=== PATIENT | female | born 1985 | race African-American/Black ===

== ENCOUNTER 2016-06-17 09:34 | Emergency (ER) | payer OTHER ==
[~2016-06-17] VITALS: Wt 90.9 kg
[~2016-06-17 09:34] MED LIST: ADV25050 INH; DOCU-144 PO; FER325 PO; HYDR-906 PO; MONT10TA24 PO; NYST15CR28 TOP; TBR.3OP5 RIGHT EYE
[2016-06-17 11:23] LABS: URINE BLOOD (Dip) POC Negative (NEGATIVE)
[2016-06-17 11:55] LABS: ALBUMIN 4.3 g/dl (3.3-4.9); POTASSIUM 3.5 mmol/L (3.5-5.1)
[2016-06-17 11:56] LABS: HEMATOCRIT 24.2 % (37.0-47.0); HEMOGLOBIN 7.7 g/dl (12.0-16.0); MEAN CORPUSCULAR HEMOGLOBIN 22.7 pg (29.0-33.0); MEAN CORPUSCULAR HGB CONC 31.8 g/dl (32.0-37.0); MEAN CORPUSCULAR VOLUME 71.2 fl (82.0-101.0); MEAN PLATELET VOLUME 8.5 fl (7.4-10.4); PLATELET COUNT 535 10^3/UL (140-440); UNCORRECTED WBC 8.3 10^3/ul (4.8-10.8); WHITE BLOOD COUNT 8.3 10^3/ul (4.8-10.8)
[2016-06-17 11:57] LABS: CREATININE 0.69 mg/dl (0.44-1.00)
[2016-06-17 11:58] LABS: ALBUMIN/GLOBULIN RATIO 1.22; CONDITION 1; LH ANALYZER COMMENTS 1; TOTAL PROTEIN 7.8 g/dl (6.1-8.1)
[2016-06-17 11:59] LABS: CALCIUM 8.9 mg/dl (8.4-10.2)
--- NOTE | 2016-06-17 12:00 | RADRPT ---
PROCEDURE: US Pelvis CLINICAL INDICATION: Pelvic pain. TECHNIQUE: Transabdominal and transvaginal sonographic evaluation of the pelvis was performed. COMPARISON: 04/13/2016. FINDINGS: There is an enlarged heterogeneous uterus with multiple uterine fibroids; largest is a posterior sub mucosal fibroid measuring 3.4 x 3.9 cm. There is poor visualization of the endometrial stripe. Normal flow to both ovaries. No adnexal mass. Normal-appearing follicles are identified within the bilateral ovaries. Small free pelvic fluid, likely physiologic. MEASUREMENTS: Uterus: 10.3 x 7.8 cm, anteverted. Right ovary size: 4.5 x 2.8 x 3.9 cm Left ovary size: 3.7 x 2.6 x 3.0 cm IMPRESSION: Heterogeneous uterus with multiple uterine uterine fibroids with poor visualization of the endometri um. Normal-appearing follicles identified within the bilateral ovaries without worrisome adnexal cyst or mass. Small free fluid in the pelvis, likely physiologic. RPTAT: EE .Glenn Alcazar MD, MD Date Time Electronically viewed and signed by .Glenn Alcazar MD, on 06/17/2016 12:03 .C/
[2016-06-17 12:05] LABS: INR 1.02; PROTIME 13.4 Sec (12.2-14.2)
[2016-06-17 12:25] LABS: EOSINOPHILS # 0.6 10^3/ul (0.0-0.5); LYMPHOCYTES # 1.9 10^3/ul (0.8-2.9); MONOCYTE # 0.9 10^3/ul (0.3-0.9); NEUTROPHIL # 4.9 10^3/ul (1.6-7.5)
[2016-06-17 12:26] LABS: ANISOCYTOSIS 2+; HYPOCHROMASIA 2+; MICROCYTOSIS 2+; OVALOCYTES OCCASIONAL
[2016-06-17] MEDS ORDERED: FER325 PO (12:31)
[2016-06-17] MEDS ORDERED: ASCO500C7 PO (12:32)
[2016-06-17] MEDS ORDERED: FERROUS SULFATE (EC) 325 MG TAB PO ONE (13:00)
--- NOTE | 2016-06-17 17:09 | ERD ---
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 Patient states that her symptoms started approximately one week ago. Patient describes the pain to be a 7 out of 10. She states that her symptoms are episodic in nature. Patient denies fever, chills, nausea or vomiting. Patient denies any vaginal bleeding, melena or hematochezia. States her last bowel movement yesterday. She denies any dysuria, frequency or hematuria. She denies any lightheadness, or loss of consciousness. She states that she's not been taking iron supplements that she was prescribed. Of note, at previous hospitalization, patient was noted to leave against medical advice despite being placed on a 5150. ROS All systems reviewed and are negative except as per history of present illness. Medications Home Meds Active Scripts Ascorbic Acid* (Vitamin C*) 500 Mg Capsule.sa, 500 MG PO TID, #90 CAP Prov:RACHEL LAUREN PA-C 06/17/16 Ferrous Sulfate* (Ferrous Sulfate*) 325 Mg Tabec, 325 MG PO TID for 30 Days, # 90 TAB Prov:RACHEL LAUREN PA-C 06/17/16 Hydrocodone/Acetaminophen ([place] 5-325 Tablet) 1 Each Tablet, 1 EACH PO Q6 Y for PAIN, #20 TAB Prov:LEILANI BABB NP 04/16/16 Tobramycin Sulfate* (Tobrex*) 0.3%-5ml Opht, 1 DROP RIGHT EYE QID for 7 Days, # 1 BOTTLE Prov:LEILANI BABB NP 04/16/16 Nystatin* (Nystatin*) 15 Gm Cr, 1 APPLIC TOP BID, #1 TUB TO APPLY UNDER BREAST AREA Prov:LEILANI BABB NP 04/16/16 Salmeterol Xinaf/Fluticasone* (Advair*) 250-50 Diskus Inhaler, 1 INH INH BID, # 1 INHALER Prov:LEILANI BABB NP 04/16/16 Montelukast Sodium* (Montelukast Sodium*) 10 Mg Tablet, 10 MG PO HS for 30 Days , TAB Prov:BABB,LEILANI V. CERTIFIED WELLNESS PROGRAM COORDINATOR 04/16/16 Docusate Sodium* (Colace*) 100 Mg Capsule, 100 MG PO BID, #60 CAP Prov:BABB,LEILANI V. CERTIFIED WELLNESS PROGRAM COORDINATOR 04/16/16 Ferrous Sulfate* (Ferrous Sulfate*) 325 Mg Tabec, 325 MG PO BID for 30 Days, TAB Prov:BABB,LEILANI V. CERTIFIED WELLNESS PROGRAM COORDINATOR 04/16/16 Allergies Allergies: Coded Allergies: No Known Allergy (Unverified , 04/13/16) PMhx/Soc History of Surgery: Yes (fibroidectomy) Anesthesia Reaction: No Hx Neurological Disorder: No Hx Respiratory Disorders: No Hx Cardiac Disorders: No Hx Psychiatric Problems: Yes Hx Miscellaneous Medical Probl: Yes (Anemia) Hx Alcohol Use: Yes Hx Substance Use: Yes Hx Tobacco Use: No Physical Exam Vitals Vital Signs Date Time Temp Pulse Resp B/P Pulse Ox O2 Delivery O2 Flow Rate FiO2 06/17/16 09:58 98.9 90 20 128/67 99 Physical Exam GENERAL: Well-developed, well-nourished female. Appears in no acute distress. HEAD: Normocephalic, atraumatic. EYES: Pupils are equally reactive bilaterally. EOMs grossly intact. No conjunctival erythema. No Conjunctiva pallor ENT: Moist mucous membranes. No uvula deviation. No kissing tonsils. NECK: Supple. No lymphadenopathy or thyromegaly. No meningismus. LUNG: Clear to auscultation bilaterally. No rhonchi, wheezing, rales or coarse breath sounds. HEART: Regular rate and rhythm. No murmurs, rubs or gallops. ABDOMEN: Soft and nondistended. Tender to palpation in the suprapubic region. Positive bowel sounds in all four quadrants. No rebound tenderness, no guarding. (-) McBurneys point tenderness. No CVA tenderness. BACK: No midline tenderness. EXTREMITIES: Equal pulses bilaterally. No peripheral clubbing, cyanosis or edema. No unilateral leg swelling. NEUROLOGIC: Alert and oriented. Moving all four extremities without any difficulty. Normal speech. Steady gait. SKIN: Normal color. Warm and dry. No rashes or lesions. PSYCH: Randomly laughing throughout history taking and physical exam at inappropriate times. Result Diagram: 06/17/16 1124 06/17/16 1124 Results 24 hrs Laboratory Tests Test 06/17/16 11:23 06/17/16 11:24 Bedside Urine Blood Negative Bedside Urine Glucose (UA) Negative Bedside Urine Ketones (LAB) Negative Bedside Urine Leukocyte Esterase (L Negative Bedside Urine Nitrite (LAB) Negative Bedside Urine Protein (LAB) Trace Bedside Urine pH (LAB) 5.5 Activated Partial Thromboplast Time 33.0Sec Alanine Aminotransferase (ALT/SGPT) 18IU/L Albumin 4.3g/dl Albumin/Globulin Ratio 1.22 Alkaline Phosphatase 49IU/L Anion Gap 17 Anisocytosis 2+ Aspartate Amino Transf (AST/SGOT) 16IU/L Blood Morphology Comment Blood Urea Nitrogen 10mg/dl Calcium Level 8.9mg/dl Carbon Dioxide Level 21mmol/L Chloride Level 109mmol/L Creatinine 0.69mg/dl Differential Comment MANUAL DIFF Direct Bilirubin 0.00mg/dl Eosinophils # 0.610^3/ul Eosinophils % 7.0% Globulin 3.50g/dl Glucose Level 92mg/dl Hematocrit 24.2% Hemoglobin 7.7g/dl Hypochromasia 2+ INR International Normalized Ratio 1.02 Indirect Bilirubin 0.0mg/dl Large Platelets FEW Lymphocytes # 1.910^3/ul Lymphocytes % 23.0% Mean Corpuscular Hemoglobin 22.7pg Mean Corpuscular Hemoglobin Concent 31.8g/dl Mean Corpuscular Volume 71.2fl Mean Platelet Volume 8.5fl Microcytosis 2+ Monocytes # 0.910^3/ul Monocytes % 11.0% Neutrophils # 4.910^3/ul Neutrophils % 59.0% Nucleated Red Blood Cells # 10^3/ul Nucleated Red Blood Cells % /100WBC Ovalocytes OCCASIONAL Platelet Count 67138^3/UL Potassium Level 3.5mmol/L Prothrombin Time 13.4Sec Prothrombin Time Ratio 1.0 Red Blood Count 3.4010^6/ul Red Cell Distribution Width 24.0% Sodium Level 143mmol/L Total Bilirubin 0.0mg/dl Total Protein 7.8g/dl White Blood Count 8.310^3/ul Current Medications Medications (Trade) Dose Ordered Sig/Braden Route PRN Reason Start Time Stop Time Status Last Admin Dose Admin Ferrous Sulfate (Ferrous Sulfate (Ec)) 325 mg ONCE ONCE PO 06/17/16 13:00 06/17/16 13:00 DC Procedures/MDM ED COURSE: The patient was stable throughout ED course. I kept the patient and/or family informed of laboratory and diagnostic imaging results throughout the ED course. DIAGNOSTIC IMAGING: Read by radiologist. DIAGNOSTIC IMAGING REPORT Patient: JUDSON FELDMAN : 1985 Age: 30 Sex: F MR #: [id number] DOS: 06/17/16 1105 Ordering MD: RACHEL LAUREN PA-C Location: [facility] Room/Bed: PROCEDURE: US Pelvis CLINICAL INDICATION: Pelvic pain. TECHNIQUE: Transabdominal and transvaginal sonographic evaluation of the pelvis was performed. COMPARISON: 04/13/2016. FINDINGS: There is an enlarged heterogeneous uterus with multiple uterine fibroids; largest is a posterior submucosal fibroid measuring 3.4 x 3.9 cm. There is poor visualization of the endometrial stripe. Normal flow to both ovaries. No adnexal mass. Normal-appearing follicles are identified within the bilateral ovaries. Small free pelvic fluid, likely physiologic. MEASUREMENTS: Uterus: 10.3 x 7.8 cm, anteverted. Right ovary size: 4.5 x 2.8 x 3.9 cm Left ovary size: 3.7 x 2.6 x 3.0 cm IMPRESSION: Heterogeneous uterus with multiple uterine uterine fibroids with poor visualization of the endometrium. Normal-appearing follicles identified within the bilateral ovaries without worrisome adnexal cyst or mass. Small free fluid in the pelvis, likely physiologic. RPTAT: EE .Glenn Alcazar MD, Date Time Electronically viewed and signed by .Glenn Alcazar MD, on 06/17/2016 12:03 .C/ CC: RACHEL LAUREN PA-C MEDICATIONS GIVEN: Ferrous sulfate Patient tolerated medication well with no adverse reactions. Patient reported improvement in pain. MEDICAL DECISION MAKING: This is a 30-year-old female with past medical history of anemia who presents with lower abdominal pain and cramping times one week. Patient denied any signs of active bleeding including melena, hematochezia, vaginal bleeding. Vital signs were reviewed. Patient is afebrile, patient was not hypoxic. Patient was hemodynamically stable. Abdominal exam revealed tenderness to palpation in suprapubic region. CBC showed no evidence of systemic infection. Patient's hemoglobin level was 7.7, with hematocrit of 24.2. Platelet count CMP showed no evidence of electrolyte abnormalities, severe acidosis, alkalosis, renal failure , or liver disease. Lipase showed no evidence of acute pancreatitis. Urine dip showed no evidence of acute infection or hematuria. Low suspicion for UTI, pyelonephritis or nephrolithiasis. Urine test was negative. Pelvic ultrasound showed Heterogeneous uterus with multiple uterine uterine fibroids with poor visualization of the endometrium. Normal-appearing follicles identified within the bilateral ovaries without worrisome adnexal cyst or mass. Small free fluid in the pelvis, likely physiologic. At this time, patient's presentation is most consistent with anemia and uterine fibroids. I have a much lower clinical concern for a pancreatitis, splenic rupture, diverticulitis, UTI, pyelonephritis, nephrolithiasis, appendicitis, constipation, , ectopic , PID, ovarian torsion or tubo- ovarian abscess. I discussed the case with my supervising physician Dr. Griffin, who advised me to speak with patient in regards to getting a blood transfusion here in the ED. I had discussion with patient regarding her hemoglobin levels. I advised the patient at this time, she could benefit from a blood transfusion. I discussed the risks of not having a blood transfusion with the patient including blood loss or . Patient continued to refuse treatment despite my attempts and nursing staff attempts. Patient stated that she wished to go home at this time. I advised patient that she needs to start taking iron supplements daily. Patient stated that "I am not going to lie to you, I am not going to take the medication because it makes me constipated." I discussed the patient's options with her again, and strongly urged her to take iron supplements. I advised that the patient to take vitamin C supplements to avoid constipation while on iron supplementation. Patient was advised to return immediately to emergency department for any new or worsening concerns including abdominal pain, nausea, vomiting, lightheadedness, loss of consciousness. PRESCRIPTIONS: Ferrous sulfate supplements, Vitamin C DISCHARGE: At this time, patient is stable for discharge and outpatient management. Dr. Griffin, my supervising physician, agreed that the patient is stable for outpatient management and should start Fe supplementation with Vitamin C daily. I have instructed the patient to follow-up with his/her primary care physician in 1-2 days. I have instructed the patient to promptly return to the ER at any time for any new or worsening symptoms including increased pain, nausea, vomiting, diarrhea, fever, weakness or LOC. The patient and/or family expressed understanding of and agreement with this plan. All questions were answered. Home care instructions were provided. Departure Diagnosis: Primary Impression: Anemia Anemia type: unspecified type Qualified Code: D64.9 - Anemia, unspecified type Additional Impressions: Abdominal pain Abdominal location: lower abdomen, unspecified Qualified Code: R10.30 - Lower abdominal pain Fibroid uterus Uterine leiomyoma location: unspecified location Qualified Code: D25.9 - Uterine leiomyoma, unspecified location Condition: Stable Patient Instructions: Anemia, Iron Deficiency (Adult) Referrals: [facility] YOU HAVE RECEIVED A MEDICAL SCREENING EXAM AND THE RESULTS INDICATE THAT YOU DO NOT HAVE A CONDITION THAT REQUIRES URGENT TREATMENT IN THE EMERGENCY DEPARTMENT. FURTHER EVALUATION AND TREATMENT OF YOUR CONDITION CAN WAIT UNTIL YOU ARE SEEN IN YOUR DOCTORS OFFICE WITHIN THE NEXT 1-2 DAYS. IT IS YOUR RESPONSIBILITY TO MAKE AN APPOINTMENT FOR FOLOW-UP CARE. IF YOU HAVE A PRIMARY DOCTOR --you should call your primary doctor and schedule an appointment IF YOU DO NOT HAVE A PRIMARY DOCTOR YOU CAN CALL OUR PHYSICIAN REFERRAL HOTLINE AT IF YOU CAN NOT AFFORD TO SEE A PHYSICIAN YOU CAN CHOSE FROM THE FOLLOWING [facility] [address] [facility] [address] [facility] [address] [facility] [address] [facility] [address] [facility]. [facility]. [address] [facility]. [facility] YOU HAVE RECEIVED A MEDICAL SCREENING EXAM AND THE RESULTS INDICATE THAT YOU DO NOT HAVE A CONDITION THAT REQUIRES URGENT TREATMENT IN THE EMERGENCY DEPARTMENT. FURTHER EVALUATION AND TREATMENT OF YOUR CONDITION CAN WAIT UNTIL YOU ARE SEEN IN YOUR DOCTORS OFFICE WITHIN THE NEXT 1-2 DAYS. IT IS YOUR RESPONSIBILITY TO MAKE AN APPOINTMENT FOR FOLOW-UP CARE. IF YOU HAVE A PRIMARY DOCTOR --you should call your primary doctor and schedule and appointment IF YOU DO NOT HAVE A PRIMARY DOCTOR YOU CAN CALL OUR PHYSICIAN REFERRAL HOTLINE AT . IF YOU CAN NOT AFFORD TO SEE A PHYSICIAN YOU CAN CHOSE FROM THE FOLLOWING [facility] INSTITUTIONS: [facility] [address] [place] [address] [facility] [address] [place] [address] [facility] [address] [place] [address] Additional Instructions: Call your primary care doctor TOMORROW for an appointment during the next 1-2 days.See the doctor sooner or return here if your condition worsens before your appointment time. Take iron supplements as prescribed. Take with Vitamin C to prevent constipation. RACHEL LAUREN PA-C Jun 17, 2016 17:09
== END 2016-06-17 12:46 | disposition home or self-care (01) ==
LOC: FTE 09:34
DX: D64.9 Anemia, unspecified (principal); R10.2 Pelvic and perineal pain
CPT/HCPCS: 76830; 76856; 80053; 81003; 85025; 85610; 85730; Z7502

== ENCOUNTER 2016-07-19 16:41 | Emergency (ER) | payer SELFPAY ==
[~2016-07-19] VITALS: Wt 110.0 kg
[~2016-07-19 16:41] MED LIST changes: +ASCO500C7 PO
== END 2016-07-19 18:50 | disposition left against medical advice (07) ==
LOC: FTE 16:41
DX: Z53.21 Procedure and treatment not carried out due to patient leaving prior to being seen by health care provider (principal)

== ENCOUNTER 2016-08-03 09:26 | Emergency (ER) | payer OTHER ==
[~2016-08-03] VITALS: Ht 177.8 cm; Wt 109.0 kg
[2016-08-03 09:37] VITALS: Ht 177.8 cm; Wt 109.0 kg
--- NOTE | 2016-08-03 09:54 | ERD ---
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 ROS All systems reviewed and are negative except as per history of present illness. Medications Home Meds Discontinued Scripts Ascorbic Acid* (Vitamin C*) 500 Mg Capsule.sa, 500 MG PO TID, #90 CAP Prov:RACHEL LAUREN PA-C 06/17/16 Ferrous Sulfate* (Ferrous Sulfate*) 325 Mg Tabec, 325 MG PO TID for 30 Days, # 90 TAB Prov:RACHEL LAUREN PA-C 06/17/16 Hydrocodone/Acetaminophen ([place] 5-325 Tablet) 1 Each Tablet, 1 EACH PO Q6 Y for PAIN, #20 TAB Prov:LEILANI BABB NP 04/16/16 Tobramycin Sulfate* (Tobrex*) 0.3%-5ml Opht, 1 DROP RIGHT EYE QID for 7 Days, # 1 BOTTLE Prov:LEILANI BABB NP 04/16/16 Nystatin* (Nystatin*) 15 Gm Cr, 1 APPLIC TOP BID, #1 TUB TO APPLY UNDER BREAST AREA Prov:LEILANI BABB NP 04/16/16 Salmeterol Xinaf/Fluticasone* (Advair*) 250-50 Diskus Inhaler, 1 INH INH BID, # 1 INHALER Prov:LEILANI BABB NP 04/16/16 Montelukast Sodium* (Montelukast Sodium*) 10 Mg Tablet, 10 MG PO HS for 30 Days , TAB Prov:LEILANI BABB NP 04/16/16 Docusate Sodium* (Colace*) 100 Mg Capsule, 100 MG PO BID, #60 CAP Prov:SHARON BABBA [place] 04/16/16 Ferrous Sulfate* (Ferrous Sulfate*) 325 Mg Tabec, 325 MG PO BID for 30 Days, TAB Prov:LEILANI BABB NP 04/16/16 Allergies Allergies: Coded Allergies: No Known Allergy (Unverified , 08/03/16) PMhx/Soc History of Surgery: Yes (fibroidectomy) Anesthesia Reaction: No Hx Neurological Disorder: No Hx Respiratory Disorders: No Hx Cardiac Disorders: No Hx Psychiatric Problems: Yes Hx Miscellaneous Medical Probl: Yes (Anemia) Hx Alcohol Use: Yes Hx Substance Use: Yes Hx Tobacco Use: No Physical Exam Vitals Vital Signs Date Time Temp Pulse Resp B/P Pulse Ox O2 Delivery O2 Flow Rate FiO2 08/03/16 12:09 98.7 81 20 132/100 100 Room Air 08/03/16 11:22 66 20 141/85 98 Room Air 08/03/16 09:37 98.8 95 16 143/75 97 Result Diagram: 08/03/16 1020 08/03/16 1020 Results 24 hrs Laboratory Tests Test 08/03/16 10:20 08/03/16 10:40 Alanine Aminotransferase (ALT/SGPT) 17IU/L Albumin 4.2g/dl Albumin/Globulin Ratio 1.05 Alkaline Phosphatase 48IU/L Anion Gap 18 Aspartate Amino Transf (AST/SGOT) 22IU/L Basophils # 0.010^3/ul Basophils % 0.5% Blood Urea Nitrogen 14mg/dl Calcium Level 9.4mg/dl Carbon Dioxide Level 23mmol/L Chloride Level 107mmol/L Creatinine 0.79mg/dl Direct Bilirubin 0.00mg/dl Eosinophils # 0.310^3/ul Eosinophils % 3.4% Globulin 4.00g/dl Glucose Level 91mg/dl Hematocrit 23.5% Hemoglobin 6.8g/dl Indirect Bilirubin 0.0mg/dl Lipase 82U/L Lymphocytes # 2.310^3/ul Lymphocytes % 28.9% Mean Corpuscular Hemoglobin 21.9pg Mean Corpuscular Hemoglobin Concent 28.9g/dl Mean Corpuscular Volume 75.8fl Mean Platelet Volume 10.0fl Monocytes # 0.610^3/ul Monocytes % 7.9% Neutrophils # 4.710^3/ul Neutrophils % 58.8% Nucleated Red Blood Cells # 0.010^3/ul Nucleated Red Blood Cells % 0.3/100WBC Platelet Count 97381^3/UL Potassium Level 3.8mmol/L Red Blood Count 3.1010^6/ul Red Cell Distribution Width 23.7% Sodium Level 144mmol/L Total Bilirubin 0.0mg/dl Total Protein 8.2g/dl White Blood Count 8.010^3/ul Bedside Urine Blood Trace-lysed Bedside Urine Glucose (UA) Negative Bedside Urine Ketones (LAB) Negative Bedside Urine Leukocyte Esterase (L Negative Bedside Urine Nitrite (LAB) Negative Bedside Urine Protein (LAB) Negative Bedside Urine pH (LAB) 6.0 Current Medications Medications (Trade) Dose Ordered Sig/Braden Route PRN Reason Start Time Stop Time Status Last Admin Dose Admin Sodium Chloride (NS) 1,000 ml @ 1,000 mls/hr Q1H STAT IV 08/03/16 10:05 08/03/16 11:04 DC 08/03/16 10:23 Ondansetron HCl (Zofran Inj) 4 mg ONCE STAT IV 08/03/16 10:05 08/03/16 10:08 DC 08/03/16 10:23 Ketorolac Tromethamine 30 mg 30 mg ONCE STAT IV 08/03/16 10:05 08/03/16 10:08 DC 08/03/16 10:23 Sodium Chloride (NS) 250 ml @ 0 mls/hr Q0M ONCE IV 08/03/16 11:14 08/03/16 11:16 DC Departure Condition: Stable RACHEL LAUREN PA-C Aug 03, 2016 09:54
[2016-08-03] MEDS ORDERED: KETOROLAC 30 MG INJ IV STA (10:05)
[2016-08-03] MEDS ORDERED: ONDANSETRON 4 MG INJ IV STA (10:05)
[2016-08-03] MEDS ORDERED: SOD CHLORIDE 0.9% 1,000 ML IV STA (10:05)
[2016-08-03 10:37] LABS: URINE BLOOD (Dip) POC Trace-lysed (NEGATIVE)
[2016-08-03 10:42] LABS: ADD SCAN DIFF NO
[2016-08-03 10:56] LABS: ABNORMAL IP MESSAGE 1; BASOPHILS % 0.5 % (0.0-2.0); EOSINOPHILS # 0.3 10^3/ul (0.0-0.5); EOSINOPHILS % 3.4 % (0.0-7.0); HEMATOCRIT 23.5 % (37.0-47.0); LYMPHOCYTES # 2.3 10^3/ul (0.8-2.9); LYMPHOCYTES % 28.9 % (15.0-51.0); MEAN CORPUSCULAR HEMOGLOBIN 21.9 pg (29.0-33.0); MEAN CORPUSCULAR HGB CONC 28.9 g/dl (32.0-37.0); MEAN CORPUSCULAR VOLUME 75.8 fl (82.0-101.0); MONOCYTE # 0.6 10^3/ul (0.3-0.9); MONOCYTES % 7.9 % (0.0-11.0); NEUTROPHIL # 4.7 10^3/ul (1.6-7.5); NEUTROPHILS % 58.8 % (39.0-77.0); NUCLEATED RED BLOOD CELLS% 0.3 /100WBC (0.0-0.0); PLATELET COUNT 663 10^3/UL (140-415); RED CELL DISTRIBUTION WIDTH 23.7 % (11.5-14.5)
[2016-08-03 11:06] LABS: HEMOGLOBIN 6.8 g/dl (12.0-16.0)
[2016-08-03 11:12] LABS: ALBUMIN 4.2 g/dl (3.3-4.9)
[2016-08-03 11:13] LABS: POTASSIUM 3.8 mmol/L (3.5-5.1)
[2016-08-03] MEDS ORDERED: SOD CHLORIDE 0.9% 250 ML IV ONE (11:14)
[2016-08-03 11:15] LABS: ALBUMIN/GLOBULIN RATIO 1.05; CREATININE 0.79 mg/dl (0.44-1.00); TOTAL PROTEIN 8.2 g/dl (6.1-8.1)
[2016-08-03 11:16] LABS: CALCIUM 9.4 mg/dl (8.4-10.2)
[2016-08-03] MEDS ORDERED: FER325 PO (12:43)
--- NOTE | 2016-08-03 12:43 | ERD ---
ER Documentation Chief Complaint Date/Time DATE: 08/03/16 TIME: 12:39 Chief Complaint CONSTANT HEADACHE W/ DIZZINESS & NAUSEA X1 WEEK HPI This 30-year-old female presents to the emergency room for evaluation of weakness, nausea, and heavy menstrual cycle for the past week. The patient does say she has a history of fibroids and has had a myomectomy in the past. She states that she was on her menstrual cycle and did note heavy vaginal bleeding. She came to the ER today for evaluation of weakness. She did state that she is supposed be taking iron supplement however she has not been taking it. ROS All systems reviewed and are negative except as per history of present illness. Medications Home Meds Discontinued Scripts Ascorbic Acid* (Vitamin C*) 500 Mg Capsule.sa, 500 MG PO TID, #90 CAP Prov:RACHEL LAUREN PA-C 06/17/16 Ferrous Sulfate* (Ferrous Sulfate*) 325 Mg Tabec, 325 MG PO TID for 30 Days, # 90 TAB Prov:RACHEL LAUREN PA-C 06/17/16 Hydrocodone/Acetaminophen (Mesa 5-325 Tablet) 1 Each Tablet, 1 EACH PO Q6 Y for PAIN, #20 TAB Prov:LEILANI BABB NP 04/16/16 Tobramycin Sulfate* (Tobrex*) 0.3%-5ml Opht, 1 DROP RIGHT EYE QID for 7 Days, # 1 BOTTLE Prov:LEILANI BABB NP 04/16/16 Nystatin* (Nystatin*) 15 Gm Cr, 1 APPLIC TOP BID, #1 TUB TO APPLY UNDER BREAST AREA Prov:LEILANI BABB NP 04/16/16 Salmeterol Xinaf/Fluticasone* (Advair*) 250-50 Diskus Inhaler, 1 INH INH BID, # 1 INHALER Prov:LEILANI BABB NP 04/16/16 Montelukast Sodium* (Montelukast Sodium*) 10 Mg Tablet, 10 MG PO HS for 30 Days , TAB Prov:LEILANI BABB NP 04/16/16 Docusate Sodium* (Colace*) 100 Mg Capsule, 100 MG PO BID, #60 CAP Prov:LEILANI BABB NP 04/16/16 Ferrous Sulfate* (Ferrous Sulfate*) 325 Mg Tabec, 325 MG PO BID for 30 Days, TAB Prov:LEILANI BABB V. 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 Allergies Allergies: Coded Allergies: No Known Allergy (Unverified , 08/03/16) PMhx/Soc History of Surgery: Yes (fibroidectomy) Anesthesia Reaction: No Hx Neurological Disorder: No Hx Respiratory Disorders: No Hx Cardiac Disorders: No Hx Psychiatric Problems: Yes Hx Miscellaneous Medical Probl: Yes (Anemia) Hx Alcohol Use: Yes Hx Substance Use: Yes Hx Tobacco Use: No Physical Exam Vitals Vital Signs Date Time Temp Pulse Resp B/P Pulse Ox O2 Delivery O2 Flow Rate FiO2 08/03/16 12:09 98.7 81 20 132/100 100 Room Air 08/03/16 11:22 66 20 141/85 98 Room Air 08/03/16 09:37 98.8 95 16 143/75 97 Physical Exam INITIAL VITAL SIGNS: Reviewed by me GENERAL: The patient is well developed and appropriate for usual state of health in no apparent distress HEENT: Pupils equal, round, and reactive to light. EOMI. There is no scleral icterus. NECK: C-spine is soft and supple, there is no meningismus. There is no cervical lymphadenopathy. LUNGS: Clear to auscultation bilaterally. There are no rales, wheezes or rhonchi. HEART: Regular rate and rhythm, no murmurs, clicks, rubs or gallops. ABDOMEN: Soft, non-tender, non-distended. There are bowel sounds in all four quadrants. No rebound or guarding. EXTREMITIES: There is no peripheral cyanosis or edema. No focal swelling or erythema. NEUROLOGICAL: The patient moves all four extremities with 5/5 strength. Cranial nerves II - XII are intact. Normal gait. Alert and oriented SKIN: There is no apparent rash or petechiae. HEME/LYMPHATIC: There is no evidence of excessive bruising or lymphedema. PSYCHIATRIC: The patient does not appear anxious or depressed. Result Diagram: 08/03/16 1020 08/03/16 1020 Results 24 hrs Laboratory Tests Test 08/03/16 10:20 08/03/16 10:40 Alanine Aminotransferase (ALT/SGPT) 17IU/L Albumin 4.2g/dl Albumin/Globulin Ratio 1.05 Alkaline Phosphatase 48IU/L Anion Gap 18 Aspartate Amino Transf (AST/SGOT) 22IU/L Basophils # 0.010^3/ul Basophils % 0.5% Blood Urea Nitrogen 14mg/dl Calcium Level 9.4mg/dl Carbon Dioxide Level 23mmol/L Chloride Level 107mmol/L Creatinine 0.79mg/dl Direct Bilirubin 0.00mg/dl Eosinophils # 0.310^3/ul Eosinophils % 3.4% Globulin 4.00g/dl Glucose Level 91mg/dl Hematocrit 23.5% Hemoglobin 6.8g/dl Indirect Bilirubin 0.0mg/dl Lipase 82U/L Lymphocytes # 2.310^3/ul Lymphocytes % 28.9% Mean Corpuscular Hemoglobin 21.9pg Mean Corpuscular Hemoglobin Concent 28.9g/dl Mean Corpuscular Volume 75.8fl Mean Platelet Volume 10.0fl Monocytes # 0.610^3/ul Monocytes % 7.9% Neutrophils # 4.710^3/ul Neutrophils % 58.8% Nucleated Red Blood Cells # 0.010^3/ul Nucleated Red Blood Cells % 0.3/100WBC Platelet Count 96958^3/UL Potassium Level 3.8mmol/L Red Blood Count 3.1010^6/ul Red Cell Distribution Width 23.7% Sodium Level 144mmol/L Total Bilirubin 0.0mg/dl Total Protein 8.2g/dl White Blood Count 8.010^3/ul Bedside Urine Blood Trace-lysed Bedside Urine Glucose (UA) Negative Bedside Urine Ketones (LAB) Negative Bedside Urine Leukocyte Esterase (L Negative Bedside Urine Nitrite (LAB) Negative Bedside Urine Protein (LAB) Negative Bedside Urine pH (LAB) 6.0 Current Medications Medications (Trade) Dose Ordered Sig/Braden Route PRN Reason Start Time Stop Time Status Last Admin Dose Admin Sodium Chloride (NS) 1,000 ml @ 1,000 mls/hr Q1H STAT IV 08/03/16 10:05 08/03/16 11:04 DC 08/03/16 10:23 Ondansetron HCl (Zofran Inj) 4 mg ONCE STAT IV 08/03/16 10:05 08/03/16 10:08 DC 08/03/16 10:23 Ketorolac Tromethamine 30 mg 30 mg ONCE STAT IV 08/03/16 10:05 08/03/16 10:08 DC 3/3/17 10:23 Sodium Chloride (NS) 250 ml @ 0 mls/hr Q0M ONCE IV 08/03/16 11:14 08/03/16 11:16 DC Procedures/MDM This 30-year-old female presents to the emergency room for evaluation of generalized weakness and heavy vaginal bleeding. She does have a history of fibroids and leiomyomas with a previous myomectomy. This patient has had hemoglobins as low as 80 in the past. Today I did obtain lab work and her hemoglobin was 6.8. She is not hypotensive, not tachycardic. She was transfused 2 units of packed red blood cells and will be discharged home after transfusions complete. Advised her to take her iron supplements as she is prescribed and she verbalized understanding Departure Diagnosis: Primary Impression: Microcytic anemia Additional Impression: Menorrhagia Condition: Stable Patient Instructions: Anemia, Iron Deficiency (Adult) Referrals: COMMUNITY CLINICS YOU HAVE RECEIVED A MEDICAL SCREENING EXAM AND THE RESULTS INDICATE THAT YOU DO NOT HAVE A CONDITION THAT REQUIRES URGENT TREATMENT IN THE EMERGENCY DEPARTMENT. FURTHER EVALUATION AND TREATMENT OF YOUR CONDITION CAN WAIT UNTIL YOU ARE SEEN IN YOUR DOCTORS OFFICE WITHIN THE NEXT 1-2 DAYS. IT IS YOUR RESPONSIBILITY TO MAKE AN APPOINTMENT FOR FOLOW-UP CARE. IF YOU HAVE A PRIMARY DOCTOR --you should call your primary doctor and schedule an appointment IF YOU DO NOT HAVE A PRIMARY DOCTOR YOU CAN CALL OUR PHYSICIAN REFERRAL HOTLINE AT IF YOU CAN NOT AFFORD TO SEE A PHYSICIAN YOU CAN CHOSE FROM THE FOLLOWING [facility] CLINICS [facility] [place] [address] [facility]. [facility] [address] [facility]. [facility] [address] [facility]. [facility] [address] [facility]. [facility] [address] [facility]. [facility]. [address] [facility]. [facility] YOU HAVE RECEIVED A MEDICAL SCREENING EXAM AND THE RESULTS INDICATE THAT YOU DO NOT HAVE A CONDITION THAT REQUIRES URGENT TREATMENT IN THE EMERGENCY DEPARTMENT. FURTHER EVALUATION AND TREATMENT OF YOUR CONDITION CAN WAIT UNTIL YOU ARE SEEN IN YOUR DOCTORS OFFICE WITHIN THE NEXT 1-2 DAYS. IT IS YOUR RESPONSIBILITY TO MAKE AN APPOINTMENT FOR FOLOW-UP CARE. IF YOU HAVE A PRIMARY DOCTOR --you should call your primary doctor and schedule and appointment IF YOU DO NOT HAVE A PRIMARY DOCTOR YOU CAN CALL OUR PHYSICIAN REFERRAL HOTLINE AT . IF YOU CAN NOT AFFORD TO SEE A PHYSICIAN YOU CAN CHOSE FROM THE FOLLOWING [facility] INSTITUTIONS: [facility] [address] [place] [address] [facility] [address] [place] [address] [facility] [address] [place] [address] Additional Instructions: Call your primary care doctor TOMORROW for an appointment during the next 1-2 days.See the doctor sooner or return here if your condition worsens before your appointment time. YESSY VALDES DO Aug 03, 2016 12:43
[2016-08-03] MEDS ORDERED: ACETAMINOPHEN 500 MG TAB PO STA (12:44)
[2016-08-03 16:50] VITALS: BP 136/87; PULSE 76; RESP 20; TEMP 98.6
== END 2016-08-03 16:50 | disposition home or self-care (01) ==
LOC: FTE 09:26 → E/R 16:50
DX: D50.9 Iron deficiency anemia, unspecified (principal); N92.0 Excessive and frequent menstruation with regular cycle; R11.0 Nausea
CPT/HCPCS: 36430; 80053; 81003; 83690; 85025; 86850; 86900; 86901; 86920; 96374; 96375; J1885; J2405; J7030; J7040; P9016; Z7502; Z7610

== ENCOUNTER 2016-09-03 08:14 | Emergency (ER) | payer OTHER ==
[~2016-09-03] VITALS: Ht 167.6 cm; Wt 111.0 kg
[~2016-09-03 08:14] MED LIST changes: -ADV25050 INH; -ASCO500C7 PO; -DOCU-144 PO; -HYDR-906 PO; -MONT10TA24 PO; -NYST15CR28 TOP; -TBR.3OP5 RIGHT EYE
[2016-09-03 08:15] VITALS: Ht 167.6 cm; Wt 111.0 kg
[2016-09-03] MEDS ORDERED: ONDANSETRON 4 MG INJ IV STA (08:29)
[2016-09-03 09:14] LABS: ADD SCAN DIFF NO
[2016-09-03 09:19] LABS: ABNORMAL IP MESSAGE 1; BASOPHIL # 0.1 10^3/ul (0.0-0.1); BASOPHILS % 0.7 % (0.0-2.0); EOSINOPHILS # 0.3 10^3/ul (0.0-0.5); EOSINOPHILS % 3.5 % (0.0-7.0); HEMATOCRIT 27.9 % (37.0-47.0); HEMOGLOBIN 8.2 g/dl (12.0-16.0); LYMPHOCYTES # 1.9 10^3/ul (0.8-2.9); MEAN CORPUSCULAR HEMOGLOBIN 22.6 pg (29.0-33.0); MEAN CORPUSCULAR HGB CONC 29.4 g/dl (32.0-37.0); MEAN CORPUSCULAR VOLUME 76.9 fl (82.0-101.0); MEAN PLATELET VOLUME 10.2 fl (7.4-10.4); MONOCYTE # 0.5 10^3/ul (0.3-0.9); MONOCYTES % 5.1 % (0.0-11.0); NEUTROPHILS % 68.5 % (39.0-77.0); PLATELET COUNT 759 10^3/UL (140-415); RED BLOOD COUNT 3.63 10^6/ul (4.20-5.40); RED CELL DISTRIBUTION WIDTH 23.8 % (11.5-14.5); WHITE BLOOD COUNT 8.8 10^3/ul (4.8-10.8)
[2016-09-03] MEDS ORDERED: morphine 4 MG/ML VIAL IV STA (09:19)
[2016-09-03 09:30] LABS: ADD UMIC YES; URINE BILIRUBIN (Dip) NEGATIVE (NEGATIVE); URINE BLOOD (Dip) 3+ (NEGATIVE); URINE COLOR LT. YELLOW (YELLOW); URINE GLUCOSE (Dip) NEGATIVE (NEGATIVE); URINE KETONES (Dip) NEGATIVE (NEGATIVE); URINE LEUKOCYTE ESTERASE (Dip) NEGATIVE (NEGATIVE); URINE NITRITE (Dip) NEGATIVE (NEGATIVE); URINE TOTAL PROTEIN (Dip) NEGATIVE (NEGATIVE); URINE UROBILINOGEN (Dip) 0.2 E.U./dL (0.1-1.0)
[2016-09-03 09:30] LABS: ALBUMIN 4.4 g/dl (3.3-4.9)
[2016-09-03 09:31] LABS: POTASSIUM 3.9 mmol/L (3.5-5.1)
[2016-09-03 09:33] LABS: ALBUMIN/GLOBULIN RATIO 1.29; CREATININE 0.72 mg/dl (0.44-1.00); TOTAL PROTEIN 7.8 g/dl (6.1-8.1)
[2016-09-03 09:34] LABS: CALCIUM 8.9 mg/dl (8.4-10.2)
--- NOTE | 2016-09-03 09:35 | RADRPT ---
PROCEDURE: CT Abdomen and Pelvis without contrast. CLINICAL INDICATION: Abdominal pain. Right lower quadrant pain. Gastritis. TECHNIQUE: CT scan of the abdomen and pelvis without contrast was performed on a multi-slice CT sc alexsander without intravenous contrast. Coronal and sagittal reformatted images were obtained from the axial source images. Images were reviewed on a high-resolution PACS workstation. One or more of the following does reduction techniques were used: Automated exposure control; adjustment of the mA an d/or kV according to patient size; use of the aorta of reconstruction technique. The total exam CTD I equals 22.1 mGy and the total exam DLP equals 1468.6 mGy-cm. COMPARISON: CT abdomen pelvis 04/13/2016 FINDINGS: The lung bases are clear. Heart size is normal, and there is no evidence of pericardial thickening or effusion. The liver, spleen, and pancreas are normal given limitations of a noncontrast CT examination. The g allbladder is contracted. . The adrenal glands are normal. The kidneys without renal calculus or hydronephrosis. The aorta is of normal caliber. There is no retroperitoneal lymph node enlargment. There is no evidence of large or small bowel obstruction. There is mild retained colonic stool. A normal appendix is identified.. No free fluid or fluid collections are identified. No inflammator y changes are seen. Small periumbilical hernia and moderate ventral hernia containing only fat are u nchanged in appearance. The uterus is present. The uterus is enlarged with asymmetric mass-like wall thickening of the righ t uterine wall most consistent with leiomyomatous uterus. There is a 3.1 cm cystic structure in the right adnexa, not unexpected finding in a premenopausal female. There is trace pelvic free fluid. No enlarged pelvic sidewall lymph nodes are identified. The bladder is decompressed and collapsed. The inguinal regions are unremarkable. The bones are intact. IMPRESSION: 1. No CT evidence of acute intra-abdominal or pelvic process. 2. No CT evidence of urolithiasis. 3. Fat containing periumbilical and ventral hernias, stable compared to 04/13/2016. 4. Mildly enlarged leiomyomatous uterus. This can be further evaluated with pelvic ultrasound if i ndicated. 5. Trace pelvic free fluid, likely physiologic. RPTAT: KK .Jonathan Winn MD, MD Date Time Electronically viewed and signed by .Jonathan Winn MD, MD on 09/03/2016 09:35 .B/
[2016-09-03 09:42] LABS: SQUAMOUS EPITHELIAL CELL,UR FEW
[2016-09-03 09:43] LABS: BACTERIA,URINE FEW
[2016-09-03] MEDS ORDERED: IBUP-1542 PO (10:22)
[2016-09-03] MEDS ORDERED: ONDA4TAB14 PO (10:23)
--- NOTE | 2016-09-03 10:29 | ERD ---
ER Documentation Chief Complaint Date/Time DATE: 09/03/16 TIME: 10:24 Chief Complaint abd pain with nausea x 4 days HPI Patient is a 31-year-old female with past medical history of fibroids, anemia who presents to the emergency department with right lower quadrant pain 2 days. Patient states that the pain is sharp and constant. Patient states her current pain level is a 9 out of 10. Patient reports nausea however she denies any vomiting. Patient denies any fevers, chills, chest pain, shortness of breath. Patient does report hematuria. She denies any dysuria, frequency or urgency. Patient reports normal bowel movements. Patient denies any rectal bleeding. Patient denies any excessive vaginal bleeding. Patient states her last period was approximately 1 month ago. Patient reports taking her iron supplements daily. ROS All systems reviewed and are negative except as per history of present illness. Medications Home Meds Active Scripts Ondansetron (Ondansetron Odt) 4 Mg Tab.rapdis, 4 MG PO Q6H Y for NAUSEA AND/OR VOMITING, #10 TAB Prov:RACHEL LARUEN PA-C 09/03/16 Ibuprofen* (Motrin*) 600 Mg Tab, 600 MG PO Q6H Y for PAIN AND OR ELEVATED TEMP, #15 TAB Prov:RACHEL LAUREN PA-C 09/03/16 Ferrous Sulfate* (Ferrous Sulfate*) 325 Mg Tabec, 325 MG PO DAILY for 30 Days, TAB Prov:YESSY VALDES DO 08/03/16 Allergies Allergies: Coded Allergies: No Known Allergy (Unverified , 08/03/16) PMhx/Soc History of Surgery: Yes (fibroidectomy) Anesthesia Reaction: No Hx Neurological Disorder: No Hx Respiratory Disorders: No Hx Cardiac Disorders: No Hx Psychiatric Problems: Yes Hx Miscellaneous Medical Probl: Yes (Anemia) Hx Alcohol Use: No Hx Substance Use: No Hx Tobacco Use: No Physical Exam Vitals Vital Signs Date Time Temp Pulse Resp B/P Pulse Ox O2 Delivery O2 Flow Rate FiO2 09/03/16 11:17 98.8 68 18 132/80 98 Room Air 09/03/16 08:15 98.1 78 18 153/87 100 Physical Exam GENERAL: Well-developed, well-nourished female. Appears in no acute distress. Speaking in full sentences HEAD: Normocephalic, atraumatic. EYES: Pupils are equally reactive bilaterally. EOMs grossly intact. No conjunctival erythema. No conjunctival pallor. ENT: Moist mucous membranes. No uvula deviation. No kissing tonsils. NECK: Supple. No meningismus. Normal range of motion of the neck. LUNG: Clear to auscultation bilaterally. No rhonchi, wheezing, rales or coarse breath sounds. HEART: Regular rate and rhythm. No murmurs, rubs or gallops. ABDOMEN: No scars, ecchymosis or rashes noted. Soft and nondistended. Tender to palpation in the suprapubic region, right lower quadrant. Positive bowel sounds in all four quadrants. No rebound tenderness, no guarding. (-) McBurney' s point tenderness. No CVA tenderness. BACK: No midline tenderness. EXTREMITIES: Equal pulses bilaterally. No peripheral clubbing, cyanosis or edema. No unilateral leg swelling. NEUROLOGIC: Alert and oriented. Moving all four extremities without any difficulty. Normal speech. Steady gait. SKIN: Normal color. Warm and dry. No rashes or lesions. Result Diagram: 09/03/16 0909/03/16 0900 Results 24 hrs Laboratory Tests Test 09/03/16 07:40 09/03/16 09:00 Urine Color LT. YELLOW Urine Clarity SLIGHTLY CLOUDY Urine pH 6.5 Urine Specific [place] 1.025 Urine Ketones NEGATIVE Urine Nitrite NEGATIVE Urine Bilirubin NEGATIVE Urine Urobilinogen 0.2 E.U./dL Urine Leukocyte Esterase NEGATIVE Urine Microscopic RBC 2-5/HPF Urine Microscopic WBC NONE SEEN/HPF Urine Squamous Epithelial Cells FEW Urine Calcium Oxalate Crystals MODERATE Urine Bacteria FEW Urine Hemoglobin 3+ Urine Glucose NEGATIVE% Urine Total Protein NEGATIVE White Blood Count 8.810^3/ul Red Blood Count 3.6310^6/ul Hemoglobin 8.2g/dl Hematocrit 27.9% Mean Corpuscular Volume 76.9fl Mean Corpuscular Hemoglobin 22.6pg Mean Corpuscular Hemoglobin Concent 29.4g/dl Red Cell Distribution Width 23.8% Platelet Count 40679^3/UL Mean Platelet Volume 10.2fl Neutrophils % 68.5% Lymphocytes % 22.0% Monocytes % 5.1% Eosinophils % 3.5% Basophils % 0.7% Nucleated Red Blood Cells % 0.0/100WBC Neutrophils # 6.010^3/ul Lymphocytes # 1.910^3/ul Monocytes # 0.510^3/ul Eosinophils # 0.310^3/ul Basophils # 0.110^3/ul Nucleated Red Blood Cells # 0.010^3/ul Platelet Estimate PLT APPEAR INCREASED Sodium Level 141mmol/L Potassium Level 3.9mmol/L Chloride Level 108mmol/L Carbon Dioxide Level 23mmol/L Anion Gap 14 Blood Urea Nitrogen 8mg/dl Creatinine 0.72mg/dl Glucose Level 110mg/dl Calcium Level 8.9mg/dl Total Bilirubin 0.0mg/dl Direct Bilirubin 0.00mg/dl Indirect Bilirubin 0.0mg/dl Aspartate Amino Transf (AST/SGOT) 21IU/L Alanine Aminotransferase (ALT/SGPT) 20IU/L Alkaline Phosphatase 68IU/L Total Protein 7.8g/dl Albumin 4.4g/dl Globulin 3.40g/dl Albumin/Globulin Ratio 1.29 Lipase 158U/L Current Medications Medications (Trade) Dose Ordered Sig/Braden Route PRN Reason Start Time Stop Time Status Last Admin Dose Admin Ondansetron HCl (Zofran Inj) 4 mg ONCE STAT IV 09/03/16 08:29 09/03/16 08:31 DC 09/03/16 09:08 Morphine Sulfate (morphine) 4 mg ONCE STAT IV 09/03/16 09:19 09/03/16 09:20 DC 09/03/16 09:34 Procedures/MDM ED COURSE: The patient was stable throughout ED course. I kept the patient and/or family informed of laboratory and diagnostic imaging results throughout the ED course. DIAGNOSTIC IMAGING: Read by radiologist. DIAGNOSTIC IMAGING REPORT Patient: JUDSON FELDMAN : 1985 Age: 31 Sex: F MR #: [id number] DOS: 09/03/16 0829 Ordering MD: RACHEL LAUREN PA-C Location: [facility] Room/Bed: PROCEDURE: CT Abdomen and Pelvis without contrast. CLINICAL INDICATION: Abdominal pain. Right lower quadrant pain. Gastritis. TECHNIQUE: CT scan of the abdomen and pelvis without contrast was performed on a multi-slice CT scanner without intravenous contrast. Coronal and sagittal reformatted images were obtained from the axial source images. Images were reviewed on a high-resolution PACS workstation. One or more of the following does reduction techniques were used: Automated exposure control; adjustment of the mA and/or kV according to patient size; use of the aorta of reconstruction technique. The total exam CTDI equals 22.1 mGy and the total exam DLP equals 1468.6 mGy-cm. COMPARISON: CT abdomen pelvis 04/13/2016 FINDINGS: The lung bases are clear. Heart size is normal, and there is no evidence of pericardial thickening or effusion. The liver, spleen, and pancreas are normal given limitations of a noncontrast CT examination. The gallbladder is contracted. . The adrenal glands are normal. The kidneys without renal calculus or hydronephrosis. The aorta is of normal caliber. There is no retroperitoneal lymph node enlargment. There is no evidence of large or small bowel obstruction. There is mild retained colonic stool. A normal appendix is identified.. No free fluid or fluid collections are identified. No inflammatory changes are seen. Small periumbilical hernia and moderate ventral hernia containing only fat are unchanged in appearance. The uterus is present. The uterus is enlarged with asymmetric mass-like wall thickening of the right uterine wall most consistent with leiomyomatous uterus. There is a 3.1 cm cystic structure in the right adnexa, not unexpected finding in a premenopausal female. There is trace pelvic free fluid. No enlarged pelvic sidewall lymph nodes are identified. The bladder is decompressed and collapsed. The inguinal regions are unremarkable. The bones are intact. IMPRESSION: 1. No CT evidence of acute intra-abdominal or pelvic process. 2. No CT evidence of urolithiasis. 3. Fat containing periumbilical and ventral hernias, stable compared to 2015. 4. Mildly enlarged leiomyomatous uterus. This can be further evaluated with pelvic ultrasound if indicated. 5. Trace pelvic free fluid, likely physiologic. RPTAT: KK .Jonathan Winn MD, MD Date Time Electronically viewed and signed by .Jonathan Winn MD, MD on 2016 09:35 .B/ CC: RACHEL LAUREN PA-C MEDICATIONS GIVEN: Zofran, morphine Patient tolerated medication well with no adverse reactions. Patient reported improvement in pain. MEDICAL DECISION MAKING: This is a 31-year-old female with past medical history of fibroids, anemia who presents with right lower quadrant pain and nausea 3 days.. Vital signs were reviewed. Patient is afebrile. CBC showed no evidence of systemic infection. Patient's hemoglobin level was noted to be 8.2. Patient does report taking daily iron supplements. At this time, there is no indication for blood transfusion. CMP showed no evidence of electrolyte abnormalities, severe acidosis, alkalosis, renal failure, or liver disease. Lipase showed no evidence of acute pancreatitis. UA showed no evidence of acute infection. Low suspicion for UTI, pyelonephritis or nephrolithiasis. Urine test was negative. CT scan of the abdomen showed No CT evidence of acute intra-abdominal or pelvic process. No CT evidence of urolithiasis.Fat containing periumbilical and ventral hernias, stable compared to 04/13/2016. Mildly enlarged leiomyomatous uterus. This can be further evaluated with pelvic ultrasound if indicated. Trace pelvic free fluid, likely physiologic. Patient's platelet count was noted to be up trending. Discussed these findings with my supervising physician Dr. Plasencia. Patient was advised to follow-up with a dermatology procedural physician. Unable to rule out any hemoglobinopathies . At this time, patient's presentation is most consistent with fibroids and anemia. I have a much lower clinical concern for acute coronary syndrome, AAA, mesenteric ischemia, lower lobe pneumonia, DKA, bowel perforation, cholecystitis , choledocholithiasis, ascending cholangitis, hepatic abscess, pancreatitis, splenic rupture, diverticulitis, UTI, pyelonephritis, nephrolithiasis, appendicitis, constipation, , ectopic , PID, ovarian torsion or tubo-ovarian abscess. There is no indication for the patient requiring a blood transfusion at this time. She was advised to continue taking her iron supplements. PRESCRIPTIONS: Ibuprofen, Zofran DISCHARGE: At this time, patient is stable for discharge and outpatient management. Patient provided with a copy of all imaging and blood work results obtained today. I have instructed the patient to follow-up with his/her primary care physician/OBGYN in 1-2 days. Patient was advised to seek hematology referral from her PCP for uptrending platelet counts. I have instructed the patient to promptly return to the ER at any time for any new or worsening symptoms including increased pain, nausea, vomiting, diarrhea, fever, weakness or LOC. The patient and/or family expressed understanding of and agreement with this plan. All questions were answered. Home care instructions were provided. Departure Diagnosis: Primary Impression: Fibroids Uterine leiomyoma location: unspecified location Qualified Code: D25.9 - Uterine leiomyoma, unspecified location Additional Impressions: Anemia Anemia type: unspecified type Qualified Code: D64.9 - Anemia, unspecified type Thrombocytosis Condition: Stable Patient Instructions: Uterine Fibroids Referrals: [facility] YOU HAVE RECEIVED A MEDICAL SCREENING EXAM AND THE RESULTS INDICATE THAT YOU DO NOT HAVE A CONDITION THAT REQUIRES URGENT TREATMENT IN THE EMERGENCY DEPARTMENT. FURTHER EVALUATION AND TREATMENT OF YOUR CONDITION CAN WAIT UNTIL YOU ARE SEEN IN YOUR DOCTORS OFFICE WITHIN THE NEXT 1-2 DAYS. IT IS YOUR RESPONSIBILITY TO MAKE AN APPOINTMENT FOR FOLOW-UP CARE. IF YOU HAVE A PRIMARY DOCTOR --you should call your primary doctor and schedule an appointment IF YOU DO NOT HAVE A PRIMARY DOCTOR YOU CAN CALL OUR PHYSICIAN REFERRAL HOTLINE AT IF YOU CAN NOT AFFORD TO SEE A PHYSICIAN YOU CAN CHOSE FROM THE FOLLOWING [facility] [address] [facility]. [facility] [address] [facility]. [facility] [address] [facility] [facility] [address] [facility] [facility] [address] [facility]. [facility]. [address] [facility]. [facility] YOU HAVE RECEIVED A MEDICAL SCREENING EXAM AND THE RESULTS INDICATE THAT YOU DO NOT HAVE A CONDITION THAT REQUIRES URGENT TREATMENT IN THE EMERGENCY DEPARTMENT. FURTHER EVALUATION AND TREATMENT OF YOUR CONDITION CAN WAIT UNTIL YOU ARE SEEN IN YOUR DOCTORS OFFICE WITHIN THE NEXT 1-2 DAYS. IT IS YOUR RESPONSIBILITY TO MAKE AN APPOINTMENT FOR FOLOW-UP CARE. IF YOU HAVE A PRIMARY DOCTOR --you should call your primary doctor and schedule and appointment IF YOU DO NOT HAVE A PRIMARY DOCTOR YOU CAN CALL OUR PHYSICIAN REFERRAL HOTLINE AT . IF YOU CAN NOT AFFORD TO SEE A PHYSICIAN YOU CAN CHOSE FROM THE FOLLOWING [facility] INSTITUTIONS: [facility] [address] [place] [address] [facility] [address] [place] [address] [facility] + [facility] [address] [place] [address] [employer] [place] [address] [facility] [address] [place] [address] OFFICE FAX [facility] [address] [place], [place] [id number] [facility] [address] [place] [address] [address] [facility] [address] [facility], [address], [facility] [address] [address] [address] [place] [address] [facility] [address] [place] [address] [address] [facility] [address] - [address]IE [address], [facility] [address] [address] [address] [facility]. [address], [facility] [address] [address] [address] [place], [place] [id number] Additional Instructions: Call your primary care doctor/OBGYN TOMORROW for an appointment during the next 1-2 days.See the doctor sooner or return here if your condition worsens before your appointment time. Take pain and nausea medication as needed. Continue taking iron supplements as directed. RACHEL LAUREN PA-C Sep 03, 2016 10:29
[2016-09-03 11:17] VITALS: BP 132/80; PULSE 68; RESP 18; TEMP 98.8
[2016-09-03 13:18] LABS: PLATELET ESTIMATE PLT APPEAR INCREASED
== END 2016-09-03 11:18 | disposition home or self-care (01) ==
LOC: FTE 08:14
DX: D25.9 Leiomyoma of uterus, unspecified (principal); D64.9 Anemia, unspecified; D47.3 Essential (hemorrhagic) thrombocythemia; R11.0 Nausea
CPT/HCPCS: 36415; 74176; 80053; 81001; 81003; 83690; 85025; 96374; 96375; J2270; J2405; Z7502

== ENCOUNTER 2016-09-24 11:35 | Emergency (ER) | payer OTHER ==
[~2016-09-24] VITALS: Ht 167.6 cm; Wt 109.5 kg
[~2016-09-24 11:35] MED LIST changes: +ADV25050 INH; +AMLO-145 PO; +ASCO500C7 PO; +DOCU-144 PO; +HYDR-3498 PO; +HYDR-906 PO; +IBUP-1542 PO; +LEVO500T72 PO; +MONT10TA24 PO; +NO HOME MEDS; +NORG1TAB54 PO; +NYST15CR28 TOP; +ONDA4TAB14 PO; +PANT40TA4 PO; +POLY17PO6 PO; +TBR.3OP5 RIGHT EYE
[2016-09-24 11:48] VITALS: Ht 167.6 cm; Wt 109.5 kg
[2016-09-24] MEDS ORDERED: ONDANSETRON 4 MG INJ IV STA (13:50)
[2016-09-24] MEDS ORDERED: HYDROCODONE/APAP (5/325) TAB PO STA (13:50)
[2016-09-24 14:19] LABS: ADD SCAN DIFF NO
[2016-09-24 14:20] LABS: ABNORMAL IP MESSAGE 1; BASOPHIL # 0.1 10^3/ul (0.0-0.1); BASOPHILS % 0.6 % (0.0-2.0); EOSINOPHILS # 0.3 10^3/ul (0.0-0.5); EOSINOPHILS % 3.8 % (0.0-7.0); HEMATOCRIT 25.4 % (37.0-47.0); HEMOGLOBIN 7.2 g/dl (12.0-16.0); LYMPHOCYTES # 2.5 10^3/ul (0.8-2.9); MEAN CORPUSCULAR HGB CONC 28.3 g/dl (32.0-37.0); MEAN CORPUSCULAR VOLUME 77.4 fl (82.0-101.0); MEAN PLATELET VOLUME 10.4 fl (7.4-10.4); MONOCYTE # 0.7 10^3/ul (0.3-0.9); MONOCYTES % 8.2 % (0.0-11.0); NEUTROPHIL # 5.1 10^3/ul (1.6-7.5); NEUTROPHILS % 58.3 % (39.0-77.0); PLATELET COUNT 647 10^3/UL (140-415); RED BLOOD COUNT 3.28 10^6/ul (4.20-5.40); WHITE BLOOD COUNT 8.7 10^3/ul (4.8-10.8)
--- NOTE | 2016-09-24 15:20 | RADRPT ---
PROCEDURE: US Pelvis. CLINICAL INDICATION: Uterine fibroids. TECHNIQUE: Multiple sonographic images of the pelvis were obtained utilizing a transabdominal and endovaginal technique. The images were reviewed on a PACS workstation. COMPARISON: Pelvic not of the sonogram 06/17/2016. FINDINGS: The uterus is visualized and measures 11.6 cm sagittal by 5.2 cm AP by 9.1 cm transverse. The uteru s is anteverted. The uterus contains several fibroids. The largest fibroid measuring 5.7 x 3.6 x 3 cm. The endometrial echo complex is normal and measures 5.7 mm. There is a small amount of free flui d in the cul-de-sac. The right ovary is not well visualized. The left ovary has a normal echotext ure and measures 4.3 x 2.5 x 2.7 cm. There is normal blood flow with Doppler imaging to the left ova ry which contains several follicles. A 4.8 x 3 by 3.1 cm solid left adnexal mass is not identified. No right adnexal mass is noted. IMPRESSION: 1. A 3 x 3.6 x 5.7 cm fibroid is identified in the dorsal upper fundus of the uterus. It previousl y measured 3.9 x 3.4 by 4 cm. 2. Additional smaller fibroids are present and were not individually measured by the scanning techn ologist. 3. Small amount of fluid is noted in the cul-de-sac. 4. The right ovary was not evaluated or visualized on this study. 5. 4.8 x 3 x 3.1 cm left adnexal mass adjacent to the left ovary. Normal left ovary. RPTAT:AAJJ Physician Magali Date Time Electronically viewed and signed by Physician Magali on 09/24/2016 15:20 /
[2016-09-24 18:00] VITALS: BP 124/78; PULSE 70; RESP 15; TEMP 98.1
--- NOTE | 2016-09-24 18:06 | ERD ---
ER Documentation Chief Complaint Date/Time DATE: 09/24/16 TIME: 18:03 Chief Complaint ABDOMINAL PAIN, VAGINAL BLEEDING - FOR BLOOD TRANSFUSION HPI This is a 31-year-old female with a history of uterine fibroids and menometrorrhagia with recurrent anemia who is here for pelvic cramps and vaginal bleeding 10 days. She says her usual menstrual cycle last 7 days and has a very heavy flow however this time is lasting 10 or 11 days. She has some off-and-on pelvic cramps. No fever no abdominal pain diarrhea no constipation. No dizziness or weakness. Her last hemoglobin was here on September 03 with a level of 8.2 ROS All systems reviewed and are negative except as per history of present illness. Medications Home Meds Active Scripts Ondansetron (Ondansetron Odt) 4 Mg Tab.rapdis, 4 MG PO Q6H Y for NAUSEA AND/OR VOMITING, #10 TAB Prov:RACHEL LAUREN PA-C 09/03/16 Ibuprofen* (Motrin*) 600 Mg Tab, 600 MG PO Q6H Y for PAIN AND OR ELEVATED TEMP, #15 TAB Prov:RACHEL LAUREN PA-C 09/03/16 Ferrous Sulfate* (Ferrous Sulfate*) 325 Mg Tabec, 325 MG PO DAILY for 30 Days, TAB Prov:YESSY VALDES DO 08/03/16 Allergies Allergies: Coded Allergies: No Known Allergy (Unverified , 08/03/16) PMhx/Soc History of Surgery: Yes (fibroidectomy) Anesthesia Reaction: No Hx Neurological Disorder: No Hx Respiratory Disorders: No Hx Cardiac Disorders: No Hx Psychiatric Problems: No Hx Miscellaneous Medical Probl: Yes (Anemia) Hx Alcohol Use: No Hx Substance Use: No Hx Tobacco Use: No Smoking Status: Never smoker FmHx Family History: No coronary disease Physical Exam Vitals Vital Signs Date Time Temp Pulse Resp B/P Pulse Ox O2 Delivery O2 Flow Rate FiO2 09/24/16 16:15 98.2 65 17 128/80 98 Room Air 09/24/16 14:04 98.2 62 15 132/79 98 Room Air 09/24/16 11:48 98.2 77 19 138/72 98 Physical Exam Const: Well-developed, well-nourished Head: Atraumatic, normocephalic Eyes: Normal Conjunctiva, PERRLA, EOMI, normal sclera, no nystagmus ENT: Normal External Ears, Nose and Mouth, moist mucus membranes. Neck: Full range of motion. No meningismus, no lymphadenopathy. Resp: Clear to auscultation bilaterally, no wheezing, rhonchi, rales Cardio: Regular rate and rhythm, no murmurs, S1 S2 present Abd: Soft, palpable fibroid at the right fundus, non distended. Normal bowel sounds, no guarding or rebound, no pulsitile abdominal masses or bruits Skin: No petechiae or rashes, no ecchymosis , no maculopapular rash Back: No midline or flank tenderness Ext: No cyanosis, or edema, FROM x 4, normal inspection, neurovascularly intact x 4 Neur: Awake and alert, STR 5/5 x 4, sensation intact x 4, no focal findings, cerebellum intact Psych: Normal Mood and Affect Result Diagram: 09/24/16 8387 Results 24 hrs Laboratory Tests Test 09/24/16 13:55 White Blood Count 8.710^3/ul Red Blood Count 3.2810^6/ul Hemoglobin 7.2g/dl Hematocrit 25.4% Mean Corpuscular Volume 77.4fl Mean Corpuscular Hemoglobin 22.0pg Mean Corpuscular Hemoglobin Concent 28.3g/dl Red Cell Distribution Width 24.0% Platelet Count 01557^3/UL Mean Platelet Volume 10.4fl Neutrophils % 58.3% Lymphocytes % 29.0% Monocytes % 8.2% Eosinophils % 3.8% Basophils % 0.6% Nucleated Red Blood Cells % 0.0/100WBC Neutrophils # 5.110^3/ul Lymphocytes # 2.510^3/ul Monocytes # 0.710^3/ul Eosinophils # 0.310^3/ul Basophils # 0.110^3/ul Nucleated Red Blood Cells # 0.010^3/ul Current Medications Medications (Trade) Dose Ordered Sig/Braden Route PRN Reason Start Time Stop Time Status Last Admin Dose Admin Acetaminophen/ Hydrocodone Bitart (Minerva (5/325)) 1 tab ONCE STAT PO 09/24/16 13:50 09/24/16 13:52 DC 09/24/16 14:00 Ondansetron HCl (Zofran Inj) 4 mg ONCE STAT IV 09/24/16 13:50 09/24/16 13:52 DC 09/24/16 14:00 Procedures/MDM PROCEDURE: US Pelvis. CLINICAL INDICATION: Uterine fibroids. TECHNIQUE: Multiple sonographic images of the pelvis were obtained utilizing a transabdominal and endovaginal technique. The images were reviewed on a PACS workstation. COMPARISON: Pelvic not of the sonogram 06/17/2016. FINDINGS: The uterus is visualized and measures 11.6 cm sagittal by 5.2 cm AP by 9.1 cm transverse. The uterus is anteverted. The uterus contains several fibroids. The largest fibroid measuring 5.7 x 3.6 x 3 cm. The endometrial echo complex is normal and measures 5.7 mm. There is a small amount of free fluid in the cul-de- sac. The right ovary is not well visualized. The left ovary has a normal echotexture and measures 4.3 x 2.5 x 2.7 cm. There is normal blood flow with Doppler imaging to the left ovary which contains several follicles. A 4.8 x 3 by 3.1 cm solid left adnexal mass is not identified. No right adnexal mass is noted. IMPRESSION: 1. A 3 x 3.6 x 5.7 cm fibroid is identified in the dorsal upper fundus of the uterus. It previously measured 3.9 x 3.4 by 4 cm. 2. Additional smaller fibroids are present and were not individually measured by the scanning technologist. 3. Small amount of fluid is noted in the cul-de-sac. 4. The right ovary was not evaluated or visualized on this study. 5. 4.8 x 3 x 3.1 cm left adnexal mass adjacent to the left ovary. Normal left ovary. RPTAT:AAJJ Physician Magali Date Time Electronically viewed and signed by Physician Magali on 09/24/2016 15:20 SHELDON/ CC: DIMITRIS GRAYSON DO Patient's hemoglobin has dropped to 7.2. He ordered 1 unit of packed red blood cells in the blood is ready. The patient has decided to leave and she pulled out her IV and left the ER. I was able to give her a copy of her sonogram report about 30 minutes before she left. I discussed the need to see her desktop architect urgently because of the left adnexal mass which is likely a cyst She said she wanted to leave earlier because her 's ankle bracelet but was going to stay to get her blood first. Apparently she changed her mind and she eloped Departure Diagnosis: Primary Impression: Fibroids Uterine leiomyoma location: unspecified location Qualified Code: D25.9 - Uterine leiomyoma, unspecified location Additional Impression: Anemia Anemia type: unspecified type Qualified Code: D64.9 - Anemia, unspecified type Condition: DIMITRIS Wilson DO Sep 24, 2016 18:06
[2017-01-06] MEDS ORDERED: ONDA4TAB14 PO (02:31)
[2017-01-06] MEDS ORDERED: HYDR-906 PO (02:31)
== END 2016-09-24 18:18 | disposition home or self-care (01) ==
LOC: E/R 11:35
DX: D25.9 Leiomyoma of uterus, unspecified (principal); D64.9 Anemia, unspecified; R10.2 Pelvic and perineal pain
CPT/HCPCS: 36415; 76830; 76856; 85025; 86850; 86900; 86901; 86920; 96374; J2405; Z7502; Z7610

== ENCOUNTER 2016-10-30 12:09 | Emergency (ER) | payer OTHER ==
[~2016-10-30] VITALS: Ht 167.6 cm; Wt 126.0 kg
[~2016-10-30 12:09] MED LIST changes: -ADV25050 INH; -AMLO-145 PO; -ASCO500C7 PO; -DOCU-144 PO; -HYDR-3498 PO; -HYDR-906 PO; -LEVO500T72 PO; -MONT10TA24 PO; -NO HOME MEDS; -NORG1TAB54 PO; -NYST15CR28 TOP; -PANT40TA4 PO; -POLY17PO6 PO; -TBR.3OP5 RIGHT EYE
[2016-10-30 12:12] VITALS: Ht 167.6 cm; Wt 126.0 kg
[2016-10-30] MEDS ORDERED: KETOROLAC 30 MG INJ IV STA (13:45)
[2016-10-30 14:20] LABS: ADD SCAN DIFF NO
[2016-10-30 14:21] LABS: ABNORMAL IP MESSAGE 1; BASOPHIL # 0.1 10^3/ul (0.0-0.1); BASOPHILS % 0.7 % (0.0-2.0); EOSINOPHILS # 0.4 10^3/ul (0.0-0.5); EOSINOPHILS % 4.1 % (0.0-7.0); HEMATOCRIT 29.9 % (37.0-47.0); HEMOGLOBIN 8.8 g/dl (12.0-16.0); LYMPHOCYTES % 22.8 % (15.0-51.0); MEAN CORPUSCULAR HEMOGLOBIN 23.8 pg (29.0-33.0); MEAN CORPUSCULAR HGB CONC 29.4 g/dl (32.0-37.0); MEAN CORPUSCULAR VOLUME 80.8 fl (82.0-101.0); MEAN PLATELET VOLUME 9.8 fl (7.4-10.4); MONOCYTE # 0.6 10^3/ul (0.3-0.9); MONOCYTES % 6.8 % (0.0-11.0); NEUTROPHIL # 5.7 10^3/ul (1.6-7.5); NEUTROPHILS % 65.4 % (39.0-77.0); PLATELET COUNT 607 10^3/UL (140-415); RED CELL DISTRIBUTION WIDTH 25.1 % (11.5-14.5); WHITE BLOOD COUNT 8.7 10^3/ul (4.8-10.8)
[2016-10-30 14:22] LABS: ADD UMIC NO; URINE BILIRUBIN (Dip) NEGATIVE (NEGATIVE); URINE BLOOD (Dip) NEGATIVE (NEGATIVE); URINE COLOR LT. YELLOW (YELLOW); URINE GLUCOSE (Dip) NEGATIVE (NEGATIVE); URINE KETONES (Dip) TRACE (NEGATIVE); URINE LEUKOCYTE ESTERASE (Dip) NEGATIVE (NEGATIVE); URINE NITRITE (Dip) NEGATIVE (NEGATIVE); URINE TOTAL PROTEIN (Dip) NEGATIVE (NEGATIVE); URINE UROBILINOGEN (Dip) 0.2 E.U./dL (0.1-1.0)
[2016-10-30 14:42] LABS: ALBUMIN 4.5 g/dl (3.3-4.9)
[2016-10-30 14:43] LABS: POTASSIUM 3.5 mmol/L (3.5-5.1)
[2016-10-30 14:45] LABS: ALBUMIN/GLOBULIN RATIO 1.32; CREATININE 0.73 mg/dl (0.44-1.00); TOTAL PROTEIN 7.9 g/dl (6.1-8.1)
[2016-10-30 14:46] LABS: CALCIUM 9.3 mg/dl (8.4-10.2)
--- NOTE | 2016-10-30 14:56 | RADRPT ---
PROCEDURE: XR Cervical Spine. CLINICAL INDICATION: Neck pain TECHNIQUE: Three views of the cervical spine were performed. COMPARISON: None. FINDINGS: There is a mild reversal of the normal cervical lordosis. There is otherwise normal mineralization, architecture and alignment. No fracture or osseous lesion is identified. There is no evidence of mon bluxation. The disk spaces are unremarkable. The uncinate joints are unremarkable. The facet join ts are unremarkable. The soft tissues are normal. IMPRESSION: Mild reversal of the normal cervical lordosis Otherwise unremarkable examination. RPTAT: HGDB .Keshawn Jarrett MD, Date Time Electronically viewed and signed by .Keshawn Jarrett MD, on 10/30/2016 14:56 .B/
[2016-10-30] MEDS ORDERED: HYDROCODONE/APAP (5/325) TAB PO ONE (15:30)
[2016-10-30] MEDS ORDERED: CYCL-319 PO (15:34)
[2016-10-30] MEDS ORDERED: ACET325T33 PO (15:34)
[2016-10-30] MEDS ORDERED: FER325 PO (15:34)
--- NOTE | 2016-10-30 16:00 | ERD ---
ER Documentation Chief Complaint Date/Time DATE: 10/30/16 TIME: 15:53 Chief Complaint back pain HPI 31-year-old female patient with a past medical history of anemia presents the ED complaining of low back pain that started 2 weeks ago and neck pain that started 3 days ago. Reports that she has not been performing any heavy lifting. Denies any injuries or trauma. States that her last menses was on October 16, 2016. Denies any abdominal pain, nausea, vomiting, diarrhea, chest pain , SOB, wheezing, dysuria, urgency, frequency, hematuria, flank pain. Reports that she is concerned about her hemoglobin and hematocrit levels because she has chronic anemia. States that she has felt fatigued and weak for the past 2 weeks. Was seen here previously in September 2016 for similar symptoms. ROS All systems reviewed and are negative except as per history of present illness. Medications Home Meds Active Scripts Ferrous Sulfate* (Ferrous Sulfate*) 325 Mg Tabec, 325 MG PO DAILY, #30 TAB Prov:ALEXIS GRANGER PA-C 10/30/16 Cyclobenzaprine Hcl* (Cyclobenzaprine Hcl*) 10 Mg Tablet, 10 MG PO TID, #15 TAB Prov:ALEXIS GRANGER PA-C 10/30/16 Acetaminophen* (Tylenol*) 325 Mg Tablet, 2 TAB PO Q8 Y for PAIN AND OR ELEVATED TEMP, #20 TAB Prov:ALEXIS GRANGER PA-C 10/30/16 Ondansetron (Ondansetron Odt) 4 Mg Tab.rapdis, 4 MG PO Q6H Y for NAUSEA AND/OR VOMITING, #10 TAB Prov:RACHEL LAUREN PA-C 09/03/16 Ibuprofen* (Motrin*) 600 Mg Tab, 600 MG PO Q6H Y for PAIN AND OR ELEVATED TEMP, #15 TAB Prov:RACHEL LAUREN PA-C 09/03/16 Ferrous Sulfate* (Ferrous Sulfate*) 325 Mg Tabec, 325 MG PO DAILY for 30 Days, TAB Prov:YESSY VALDES DO 08/03/16 Allergies Allergies: Coded Allergies: No Known Allergy (Unverified , 08/03/16) PMhx/Soc History of Surgery: Yes (fibroidectomy) Anesthesia Reaction: No Hx Neurological Disorder: No Hx Respiratory Disorders: No Hx Cardiac Disorders: No Hx Psychiatric Problems: No Hx Miscellaneous Medical Probl: Yes (Anemia) Hx Alcohol Use: No Hx Substance Use: No Hx Tobacco Use: No Physical Exam Vitals Vital Signs Date Time Temp Pulse Resp B/P Pulse Ox O2 Delivery O2 Flow Rate FiO2 10/30/16 12:12 98.1 84 18 146/78 99 Physical Exam Const: Uld-lvn-oamrbtdee, well-nourished. In no acute distress. Head: Atraumatic, normocephalic Eyes: Normal Conjunctiva without injection. No purulent discharge. ENT: Normal external ear, nose. Moist oropharynx without tonsillar exudates. Non -erythematous pharynx. Uvula midline. No drooling. No trismus. Neck: Slight cervical midline tenderness. Full range of motion. No meningismus. No cervical lymphadenopathy. No JVD. Resp: Clear to auscultation bilaterally. No wheezing, rhonchi, rales, or crackles. No accessory muscle use. No retractions. Cardio: Regular rate and rhythm. No murmurs, rubs or gallops. Abd: Soft, nontender, non distended. Normal bowel sounds. No palpable masses. No rebound tenderness. No guarding. Negative McBurney's point. Negative psoas sign. Negative obturator sign. Skin: No petechiae or rashes Back: No midline tenderness. No CVA tenderness. Ext: No cyanosis, or edema. Neur: Awake and alert. Normal gait. Normal coordination. Psych: Normal Mood and Affect Results 24 hrs Laboratory Tests Test 10/30/16 14:00 10/30/16 14:11 Urine Color LT. YELLOW Urine Clarity CLEAR Urine pH 6.0 Urine Specific [place] >=1.030 Urine Ketones TRACE Urine Nitrite NEGATIVE Urine Bilirubin NEGATIVE Urine Urobilinogen 0.2 E.U./dL Urine Leukocyte Esterase NEGATIVE Urine Hemoglobin NEGATIVE Urine Glucose NEGATIVE% Urine Total Protein NEGATIVE White Blood Count 8.710^3/ul Red Blood Count 3.7010^6/ul Hemoglobin 8.8g/dl Hematocrit 29.9% Mean Corpuscular Volume 80.8fl Mean Corpuscular Hemoglobin 23.8pg Mean Corpuscular Hemoglobin Concent 29.4g/dl Red Cell Distribution Width 25.1% Platelet Count 09396^3/UL Mean Platelet Volume 9.8fl Neutrophils % 65.4% Lymphocytes % 22.8% Monocytes % 6.8% Eosinophils % 4.1% Basophils % 0.7% Nucleated Red Blood Cells % 0.0/100WBC Neutrophils # 5.710^3/ul Lymphocytes # 2.010^3/ul Monocytes # 0.610^3/ul Eosinophils # 0.410^3/ul Basophils # 0.110^3/ul Nucleated Red Blood Cells # 0.010^3/ul Sodium Level 144mmol/L Potassium Level 3.5mmol/L Chloride Level 112mmol/L Carbon Dioxide Level 25mmol/L Anion Gap 11 Blood Urea Nitrogen 13mg/dl Creatinine 0.73mg/dl Glucose Level 96mg/dl Calcium Level 9.3mg/dl Total Bilirubin 0.0mg/dl Direct Bilirubin 0.00mg/dl Indirect Bilirubin 0.0mg/dl Aspartate Amino Transf (AST/SGOT) 18IU/L Alanine Aminotransferase (ALT/SGPT) 22IU/L Alkaline Phosphatase 53IU/L Total Protein 7.9g/dl Albumin 4.5g/dl Globulin 3.40g/dl Albumin/Globulin Ratio 1.32 Lipase 109U/L Current Medications Medications (Trade) Dose Ordered Sig/Braden Route PRN Reason Start Time Stop Time Status Last Admin Dose Admin Ketorolac Tromethamine (Toradol) 30 mg ONCE STAT IV 10/30/16 13:45 10/30/16 13:46 Cancel Acetaminophen/ Hydrocodone Bitart ([place] (5/325)) 1 tab ONCE ONCE PO 10/30/16 15:30 10/30/16 15:31 DC 10/30/16 15:08 Procedures/MDM This is a 31-year-old female patient with no significant past medical history presents to the ED complaining of lower back pain that started 2 weeks ago and neck pain that started 3 days ago. Patient is afebrile nontoxic appearing. Patient has normal vital signs. A neck x-ray was ordered to further evaluate patient since she has some C-spine tenderness. Patient was further worked up with CBC, CMP, lipase, UA, urine . Patient's pain and symptoms have improved after treatment with [place]. CBC: No leukocytosis. No e/o of systemic infection. No e/o anemia. CMP: No e/o severe acidosis, alkalosis, renal failure, diabetic ketoacidosis, liver disease Lipase within normal limits. Urine: No leukocyte esterase, no nitrites, no hematuria. Urine : negative Low suspicion for symptomatic anemia, ovarian torsion, ectopic , gastritis, GERD, peptic ulcer disease, cholecystitis, choledocholithiasis, cholangitis, pancreatitis, appendicitis, bowel obstruction, ileus, volvulus, nephrolithiasis, pyelonephritis, hepatitis, perforated viscus, diverticulitis, abdominal hernia, acute abdomen, mesenteric ischemia or other emergent conditions. Low suspicion for acute myocardial infarction, pneumothorax, pneumonia, cardiac tamponade, pulmonary embolism, pleural effusion, AAA, aortic dissection, Boerhaave's syndrome, cardiac dysrhythmias,meningitis, intracranial bleed, seizure, stroke, TIA or other emergent conditions. Discharge medications: Tylenol, Flexeril, Ferrous Sulfate Follow up with primary care physician in 1-2 days for referral to oil processing technician. Instructed patient to return to the ED sooner for any worsening symptoms. Patient's questions were answered. Patient understood and agreed with discharge plan. Patient discharged stable. Departure Diagnosis: Primary Impression: Anemia Anemia type: unspecified type Qualified Code: D64.9 - Anemia, unspecified type Additional Impressions: Back pain Back pain location: back pain in unspecified location Chronicity: unspecified Back pain laterality: unspecified Qualified Code: M54.9 - Back pain, unspecified back location, unspecified back pain laterality, unspecified chronicity Neck pain Condition: Stable Patient Instructions: Anemia, Iron Deficiency (Adult), Back Pain (Acute Or Chronic), Neck Pain, No Trauma Referrals: [facility] YOU HAVE RECEIVED A MEDICAL SCREENING EXAM AND THE RESULTS INDICATE THAT YOU DO NOT HAVE A CONDITION THAT REQUIRES URGENT TREATMENT IN THE EMERGENCY DEPARTMENT. FURTHER EVALUATION AND TREATMENT OF YOUR CONDITION CAN WAIT UNTIL YOU ARE SEEN IN YOUR DOCTORS OFFICE WITHIN THE NEXT 1-2 DAYS. IT IS YOUR RESPONSIBILITY TO MAKE AN APPOINTMENT FOR FOLOW-UP CARE. IF YOU HAVE A PRIMARY DOCTOR --you should call your primary doctor and schedule an appointment IF YOU DO NOT HAVE A PRIMARY DOCTOR YOU CAN CALL OUR PHYSICIAN REFERRAL HOTLINE AT IF YOU CAN NOT AFFORD TO SEE A PHYSICIAN YOU CAN CHOSE FROM THE FOLLOWING [facility] [address] [facility]. [facility] [address] [facility] [address] [facility] [facility] [address] [facility] [address] [facility]. [facility]. [address] [facility]. [facility] YOU HAVE RECEIVED A MEDICAL SCREENING EXAM AND THE RESULTS INDICATE THAT YOU DO NOT HAVE A CONDITION THAT REQUIRES URGENT TREATMENT IN THE EMERGENCY DEPARTMENT. FURTHER EVALUATION AND TREATMENT OF YOUR CONDITION CAN WAIT UNTIL YOU ARE SEEN IN YOUR DOCTORS OFFICE WITHIN THE NEXT 1-2 DAYS. IT IS YOUR RESPONSIBILITY TO MAKE AN APPOINTMENT FOR FOLOW-UP CARE. IF YOU HAVE A PRIMARY DOCTOR --you should call your primary doctor and schedule and appointment IF YOU DO NOT HAVE A PRIMARY DOCTOR YOU CAN CALL OUR PHYSICIAN REFERRAL HOTLINE AT . IF YOU CAN NOT AFFORD TO SEE A PHYSICIAN YOU CAN CHOSE FROM THE FOLLOWING [facility] INSTITUTIONS: [facility] [address] [place] [address] [facility] [address] [place] [address] [facility] [address] [place] [address] [facility] URGENT CARE/SPECIALTIES Additional Instructions: Call your primary care doctor TOMORROW for an appointment during the next 2-3 days.See the doctor sooner or return here if your condition worsens before your appointment time. ALEXIS GRANGER PA-C October 30, 2016 16:00 Additional Instructions: Call your primary care doctor TOMORROW for an appointment during the next 2-3 days.See the doctor sooner or return here if your condition worsens before your appointment time. ALEXIS GRANGER PA-C October 30, 2016 16:00
== END 2016-10-30 15:53 | disposition home or self-care (01) ==
LOC: FTE 12:09
DX: D64.9 Anemia, unspecified (principal); M54.2 Cervicalgia
CPT/HCPCS: 36415; 72040; 80053; 81003; 83690; 85025; Z7502; Z7610

== ENCOUNTER 2016-11-21 12:28 | Inpatient (IN) | payer OTHER ==
[~2016-11-21] VITALS: Ht 167.6 cm; Wt 111.4 kg
[~2016-11-21 12:28] MED LIST changes: +ACET325T33 PO; +CYCL-319 PO
[2016-11-21] MEDS ORDERED: ONDANSETRON 4 MG INJ IV STA (13:53)
[2016-11-21] MEDS ORDERED: morphine 4 MG/ML VIAL IV STA (13:53)
[2016-11-21] MEDS ORDERED: SOD CHLORIDE 0.9% 1,000 ML IV STA (13:53)
[2016-11-21] MEDS ORDERED: LIDOCAINE/MYLANTA 40 ML BTL PO STA (13:53)
[2016-11-21] MEDS ORDERED: FAMOTIDINE 20 MG INJ IV STA (13:53)
--- NOTE | 2016-11-21 15:02 | RADRPT ---
PROCEDURE: US Abdomen (right upper quadrant). CLINICAL INDICATION: Abdominal pain. TECHNIQUE: Multiple real-time longitudinal and transverse images of the right upper quadrant of th e abdomen were acquired utilizing a curved array transducer. Images were reviewed on a high-resoluti on PACS workstation. COMPARISON: CT from 09/03/2016 FINDINGS: The liver is normal in size and echogenicity without focal mass or intrahepatic biliary dilatation. Small stones are present within the gallbladder. There is no pericholecystic fluid or gallbladder wall thickening. No intra or extrahepatic biliary dilatation is seen. The common bile duct measure s 2.5 mm in maximal dimension. The visualized portions of the pancreas are unremarkable with obscur ation of the tail of the pancreas. No free fluid is identified. The right kidney measures 10.6 cm in length. There is normal echogenicity within the right kidney. There is no perinephric fluid collection. No hydronephrosis, mass, or calculus is seen. IMPRESSION: Cholelithiasis without evidence of cholecystitis. Otherwise, unremarkable right upper quadrant ultr asound. RPTAT: JJ .Shmuel Melendez MD, MD Date Time Electronically viewed and signed by .Shmuel Melendez MD, on 11/21/2016 15:01 .A/
[2016-11-21 15:04] LABS: ADD UMIC YES; UR ASCORBIC ACID 20 mg/dL (NEGATIVE); UR BILIRUBIN (Dip) NEGATIVE (NEGATIVE); UR BLOOD (Dip) 2+ mg/dL (NEGATIVE); UR CLARITY SLIGHTLY CLOUDY (CLEAR); UR COLOR YELLOW (YELLOW); UR GLUCOSE (Dip) NEGATIVE (NEGATIVE); UR KETONES (Dip) NEGATIVE (NEGATIVE); UR LEUKOCYTE ESTERASE (Dip) NEGATIVE Leu/ul (NEGATIVE); UR NITRITE (Dip) NEGATIVE (NEGATIVE); UR RBC 1 /HPF (0-5); UR SPECIFIC GRAVITY (Dip) 1.029 (1.003-1.030); UR SQUAMOUS EPITHELIAL CELL FEW /HPF (FEW); UR TOTAL PROTEIN (Dip) NEGATIVE (NEGATIVE); UR UROBILINOGEN (Dip) NEGATIVE (NEGATIVE)
[2016-11-21 15:07] LABS: ADD SCAN DIFF NO
[2016-11-21 15:10] LABS: ABNORMAL IP MESSAGE 1; BASOPHIL # 0.1 10^3/ul (0.0-0.1); BASOPHILS % 0.5 % (0.0-2.0); EOSINOPHILS # 0.3 10^3/ul (0.0-0.5); EOSINOPHILS % 3.5 % (0.0-7.0); HEMATOCRIT 28.1 % (37.0-47.0); HEMOGLOBIN 8.4 g/dl (12.0-16.0); LYMPHOCYTES # 2.6 10^3/ul (0.8-2.9); LYMPHOCYTES % 28.3 % (15.0-51.0); MEAN CORPUSCULAR HEMOGLOBIN 24.3 pg (29.0-33.0); MEAN CORPUSCULAR HGB CONC 29.9 g/dl (32.0-37.0); MEAN CORPUSCULAR VOLUME 81.4 fl (82.0-101.0); MEAN PLATELET VOLUME 10.2 fl (7.4-10.4); MONOCYTE # 0.6 10^3/ul (0.3-0.9); MONOCYTES % 6.9 % (0.0-11.0); NEUTROPHIL # 5.6 10^3/ul (1.6-7.5); NEUTROPHILS % 60.6 % (39.0-77.0); PLATELET COUNT 572 10^3/UL (140-415); RED BLOOD COUNT 3.45 10^6/ul (4.20-5.40); RED CELL DISTRIBUTION WIDTH 22.5 % (11.5-14.5); WHITE BLOOD COUNT 9.2 10^3/ul (4.8-10.8)
[2016-11-21 15:29] LABS: INR 0.98
[2016-11-21 15:30] LABS: PARTIAL THROMBOPLASTIN TIME 30.5 Sec (25.0-35.0)
[2016-11-21 15:33] LABS: ALBUMIN 5.1 g/dl (3.3-4.9); ALBUMIN/GLOBULIN RATIO 1.5; CALCIUM 9.7 mg/dl (8.4-10.2); CREATININE 0.78 mg/dl (0.44-1.00); POTASSIUM 3.4 mmol/L (3.5-5.1); TOTAL PROTEIN 8.5 g/dl (6.1-8.1)
--- NOTE | 2016-11-21 16:15 | RADRPT ---
PROCEDURE: CT Abdomen and Pelvis without contrast CLINICAL INDICATION: Abdominal pain TECHNIQUE: Transaxial images were obtained through the abdomen and pelvis on a multi-slice scanner without the intravenous contrast administration. Some oral contrast had previously been given. Sagi ttal and coronal re-formations were subsequently reconstructed. One or more of the following dose reduction techniques were used: - Automated exposure control. - Adjustment of the mA and/or kV according to patient size. - Use of iterative reconstruction technique. Radiation dose: CTDIvol = 22.07 mGy; DLP = 1268.85 mGy-cm. COMPARISON: 09/03/2016 FINDINGS: Lung bases: The visualized lung bases appear unremarkable. Liver: The liver remains borderline enlarged but no focal lesion identified. Gallbladder: The wall is not thickened. No radiopaque stones are identified. Bile ducts: The intra and extrahepatic bile ducts are normal in caliber. Pancreas: Appears normal with no mass or inflammation evident. Spleen: Normal in size with no focal lesion. Adrenals: Normal with no mass identified. Kidneys, ureters and bladder: The kidneys are normal in size and there is no mass, pathological calc ification, or hydronephrosis evident. There is no perinephric stranding. The ureters are normal in c aliber and no ureteroliths are identified. The bladder appears unremarkable. Reproductive organs: The uterus is prominent but midline. No adnexal mass is identified. Stomach and bowel: The stomach is moderately distended with fluid. There is mild dilatation of the proximal jejunum with no distinct point of caliber change identified. The colon appears unremarkabl e without evidence of bowel obstruction or inflammation. Appendix: A normal vermiform appendix is evident. Peritoneum: No free intraperitoneal fluid or air is identified. There is a moderate-sized fat contai izabella midline supraumbilical hernia. There is a small fat containing umbilical hernia. Aorta: Normal in caliber with no aneurysmal dilatation. IVC: Unremarkable. Lymph nodes: No pathologically enlarged nodes are identified. Osseous structures: The osseous elements appear intact. IMPRESSION: 1. Since the previous CT of 09/03/2016, the duodenum and proximal jejunum appear mildly more dilate d up to 4.3 cm in diameter. A low grade, mild partial small-bowel obstruction cannot be excluded but stool persists throughout the normal-appearing colon. There is a normal vermiform appendix. 2. Moderate sized fat containing midline supraumbilical hernia along with a small fat containing um bilical hernia, unchanged from the previous. 3. Again there is no evidence of urinary outflow obstruction or ureterolithiasis within normal appea ring bladder. 4. The uterus remains enlarged and this likely fibroid. 5. There is no free intraperitoneal fluid or air. Physician Tonya Date Time Electronically viewed and signed by Olga Galvan Physician on 11/21/2016 16:14 RH/
[2016-11-21 17:00] VITALS: PULSE 72
[2016-11-21] MEDS ORDERED: HYDROmorphONE 1 MG/ML SYG IV STA (17:01)
--- NOTE | 2016-11-21 20:53 | ERD ---
ER Documentation Chief Complaint Date/Time DATE: 11/21/16 TIME: 20:47 Chief Complaint ruq pain HPI This patient is a 31-year-old female with past medical history of anemia and gastric ulcers presenting to the emergency department with complaints of nausea , dry heaving, and severe midepigastric pain. Symptoms have been worsening. Symptoms are constant. Midepigastric pain has been worsening over the course of 3 weeks. The patient denies diarrhea, fevers, chills, or other symptoms. ROS All systems reviewed and are negative except as per history of present illness. Medications Home Meds Discontinued Scripts Ferrous Sulfate* (Ferrous Sulfate*) 325 Mg Tabec, 325 MG PO DAILY, #30 TAB Prov:ALEXIS GRANGER PA-C 10/30/16 Cyclobenzaprine Hcl* (Cyclobenzaprine Hcl*) 10 Mg Tablet, 10 MG PO TID, #15 TAB Prov:ALEXIS GRANGER PA-C 10/30/16 Acetaminophen* (Tylenol*) 325 Mg Tablet, 2 TAB PO Q8 Y for PAIN AND OR ELEVATED TEMP, #20 TAB Prov:ALEXIS GRANGER PA-C 10/30/16 Ondansetron (Ondansetron Odt) 4 Mg Tab.rapdis, 4 MG PO Q6H Y for NAUSEA AND/OR VOMITING, #10 TAB Prov:RACHEL LAUREN PA-C 09/03/16 Ibuprofen* (Motrin*) 600 Mg Tab, 600 MG PO Q6H Y for PAIN AND OR ELEVATED TEMP, #15 TAB Prov:RACHEL LAUREN PA-C 09/03/16 Ferrous Sulfate* (Ferrous Sulfate*) 325 Mg Tabec, 325 MG PO DAILY for 30 Days, TAB Prov:YESSY VALDES DO 08/03/16 Allergies Allergies: Coded Allergies: No Known Allergy (Unverified , 11/21/16) PMhx/Soc History of Surgery: Yes (fibroidectomy) Anesthesia Reaction: No Hx Neurological Disorder: No Hx Respiratory Disorders: No Hx Cardiac Disorders: No Hx Psychiatric Problems: No Hx Miscellaneous Medical Probl: Yes (Anemia) Hx Alcohol Use: No Hx Substance Use: No Hx Tobacco Use: No FmHx Noncontributory for chief complaint Physical Exam Vitals Vital Signs Date Time Temp Pulse Resp B/P Pulse Ox O2 Delivery O2 Flow Rate FiO2 11/21/16 17:00 72 16 166/72 100 Room Air 11/21/16 12:31 98.0 92 18 168/71 97 Physical Exam Const: Nontoxic appearing female in mild distress secondary to pain. Head: Atraumatic Eyes: Normal Conjunctiva ENT: Normal External Ears, Nose and Mouth. Neck: Full range of motion..~ No meningismus. Resp: Clear to auscultation bilaterally Cardio: Regular rate and rhythm, no murmurs Abd: Severe midepigastric tenderness to palpation, moderate diffuse tenderness to palpation of the remainder of the abdomen, non distended. Normal bowel sounds Skin: No petechiae or rashes Back: No midline or flank tenderness Ext: No cyanosis, or edema Neur: Awake and alert Psych: Normal Mood and Affect Result Diagram: 11/22/16 1445 11/22/16 1445 Results 24 hrs Laboratory Tests Test 11/21/16 14:30 11/21/16 14:50 Urine Color YELLOW Urine Clarity SLIGHTLY CLOUDY Urine pH 5.0 Urine Specific [place] 1.029 Urine Ketones NEGATIVEmg/dL Urine Nitrite NEGATIVEmg/dL Urine Bilirubin NEGATIVEmg/dL Urine Urobilinogen NEGATIVEmg/dL Urine Leukocyte Esterase NEGATIVELeu/ul Urine Microscopic RBC 1/HPF Urine Microscopic WBC 2/HPF Urine Squamous Epithelial Cells FEW/HPF Urine Hemoglobin 2+mg/dL Urine Glucose NEGATIVEmg/dL Urine Total Protein NEGATIVEmg/dl White Blood Count 9.210^3/ul Red Blood Count 3.4510^6/ul Hemoglobin 8.4g/dl Hematocrit 28.1% Mean Corpuscular Volume 81.4fl Mean Corpuscular Hemoglobin 24.3pg Mean Corpuscular Hemoglobin Concent 29.9g/dl Red Cell Distribution Width 22.5% Platelet Count 90764^3/UL Mean Platelet Volume 10.2fl Neutrophils % 60.6% Lymphocytes % 28.3% Monocytes % 6.9% Eosinophils % 3.5% Basophils % 0.5% Nucleated Red Blood Cells % 0.0/100WBC Neutrophils # 5.610^3/ul Lymphocytes # 2.610^3/ul Monocytes # 0.610^3/ul Eosinophils # 0.310^3/ul Basophils # 0.110^3/ul Nucleated Red Blood Cells # 0.010^3/ul Prothrombin Time 13.0Sec Prothrombin Time Ratio 1.0 INR International Normalized Ratio 0.98 Activated Partial Thromboplast Time 30.5Sec Sodium Level 145mmol/L Potassium Level 3.4mmol/L Chloride Level 107mmol/L Carbon Dioxide Level 25mmol/L Anion Gap 16 Blood Urea Nitrogen 11mg/dl Creatinine 0.78mg/dl Glucose Level 97mg/dl Calcium Level 9.7mg/dl Total Bilirubin 0.0mg/dl Direct Bilirubin 0.00mg/dl Indirect Bilirubin 0.0mg/dl Aspartate Amino Transf (AST/SGOT) 26IU/L Alanine Aminotransferase (ALT/SGPT) 35IU/L Alkaline Phosphatase 56IU/L Total Protein 8.5g/dl Albumin 5.1g/dl Globulin 3.40g/dl Albumin/Globulin Ratio 1.50 Lipase 310U/L Current Medications Medications (Trade) Dose Ordered Sig/Braden Route PRN Reason Start Time Stop Time Status Last Admin Dose Admin Sodium Chloride (NS) 1,000 ml @ 1,000 mls/hr Q1H STAT IV 11/21/16 13:53 11/21/16 14:52 DC 11/21/16 14:37 Morphine Sulfate (morphine) 4 mg ONCE STAT IV 11/21/16 13:53 11/21/16 13:55 DC 11/21/16 14:35 Ondansetron HCl (Zofran Inj) 4 mg ONCE STAT IV 11/21/16 13:53 11/21/16 13:55 DC 11/21/16 14:34 Famotidine (Pepcid Iv) 20 mg ONCE STAT IV 11/21/16 13:53 11/21/16 13:55 DC 11/21/16 14:34 Miscellaneous Medication (Gi Cocktail (2)) 40 ml ONCE STAT PO 11/21/16 13:53 11/21/16 13:55 DC 11/21/16 14:34 Hydromorphone HCl (Dilaudid) 1 mg ONCE STAT IV 11/21/16 17:01 11/21/16 17:02 DC 11/21/16 17:06 [place] [id number] Radiology Main Line: [phone] DIAGNOSTIC IMAGING REPORT Patient: JUDSON FELDMAN : 1985 Age: 31 Sex: F MR #: [id number] DOS: 11/21/16 1353 Ordering MD: SHANNAN ORELLANA PA-C Location: [facility] Room/Bed: PROCEDURE: CT Abdomen and Pelvis without contrast CLINICAL INDICATION: Abdominal pain TECHNIQUE: Transaxial images were obtained through the abdomen and pelvis on a multi-slice scanner without the intravenous contrast administration. Some oral contrast had previously been given. Sagittal and coronal re-formations were subsequently reconstructed. One or more of the following dose reduction techniques were used: - Automated exposure control. - Adjustment of the mA and/or kV according to patient size. - Use of iterative reconstruction technique. Radiation dose: CTDIvol = 22.07 mGy; DLP = 1268.85 mGy-cm. COMPARISON: 09/03/2016 FINDINGS: Lung bases: The visualized lung bases appear unremarkable. Liver: The liver remains borderline enlarged but no focal lesion identified. Gallbladder: The wall is not thickened. No radiopaque stones are identified. Bile ducts: The intra and extrahepatic bile ducts are normal in caliber. Pancreas: Appears normal with no mass or inflammation evident. Spleen: Normal in size with no focal lesion. Adrenals: Normal with no mass identified. Kidneys, ureters and bladder: The kidneys are normal in size and there is no mass, pathological calcification, or hydronephrosis evident. There is no perinephric stranding. The ureters are normal in caliber and no ureteroliths are identified. The bladder appears unremarkable. Reproductive organs: The uterus is prominent but midline. No adnexal mass is identified. Stomach and bowel: The stomach is moderately distended with fluid. There is mild dilatation of the proximal jejunum with no distinct point of caliber change identified. The colon appears unremarkable without evidence of bowel obstruction or inflammation. Appendix: A normal vermiform appendix is evident. Peritoneum: No free intraperitoneal fluid or air is identified. There is a moderate-sized fat containing midline supraumbilical hernia. There is a small fat containing umbilical hernia. Aorta: Normal in caliber with no aneurysmal dilatation. IVC: Unremarkable. Lymph nodes: No pathologically enlarged nodes are identified. Osseous structures: The osseous elements appear intact. IMPRESSION: 1. Since the previous CT of 09/03/2016, the duodenum and proximal jejunum appear mildly more dilated up to 4.3 cm in diameter. A low grade, mild partial small-bowel obstruction cannot be excluded but stool persists throughout the normal-appearing colon. There is a normal vermiform appendix. 2. Moderate sized fat containing midline supraumbilical hernia along with a small fat containing umbilical hernia, unchanged from the previous. 3. Again there is no evidence of urinary outflow obstruction or ureterolithiasis within normal appearing bladder. 4. The uterus remains enlarged and this likely fibroid. 5. There is no free intraperitoneal fluid or air. Physician Tonya Date Time Electronically viewed and signed by Physician Tonya on 11/21/2016 16:14 RH/ CC: SHANNAN ORELLANA PA-C [place] [id number] Radiology Main Line: [phone] DIAGNOSTIC IMAGING REPORT Patient: JUDSON FELDMAN : 1985 Age: 31 Sex: F MR #: [id number] DOS: 11/21/16 1353 Ordering MD: SHANNAN ORELLANA PA-C Location: [facility] Room/Bed: PROCEDURE: US Abdomen (right upper quadrant). CLINICAL INDICATION: Abdominal pain. TECHNIQUE: Multiple real-time longitudinal and transverse images of the right upper quadrant of the abdomen were acquired utilizing a curved array transducer. Images were reviewed on a high-resolution PACS workstation. COMPARISON: CT from 09/03/2016 FINDINGS: The liver is normal in size and echogenicity without focal mass or intrahepatic biliary dilatation. Small stones are present within the gallbladder. There is no pericholecystic fluid or gallbladder wall thickening. No intra or extrahepatic biliary dilatation is seen. The common bile duct measures 2.5 mm in maximal dimension. The visualized portions of the pancreas are unremarkable with obscuration of the tail of the pancreas. No free fluid is identified. The right kidney measures 10.6 cm in length. There is normal echogenicity within the right kidney. There is no perinephric fluid collection. No hydronephrosis, mass, or calculus is seen. IMPRESSION: Cholelithiasis without evidence of cholecystitis. Otherwise, unremarkable right upper quadrant ultrasound. RPTAT: JJ .Shmuel Melendez MD, Date Time Electronically viewed and signed by .Shmuel Melendez MD, on 11/21/2016 15:01 .A/ CC: SHANNAN ORELLANA PA-C Procedures/[facility] EMERGENCY DEPARTMENT COURSE / MEDICAL DECISION MAKING: This is a 31-year-old female who comes to the emergency room secondary to complaints of abdominal pain, nausea. The patient was given IV morphine, IV fluids, IV Dilaudid in the department. On re-evaluation, the patient was feeling improved. Lab results reviewed and showed hemoglobin of 8.4, consistent with anemia. No other significant abnormalities. Radiology: CT abdomen and pelvis shows: 1. Since the previous CT of 09/03/2016, the duodenum and proximal jejunum appear mildly more dilated up to 4.3 cm in diameter. A low grade, mild partial small-bowel obstruction cannot be excluded but stool persists throughout the normal-appearing colon. There is a normal vermiform appendix. 2. Moderate sized fat containing midline supraumbilical hernia along with a small fat containing umbilical hernia, unchanged from the previous. 3. Again there is no evidence of urinary outflow obstruction or ureterolithiasis within normal appearing bladder. 4. The uterus remains enlarged and this likely fibroid. 5. There is no free intraperitoneal fluid or air. Right upper quadrant ultrasound impression: Cholelithiasis without evidence of cholecystitis. Otherwise, unremarkable right upper quadrant ultrasound. The primary diagnosis is small bowel obstruction. Secondary diagnosis is anemia. Other diagnoses include nausea. I have low suspicion for appendicitis, cholecystitis, septicemia, or other emergent conditions at this time. I have discussed the lab results and diagnostic findings with the patient and answered any questions or concerns. The patient will be admitted, and will be coordinated further by Dr. Tee Lopez. Dr. Lopez, supervising ED Physician agreed with the history, clinical examination, assessment, plan and overall ED course. Disposition: Admission. Departure Diagnosis: Primary Impression: Small bowel obstruction Additional Impressions: Anemia Nausea Condition: Fair SHANNAN ORELLANA PA-C Nov 21, 2016 20:53
[2016-11-21 21:35] VITALS: Ht 167.6 cm; Wt 111.4 kg
[2016-11-22] MEDS ORDERED: NACL 0.9% 3 ML SYG IV SCH
--- NOTE | 2016-11-22 02:07 | HP ---
DATE OF ADMISSION: 11/21/2016 TIME: 11:30 p.m. CHIEF COMPLAINT: Abdominal pain with nausea. HISTORY OF PRESENT ILLNESS: The patient is a 31-year-old female with a history of myomectomy second melissa to heavy vaginal bleeding, has a history of anemia, gastric ulcers. The patient presents with 2 weeks of nausea, dry heaving and severe midepigastric pain. The patient denies any vomiting, any d iarrhea, or fevers. The patient was found to have a small-bowel obstruction in the ED via CT. NG t ube was placed. The patient has no other complaints at this time. The patient has no history of sm all-bowel obstruction in the past. PAST MEDICAL HISTORY: Myomectomy for heavy vaginal bleeding, gastric ulcers, anemia from both gastr ic ulcers and vaginal bleeding. PAST SURGICAL HISTORY: Myomectomy. HOME MEDICATIONS: None reported. ALLERGIES: NO KNOWN DRUG ALLERGIES. FAMILY HISTORY: Noncontributory. SOCIAL HISTORY: Denies any alcohol, tobacco, or drug abuse. REVIEW OF SYSTEMS: A 12-point review of systems is negative except as discussed in HPI. PHYSICAL EXAMINATION: VITAL SIGNS: Temp is 98.0, pulse 72, respiratory rate 16, BP is , saturation 100% on room air. GENERAL: No acute distress, alert and oriented. HEENT: Normocephalic, atraumatic. Pupils equal, round, and reactive to light. LUNGS: Clear to auscultation. CARDIOVASCULAR: Regular rate and rhythm. ABDOMEN: Nondistended, nontender, soft. EXTREMITIES: No clubbing, cyanosis, or edema. LABORATORY TESTS: White count is 11.2, hemoglobin is 8.4, MCV is 81.4, platelets are 572. Chemistr y: Sodium is 145, , total protein is 8.5, albumin is 5.1, lipase 310. INR is 0.98. UA is wit hin normal limits except for 2+ hemoglobin. DIAGNOSTICS: Gallbladder ultrasound shows cholelithiasis without evidence of cholecystitis. Otherw ise, unremarkable right upper quadrant ultrasound. CT abdomen and pelvis shows low grade mild parti al small-bowel obstruction with a supraumbilical hernia. Uterus remains large and is likely fibroid . ASSESSMENT AND PLAN: 1. Small-bowel obstruction. NG tube is in place in the ED. We will keep the patient n.p.o. and gi ve IV fluids. We will monitor on med/surg. We will monitor for flatus and bowel movements. We caty l start a diet once the patient is flatus positive. 2. History of anemia secondary to vaginal bleeding and gastric ulcers. The patient is around her b aseline hemoglobin. No indication for blood transfusion at this time. We will check an iron panel. 3. Thrombocytosis. This is also chronic. No intervention at this time. We will monitor. 4. Hypokalemia. Replete. 5. Hypernatremia. We will treat with IV fluids. 6. Prophylaxis. SCDs. Dictated By: MOUSTAPHA DAWSON MD BS/NTS Conf#: [id number] DID#: [id number] CC: SHANNAN HERNANDEZ MD;*EndCC*
[2016-11-22] MEDS: morphine 2 MG INJ IV PRN ×2 (05:02→08:50)
[2016-11-22] MEDS: D5W-0.45 NACL + KCL 20 MEQ 1,000 ML IV SCH ×3 (05:03→19:57)
[2016-11-22] MEDS: HYDROmorphONE 1 MG/ML SYG IV PRN ×2 (06:05→12:35)
[2016-11-22] MEDS: PANTOPRAZOLE 40 MG INJ IV SCH (06:08)
[2016-11-22 08:13] VITALS: BP 149/85; RESP 18
[2016-11-22 10:07] LABS: ADD SCAN DIFF NO
[2016-11-22 10:09] LABS: BASOPHILS % 0.5 % (0.0-2.0); EOSINOPHILS # 0.3 10^3/ul (0.0-0.5); EOSINOPHILS % 3.5 % (0.0-7.0); HEMATOCRIT 25.5 % (37.0-47.0); HEMOGLOBIN 7.7 g/dl (12.0-16.0); LYMPHOCYTES # 2.4 10^3/ul (0.8-2.9); LYMPHOCYTES % 29.5 % (15.0-51.0); MEAN CORPUSCULAR HEMOGLOBIN 24.6 pg (29.0-33.0); MEAN CORPUSCULAR HGB CONC 30.2 g/dl (32.0-37.0); MEAN CORPUSCULAR VOLUME 81.5 fl (82.0-101.0); MEAN PLATELET VOLUME 9.7 fl (7.4-10.4); MONOCYTE # 0.5 10^3/ul (0.3-0.9); MONOCYTES % 5.8 % (0.0-11.0); NEUTROPHIL # 4.9 10^3/ul (1.6-7.5); NEUTROPHILS % 60.3 % (39.0-77.0); PLATELET COUNT 548 10^3/UL (140-415); RED BLOOD COUNT 3.13 10^6/ul (4.20-5.40); RED CELL DISTRIBUTION WIDTH 21.6 % (11.5-14.5); WHITE BLOOD COUNT 8.1 10^3/ul (4.8-10.8)
[2016-11-22 10:30] LABS: CALCIUM 8.5 mg/dl (8.4-10.2); CREATININE 0.75 mg/dl (0.44-1.00); PHOSPHORUS 3.1 mg/dl (2.5-4.9); POTASSIUM 3.5 mmol/L (3.5-5.1)
[2016-11-22 14:10] VITALS: BP 171/94; RESP 17
[2016-11-22 14:20] VITALS: BP 145/75; RESP 17
[2016-11-22 14:56] LABS: ADD SCAN DIFF NO
[2016-11-22 14:57] LABS: ABNORMAL IP MESSAGE 1; BASOPHILS % 0.2 % (0.0-2.0); EOSINOPHILS # 0.2 10^3/ul (0.0-0.5); HEMATOCRIT 25.8 % (37.0-47.0); HEMOGLOBIN 7.8 g/dl (12.0-16.0); LYMPHOCYTES # 1.6 10^3/ul (0.8-2.9); LYMPHOCYTES % 10.1 % (15.0-51.0); MEAN CORPUSCULAR HEMOGLOBIN 24.9 pg (29.0-33.0); MEAN CORPUSCULAR HGB CONC 30.2 g/dl (32.0-37.0); MEAN CORPUSCULAR VOLUME 82.4 fl (82.0-101.0); MEAN PLATELET VOLUME 10.2 fl (7.4-10.4); MONOCYTE # 0.6 10^3/ul (0.3-0.9); MONOCYTES % 3.5 % (0.0-11.0); NEUTROPHIL # 13.4 10^3/ul (1.6-7.5); NEUTROPHILS % 84.8 % (39.0-77.0); PLATELET COUNT 526 10^3/UL (140-415); RED BLOOD COUNT 3.13 10^6/ul (4.20-5.40); RED CELL DISTRIBUTION WIDTH 22.2 % (11.5-14.5); WHITE BLOOD COUNT 15.9 10^3/ul (4.8-10.8)
[2016-11-22 15:22] LABS: CALCIUM 8.5 mg/dl (8.4-10.2); CREATININE 0.77 mg/dl (0.44-1.00); POTASSIUM 3.6 mmol/L (3.5-5.1)
--- NOTE | 2016-11-22 16:33 | PN ---
Date/Time of Note Date/Time of Note DATE: 11/22/16 TIME: 16:21 Assessment/Plan VTE Prophylaxis VTE Prophylaxis Intervention: SCD's Lines/Catheters IV Catheter Type (from Nrs): [place] Urinary Cath still in place: No Assessment/Plan Assessment/Plan IMPRESSION 1. Syncope, s/p LEAK INSPECTOR 2. Mild partial small-bowel obstruction 3. Anemia 2/2 uterine fibroid, with hx of myomectomy 4. Hx of Gastric AVM with Ulcer, likely Dieulafoy lesion 5. Leukocytosis, likely stress induced 6. Obesity with BMI of ~ 40 PLAN - there was an LEAK INSPECTOR earlier today after pt was found down in the visitors bathroom. She said she felt hot and dizzy prior. EKG and blood glucose were non- diagnostic. pt is anemic and I'm suspecting it related to that. Will monitor closely for now. i don't believe transfer to [facility] is warranted at this time. She is already feeling well. - Repeat H&H showed stable Hgb, but low (7.8). Will transfuse if pt consents. - will obtain small bowel follow-through to assess partial SBO, cont NGT for now Subjective 24 Hr Interval Summary Free Text/Dictation there was an LEAK INSPECTOR for syncope in visitors bathroom. please see assessment and plan Exam/Review of Systems Vital Signs Vitals Vital Signs Date Time Temp Pulse Resp B/P Pulse Ox O2 Delivery O2 Flow Rate FiO2 11/22/16 08:13 98.1 71 18 149/85 99 11/21/16 17:00 Room Air Intake and Output 11/21/16 11/21/16 11/22/16 15:00 23:00 07:00 Output Total 1150 ml Balance -1150 ml Exam Constitutional: alert, obese, oriented Head: atraumatic, normocephalic Eyes: EOMI, PERRL Respiratory: clear to auscultation, normal air movement Cardiovascular: nl pulses, regular rate and rhythm Gastrointestinal: non-tender, soft Extremities: normal pulses Results Result Diagram: 11/22/16 1445 11/22/16 1445 Results 24 hrs Laboratory Tests Test 11/22/16 10:01 11/22/16 13:56 11/22/16 14:45 White Blood Count 8.1 15.9 #H Red Blood Count 3.13 L 3.13 L Hemoglobin 7.7 L 7.8 L Hematocrit 25.5 L 25.8 L Mean Corpuscular Volume 81.5 L 82.4 Mean Corpuscular Hemoglobin 24.6 L 24.9 L Mean Corpuscular Hemoglobin Concent 30.2 L 30.2 L Red Cell Distribution Width 21.6 H 22.2 H Platelet Count 548 H 526 H Mean Platelet Volume 9.7 10.2 Neutrophils % 60.3 84.8 H Lymphocytes % 29.5 10.1 L Monocytes % 5.8 3.5 Eosinophils % 3.5 1.0 Basophils % 0.5 0.2 Nucleated Red Blood Cells % 0.0 0.0 Neutrophils # 4.9 13.4 H Lymphocytes # 2.4 1.6 Monocytes # 0.5 0.6 Eosinophils # 0.3 0.2 Basophils # 0.0 0.0 Nucleated Red Blood Cells # 0.0 0.0 Sodium Level 140 139 Potassium Level 3.5 3.6 Chloride Level 108 106 Carbon Dioxide Level 24 24 Anion Gap 12 13 Blood Urea Nitrogen 7 7 Creatinine 0.75 0.77 Glucose Level 107 137 Hemoglobin A1c 5.1 Calcium Level 8.5 8.5 Phosphorus Level 3.1 Magnesium Level 2.0 Bedside Glucose 154 Medications Medications Current Medications Potassium Chloride/Dextrose/ Sod Cl (D5-1/2ns + KCl 20 Meq) 1,000 ml @ 100 mls/ hr Q10H IV Last administered on 11/22/16 16:17; Admin Dose 100 MLS/HR; Start 11/21/16 at 23:57 Ondansetron HCl (Zofran Inj) 4 mg Q6H PRN IV NAUSEA AND/OR VOMITING; Start at 00:00 Morphine Sulfate (morphine) 2 mg Q4H PRN IV SEVERE PAIN LEVEL 7-10 Last administered on 11/22/16 08:50; Admin Dose 2 MG; Start 11/22/16 at 00:00 Pantoprazole (Protonix Iv) 40 mg DAILY@06 IV Last administered on 11/22/16 06: 08; Admin Dose 40 MG; Start 11/22/16 at 06:00 Hydromorphone HCl (Dilaudid) 1 mg Q4H PRN IV PAIN Last administered on 12:35; Admin Dose 1 MG; Start 11/22/16 at 06:00 SHANNAN HERNANDEZ MD Nov 22, 2016 16:31
[2016-11-22] MEDS: morphine 4 MG/ML VIAL IV PRN ×2 (17:40→21:58)
[2016-11-22 19:30] VITALS: BP 157/74; RESP 18
[2016-11-22] MEDS: ONDANSETRON 4 MG INJ IV PRN (21:58)
[2016-11-23] MEDS: CEPASTAT LOZENGE MT PRN ×5 (00:30→15:19)
[2016-11-23] MEDS ORDERED: morphine 4 MG/ML VIAL IV ONE (00:37)
[2016-11-23] MEDS: morphine 4 MG/ML VIAL IV PRN ×4 (02:52→15:29)
[2016-11-23] MEDS: D5W-0.45 NACL + KCL 20 MEQ 1,000 ML IV SCH ×2 (05:37→16:56)
[2016-11-23] MEDS: ONDANSETRON 4 MG INJ IV PRN (06:48)
[2016-11-23] MEDS: PANTOPRAZOLE 40 MG INJ IV SCH (06:48)
[2016-11-23 07:00] VITALS: BP 143/79; RESP 20
[2016-11-23 08:03] LABS: ADD SCAN DIFF NO
[2016-11-23 08:04] LABS: BASOPHIL # 0.1 10^3/ul (0.0-0.1); BASOPHILS % 0.5 % (0.0-2.0); EOSINOPHILS # 0.2 10^3/ul (0.0-0.5); EOSINOPHILS % 1.6 % (0.0-7.0); HEMATOCRIT 32.6 % (37.0-47.0); HEMOGLOBIN 10.9 g/dl (12.0-16.0); LYMPHOCYTES # 2.4 10^3/ul (0.8-2.9); MEAN CORPUSCULAR HEMOGLOBIN 27.1 pg (29.0-33.0); MEAN CORPUSCULAR HGB CONC 33.4 g/dl (32.0-37.0); MEAN CORPUSCULAR VOLUME 81.1 fl (82.0-101.0); MEAN PLATELET VOLUME 9.9 fl (7.4-10.4); MONOCYTE # 0.8 10^3/ul (0.3-0.9); MONOCYTES % 6.3 % (0.0-11.0); NEUTROPHIL # 9.1 10^3/ul (1.6-7.5); NEUTROPHILS % 72.2 % (39.0-77.0); PLATELET COUNT 587 10^3/UL (140-415); RED BLOOD COUNT 4.02 10^6/ul (4.20-5.40); RED CELL DISTRIBUTION WIDTH 20.3 % (11.5-14.5); WHITE BLOOD COUNT 12.6 10^3/ul (4.8-10.8)
[2016-11-23 08:40] LABS: ALBUMIN 4.9 g/dl (3.3-4.9); ALBUMIN/GLOBULIN RATIO 1.63; BILIRUBIN,INDIRECT 0.6 mg/dl (0-1.1); BILIRUBIN,TOTAL 0.6 mg/dl (0.2-1.3); CALCIUM 9.2 mg/dl (8.4-10.2); CREATININE 0.81 mg/dl (0.44-1.00); POTASSIUM 3.1 mmol/L (3.5-5.1); TOTAL PROTEIN 7.9 g/dl (6.1-8.1)
--- NOTE | 2016-11-23 10:13 | RADRPT ---
Vent Rate: 69 bpm RR Interval: 0 msec [place] Interval: 172 msec QRS Duration: 94 msec QT Interval: 416 msec QTC Interval: 445 msec P-R-T [place]: 40 - 61 - 7 degrees Normal sinus rhythm Nonspecific ST abnormality Abnormal ECG Electronically Signed By: Jayesh Tamez [id number]
[2016-11-23] MEDS ORDERED: ONDANSETRON 4 MG INJ IV STA (11:34)
[2016-11-23] MEDS ORDERED: DIATR MEGLU/DIATRIZOATE SODIUM 120 ML BTL ONE (11:55)
--- NOTE | 2016-11-23 18:02 | RADRPT ---
PROCEDURE: Small bowel follow-through. CLINICAL INDICATION: Abdomen pain. TECHNIQUE: Water-soluble contrast was administered via the nasogastric tube and several spot and o verhead radiographs of the abdomen were obtained. COMPARISON: None. FINDINGS: On the preliminary radiograph, there is a nasogastric tube with the tip in the gastric antrum. The preliminary radiograph is otherwise unremarkable. There is no small bowel displacement or mass. The small bowel folds are normal. There is no evidence of obstruction. Transit time is normal with contrast in the colon at 4 hours. . IMPRESSION: 1. Normal small bowel follow-through. 2. No evidence of obstruction. RPTAT: QQ .Alec Black MD, MD Date Time Electronically viewed and signed by .Alec Black MD, MD on 11/23/2016 18:01 .R/
[2016-11-23] MEDS ORDERED: LIDOCAINE 1% (MPF) 5 ML VIAL SC ONE (19:00)
[2016-11-23 19:40] VITALS: BP 164/76; RESP 18
[2016-11-23] MEDS ORDERED: POTASSIUM CHLORIDE (SR) 20 MEQ TAB PO SCH (21:00)
[2016-11-23] MEDS ORDERED: HYDROCODONE/APAP (10/325) TAB PO PRN (21:00)
[2016-11-23] MEDS: HYDROCODONE/APAP (5/325) TAB PO PRN (21:24)
--- NOTE | 2016-11-23 23:55 | PN ---
Date/Time of Note Date/Time of Note DATE: 11/23/16 TIME: 23:54 Assessment/Plan Lines/Catheters IV [facility] Peripheral IV Urinary Cath still in place: No Exam/Review of Systems Vital Signs Vitals Vital Signs Date Time Temp Pulse Resp B/P Pulse Ox O2 Delivery O2 Flow Rate FiO2 11/23/16 19:40 98.9 68 18 164/76 98 11/22/16 14:20 Room Air Intake and Output 11/22/16 11/22/16 11/23/16 15:00 23:00 07:00 Intake Total 1080 ml 560 ml Balance 1080 ml 560 ml Results Result Diagram: 11/23/16 0745 11/23/16 0745 Results 24 hrs Laboratory Tests Test 11/23/16 06:38 11/23/16 07:45 Lab Scanned Report BLOOD TRANSFUSION White Blood Count 12.6 #H Red Blood Count 4.02 #L Hemoglobin 10.9 #L Hematocrit 32.6 #L Mean Corpuscular Volume 81.1 L Mean Corpuscular Hemoglobin 27.1 L Mean Corpuscular Hemoglobin Concent 33.4 Red Cell Distribution Width 20.3 H Platelet Count 587 H Mean Platelet Volume 9.9 Neutrophils % 72.2 Lymphocytes % 19.0 Monocytes % 6.3 Eosinophils % 1.6 Basophils % 0.5 Nucleated Red Blood Cells % 0.0 Neutrophils # 9.1 H Lymphocytes # 2.4 Monocytes # 0.8 Eosinophils # 0.2 Basophils # 0.1 Nucleated Red Blood Cells # 0.0 Sodium Level 143 Potassium Level 3.1 L Chloride Level 105 Carbon Dioxide Level 27 Anion Gap 14 Blood Urea Nitrogen 6 L Creatinine 0.81 Glucose Level 121 Calcium Level 9.2 Total Bilirubin 0.6 Direct Bilirubin 0.00 Indirect Bilirubin 0.6 Aspartate Amino Transf (AST/SGOT) 22 Alanine Aminotransferase (ALT/SGPT) 28 Alkaline Phosphatase 54 Total Protein 7.9 Albumin 4.9 Globulin 3.00 Albumin/Globulin Ratio 1.63 Medications Medications Current Medications Potassium Chloride/Dextrose/ Sod Cl (D5-1/2ns + KCl 20 Meq) 1,000 ml @ 100 mls/ hr Q10H IV Last administered on 11/23/16t 16:56; Admin Dose 100 MLS/HR; Start 11/21/16 at 23:57 Ondansetron HCl (Zofran Inj) 4 mg Q6H PRN IV NAUSEA AND/OR VOMITING Last administered on 11/23/16 06:48; Admin Dose 4 MG; Start 11/22/16 at 00:00 Morphine Sulfate (morphine) 4 mg Q4H PRN IV PAIN LEVEL 6-10 Last administered on 11/23/16 15:29; Admin Dose 4 MG; Start 11/22/16 at 17:00 Phenol (Cepastat Lozenge) 1 lozenge Q1H PRN MT SORE THROAT Last administered on 11/23/16 15:19; Admin Dose 1 LOZENGE; Start 11/22/16 at 23:00 Acetaminophen/ Hydrocodone Bitart ([place] (5/325)) 1 tab Q4H PRN PO PAIN Last administered on 11/23/16 21:24; Admin Dose 1 TAB; Start 11/23/16 at 21:00 Acetaminophen/ Hydrocodone Bitart ([place] (10/325)) 1 tab Q4H PRN PO BREAKTHROUGH PAIN; Start 11/23/16 at 21:00 Potassium Chloride (Klor-Con 20) 40 meq ONCE PO Last administered on 11/23/16 21:17; Admin Dose 40 MEQ; Start 11/23/16 at 21:00; Stop 11/23/16 at 23:59 Pantoprazole (Protonix Tab) 40 mg DAILY@06 PO ; Start 11/24/16 at 06:00 SHANNAN HERNANDEZ MD Nov 23, 2016 23:54
[2016-11-24] MEDS: D5W-0.45 NACL + KCL 20 MEQ 1,000 ML IV SCH ×2 (01:57→11:57)
[2016-11-24] MEDS ORDERED: PANTOPRAZOLE (EC) 40 MG TAB PO SCH (06:00)
[2016-11-24 07:44] LABS: ADD SCAN DIFF NO
[2016-11-24 07:48] LABS: BASOPHIL # 0.1 10^3/ul (0.0-0.1); BASOPHILS % 0.5 % (0.0-2.0); EOSINOPHILS # 0.4 10^3/ul (0.0-0.5); EOSINOPHILS % 2.8 % (0.0-7.0); HEMATOCRIT 35.3 % (37.0-47.0); HEMOGLOBIN 10.8 g/dl (12.0-16.0); LYMPHOCYTES # 2.3 10^3/ul (0.8-2.9); LYMPHOCYTES % 18.9 % (15.0-51.0); MEAN CORPUSCULAR HEMOGLOBIN 25.4 pg (29.0-33.0); MEAN CORPUSCULAR HGB CONC 30.6 g/dl (32.0-37.0); MEAN CORPUSCULAR VOLUME 82.9 fl (82.0-101.0); MEAN PLATELET VOLUME 10.1 fl (7.4-10.4); MONOCYTE # 0.9 10^3/ul (0.3-0.9); MONOCYTES % 7.4 % (0.0-11.0); NEUTROPHIL # 8.7 10^3/ul (1.6-7.5); PLATELET COUNT 627 10^3/UL (140-415); RED BLOOD COUNT 4.26 10^6/ul (4.20-5.40); RED CELL DISTRIBUTION WIDTH 20.3 % (11.5-14.5); WHITE BLOOD COUNT 12.4 10^3/ul (4.8-10.8)
[2016-11-24 08:11] LABS: CALCIUM 9.6 mg/dl (8.4-10.2); CREATININE 0.84 mg/dl (0.44-1.00)
[2016-11-24] MEDS: HYDROCODONE/APAP (5/325) TAB PO PRN (09:02)
[2016-11-24 09:36] LABS: PHOSPHORUS 3.5 mg/dl (2.5-4.9)
[2016-11-24] MEDS: morphine 4 MG/ML VIAL IV PRN (10:36)
--- NOTE | 2016-11-24 14:24 | PDOCDIS ---
Discharge Instructions CONDITION Patient Condition: Stable HOME CARE INSTRUCTIONS: Diet Instructions: Regular ACTIVITY: Activity Restrictions: Slowly Increase Activity Rest between Activity Avoid heavy lifting Avoid Heavy Housework FOLLOW UP/APPOINTMENTS Follow-up Plan follow-up with primary Care Doctor OTHER ORDERS: Other Orders: Call 911 and go to the nearest ER of you develop severe abdominal pain, bleeding , difficulty with bowel movement, fever/chills, intractable nausea and vomiting. SHANNAN HERNANDEZ MD Nov 24, 2016 14:24
[2016-11-24] MEDS ORDERED: Hydrocodone/Apap (10/325) PO (14:25)
[2016-11-24] MEDS ORDERED: HYDROCODONE/APAP (5/325) TAB PO ONE (14:30)
== END 2016-11-24 16:15 | disposition home or self-care (01) | DRG 389 ==
LOC: FTE 12:28 → MS1 20:47
PROVIDERS: ADMIT Internal Medicine; ATTEND Internal Medicine
PROC: 30253N1 (ICD-10-PCS; principal; 2016-11-23)
DX: K56.60 Unspecified intestinal obstruction (principal); E87.0 Hyperosmolality and hypernatremia; E87.6 Hypokalemia; E86.0 Dehydration; R55 Syncope and collapse; D47.3 Essential (hemorrhagic) thrombocythemia; K80.20 Calculus of gallbladder without cholecystitis without obstruction; D25.9 Leiomyoma of uterus, unspecified
CPT/HCPCS: 36430; 74176; 74250; 76705; 80048; 80053; 81001; 82962; 83036; 83690; 83735; 84100; 85025; 85610; 85730; 86850; 86900; 86901; 86920; 87086; 93005; 96374; 96375; C9113; J1170; J2270; J2405; J3480; J7030; P9016

== ENCOUNTER 2017-01-01 00:50 | Emergency (ER) | payer OTHER ==
[~2017-01-01] VITALS: Ht 162.6 cm; Wt 109.5 kg
[~2017-01-01 00:50] MED LIST changes: -ACET325T33 PO; -CYCL-319 PO; -FER325 PO; +Hydrocodone/Apap (10/325) PO; -IBUP-1542 PO; -ONDA4TAB14 PO
[2017-01-01 00:56] VITALS: Ht 162.6 cm; Wt 109.5 kg
[2017-01-01] MEDS ORDERED: SOD CHLORIDE 0.9% 1,000 ML IV STA (03:48)
[2017-01-01] MEDS ORDERED: ONDANSETRON 4 MG INJ IV STA (03:48)
[2017-01-01] MEDS ORDERED: morphine 4 MG/ML VIAL IV STA (03:48)
[2017-01-01 05:01] LABS: ADD UMIC NO; UR ASCORBIC ACID NEGATIVE (NEGATIVE); UR BILIRUBIN (Dip) NEGATIVE (NEGATIVE); UR BLOOD (Dip) NEGATIVE (NEGATIVE); UR CLARITY SLIGHTLY CLOUDY (CLEAR); UR COLOR YELLOW (YELLOW); UR GLUCOSE (Dip) NEGATIVE (NEGATIVE); UR KETONES (Dip) NEGATIVE (NEGATIVE); UR LEUKOCYTE ESTERASE (Dip) NEGATIVE Leu/ul (NEGATIVE); UR MUCUS FEW /HPF (NONE SEEN); UR NITRITE (Dip) NEGATIVE (NEGATIVE); UR RBC 2 /HPF (0-5); UR SPECIFIC GRAVITY (Dip) 1.029 (1.003-1.030); UR SQUAMOUS EPITHELIAL CELL FEW /HPF (FEW); UR TOTAL PROTEIN (Dip) NEGATIVE (NEGATIVE); UR UROBILINOGEN (Dip) NEGATIVE (NEGATIVE)
[2017-01-01 05:29] LABS: BASOPHILS % 0.4 % (0.0-2.0); EOSINOPHILS # 0.3 10^3/ul (0.0-0.5); EOSINOPHILS % 4.4 % (0.0-7.0); HEMATOCRIT 27.5 % (37.0-47.0); HEMOGLOBIN 8.7 g/dl (12.0-16.0); LYMPHOCYTES # 1.9 10^3/ul (0.8-2.9); LYMPHOCYTES % 25.5 % (15.0-51.0); MEAN CORPUSCULAR HEMOGLOBIN 25.7 pg (29.0-33.0); MEAN CORPUSCULAR HGB CONC 31.6 g/dl (32.0-37.0); MEAN CORPUSCULAR VOLUME 81.4 fl (82.0-101.0); MEAN PLATELET VOLUME 10.4 fl (7.4-10.4); MONOCYTE # 0.6 10^3/ul (0.3-0.9); NEUTROPHIL # 4.6 10^3/ul (1.6-7.5); NEUTROPHILS % 61.3 % (39.0-77.0); PLATELET COUNT 496 10^3/UL (140-415); RED BLOOD COUNT 3.38 10^6/ul (4.20-5.40); RED CELL DISTRIBUTION WIDTH 18.6 % (11.5-14.5); WHITE BLOOD COUNT 7.5 10^3/ul (4.8-10.8)
[2017-01-01] MEDS ORDERED: FER325 PO (05:47)
[2017-01-01 05:53] LABS: ALBUMIN 4.4 g/dl (3.3-4.9); ALBUMIN/GLOBULIN RATIO 1.46; CALCIUM 8.9 mg/dl (8.4-10.2); CREATININE 0.73 mg/dl (0.44-1.00); POTASSIUM 3.9 mmol/L (3.5-5.1); TOTAL PROTEIN 7.4 g/dl (6.1-8.1)
--- NOTE | 2017-01-01 06:35 | RADRPT ---
PROCEDURE: US Abdomen (right upper quadrant). CLINICAL INDICATION: Abdominal pain. TECHNIQUE: Multiple real-time longitudinal and transverse images of the right upper quadrant of th e abdomen were acquired utilizing a curved array transducer. Images were reviewed on a high-resoluti on PACS workstation. COMPARISON: CT abdomen and pelvis dated 11/21/2016 FINDINGS: The liver is normal in size and demonstrates normal echogenicity. No focal intrahepatic mass is id entified. The gallbladder contains stones. There is mild prominence of the gallbladder wall. No in tra or extrahepatic biliary dilatation is seen. The common bile duct measures 3.2 mm in maximal dim ension. The portal and hepatic veins are patent demonstrating normal directional flow. The visualize d portions of the pancreas are unremarkable with obscuration of the tail of the pancreas. No free f luid is identified. The right kidney measures 11.0 cm in length. There is normal echogenicity within the right kidney. There is no perinephric fluid collection. No hydronephrosis, mass, or calculus is seen. IMPRESSION: Cholelithiasis. The gallbladder wall is upper limits of normal in thickness. There is no perichole cystic free fluid. Clinical correlation required. RPTAT: HH .Mayra Diaz MD, Date Time Electronically viewed and signed by .Mayra Diaz MD, on 01/01/2017 06:35 .G/
--- NOTE | 2017-01-01 06:52 | ERD ---
ER Documentation Chief Complaint Date/Time DATE: 01/01/17 TIME: 06:41 Chief Complaint mid abd pain x 2 weeks HPI 31-year-old female history of uterine myomectomy for leiomyomas, anemia, ulcer disease and most recent admission 11/2016 for small bowel obstruction presents to the ED for abdominal pain. Patient reports that since her previous discharge she has had ongoing, intermittent, generalized, crampy, nonradiating abdominal pain which become worse over the last several days. No exacerbating factors. Pain is relieved by pressure on her abdomen or lying in the prone position. Denies nausea, vomiting, diarrhea or constipation. No hematemesis, hematochezia or melanotic stools. No dysuria, polyuria, hematuria or flank pain. No vaginal discharge or bleeding. No fevers or chills. Patient received morphine 4 mg and Zofran 4 mg prior to my evaluation and pain has resolved. ROS All systems reviewed and are negative except as per history of present illness. Medications Home Meds Reported Medications Ferrous Sulfate* (Ferrous Sulfate*) 325 Mg Tabec, 325 MG PO DAILY, TAB 01/01/17 Discontinued Scripts [Hydrocodone/Apap ()] 1 TAB TAB No Conflict Check, 1 TAB PO Q4H Y for PAIN , #30 Prov:SHANNAN HERNANDEZ MD 11/24/16 Allergies Allergies: Coded Allergies: No Known Allergy (Unverified , 01/01/17) PMhx/Soc Reviewed in chart. As per HPI History of Surgery: Yes (FIBROIDS REMOVED ( FIBROIDECTOMY )) Anesthesia Reaction: No Hx Neurological Disorder: No Hx Respiratory Disorders: No Hx Cardiac Disorders: No Hx Psychiatric Problems: No Hx Miscellaneous Medical Probl: Yes (ANEMIA, SBO, ulcer disease) Hx Alcohol Use: Yes Hx Substance Use: Yes (Marijuana) Hx Tobacco Use: Yes Smoking Status: Current every day smoker FmHx No diabetes, cancer or stroke Physical Exam Vitals Vital Signs Date Time Temp Pulse Resp B/P Pulse Ox O2 Delivery O2 Flow Rate FiO2 01/01/17 00:56 97.8 89 20 145/76 99 Physical Exam Const: Alert, no acute distress. Head: Atraumatic Eyes: Normal Conjunctiva ENT: Normal External Ears, Nose and Mouth. Neck: Full range of motion. Nontender. No lymphadenopathy Resp: Breath sounds are equal and clear to auscultation bilaterally Cardio: Regular rate and rhythm, no murmurs Abd: Soft, obese, non distended. Normal bowel sounds. Mild, generalized tenderness but no rebound or guarding. Skin: No petechiae or rashes Back: No midline or flank tenderness Ext: No cyanosis, or edema Neur: Awake and alert, no focal deficit observed. Psych: Normal Mood and Affect. Patient does not appear anxious or depressed. Result Diagram: 01/01/17 0511 01/01/17 0511 Results 24 hrs Laboratory Tests Test 01/01/17 04:10 01/01/17 05:11 Urine Color YELLOW Urine Clarity SLIGHTLY CLOUDY Urine pH 6.0 Urine Specific [place] 1.029 Urine Ketones NEGATIVEmg/dL Urine Nitrite NEGATIVEmg/dL Urine Bilirubin NEGATIVEmg/dL Urine Urobilinogen NEGATIVEmg/dL Urine Leukocyte Esterase NEGATIVELeu/ul Urine Microscopic RBC 2/HPF Urine Microscopic WBC 9/HPF Urine Squamous Epithelial Cells FEW/HPF Urine Calcium Oxalate Crystals MODERATE/HPF Urine Mucus FEW/HPF Urine Hemoglobin NEGATIVEmg/dL Urine Glucose NEGATIVEmg/dL Urine Total Protein NEGATIVEmg/dl Urine Test NEGATIVE White Blood Count 7.510^3/ul Red Blood Count 3.3810^6/ul Hemoglobin 8.7g/dl Hematocrit 27.5% Mean Corpuscular Volume 81.4fl Mean Corpuscular Hemoglobin 25.7pg Mean Corpuscular Hemoglobin Concent 31.6g/dl Red Cell Distribution Width 18.6% Platelet Count 71982^3/UL Mean Platelet Volume 10.4fl Neutrophils % 61.3% Lymphocytes % 25.5% Monocytes % 8.0% Eosinophils % 4.4% Basophils % 0.4% Nucleated Red Blood Cells % 0.0/100WBC Neutrophils # 4.610^3/ul Lymphocytes # 1.910^3/ul Monocytes # 0.610^3/ul Eosinophils # 0.310^3/ul Basophils # 0.010^3/ul Nucleated Red Blood Cells # 0.010^3/ul Sodium Level 147mmol/L Potassium Level 3.9mmol/L Chloride Level 109mmol/L Carbon Dioxide Level 22mmol/L Anion Gap 20 Blood Urea Nitrogen 10mg/dl Creatinine 0.73mg/dl Glucose Level 98mg/dl Calcium Level 8.9mg/dl Total Bilirubin 0.0mg/dl Direct Bilirubin 0.00mg/dl Indirect Bilirubin 0.0mg/dl Aspartate Amino Transf (AST/SGOT) 21IU/L Alanine Aminotransferase (ALT/SGPT) 22IU/L Alkaline Phosphatase 44IU/L Total Protein 7.4g/dl Albumin 4.4g/dl Globulin 3.00g/dl Albumin/Globulin Ratio 1.46 Lipase 365U/L Current Medications Medications (Trade) Dose Ordered Sig/Braden Route PRN Reason Start Time Stop Time Status Last Admin Dose Admin Sodium Chloride (NS) 1,000 ml @ 1,000 mls/hr Q1H STAT IV 01/01/17 03:48 01/01/17 04:47 DC 01/01/17 05:22 Morphine Sulfate (morphine) 4 mg ONCE STAT IV 01/01/17 03:48 01/01/17 03:49 DC 01/01/17 05:21 Ondansetron HCl (Zofran Inj) 4 mg ONCE STAT IV 01/01/17 03:48 01/01/17 03:49 DC 01/01/17 05:22 IMAGING: PROCEDURE: US Abdomen (right upper quadrant). CLINICAL INDICATION: Abdominal pain. TECHNIQUE: Multiple real-time longitudinal and transverse images of the right upper quadrant of the abdomen were acquired utilizing a curved array transducer. Images were reviewed on a high-resolution PACS workstation. COMPARISON: CT abdomen and pelvis dated 11/21/2016 FINDINGS: The liver is normal in size and demonstrates normal echogenicity. No focal intrahepatic mass is identified. The gallbladder contains stones. There is mild prominence of the gallbladder wall. No intra or extrahepatic biliary dilatation is seen. The common bile duct measures 3.2 mm in maximal dimension. The portal and hepatic veins are patent demonstrating normal directional flow. The visualized portions of the pancreas are unremarkable with obscuration of the tail of the pancreas. No free fluid is identified. The right kidney measures 11.0 cm in length. There is normal echogenicity within the right kidney. There is no perinephric fluid collection. No hydronephrosis, mass, or calculus is seen. IMPRESSION: Cholelithiasis. The gallbladder wall is upper limits of normal in thickness. There is no pericholecystic free fluid. Clinical correlation required. RPTAT: .Mayra Diaz MD, MD Date Time Electronically viewed and signed by .Mayra Diaz MD, MD on 01/01/2017 06 :35 .G/ Procedures/MDM DOCUMENTS REVIEWED: ED nurse, prior ED, prior records including most recent admission for small bowel obstruction November 2016 ED COURSE: Morphine 4 mg/Zofran 4 mg IV. REEXAMINATION/REEVALUATION: Time:07:00 doing well. Abdomen soft nontender. Tolerating p.o.'s. MEDICAL DECISION MAKIN-year-old female history of uterine myomectomy for leiomyomas, anemia, ulcer disease and most recent admission 11/2016 for small bowel obstruction presents to the ED for abdominal pain. Ultrasound consistent with cholelithiasis without cholecystitis or choledocholithiasis. Mildly elevated lipase not consistent with pancreatitis. Liver function tests are normal. No nausea, vomiting or signs of bowel obstruction. Symptoms not consistent with gastritis/GERD or ulcer disease although recurrence of possible. Abdominal exam is benign without rebound, guarding or signs of peritonitis. Anemia but no acute bleeding, hemodynamic stability or indication for transfusion. Already taking ferrous sulfate. Stable for discharge with precautionary instructions, appropriate analgesics and urgent outpatient follow- up as counseled Counseled patient regarding diagnostic workup, diagnosis and need for followup. Understands to return to ED if symptoms recur, worsen or any other concerns. Departure Diagnosis: Primary Impression: Acute generalized abdominal pain Additional Impressions: Cholelithiasis without cholecystitis History of myomectomy Anemia Anemia type: unspecified type Qualified Code: D64.9 - Anemia, unspecified type Condition: Stable (Improved) VESNA FERNANDEZ MD Jan 01, 2017 06:52
[2017-01-01] MEDS ORDERED: RANI150T9 PO (06:56)
[2017-01-01] MEDS ORDERED: ONDA4TAB8 PO (06:56)
[2017-01-01] MEDS ORDERED: TRAM50TA2 PO (06:56)
[2017-01-01 07:10] VITALS: BP 138/74; PULSE 53; RESP 14
== END 2017-01-01 07:40 | disposition home or self-care (01) ==
LOC: E/R 00:50
DX: R10.84 Generalized abdominal pain (principal); D64.9 Anemia, unspecified; F17.210 Nicotine dependence, cigarettes, uncomplicated
CPT/HCPCS: 76705; 80053; 81001; 83690; 84703; 85025; J2270; J2405; J7030; 36415; 81003; 96374; 96375

== ENCOUNTER 2017-01-05 23:40 | Emergency (ER) | END 2017-01-06 03:15 | disposition home or self-care (01) | DX: K80.50 Calculus of bile duct without cholangitis or cholecystitis without obstruction (principal); R11.0 Nausea; Z87.891 Personal history of nicotine dependence | CPT/HCPCS: 76705; 80053; 81001; 83690; 85025; Z7502; Z7610 ==

== ENCOUNTER 2017-01-27 05:38 | Emergency (ER) | payer OTHER ==
[~2017-01-27] VITALS: Ht 167.6 cm; Wt 109.5 kg
[~2017-01-27 05:38] MED LIST changes: +FER325 PO; +HYDR-906 PO; -Hydrocodone/Apap (10/325) PO; +ONDA4TAB14 PO; +ONDA4TAB8 PO; +RANI150T9 PO; +TRAM50TA2 PO
[2017-01-27 05:44] VITALS: Ht 167.6 cm; Wt 109.5 kg
[2017-01-27] MEDS ORDERED: morphine 4 MG/ML VIAL IV STA (06:21)
[2017-01-27] MEDS ORDERED: ONDANSETRON 4 MG INJ IV STA (06:21)
[2017-01-27] MEDS ORDERED: SOD CHLORIDE 0.9% 1,000 ML IV STA (06:21)
[2017-01-27] MEDS ORDERED: DIPHENHYDRAMINE 50 MG INJ IV ONE (07:00)
[2017-01-27 07:12] LABS: BASOPHILS % 0.4 % (0.0-2.0); EOSINOPHILS # 0.3 10^3/ul (0.0-0.5); EOSINOPHILS % 3.9 % (0.0-7.0); HEMATOCRIT 28.3 % (37.0-47.0); HEMOGLOBIN 8.4 g/dl (12.0-16.0); LYMPHOCYTES # 1.6 10^3/ul (0.8-2.9); LYMPHOCYTES % 22.5 % (15.0-51.0); MEAN CORPUSCULAR HEMOGLOBIN 24.1 pg (29.0-33.0); MEAN CORPUSCULAR HGB CONC 29.7 g/dl (32.0-37.0); MEAN CORPUSCULAR VOLUME 81.3 fl (82.0-101.0); MEAN PLATELET VOLUME 10.5 fl (7.4-10.4); MONOCYTE # 0.6 10^3/ul (0.3-0.9); MONOCYTES % 7.8 % (0.0-11.0); PLATELET COUNT 590 10^3/UL (140-415); RED BLOOD COUNT 3.48 10^6/ul (4.20-5.40); RED CELL DISTRIBUTION WIDTH 20.2 % (11.5-14.5)
[2017-01-27 07:39] LABS: PROTIME 13.2 Sec (12.2-14.2)
[2017-01-27 07:40] LABS: PARTIAL THROMBOPLASTIN TIME 29.6 Sec (25.0-35.0)
[2017-01-27 07:47] LABS: ALBUMIN 4.2 g/dl (3.3-4.9); ALBUMIN/GLOBULIN RATIO 1.27; BILIRUBIN,INDIRECT 0.1 mg/dl (0-1.1); BILIRUBIN,TOTAL 0.1 mg/dl (0.2-1.3); CREATININE 0.79 mg/dl (0.44-1.00); POTASSIUM 3.7 mmol/L (3.5-5.1); TOTAL PROTEIN 7.5 g/dl (6.1-8.1)
[2017-01-27 07:47] LABS: ADD UMIC NO; UR ASCORBIC ACID NEGATIVE (NEGATIVE); UR BILIRUBIN (Dip) NEGATIVE (NEGATIVE); UR BLOOD (Dip) NEGATIVE (NEGATIVE); UR CLARITY CLEAR (CLEAR); UR COLOR YELLOW (YELLOW); UR GLUCOSE (Dip) NEGATIVE (NEGATIVE); UR KETONES (Dip) NEGATIVE (NEGATIVE); UR LEUKOCYTE ESTERASE (Dip) NEGATIVE Leu/ul (NEGATIVE); UR NITRITE (Dip) NEGATIVE (NEGATIVE); UR SPECIFIC GRAVITY (Dip) 1.025 (1.003-1.030); UR TOTAL PROTEIN (Dip) NEGATIVE (NEGATIVE); UR UROBILINOGEN (Dip) NEGATIVE (NEGATIVE)
[2017-01-27] MEDS ORDERED: IOHEXOL 300MG/ML 150 ML BTL ONE (07:57)
[2017-01-27] MEDS ORDERED: SOD CHLORIDE 0.9% 100 ML ONE (07:57)
--- NOTE | 2017-01-27 08:35 | RADRPT ---
PROCEDURE: CT abdomen and pelvis with contrast. CLINICAL INDICATION: Abdominal pain TECHNIQUE: CT scan of the abdomen and pelvis without contrast [facility] from the lung bases through the pubis symphysis. The patient was scanned after the uneventful intravenous administration of 90 cc of Omnipaque-300. Sagittal and coronal re formatted images were made. CTDI vol 20.63 mGy and DLP 1237.62 mGy-cm One of the following 3 dose reduction techniques were used during this CT examination: automated exp osure control; adjustment of the mA and /or kV according to patient size; or use of iterative recons truction technique. COMPARISON: 11/21/2016 CT abdomen pelvis FINDINGS: CT abdomen: The lung bases are clear. The heart size is normal. No pericardial or pleural effusion is present. The visualized liver is normal size and attenuation. The spleen, pancreas, gallbladder, and right adrenal gland is normal. The left adrenal gland demonstrates a left adrenal nodule which measures 1.4 cm. This is most likely an adrenal adenoma however dedicated adrenal imaging is suggested. The visualized kidneys are normal bilaterally. No evidence for hydroureteronephrosis or nephrourete rolithiasis is present. The visualized aorta is normal without aneurysmal dilatation. The visualized bowel is nonobstructive. The appendix is normal. CT pelvis: The uterus is mildly heterogeneous and enlarged and correlate with leiomyomas uterine versus other p athology. Pelvic ultrasound or MRI may be performed to further evaluate. The urinary bladder is no rmal. A small amount of pelvic ascites is present. The adnexa appears normal. No evidence for pne umoperitoneum or pathologic lymphadenopathy is present. The surrounding osseous structures are remarkable for mild degenerative changes of the bilateral sac roiliac joints and mild degenerative spondylosis of the imaged spine.. IMPRESSION: 1. No evidence for acute intra-abdominal or pelvic pathology. 2. Enlarged heterogeneous uterus compatible with leiomyomas uteri and recommend follow-up ultrasoun d or pelvic MRI as indicated. 3. Small amount of pelvic ascites. 4. Left adrenal 1.4 cm nodule, likely adrenal adenoma however additional imaging is suggested to co nfirm. RPTAT: HDC .Jada Virk MD, Date Time Electronically viewed and signed by .Jada Virk MD, on 01/27/2017 08:35 .C/
--- NOTE | 2017-01-27 08:48 | ERD ---
ER Documentation Chief Complaint Date/Time DATE: 01/27/17 TIME: 08:41 Chief Complaint AP x4 days. denies diarrhea or N/V. HPI This is a 31-year-old female that presents to the emergency department complaining of intermittent abdominal pain for the past 4 days. The patient indicates that she returned 48 hours ago from a one-week trip in the [place]. She stated that the abdominal pain and cramping began while she was in the [place]. She had 6 episodes of nonbloody nonbilious emesis 4 days prior to arrival. Since that time she has had loose watery stools. She states that the pain began in the epigastric region and would radiate to the right upper quadrant. Just prior to arrival the patient stated the pain began to radiate to the right lower quadrant which prompted her come to the emergency department to be further evaluated. She states in the past she has had a history of cholelithiasis. She also had uterine fibroids that were removed surgically 4 years prior to arrival. She states she is currently sexually active with one partner denies any abnormal urethral discharge. She denies any frequency urgency or dysuria. Her last menstrual cycle was January 11, 2017. She states that she is sexually active without protection and therefore could be . She states the abdominal pain in the right lower quadrant is a cramping like sensation, 4 out of 10 in intensity. She did take a Vicodin for the pain which she had been prescribed for the cholelithiasis. She indicated this improved the pain but did not completely resolve the pain. This was taken roughly 2 hours prior to arrival. She denies any hemoptysis hematemesis or melanotic stools. She denies any shortness of breath at rest or exertion. ROS All systems reviewed and are negative except as per history of present illness. Medications Home Meds Active Scripts Ondansetron (Ondansetron Odt) 4 Mg Tab.rapdis, 4 MG PO Q8 Y for NAUSEA AND/OR VOMITING, #30 TAB Prov:DANIAL JEROME NP 01/06/17 Hydrocodone/Acetaminophen ([place] 5-325 Tablet) 1 Each Tablet, 1 TAB PO Q6H Y for SEVERE PAIN LEVEL 7-10, #20 TAB Prov:DANIAL JEROME NP 01/06/17 Ranitidine Hcl* (Zantac*) 150 Mg Tablet, 150 MG PO BID Y for EPIGASTRIC PAIN, # 30 TAB Prov:VESNA FERNANDEZ MD 01/01/17 Ondansetron Hcl* (Zofran*) 4 Mg Tablet, 4 MG PO Q6H for NAUSEA AND/OR VOMITING, #12 TAB Prov:VESNA FERNANDEZ MD 01/01/17 Tramadol HCl (Tramadol HCl) 50 Mg Tablet, 50 MG PO Q6, #20 TAB Prov:VESNA FERNANDEZ MD 01/01/17 Reported Medications Ferrous Sulfate* (Ferrous Sulfate*) 325 Mg Tabec, 325 MG PO DAILY, TAB 01/01/17 Allergies Allergies: Coded Allergies: No Known Allergy (Unverified , 01/01/17) PMhx/Soc History of Surgery: Yes (FIBROIDS REMOVED ( FIBROIDECTOMY )) Anesthesia Reaction: No Hx Neurological Disorder: No Hx Respiratory Disorders: No Hx Cardiac Disorders: No Hx Psychiatric Problems: No Hx Miscellaneous Medical Probl: Yes (ANEMIA, SBO, ulcer disease) Hx Alcohol Use: Yes Hx Substance Use: Yes (Marijuana) Hx Tobacco Use: Yes Smoking Status: Never smoker Physical Exam Vitals Vital Signs Date Time Temp Pulse Resp B/P Pulse Ox O2 Delivery O2 Flow Rate FiO2 01/27/17 05:44 98.6 84 20 146/78 99 Physical Exam Constitutional:Well-developed. Well-nourished. HEENT:Normocephalic. Atraumatic.Pupils were equal round reactive to light. Moist mucous membranes.No tonsillar exudates. Neck: No nuchal rigidity. No lymphadenopathy. No posterior cervical spine tenderness or step-offs. Respiratory: Not using accessory muscles of respiration.Lungs were clear to auscultation bilaterally. No rhonchi. No rales. No wheezing. Cardiovascular: Regular rate regular rhythm.No murmurs. No rubs were appreciated.S1, S2 normal. Distal pulses are palpable 2+ bilaterally. GI: Abdomen was soft. Tenderness in the right lower quadrant nonspecific over McBurney's point. Psoas sign negative. Obturator sign negative. No tenderness over McBurney's point. Non Distended. No pulsatile abdominal masses or bruits. No rebound. No guarding. Bowel sounds were present and normal. Muscle skeletal: Full range of motion of both the upper and lower extremities bilaterally.Normal muscle tone.No assymetrical calf tenderness or swelling. Skin: No petechia, no purpura. No lesions on the palms or the soles of the feet. No maculopapular rash. NEURO: Patient was alert, awake, orientated x3.No facial droop. Gait observed and normal with no ataxia.Speech had regular rate and rhythm. No focal neurological deficits. Result Diagram: 01/27/17 0640 01/27/17 0640 Results 24 hrs Laboratory Tests Test 01/27/17 06:40 01/27/17 07:10 White Blood Count 7.010^3/ul Red Blood Count 3.4810^6/ul Hemoglobin 8.4g/dl Hematocrit 28.3% Mean Corpuscular Volume 81.3fl Mean Corpuscular Hemoglobin 24.1pg Mean Corpuscular Hemoglobin Concent 29.7g/dl Red Cell Distribution Width 20.2% Platelet Count 60388^3/UL Mean Platelet Volume 10.5fl Neutrophils % 65.0% Lymphocytes % 22.5% Monocytes % 7.8% Eosinophils % 3.9% Basophils % 0.4% Nucleated Red Blood Cells % 0.0/100WBC Neutrophils # (Manual) 4.610^3/ul Lymphocytes # 1.610^3/ul Monocytes # 0.610^3/ul Eosinophils # 0.310^3/ul Basophils # 0.010^3/ul Nucleated Red Blood Cells # 0.010^3/ul Prothrombin Time 13.2Sec Prothrombin Time Ratio 1.0 INR International Normalized Ratio 1.00 Activated Partial Thromboplast Time 29.6Sec Sodium Level 148mmol/L Potassium Level 3.7mmol/L Chloride Level 108mmol/L Carbon Dioxide Level 24mmol/L Anion Gap 20 Blood Urea Nitrogen 13mg/dl Creatinine 0.79mg/dl Glucose Level 102mg/dl Calcium Level 9.0mg/dl Total Bilirubin 0.1mg/dl Direct Bilirubin 0.00mg/dl Indirect Bilirubin 0.1mg/dl Aspartate Amino Transf (AST/SGOT) 21IU/L Alanine Aminotransferase (ALT/SGPT) 28IU/L Alkaline Phosphatase 45IU/L Total Protein 7.5g/dl Albumin 4.2g/dl Globulin 3.30g/dl Albumin/Globulin Ratio 1.27 Amylase Level 76U/L Lipase 57U/L Urine Color YELLOW Urine Clarity CLEAR Urine pH 5.0 Urine Specific [place] 1.025 Urine Ketones NEGATIVEmg/dL Urine Nitrite NEGATIVEmg/dL Urine Bilirubin NEGATIVEmg/dL Urine Urobilinogen NEGATIVEmg/dL Urine Leukocyte Esterase NEGATIVELeu/ul Urine Hemoglobin NEGATIVEmg/dL Urine Glucose NEGATIVEmg/dL Urine Total Protein NEGATIVEmg/dl Current Medications Medications (Trade) Dose Ordered Sig/Braden Route PRN Reason Start Time Stop Time Status Last Admin Dose Admin Sodium Chloride (NS) 1,000 ml @ 1,000 mls/hr Q1H STAT IV 01/27/17 06:21 01/27/17 07:20 DC 01/27/17 06:40 Morphine Sulfate (morphine) 4 mg ONCE STAT IV 01/27/17 06:21 01/27/17 06:24 DC 01/27/17 06:40 Ondansetron HCl (Zofran Inj) 4 mg ONCE STAT IV 01/27/17 06:21 01/27/17 06:24 DC 01/27/17 06:40 Diphenhydramine HCl (Benadryl) 50 mg ONCE ONCE IV 01/27/17 07:00 01/27/17 07:01 DC 01/27/17 06:49 IV Flush 10 ml 10 ml STK-MED ONCE .ROUTE 01/27/17 07:57 01/27/17 07:58 DC 01/27/17 08:20 Sodium Chloride (NS) 100 ml @ ud STK-MED ONCE .ROUTE 01/27/17 07:57 01/27/17 07:58 DC 01/27/17 08:20 Iohexol (Omnipaque 300mg/ ml) 150 ml STK-MED ONCE .ROUTE 01/27/17 07:57 01/27/17 07:58 DC 01/27/17 08:20 Procedures/MDM This patient presented to the emergency department with abdominal pain and was seen and evaluated by myself. My differential diagnosis included but was not limited to abdominal aortic aneurysm, appendicitis, pancreatitis, perforated peptic ulcer, perforated viscus, Boerhaaves syndrome or visceral pain such as diverticulitis, DKA, esophagitis, hepatitis or bowel obstruction. The patient had IV access was established by nursing staff. The patient received a liter bolus of normal saline, morphine for analgesic control and Zofran as an antiemetic. The patient had no leukocytosis. The patient had mild hyponatremia that could be a result of clinical dehydration. This was treated with IV fluids. Given the patient's pain I did feel is necessary to obtain a CT scan of the abdomen. This was reviewed by myself and the radiologist and indicated the followin. No evidence for acute intra-abdominal or pelvic pathology. 2. Enlarged heterogeneous uterus compatible with leiomyomas uteri and recommend follow-up ultrasound or pelvic MRI as indicated. 3. Small amount of pelvic ascites. 4. Left adrenal 1.4 cm nodule, likely adrenal adenoma however additional imaging is suggested to confirm. I informed the patient that she will need to follow-up on an outpatient basis to further confirm the presence of an adrenal adenoma. She states she will follow-up with her PCP regarding this. Her pain had improved. I did indicate to the patient that her symptoms could likely be result of a viral etiology given her recent travel to the [facility]. However the patient had no physical exam findings to suggest a pulmonary embolism or DVT or parasitic infection. The patient was discharged home in fair condition. They were instructed to return to the emergency department at any time if there was any worsening of their condition. The patient stated they would follow up with their PCP in the next 24-48 hours to initiate a suitable medication regimen under the care of their PCP as well as to allow their PCP to monitor any drug reactions. The patient was discharged home with prescriptions after they gave informed consent to the new medication. They were also fully informed by myself on the adverse effects and adverse drug interactions in order to provide adequate safeguards to prevent possible adverse reactions to medications. Departure Diagnosis: Primary Impression: Nausea vomiting and diarrhea Additional Impression: Adrenal nodule Condition: Fair CHANTELL ALCALA Jan 27, 2017 08:48
[2017-01-27] MEDS ORDERED: KETOROLAC 30 MG INJ IV STA (08:49)
[2017-01-27] MEDS ORDERED: IBUP800T25 PO (08:52)
[2017-01-27] MEDS ORDERED: ONDA4TAB14 PO (08:52)
== END 2017-01-27 09:16 | disposition home or self-care (01) ==
LOC: FTE 05:38
DX: R11.2 Nausea with vomiting, unspecified (principal); R19.7 Diarrhea, unspecified; E27.8 Other specified disorders of adrenal gland; Z87.891 Personal history of nicotine dependence
CPT/HCPCS: 36415; 74177; 80053; 81003; 82150; 83690; 85025; 85610; 85730; 87086; 96374; 96375; J1200; J1885; J2270; J2405; J7030; Q9967; Z7502; Z7610

== ENCOUNTER 2017-02-12 13:07 | Emergency (ER) | payer OTHER ==
[~2017-02-12] VITALS: Ht 170.2 cm; Wt 110.0 kg
[~2017-02-12 13:07] MED LIST changes: +IBUP800T25 PO
[2017-02-12 13:34] VITALS: Ht 170.2 cm; Wt 110.0 kg
[2017-02-12] MEDS ORDERED: ONDANSETRON (ODT) 4 MG TAB ODT STA (15:38)
--- NOTE | 2017-02-12 15:41 | ERD ---
ER Documentation Chief Complaint Date/Time DATE: 02/12/17 TIME: 15:40 Chief Complaint ap with nausea x 2 weeks HPI 31-year-old female with fibroids presents complaining of epigastric and right upper quadrant abdominal pain that comes and goes for the past 2 weeks. Patient rates the pain 8 out of 10. She admits to having severe nausea however denies any vomiting, diarrhea, constipation, dysuria. She has tried ibuprofen without any relief ROS All systems reviewed and are negative except as per history of present illness. Medications Home Meds Active Scripts Hydrocodone/Acetaminophen ([place] 10-325 Tablet) 1 Each Tablet, 1 TAB PO Q6H Y for PAIN, #20 TAB Prov:FREDRICK CHINCHILLA PA-C 02/12/17 Docusate Sodium* (Colace*) 100 Mg Capsule, 100 MG PO BID, #30 CAP Prov:FREDRICK CHINCHILLA PA-C 02/12/17 Ferrous Sulfate* (Ferrous Sulfate*) 325 Mg Tabec, 325 MG PO TID, #30 TAB Prov:FREDRICK CHINCHILLA PA-C 02/12/17 Ondansetron (Ondansetron Odt) 8 Mg Tab.rapdis, 8 MG PO Q6H Y for NAUSEA AND/OR VOMITING, #20 TAB Prov:FREDRICK CHINCHILLA PA-C 02/12/17 Ondansetron (Ondansetron Odt) 4 Mg Tab.rapdis, 4 MG PO Q6H Y for NAUSEA AND/OR VOMITING, #20 TAB Prov:CHANTELL ALCALA 01/27/17 Ibuprofen* (Motrin*) 800 Mg Tab, 800 MG PO Q6H Y for PAIN AND OR ELEVATED TEMP, #30 TAB Prov:CHANTELL ALCALA 01/27/17 Ibuprofen* (Motrin*) 800 Mg Tab, 800 MG PO Q6H Y for PAIN AND OR ELEVATED TEMP, #30 TAB Prov:CHANTELL ALCALA 01/27/17 Ondansetron (Ondansetron Odt) 4 Mg Tab.rapdis, 4 MG PO Q8 Y for NAUSEA AND/OR VOMITING, #30 TAB Prov:DANIAL JEROME NP 01/06/17 Hydrocodone/Acetaminophen ([place] 5-325 Tablet) 1 Each Tablet, 1 TAB PO Q6H Y for SEVERE PAIN LEVEL 7-10, #20 TAB Prov:DANIAL JEROME NP 01/06/17 Ranitidine Hcl* (Zantac*) 150 Mg Tablet, 150 MG PO BID Y for EPIGASTRIC PAIN, # 30 TAB Prov:VESNA FERNANDEZ MD 01/01/17 Ondansetron Hcl* (Zofran*) 4 Mg Tablet, 4 MG PO Q6H for NAUSEA AND/OR VOMITING, #12 TAB Prov:VESNA FERNANDEZ MD 01/01/17 Tramadol HCl (Tramadol HCl) 50 Mg Tablet, 50 MG PO Q6, #20 TAB Prov:VESNA FERNANDEZ MD 01/01/17 Reported Medications Ferrous Sulfate* (Ferrous Sulfate*) 325 Mg Tabec, 325 MG PO DAILY, TAB 01/01/17 Allergies Allergies: Coded Allergies: No Known Allergy (Unverified , 01/01/17) PMhx/Soc History of Surgery: Yes (FIBROIDS REMOVED ( FIBROIDECTOMY )) Anesthesia Reaction: No Hx Neurological Disorder: No Hx Respiratory Disorders: No Hx Cardiac Disorders: No Hx Psychiatric Problems: No Hx Miscellaneous Medical Probl: Yes (ANEMIA, SBO, ulcer disease) Hx Alcohol Use: Yes Hx Substance Use: Yes (Marijuana) Hx Tobacco Use: Yes Physical Exam Vitals Vital Signs Date Time Temp Pulse Resp B/P Pulse Ox O2 Delivery O2 Flow Rate FiO2 02/12/17 13:34 98.6 82 18 169/79 98 Physical Exam General: well-developed/well-nourished, in no apparent distress, non-toxic appearing HENT: NC/AT, bilateral tympanic membrane is normal with good cone of light, nares patent, oropharynx clear without exudates Eyes: Conjunctiva normal, PERRLA, EOMI Neck: Supple, no lymphadenopathy Pulm: CTA bilaterally, no rales, rhonchi, or wheezing heard CV: Normal S1S2, RRR, good capillary refill GI: Soft, non-distended, normal bowel sounds, right upper quadrant abdominal pain for negative Ward's : no penile discharge or lesions, no testicular masses or lesions felt Back: No midline tenderness, no masses, No CVAT Ext: No clubbing, cyanosis, or edema Neuro: Alert and Orientated, CN II-IIX intact, gait normal Skin: Intact, normal turgor Psych: Normal mood and mentation Result Diagram: 02/12/17 1650 02/12/17 1650 Results 24 hrs Laboratory Tests Test 02/12/17 16:30 02/12/17 16:50 Urine Color YELLOW Urine Clarity SLIGHTLY CLOUDY Urine pH 6.0 Urine Specific [place] 1.027 Urine Ketones NEGATIVEmg/dL Urine Nitrite NEGATIVEmg/dL Urine Bilirubin NEGATIVEmg/dL Urine Urobilinogen 1+mg/dL Urine Leukocyte Esterase NEGATIVELeu/ul Urine Microscopic RBC 1/HPF Urine Microscopic WBC 1/HPF Urine Squamous Epithelial Cells FEW/HPF Urine Mucus FEW/HPF Urine Hemoglobin 3+mg/dL Urine Glucose NEGATIVEmg/dL Urine Total Protein 1+mg/dl White Blood Count 7.610^3/ul Red Blood Count 3.1410^6/ul Hemoglobin 7.3g/dl Hematocrit 25.2% Mean Corpuscular Volume 80.3fl Mean Corpuscular Hemoglobin 23.2pg Mean Corpuscular Hemoglobin Concent 29.0g/dl Red Cell Distribution Width 19.3% Platelet Count 05789^3/UL Mean Platelet Volume 10.3fl Neutrophils % 50.2% Lymphocytes % 34.4% Monocytes % 10.3% Eosinophils % 4.5% Basophils % 0.3% Nucleated Red Blood Cells % 0.0/100WBC Neutrophils # (Manual) 3.810^3/ul Lymphocytes # 2.610^3/ul Monocytes # 0.810^3/ul Eosinophils # 0.310^3/ul Basophils # 0.010^3/ul Nucleated Red Blood Cells # 0.010^3/ul Sodium Level 146mmol/L Potassium Level 4.0mmol/L Chloride Level 109mmol/L Carbon Dioxide Level 26mmol/L Anion Gap 15 Blood Urea Nitrogen 12mg/dl Creatinine 0.93mg/dl Glucose Level 90mg/dl Calcium Level 9.3mg/dl Total Bilirubin 0.0mg/dl Direct Bilirubin 0.00mg/dl Indirect Bilirubin 0.0mg/dl Aspartate Amino Transf (AST/SGOT) 26IU/L Alanine Aminotransferase (ALT/SGPT) 31IU/L Alkaline Phosphatase 56IU/L Total Protein 7.9g/dl Albumin 4.5g/dl Globulin 3.40g/dl Albumin/Globulin Ratio 1.32 Lipase 246U/L Current Medications Medications (Trade) Dose Ordered Sig/Braden Route PRN Reason Start Time Stop Time Status Last Admin Dose Admin Ondansetron HCl (Zofran Odt) 8 mg ONCE STAT ODT 02/12/17 15:38 02/12/17 15:40 DC 02/12/17 16:33 Acetaminophen/ Hydrocodone Bitart ([place] (5/325)) 2 tab ONCE ONCE PO 02/12/17 16:00 02/12/17 16:01 DC 02/12/17 16:34 Ferrous Sulfate (Ferrous Sulfate (Ec)) 325 mg ONCE STAT PO 02/12/17 17:40 02/12/17 17:41 DC 02/12/17 18:39 Ketorolac Tromethamine (Toradol) 30 mg ONCE STAT IM 02/12/17 17:50 02/12/17 17:51 DC 02/12/17 18:08 Procedures/MDM 31-year-old female presents complaining of right upper quadrant abdominal pain likely due to cholelithiasis that is not obstructing or infected. She was also found to have microcytic anemia with hemoglobin 7.3. This level has been normal for her due to vaginal bleeding and fibroids. At this time, transfusion will be reserved.. Patient was given prescription for ferrous sulfate, dose was given in the ED, [I doubt patient has sepsis, choledocholithiasis, cholecystitis or cholangitis, pancreatitis or other acute abdomen conditions due to physical examination and diagnostic testing. Patient appears well and nontoxic appearing with stable vital signs. Gallbladder US: 1.4 cm solid nodule in the left liver. Etiology of this nodule is uncertain. Malignancy or metastatic disease are not excluded. Further characterization with a triple phase liver protocol CT or MRI is recommended. Cholelithiasis. Contracted gallbladder. Tail of the pancreas not well visualized. If characterization of this structure is needed repeat exam or CT/MRI is recommended. Diagnostic testing and instructions were given to patient. Iron, pain control and antiemetic prescriptions were provided for outpatient self-care. Discussed with patient to follow-up with primary care for GI referral. Precautions were given to return to the ER for fever, intractable pain, increased vomiting, and other worsening signs and symptoms. Patient expressed agreement and understanding of this plan.] Departure Diagnosis: Primary Impression: Anemia Additional Impression: Cholelithiasis Condition: Stable BASHARDOUST,NUSHA N. PA-C Feb 12, 2017 15:41
[2017-02-12] MEDS ORDERED: HYDROCODONE/APAP (5/325) TAB PO ONE (16:00)
--- NOTE | 2017-02-12 16:45 | RADRPT ---
PROCEDURE: US Abdomen Limited . CLINICAL INDICATION: Abdominal pain TECHNIQUE: Multiple real-time images were acquired of the patient's right upper quadrant abdomen u tilizing a high resolution transducer. COMPARISON: January 06, [address] January 27, 2017 FINDINGS: The liver measures 16.6 cm and demonstrates a normal echogenicity. A 1.4 cm hypoechoic, solid appear ing nodule is identified in the left liver. The gallbladder is filled with a small amount of bile. T wo echogenic, shadowing stones measuring up to approximately 5 mm are identified in the gallbladder. The gallbladder wall is not thickened at 3.0 mm. No pericholecystic fluid is noted. The common bile duct measures 4.4 mm in diameter. The visualized portions of the proximal pancreas are unremarkabl e. The tail of the pancreas is not well visualized. Antegrade flow is seen in the portal vein. Right kidney measures 10.5 cm. Right kidney demonstrates a normal echogenicity. No hydronephrosis, masses or stones are noted. IMPRESSION: 1.4 cm solid nodule in the left liver. Etiology of this nodule is uncertain. Malignancy or metastati c disease are not excluded. Further characterization with a triple phase liver protocol CT or MRI is recommended. Cholelithiasis. Contracted gallbladder. Tail of the pancreas not well visualized. If characterization of this structure is needed repeat exa m or CT/MRI is recommended. RPTAT: AA .Efrain Elise MD, MD Date Time Electronically viewed and signed by .Efrain Elise MD, MD on 02/12/2017 16:45 .P/
[2017-02-12 16:46] LABS: ADD UMIC YES; UR ASCORBIC ACID NEGATIVE (NEGATIVE); UR BILIRUBIN (Dip) NEGATIVE (NEGATIVE); UR BLOOD (Dip) 3+ mg/dL (NEGATIVE); UR CLARITY SLIGHTLY CLOUDY (CLEAR); UR COLOR YELLOW (YELLOW); UR GLUCOSE (Dip) NEGATIVE (NEGATIVE); UR KETONES (Dip) NEGATIVE (NEGATIVE); UR LEUKOCYTE ESTERASE (Dip) NEGATIVE Leu/ul (NEGATIVE); UR MUCUS FEW /HPF (NONE SEEN); UR NITRITE (Dip) NEGATIVE (NEGATIVE); UR RBC 1 /HPF (0-5); UR SPECIFIC GRAVITY (Dip) 1.027 (1.003-1.030); UR SQUAMOUS EPITHELIAL CELL FEW /HPF (FEW); UR TOTAL PROTEIN (Dip) 1+ mg/dl (NEGATIVE); UR UROBILINOGEN (Dip) 1+ mg/dL (NEGATIVE)
[2017-02-12 17:13] LABS: BASOPHILS % 0.3 % (0.0-2.0); EOSINOPHILS # 0.3 10^3/ul (0.0-0.5); EOSINOPHILS % 4.5 % (0.0-7.0); HEMATOCRIT 25.2 % (37.0-47.0); HEMOGLOBIN 7.3 g/dl (12.0-16.0); LYMPHOCYTES # 2.6 10^3/ul (0.8-2.9); LYMPHOCYTES % 34.4 % (15.0-51.0); MEAN CORPUSCULAR HEMOGLOBIN 23.2 pg (29.0-33.0); MEAN CORPUSCULAR VOLUME 80.3 fl (82.0-101.0); MEAN PLATELET VOLUME 10.3 fl (7.4-10.4); MONOCYTE # 0.8 10^3/ul (0.3-0.9); MONOCYTES % 10.3 % (0.0-11.0); NEUTROPHILS % 50.2 % (39.0-77.0); PLATELET COUNT 496 10^3/UL (140-415); RED BLOOD COUNT 3.14 10^6/ul (4.20-5.40); RED CELL DISTRIBUTION WIDTH 19.3 % (11.5-14.5); WHITE BLOOD COUNT 7.6 10^3/ul (4.8-10.8)
[2017-02-12 17:36] LABS: ALBUMIN 4.5 g/dl (3.3-4.9); ALBUMIN/GLOBULIN RATIO 1.32; CALCIUM 9.3 mg/dl (8.4-10.2); CREATININE 0.93 mg/dl (0.44-1.00); TOTAL PROTEIN 7.9 g/dl (6.1-8.1)
[2017-02-12] MEDS ORDERED: FERROUS SULFATE (EC) 325 MG TAB PO STA (17:40)
[2017-02-12] MEDS ORDERED: ACET325T33 PO (17:48)
[2017-02-12] MEDS ORDERED: DOCU-144 PO (17:48)
[2017-02-12] MEDS ORDERED: ONDA8TAB14 PO (17:48)
[2017-02-12] MEDS ORDERED: FER325 PO (17:48)
[2017-02-12] MEDS ORDERED: KETOROLAC 30 MG INJ IM STA (17:50)
[2017-02-12] MEDS ORDERED: HYDR-902 PO (17:51)
[2017-02-12 18:47] VITALS: BP 160/91; PULSE 71; RESP 20
== END 2017-02-12 18:47 | disposition home or self-care (01) ==
LOC: FTE 13:07
DX: D64.9 Anemia, unspecified (principal); K80.20 Calculus of gallbladder without cholecystitis without obstruction; R11.0 Nausea
CPT/HCPCS: 76705; 80053; 81001; 83690; 85025; 96372; J1885; Z7502; Z7610

== ENCOUNTER 2017-02-13 09:06 | Inpatient (IN) | payer OTHER ==
[~2017-02-13] VITALS: Wt 110.0 kg
[~2017-02-13 09:06] MED LIST changes: +DOCU-144 PO; +HYDR-902 PO; +ONDA8TAB14 PO
--- NOTE | 2017-02-13 10:22 | ERD ---
ER Documentation Chief Complaint Date/Time DATE: 02/13/17 TIME: 10:10 Chief Complaint ABD PAIN, HX OF GALLSTONES HPI 31-year-old female who presents emergency department for epigastric pain. Was here yesterday. Was discharged with final diagnosis and of anemia and gallstones with fatty liver. She complains that she vomited twice with whitish emesis. No known drug allergies. Denies headache, dizziness, blurry vision, neck pain, difficulty swallowing, throat pain, shoulder pain, chest pain, back pain, diarrhea, constipation, urinary symptoms, , possibility of being , recent travel, recent exposure to any illness, fever, chills. Past medical history of fibroids, anemia, gallstones. Surgical history of fibroid removal. Medication: [place]. Social: Not working at this time. Occasional drinks alcoholic beverages. Denies smoking cigarettes. Admits use of medical marijuana and her last use was yesterday. A0. LMP was last week. ROS All systems reviewed and are negative except as per history of present illness. Medications Home Meds Active Scripts Hydrocodone/Acetaminophen ([place] 10-325 Tablet) 1 Each Tablet, 1 TAB PO Q6H Y for PAIN, #20 TAB Prov:FREDRICK CHINCHILLA PA-C 02/12/17 Docusate Sodium* (Colace*) 100 Mg Capsule, 100 MG PO BID, #30 CAP Prov:FREDRICK CHINCHILLA PA-C 02/12/17 Ferrous Sulfate* (Ferrous Sulfate*) 325 Mg Tabec, 325 MG PO TID, #30 TAB Prov:FREDRICK CHINCHILLA PA-C 02/12/17 Ondansetron (Ondansetron Odt) 8 Mg Tab.rapdis, 8 MG PO Q6H Y for NAUSEA AND/OR VOMITING, #20 TAB Prov:FREDRICK CHINCHILLA PA-C 02/12/17 Ondansetron (Ondansetron Odt) 4 Mg Tab.rapdis, 4 MG PO Q6H Y for NAUSEA AND/OR VOMITING, #20 TAB Prov:CHANTELL ALCALA 01/27/17 Ibuprofen* (Motrin*) 800 Mg Tab, 800 MG PO Q6H Y for PAIN AND OR ELEVATED TEMP, #30 TAB Prov:CHANTELL ALCALA 01/27/17 Ibuprofen* (Motrin*) 800 Mg Tab, 800 MG PO Q6H Y for PAIN AND OR ELEVATED TEMP, #30 TAB Prov:CHINMAY ALCALATHIA 01/27/17 Ondansetron (Ondansetron Odt) 4 Mg Tab.rapdis, 4 MG PO Q8 Y for NAUSEA AND/OR VOMITING, #30 TAB Prov:DANIAL JEROME NP 01/06/17 Hydrocodone/Acetaminophen ([place] 5-325 Tablet) 1 Each Tablet, 1 TAB PO Q6H Y for SEVERE PAIN LEVEL 7-10, #20 TAB Prov:DANIAL JEROME NP 01/06/17 Ranitidine Hcl* (Zantac*) 150 Mg Tablet, 150 MG PO BID Y for EPIGASTRIC PAIN, # 30 TAB Prov:VESNA FERNANDEZ MD 01/01/17 Ondansetron Hcl* (Zofran*) 4 Mg Tablet, 4 MG PO Q6H for NAUSEA AND/OR VOMITING, #12 TAB Prov:VESNA FERNANDEZ MD 01/01/17 Tramadol HCl (Tramadol HCl) 50 Mg Tablet, 50 MG PO Q6, #20 TAB Prov:VESNA FERNANDEZ MD 01/01/17 Reported Medications Ferrous Sulfate* (Ferrous Sulfate*) 325 Mg Tabec, 325 MG PO DAILY, TAB 01/01/17 Allergies Allergies: Coded Allergies: No Known Allergy (Unverified , 02/13/17) PMhx/Soc History of Surgery: Yes (FIBROIDS REMOVED ( FIBROIDECTOMY )) Anesthesia Reaction: No Hx Neurological Disorder: No Hx Respiratory Disorders: No Hx Cardiac Disorders: No Hx Psychiatric Problems: No Hx Miscellaneous Medical Probl: Yes (gallstones) Hx Alcohol Use: Yes (socially) Hx Substance Use: Yes (marijuana) Hx Tobacco Use: Yes Smoking Status: Current every day smoker Physical Exam Vitals Vital Signs Date Time Temp Pulse Resp B/P Pulse Ox O2 Delivery O2 Flow Rate FiO2 02/13/17 09:12 99.1 74 18 165/89 100 Physical Exam Const: [] Head: Atraumatic Eyes: Normal Conjunctiva ENT: Normal External Ears, Nose and Mouth. Neck: Full range of motion..~ No meningismus. Resp: Clear to auscultation bilaterally Cardio: Regular rate and rhythm, no murmurs Abd: Non distended. Normal bowel sounds. Has epigastric tenderness to palpation. There is no right lower abdominal tenderness on light and deep palpation. There is no left upper or left lower abdominal tenderness light and deep palpation. No CVA tenderness. Ambulatory with steady gait and without difficulty. Skin: No petechiae or rashes Back: No midline or flank tenderness Ext: No cyanosis, or edema Neur: Awake and alert Psych: Normal Mood and Affect Result Diagram: 02/13/17 1030 02/13/17 1030 Results 24 hrs Laboratory Tests Test 02/13/17 10:30 02/13/17 11:25 White Blood Count 7.510^3/ul Red Blood Count 3.0910^6/ul Hemoglobin 7.0g/dl Hematocrit 24.6% Mean Corpuscular Volume 79.6fl Mean Corpuscular Hemoglobin 22.7pg Mean Corpuscular Hemoglobin Concent 28.5g/dl Red Cell Distribution Width 19.3% Platelet Count 18941^3/UL Mean Platelet Volume 10.2fl Neutrophils % 64.8% Lymphocytes % 24.7% Monocytes % 6.3% Eosinophils % 3.3% Basophils % 0.4% Nucleated Red Blood Cells % 0.0/100WBC Lymphocytes # 1.910^3/ul Monocytes # 0.510^3/ul Eosinophils # 0.310^3/ul Basophils # 0.010^3/ul Nucleated Red Blood Cells # 0.010^3/ul Prothrombin Time 13.2Sec Prothrombin Time Ratio 1.0 INR International Normalized Ratio 1.00 Activated Partial Thromboplast Time 31.7Sec Sodium Level 144mmol/L Potassium Level 3.8mmol/L Chloride Level 110mmol/L Carbon Dioxide Level 24mmol/L Anion Gap 14 Blood Urea Nitrogen 11mg/dl Creatinine 0.84mg/dl Glucose Level 101mg/dl Calcium Level 8.8mg/dl Total Bilirubin 0.0mg/dl Direct Bilirubin 0.00mg/dl Indirect Bilirubin 0.0mg/dl Aspartate Amino Transf (AST/SGOT) 25IU/L Alanine Aminotransferase (ALT/SGPT) 26IU/L Alkaline Phosphatase 46IU/L Total Protein 7.3g/dl Albumin 4.2g/dl Globulin 3.10g/dl Albumin/Globulin Ratio 1.35 Amylase Level 86U/L Lipase 109U/L Urine Color YELLOW Urine Clarity CLEAR Urine pH 5.0 Urine Specific [place] 1.021 Urine Ketones NEGATIVEmg/dL Urine Nitrite NEGATIVEmg/dL Urine Bilirubin NEGATIVEmg/dL Urine Urobilinogen NEGATIVEmg/dL Urine Leukocyte Esterase NEGATIVELeu/ul Urine Microscopic RBC 1/HPF Urine Microscopic WBC 2/HPF Urine Squamous Epithelial Cells FEW/HPF Urine Mucus FEW/HPF Urine Hemoglobin 3+mg/dL Urine Glucose NEGATIVEmg/dL Urine Total Protein NEGATIVEmg/dl Stool Occult Blood POSITIVE Current Medications Medications (Trade) Dose Ordered Sig/Braden Route PRN Reason Start Time Stop Time Status Last Admin Dose Admin Ondansetron HCl (Zofran Inj) 4 mg ONCE STAT IV 02/13/17 10:23 02/13/17 11:15 DC 02/13/17 10:31 Morphine Sulfate (morphine) 4 mg ONCE STAT IV 02/13/17 11:07 02/13/17 11:15 DC Morphine Sulfate (morphine) 4 mg ONCE ONCE IM 02/13/17 11:30 02/13/17 11:31 DC 02/13/17 11:27 Ondansetron HCl (Zofran Odt) 4 mg ONCE STAT ODT 02/13/17 11:14 02/13/17 11:15 DC 02/13/17 11:26 Procedures/MDM Examination: Please see physical examination. Rectal exam was done with female planning lead Grant RN. External hemorrhoids was was seen. Stool for occult blood through rectal area was collected and sent to the lab. Disease process, medical treatment was explained to the patient and family member. They verbalized understanding and agreed with the diagnostic tests, medical treatment, and follow-up care. Blood works: Anemia/low hemoglobin. Stool for occult blood was positive. POC urine : Negative. Urinalysis: Awaiting for results. Treatment: Morphine IM. Zofran ODT. IV insertion. Protonix IV. Transfuse 1 unit of packed RBCs (as recommended by Dr. Lopez). Re-evaluation: Denies headache, dizziness, blurry vision, neck pain, shoulder pain, chest pain, back pain, abdominal pain, nausea, vomiting. No episode of emesis in the emergency department. Alert and oriented 4. Speaks full and clear sentences. Respirations even and unlabored. Lung sounds clear to auscultation. Active bowel sounds. There is no right lower/left lower abdominal tenderness and light and deep palpation. Negative on [place]ov[place] sign. Negative [place] sign. Negative and psoas sign. No peritoneal signs. Ambulatory with steady gait. No neurovascular deficits. No neurological deficits. Consultation: Case was discussed with supervising physician, Dr. Tee Lopez who agreed in my medical decision making to repeat the blood works. Differential diagnosis: Appendicitis versus cholecystitis versus pancreatitis versus diverticulitis versus nephrolithiasis versus pyelonephritis versus gastritis versus anemia versus upper GI bleeding versus lower GI bleeding Medical decision makin-year-old female who presents emergency department for epigastric pain. Was here yesterday. Was discharged with final diagnosis and of anemia and gallstones with fatty liver. She complains that she vomited twice with whitish emesis. Patient's complaint, patient's history about her complaint, patient's presentation, my physical findings, my supervising physician suggestions, diagnostic tests, my reevaluation after the treatment are consistent my final diagnosis of anemia, rectal bleeding. Diagnostic test results was discussed with supervising physician, Dr. Tee Lopez who agreed in my medical decision making to admit the patient. He also stated that he will processed admission. Departure Diagnosis: Primary Impression: Abdominal pain Additional Impressions: Anemia Rectal bleeding Condition: Stable EVERT ABAD Feb 13, 2017 10:22
[2017-02-13] MEDS ORDERED: ONDANSETRON 4 MG INJ IV STA (10:23)
[2017-02-13 10:53] LABS: ABNORMAL IP MESSAGE 1; BASOPHILS % 0.4 % (0.0-2.0); EOSINOPHILS # 0.3 10^3/ul (0.0-0.5); EOSINOPHILS % 3.3 % (0.0-7.0); HEMATOCRIT 24.6 % (37.0-47.0); LYMPHOCYTES # 1.9 10^3/ul (0.8-2.9); LYMPHOCYTES % 24.7 % (15.0-51.0); MEAN CORPUSCULAR HEMOGLOBIN 22.7 pg (29.0-33.0); MEAN CORPUSCULAR HGB CONC 28.5 g/dl (32.0-37.0); MEAN CORPUSCULAR VOLUME 79.6 fl (82.0-101.0); MEAN PLATELET VOLUME 10.2 fl (7.4-10.4); MONOCYTE # 0.5 10^3/ul (0.3-0.9); MONOCYTES % 6.3 % (0.0-11.0); NEUTROPHILS % 64.8 % (39.0-77.0); PLATELET COUNT 489 10^3/UL (140-415); RED BLOOD COUNT 3.09 10^6/ul (4.20-5.40); RED CELL DISTRIBUTION WIDTH 19.3 % (11.5-14.5); WHITE BLOOD COUNT 7.5 10^3/ul (4.8-10.8)
[2017-02-13 10:55] LABS: POSITIVE DIFF @See below
[2017-02-13 11:07] LABS: PROTIME 13.2 Sec (12.2-14.2)
[2017-02-13] MEDS ORDERED: morphine 4 MG/ML VIAL IV STA (11:07)
[2017-02-13 11:08] LABS: PARTIAL THROMBOPLASTIN TIME 31.7 Sec (25.0-35.0)
[2017-02-13 11:11] LABS: ALBUMIN 4.2 g/dl (3.3-4.9); ALBUMIN/GLOBULIN RATIO 1.35; CALCIUM 8.8 mg/dl (8.4-10.2); CREATININE 0.84 mg/dl (0.44-1.00); POTASSIUM 3.8 mmol/L (3.5-5.1); TOTAL PROTEIN 7.3 g/dl (6.1-8.1)
[2017-02-13] MEDS ORDERED: ONDANSETRON (ODT) 4 MG TAB ODT STA (11:14)
[2017-02-13] MEDS ORDERED: morphine 10 MG INJ IM ONE (11:30)
[2017-02-13 12:10] LABS: ADD UMIC YES; UR ASCORBIC ACID NEGATIVE (NEGATIVE); UR BILIRUBIN (Dip) NEGATIVE (NEGATIVE); UR BLOOD (Dip) 3+ mg/dL (NEGATIVE); UR CLARITY CLEAR (CLEAR); UR COLOR YELLOW (YELLOW); UR GLUCOSE (Dip) NEGATIVE (NEGATIVE); UR KETONES (Dip) NEGATIVE (NEGATIVE); UR LEUKOCYTE ESTERASE (Dip) NEGATIVE Leu/ul (NEGATIVE); UR MUCUS FEW /HPF (NONE SEEN); UR NITRITE (Dip) NEGATIVE (NEGATIVE); UR RBC 1 /HPF (0-5); UR SPECIFIC GRAVITY (Dip) 1.021 (1.003-1.030); UR SQUAMOUS EPITHELIAL CELL FEW /HPF (FEW); UR TOTAL PROTEIN (Dip) NEGATIVE (NEGATIVE); UR UROBILINOGEN (Dip) NEGATIVE (NEGATIVE)
[2017-02-13] MEDS ORDERED: SOD CHLORIDE 0.9% 250 ML IV ONE (12:20)
[2017-02-13] MEDS ORDERED: PANTOPRAZOLE 40 MG INJ IV ONE (12:30)
[2017-02-13] MEDS ORDERED: HYDROmorphONE 1 MG/ML SYG IV STA (14:04)
[2017-02-13] MEDS ORDERED: ACETAMINOPHEN 325 MG TAB PO PRN (15:00)
[2017-02-13] MEDS ORDERED: ALBUTEROL/IPRATROPIUM (NEB) 3 ML AMP HHN PRN (15:00)
[2017-02-13] MEDS ORDERED: hydrALAzine 20 MG INJ IV PRN (15:00)
[2017-02-13] MEDS ORDERED: MAGNESIUM HYDROXIDE 30ML CUP PO PRN (15:00)
[2017-02-13] MEDS ORDERED: NACL 0.9% 3 ML SYG IV SCH (15:00)
[2017-02-13] MEDS ORDERED: NA PHOSPHATE/BIPHOS 133 ML ENEMA PR PRN (15:00)
[2017-02-13] MEDS ORDERED: HYDROCODONE/APAP (5/325) TAB PO PRN (15:00)
[2017-02-13] MEDS ORDERED: NITROGLYCERIN (SL) 0.4 MG TAB SL PRN (15:00)
[2017-02-13] MEDS ORDERED: LORAZEPAM 2 MG INJ IV PRN (15:00)
[2017-02-13] MEDS ORDERED: DOCUSATE SODIUM 100 MG CAP PO PRN (15:00)
[2017-02-13 15:35] LABS: IRON 39 ug/dl (35-150)
[2017-02-13 15:45] LABS: TOTAL IRON BINDING CAPACITY 399 ug/dl (241-421)
[2017-02-13] MEDS ORDERED: SOD FERRIC GLUC COMPLX 125 MG in SOD CHLORIDE 0.9% 100 ML IVPB ONE (16:00)
[2017-02-13 16:10] VITALS: TEMP 98.1
[2017-02-13 17:00] VITALS: BP 164/93; PULSE 59; RESP 18
--- NOTE | 2017-02-13 17:59 | HP ---
DATE OF ADMISSION: 02/13/2017 CHIEF COMPLAINT: Epigastric pain. HISTORY OF PRESENT ILLNESS: A 31-year-old female with past medical history of gastric ulcers, fibroids with prior myomectomy 4 years ago, anemia, gallstones, recently diagnosed as an outpatient, who presents with epigastric pain that she says has been going on for the last month. She also had nausea symptoms, but no vomiting. She recently went to her primary care doctor a few days ago and had an ultrasound performed of her abdomen that showed positive gallstones. She has also been complaining of vaginal bleeding and spotting off and on for the last week and she is also complaining of lower GI bleeding including rectal bleed. Denies any upper GI bleeding. No chest pain or shortness of breath. She has had some mild headaches but no dizziness or loss of consciousness. When she came into the ER today, she was found with a hemoglobin of 7 and was started on a blood transfusion, as well, and her stool occult test was positive, as well. The patient was last here at our hospital from November 22 to November 23, 2016, for anemia at that time and also SBO. PAST MEDICAL HISTORY: As above. ALLERGIES: NO KNOWN DRUG ALLERGIES. HOME MEDICATIONS: 1. Ferrous sulfate 325 mg daily. 2. [place] 10/325 q.6 hours p.r.n. 3. Motrin 800 mg q.6 hours p.r.n. 4. Tramadol 50 mg q.6 hours. 5. Colace 100 mg b.i.d. 6. Zofran 4 mg p.o. q.8 hours p.r.n. 7. Zantac 150 mg p.o. b.i.d. p.r.n. PAST SURGICAL HISTORY: She has had again fibroid myomectomy in the past. SOCIAL HISTORY: She drinks alcohol occasionally. Smokes medical marijuana occasionally and also cigarette smoking is positive. FAMILY HISTORY: Noncontributory. PHYSICAL EXAMINATION: VITAL SIGNS: Today vital signs, T-max 99.1, pulse 74, respirations 18, blood pressure 165/89, satting 100 percent on room air. GENERAL APPEARANCE: The patient lying in bed, family members at the bedside, answering questions, no acute distress. HEENT: Pupils equal, round, react to light. Extra muscles intact. Neck is supple. No thyromegaly. LUNGS: Clear to auscultation bilaterally. CARDIOVASCULAR: S1, S2 heard. No rubs or gallops. ABDOMEN: Mild tenderness to palpation epigastric area but no rebound or guarding. Normal bowel sounds. Nondistended. MUSCULOSKELETAL: Normal lower extremities bilaterally. NEUROLOGIC: No focal deficits. LABORATORY DATA: WBC 7.5, hemoglobin 7, hematocrit 24.6, platelets 489. Comprehensive metabolic panel is normal. UA showed negative nitrites, negative leukocyte esterase. Guaiac test, again, is positive. Coags are normal. She had a gallbladder ultrasound performed that shows cholelithiasis and contracted gallbladder, tail of the pancreas is not well visualized. There is a 1 cm solid nodule in the left liver as well. The etiology of this nodules is uncertain. Recommend triple phase liver protocol CT or MRI to further investigate. ASSESSMENT AND PLAN: A 31-year-old female coming in with weakness, lower gastrointestinal bleeding, epigastric pain and nausea with signs of likely microcytic anemia possibly secondary to lower gastrointestinal bleeding persists or vaginal bleeding. 1. Weakness and anemia. Admit the patient to the hospital. Will get GI consult given the positive occult test and history of gastric ulcers. Give her PRBC transfusion. Monitor H and H very carefully. Check TSH, A1c, lipid panel as well. Check iron profile and give her IV iron as well, ferrous sulfate. Get GARAGEMAN consult given the fact this may be vaginal bleeding as a source as well given her history of fibroids. 2. Epigastric pain. Again, see number 1. Also could be secondary to patient's gallstones, especially given the gallbladder ultrasound findings. Will consider general surgery consult as well. Pain control medications cautiously, IV fluids, antiemetics. 3. History of anemia. See number 1. 4. History of gastric ulcer. See number 1. We will also place the patient on PPI IV. Consider PT consult as well. 5. History of fibroids, especially given her vaginal bleeding, will get a pelvic ultrasound and GARAGEMAN consult, as well, as mentioned in number 1. Dictated By: Will Carroll MD /george/theo /Document#: [id number]
--- NOTE | 2017-02-13 18:30 | RADRPT ---
PROCEDURE: US Pelvis. CLINICAL INDICATION: Vaginal bleeding. TECHNIQUE: The pelvis was evaluated with transabdominal and transvaginal sonography in the axial a nd sagittal planes. COMPARISON: No prior study is available for comparison. FINDINGS: Uterus: 10.2 x 5.9 x 8.2 cm. Endometrium: 11.2 mm. Right ovary: 3.8 x 2.3 x 3.3 cm. Left ovary: 3.6 x 2.0 x 2.6 cm. Uterine masses: The uterus is heterogeneous. There are multiple fibroids measuring up to 5.3 cm in maximal dimension. Ovarian masses: None. Color Doppler and pulsed Doppler sonography demonstrate normal flow to the ova miguel. Other pelvic masses: None. Free fluid: None. IMPRESSION: 1. Enlarged heterogeneous uterus with multiple fibroids. 2. Otherwise unremarkable pelvic ultrasound. RPTAT: QQ .Alec Black MD, Date Time Electronically viewed and signed by .Alec Black MD, on 02/13/2017 18:30 .R/
[2017-02-13 19:54] LABS: INR 1.05; PROTIME 13.7 Sec (12.2-14.2); PT RATIO 1.1
[2017-02-13 20:04] VITALS: BP 136/76; RESP 19
[2017-02-13] MEDS: morphine 2 MG INJ IV PRN ×2 (20:07→23:50)
[2017-02-13] MEDS: FERROUS SULFATE (EC) 325 MG TAB PO SCH (20:08)
[2017-02-13] MEDS: SOD CHLORIDE 0.9% 1,000 ML IV SCH (20:08)
[2017-02-13] MEDS: FAMOTIDINE 20 MG TAB PO SCH (20:16)
[2017-02-13 21:16] LABS: PARTIAL THROMBOPLASTIN TIME 32.8 Sec (25.0-35.0)
--- NOTE | 2017-02-13 23:09 | CONS ---
Date/Time of Note Date/Time of Note DATE: 02/13/17 TIME: 23:08 Assessment/Plan Assessment/Plan Chief Complaint/Hosp Course 1. Cholelithiasis without acute cholecystitis; nl LFT's eating without pain -if pain persistent patient may need eventual lap rebecca 2. Abdominal pain: pt with history of gastric ulcers vs. #1 -pain management -gi eval poss egd 3. Anemia: stool ob +, hx of ulcers -gi consult poss colonoscopy -transfuse prn 4. Liver nodule per US: lft's nl -mri pending -further workup r/o malignancy 5. History of fibroids -ob consult 6. History of gastric ulcers -ppi -gi consult poss egd 7. Obesity -weight management -diet modification Patient seen and examined in collaboration with Dr. Eran White. Thank you. Problems: Consultation Date/Type/Reason Admit Date/Time Feb 13, 2017 at 14:11 Date of Consultation: Feb 13, 2017 Type of Consultation: SURGICAL Reason for Consultation cholelithiasis Referring Provider: JON STRINGER Hx of Present Illness Lew Marino is a 31-year-old female who presents to the ED with epigastric pain that she says has x 1 month. Associated symptoms include nausea but no vomiting, as well as vaginal bleeding and spotting off and on for the last week. She also reports rectal bleeding. Denies hematemesis, chest pain or shortness of breath, headache, dizziness. In the ED she was found to have low hgb and a positive stool OB. Gallbladder ultrasound performed shows cholelithiasis and contracted gallbladder, as well as a 1 cm solid nodule in the left liver. General surgery consult was called to evaluate. Constitutional: No diaphoresis, No disoriented, No febrile ENT: No congestion, No dysphagia, No pain Respiratory: No pleuritic pain, No shortness of breath Cardiovascular: No edema, No lightheadedness, No palpitations Gastrointestinal: other (as above) Genitourinary: No dysuria, No hematuria Musculoskeletal: No back pain Skin: No bruising, No erythema Neurologic: No dizziness, No focal-weakness, No headache Psychological: anxiety Past Medical History gastric ulcers fibroids anemia gallstones sbo Past Surgical History myomectomy Family History Significant Family History: no pertinent family hx Social History Alcohol Use: occasionally Smoking Status: Current every day smoker Drug Use: marijuana Exam/Review of Systems Vital Signs Vitals Vital Signs Date Time Temp Pulse Resp B/P Pulse Ox O2 Delivery O2 Flow Rate FiO2 02/13/17 20:04 98.2 66 19 136/76 99 02/13/17 17:00 Room Air Exam Constitutional: alert, obese, oriented Psych: anxiety Head: atraumatic, normocephalic Eyes: nl lids, nl sclera ENMT: mucosa pink and moist, nl nasal mucosa & septum Neck: non-tender, supple Respiratory: clear to auscultation, normal air movement Cardiovascular: regular rate and rhythm, No edema Gastrointestinal: bowel sounds, other (rotund), soft, tender, No distended Musculoskeletal: nl extremities to inspection, nl gait and stance Extremities: normal pulses, No edema Neurological: nl mental status, nl speech, nl strength Skin: nl turgor, No rash or lesions Results Result Diagram: 02/13/17 1030 02/13/17 1030 Results 24 hrs Laboratory Tests Test 02/13/17 10:30 02/13/17 10:55 02/13/17 11:25 02/13/17 19:13 White Blood Count 7.5 Red Blood Count 3.09 L Hemoglobin 7.0 L Hematocrit 24.6 L Mean Corpuscular Volume 79.6 L Mean Corpuscular Hemoglobin 22.7 L Mean Corpuscular Hemoglobin Concent 28.5 L Red Cell Distribution Width 19.3 H Platelet Count 489 H Mean Platelet Volume 10.2 Neutrophils % 64.8 Lymphocytes % 24.7 Monocytes % 6.3 Eosinophils % 3.3 Basophils % 0.4 Nucleated Red Blood Cells % 0.0 Lymphocytes # 1.9 Monocytes # 0.5 Eosinophils # 0.3 Basophils # 0.0 Nucleated Red Blood Cells # 0.0 Prothrombin Time 13.2 13.7 Prothrombin Time Ratio 1.0 1.1 INR International Normalized Ratio 1.00 1.05 Activated Partial Thromboplast Time 31.7 32.8 Sodium Level 144 Potassium Level 3.8 Chloride Level 110 Carbon Dioxide Level 24 Anion Gap 14 Blood Urea Nitrogen 11 Creatinine 0.84 Glucose Level 101 Calcium Level 8.8 Total Bilirubin 0.0 L Direct Bilirubin 0.00 Indirect Bilirubin 0.0 Aspartate Amino Transf (AST/SGOT) 25 Alanine Aminotransferase (ALT/SGPT) 26 Alkaline Phosphatase 46 Total Protein 7.3 Albumin 4.2 Globulin 3.10 Albumin/Globulin Ratio 1.35 Amylase Level 86 Lipase 109 Iron Level 39 Total Iron Binding Capacity 399 Percent Iron Saturation 10 L Free Thyroxine 1.09 Urine Color YELLOW Urine Clarity CLEAR Urine pH 5.0 Urine Specific [place] 1.021 Urine Ketones NEGATIVE Urine Nitrite NEGATIVE Urine Bilirubin NEGATIVE Urine Urobilinogen NEGATIVE Urine Leukocyte Esterase NEGATIVE Urine Microscopic RBC 1 Urine Microscopic WBC 2 Urine Squamous Epithelial Cells FEW Urine Mucus FEW A Urine Hemoglobin 3+ H Urine Glucose NEGATIVE Urine Total Protein NEGATIVE Stool Occult Blood POSITIVE Medications Medications Current Medications Ondansetron HCl (Zofran Inj) 4 mg Q6H PRN IV NAUSEA AND/OR VOMITING; Start at 15:00 Acetaminophen (Tylenol Tab) 650 mg Q6H PRN PO PAIN LEVEL 1-3 OR FEVER; Start at 15:00 Acetaminophen/ Hydrocodone Bitart ([place] (5/325)) 1 tab Q6H PRN PO MODERATE PAIN LEVEL 4-6; Start 02/13/17 at 15:00 Morphine Sulfate (morphine) 2 mg Q4H PRN IV SEVERE PAIN LEVEL 7-10 Last administered on 02/13/17 20:07; Admin Dose 2 MG; Start 02/13/17 at 15:00 Docusate Sodium (Colace) 100 mg Q12H PRN PO CONSTIPATION; Start 02/13/17 at 15: 00 Magnesium Hydroxide (Milk Of Mag) 30 ml DAILY PRN PO CONSTIPATION; Start at 15:00 Sodium Biphosphate/ Sodium Phosphate (Fleet Enema) 133 ml DAILY PRN [place] CONSTIPATION; Start 02/13/17 at 15:00 Famotidine (Pepcid) 20 mg Q12 PO Last administered on 02/13/17 20:16; Admin Dose 20 MG; Start 02/13/17 at 21:00 Lorazepam 0.5 mg 0.5 mg Q6H PRN IV ANXIETY; Start 02/13/17 at 15:00 Sodium Chloride (NS) 1,000 ml @ 100 mls/hr Q10H IV Last administered on 20:08; Admin Dose 100 MLS/HR; Start 02/13/17 at 14:38 Hydralazine HCl (Apresoline) 10 mg Q6H PRN IV ELEVATED BLOOD PRESSURE; Start at 15:00 Clonidine (Catapres) 0.1 mg Q6H PRN PO ELEVATED BLOOD PRESSURE; Start 02/13/17 at 15:00 Nitroglycerin (Nitroglycerin (Sl Tab) 0.4 Mg) 1 tab Q5M PRN SL ANGINA; Start at 15:00 Ferrous Sulfate (Ferrous Sulfate (Ec)) 325 mg DAILY PO Last administered on t 20:08; Admin Dose 325 MG; Start 02/13/17 at 15:00 YEHUDA KURTZ NP Feb 13, 2017 23:09
--- NOTE | 2017-02-14 00:05 | CONS ---
Date/Time of Note Date/Time of Note DATE: 02/13/17 TIME: 23:50 Assessment/Plan Assessment/Plan Chief Complaint/Hosp Course Anemia Menorrhagia Multiple large fibroid uterus Rectal bleeding Patient desires future fertility desires to proceed with medical management as well as myomectomy for treatment of menorrhagia . she is currently receiving blood transfusion. Discussed with the patient that she needs to plan for completion of her family due to possibility and risk of recurrence of the fibroids even after myomectomy. At this time patient does not have any active bleeding. Her anemia and menorrhagia can be managed with hormonal medication. Recommended to be started on Aygestin 5 mg p.o. daily, until she is able to see her gynecology after discharge from the hospital for completion of workup, counseling and for long-term plan of care. She will likely needs to have myomectomy especially if she becomes more symptomatic with pelvic pain and pressure due to size of the fibroids as well as for future . Lupron trial prior to myomectomy is not suggested due to difficulty in finding the plane for myomectomy in her case. Recommend to continue workup and follow-up of rectal bleeding with GI. Continue taking iron twice a day. Continue Aygestin once a day after discharge from the hospital She also might need to have endometrial biopsy as an outpatient with her proc tech in the office. Follow-up with thyroid labs, rule out hypo-or hyperthyroidism as the cause for abnormal uterine bleeding by primary care physician recommended as well as corrrection if labs are abnormal. Please reconsult INFORMATION CODER Hospitalist at extension [phone] if needed. Problems: Consultation Date/Type/Reason Admit Date/Time Feb 13, 2017 at 14:11 Date of Consultation: Feb 13, 2017 Type of Consultation: INFORMATION CODER Reason for Consultation Anemia menorrhagia Fibroids Hx of Present Illness 31-year-old female with history of fibroid uterus and he is secondary to menorrhagia, myomectomy in the past 1, 4 years ago. She presented to emergency room due to anemia. She also had some rectal bleeding that started 2 weeks ago. Patient admitted for GI and INFORMATION CODER evaluation as well as for blood transfusion. INFORMATION CODER consulted to evaluate for anemia and menorrhagia Patient reports had many blood transfusions in the last 4 years. Had her only myomectomy [address] Alves, patient did not help with the bleeding. She reports regular. And last about 7-8 days but the first days very heavy that she use super pads 7-8 per day. Patient never been treated with any other medication for treatment of menorrhagia and anemia Rectal bleeding started 2 weeks ago. She will see GI for further evaluation as well Past medical history was otherwise no significant Subjective hx not possible: other (Cooperative and verbal) Constitutional: no complaints Eyes: no complaints ENT: no complaints Respiratory: no complaints Cardiovascular: no complaints Gastrointestinal: blood Genitourinary: bleeding Neurologic: no complaints Endocrine: no complaints Lymphatic: no complaints Psychological: no complaints Immunologic: no complaints Past Medical History INFORMATION CODER history , SAB 2 History of anemia secondary to menorrhagia history of fibroids Post myomectomy 4 years ago Myomectomy did not improve her menorrhagia Denies any pelvic pain or pressure due to fibroids Denies any history of abnormal Pap smear Medical History: GERD, GI bleed, other (Anemia and fibroids and menorrhagia) Past Surgical History Post myomectomy 1- 4 years ago Family History Significant Family History: other (Mother with rheumatoid arthritis) Social History Alcohol Use: occasionally Smoking Status: Smoker,current status unk (Patient admits to smoking weed. ) Drug Use: marijuana Exam/Review of Systems Vital Signs Vitals Vital Signs Date Time Temp Pulse Resp B/P Pulse Ox O2 Delivery O2 Flow Rate FiO2 02/13/17 20:04 98.2 66 19 136/76 99 02/13/17 17:00 Room Air Exam -[place] Constitutional: alert, obese, oriented, well developed Head: atraumatic, normocephalic Eyes: EOMI, nl conjunctiva, nl lids ENMT: nl external ears & nose, nl lips & teeth, nl nasal mucosa & septum Neck: non-tender, supple Respiratory: clear to auscultation, normal air movement Cardiovascular: nl pulses, regular rate and rhythm Gastrointestinal: firm, mass, other (An irregular mass in the lower abdomen more towards the right side with firm consistency consistent with fibroid uterus palpable at the upper end of the mass, at 1 cm above the umbilicus), soft Genitourinary - Female: nl adnexae Musculoskeletal: nl extremities to inspection, nl gait and stance Extremities: normal pulses Neurological: ICT ANALYST II-XII intact, nl mental status, nl speech, nl strength Skin: nl turgor Lymph: nl lymph nodes Results Result Diagram: 02/13/17 1030 02/13/17 1030 Results 24 hrs Laboratory Tests Test 02/13/17 10:30 02/13/17 10:55 02/13/17 11:25 02/13/17 19:13 White Blood Count 7.5 Red Blood Count 3.09 L Hemoglobin 7.0 L Hematocrit 24.6 L Mean Corpuscular Volume 79.6 L Mean Corpuscular Hemoglobin 22.7 L Mean Corpuscular Hemoglobin Concent 28.5 L Red Cell Distribution Width 19.3 H Platelet Count 489 H Mean Platelet Volume 10.2 Neutrophils % 64.8 Lymphocytes % 24.7 Monocytes % 6.3 Eosinophils % 3.3 Basophils % 0.4 Nucleated Red Blood Cells % 0.0 Lymphocytes # 1.9 Monocytes # 0.5 Eosinophils # 0.3 Basophils # 0.0 Nucleated Red Blood Cells # 0.0 Prothrombin Time 13.2 13.7 Prothrombin Time Ratio 1.0 1.1 INR International Normalized Ratio 1.00 1.05 Activated Partial Thromboplast Time 31.7 32.8 Sodium Level 144 Potassium Level 3.8 Chloride Level 110 Carbon Dioxide Level 24 Anion Gap 14 Blood Urea Nitrogen 11 Creatinine 0.84 Glucose Level 101 Calcium Level 8.8 Total Bilirubin 0.0 L Direct Bilirubin 0.00 Indirect Bilirubin 0.0 Aspartate Amino Transf (AST/SGOT) 25 Alanine Aminotransferase (ALT/SGPT) 26 Alkaline Phosphatase 46 Total Protein 7.3 Albumin 4.2 Globulin 3.10 Albumin/Globulin Ratio 1.35 Amylase Level 86 Lipase 109 Iron Level 39 Total Iron Binding Capacity 399 Percent Iron Saturation 10 L Free Thyroxine 1.09 Urine Color YELLOW Urine Clarity CLEAR Urine pH 5.0 Urine Specific [place] 1.021 Urine Ketones NEGATIVE Urine Nitrite NEGATIVE Urine Bilirubin NEGATIVE Urine Urobilinogen NEGATIVE Urine Leukocyte Esterase NEGATIVE Urine Microscopic RBC 1 Urine Microscopic WBC 2 Urine Squamous Epithelial Cells FEW Urine Mucus FEW A Urine Hemoglobin 3+ H Urine Glucose NEGATIVE Urine Total Protein NEGATIVE Stool Occult Blood POSITIVE Medications Medications Current Medications Ondansetron HCl (Zofran Inj) 4 mg Q6H PRN IV NAUSEA AND/OR VOMITING; Start at 15:00 Acetaminophen (Tylenol Tab) 650 mg Q6H PRN PO PAIN LEVEL 1-3 OR FEVER; Start at 15:00 Acetaminophen/ Hydrocodone Bitart ([place] (5/325)) 1 tab Q6H PRN PO MODERATE PAIN LEVEL 4-6; Start 02/13/17 at 15:00 Morphine Sulfate (morphine) 2 mg Q4H PRN IV SEVERE PAIN LEVEL 7-10 Last administered on 02/13/17 20:07; Admin Dose 2 MG; Start 02/13/17 at 15:00 Docusate Sodium (Colace) 100 mg Q12H PRN PO CONSTIPATION; Start 02/13/17 at 15: 00 Magnesium Hydroxide (Milk Of Mag) 30 ml DAILY PRN PO CONSTIPATION; Start at 15:00 Sodium Biphosphate/ Sodium Phosphate (Fleet Enema) 133 ml DAILY PRN [place] CONSTIPATION; Start 02/13/17 at 15:00 Famotidine (Pepcid) 20 mg Q12 PO Last administered on 02/13/17 20:16; Admin Dose 20 MG; Start 02/13/17 at 21:00 Lorazepam 0.5 mg 0.5 mg Q6H PRN IV ANXIETY; Start 02/13/17 at 15:00 Sodium Chloride (NS) 1,000 ml @ 100 mls/hr Q10H IV Last administered on 20:08; Admin Dose 100 MLS/HR; Start 02/13/17 at 14:38 Hydralazine HCl (Apresoline) 10 mg Q6H PRN IV ELEVATED BLOOD PRESSURE; Start at 15:00 Clonidine (Catapres) 0.1 mg Q6H PRN PO ELEVATED BLOOD PRESSURE; Start 02/13/17 at 15:00 Nitroglycerin (Nitroglycerin (Sl Tab) 0.4 Mg) 1 tab Q5M PRN SL ANGINA; Start at 15:00 Ferrous Sulfate (Ferrous Sulfate (Ec)) 325 mg DAILY PO Last administered on 20:08; Admin Dose 325 MG; Start 02/13/17 at 15:00 Procedures Procedures PROCEDURE: US Pelvis. CLINICAL INDICATION: Vaginal bleeding. TECHNIQUE: The pelvis was evaluated with transabdominal and transvaginal sonography in the axial and sagittal planes. COMPARISON: No prior study is available for comparison. FINDINGS: Uterus: 10.2 x 5.9 x 8.2 cm. Endometrium: 11.2 mm. Right ovary: 3.8 x 2.3 x 3.3 cm. Left ovary: 3.6 x 2.0 x 2.6 cm. Uterine masses: The uterus is heterogeneous. There are multiple fibroids measuring up to 5.3 cm in maximal dimension. Ovarian masses: None. Color Doppler and pulsed Doppler sonography demonstrate normal flow to the ovaries. Other pelvic masses: None. Free fluid: None. IMPRESSION: 1. Enlarged heterogeneous uterus with multiple fibroids. 2. Otherwise unremarkable pelvic ultrasound. VAL ZIMMERMAN MD Feb 14, 2017 00:05
[2017-02-14] MEDS: SOD CHLORIDE 0.9% 1,000 ML IV SCH ×3 (00:38→20:38)
[2017-02-14 02:24] VITALS: BP 141/67; RESP 18
[2017-02-14] MEDS: morphine 2 MG INJ IV PRN ×4 (05:51→21:41)
[2017-02-14 06:50] LABS: BASOPHILS % 0.5 % (0.0-2.0); EOSINOPHILS # 0.3 10^3/ul (0.0-0.5); EOSINOPHILS % 2.9 % (0.0-7.0); HEMATOCRIT 25.4 % (37.0-47.0); HEMOGLOBIN 7.4 g/dl (12.0-16.0); LYMPHOCYTES # 2.1 10^3/ul (0.8-2.9); LYMPHOCYTES % 23.6 % (15.0-51.0); MEAN CORPUSCULAR HEMOGLOBIN 23.5 pg (29.0-33.0); MEAN CORPUSCULAR HGB CONC 29.1 g/dl (32.0-37.0); MEAN CORPUSCULAR VOLUME 80.6 fl (82.0-101.0); MEAN PLATELET VOLUME 10.7 fl (7.4-10.4); MONOCYTE # 0.8 10^3/ul (0.3-0.9); MONOCYTES % 9.2 % (0.0-11.0); NEUTROPHIL # 5.6 10^3/ul (1.6-7.5); NEUTROPHILS % 63.1 % (39.0-77.0); NUCLEATED RED BLOOD CELLS% 0.2 /100WBC (0.0-0.0); PLATELET COUNT 452 10^3/UL (140-415); RED BLOOD COUNT 3.15 10^6/ul (4.20-5.40); RED CELL DISTRIBUTION WIDTH 18.6 % (11.5-14.5); WHITE BLOOD COUNT 8.9 10^3/ul (4.8-10.8)
[2017-02-14 07:31] LABS: CALCIUM 8.8 mg/dl (8.4-10.2); CREATININE 0.82 mg/dl (0.44-1.00); MAGNESIUM 1.8 mg/dl (1.7-2.5); PHOSPHORUS 3.6 mg/dl (2.5-4.9); POTASSIUM 4.2 mmol/L (3.5-5.1)
[2017-02-14 07:32] LABS: CHOL/HDL RATIO 4.4 RATIO
[2017-02-14 08:01] LABS: THYROID STIMULATING HORMONE 0.746 MIU/L (0.465-4.680)
[2017-02-14 08:20] VITALS: BP 179/83; RESP 18
--- NOTE | 2017-02-14 08:42 | PN ---
Date/Time of Note Date/Time of Note DATE: 02/14/17 TIME: 08:34 Assessment/Plan Lines/Catheters IV Catheter Type (from [facility]): Peripheral IV Exam/Review of Systems Vital Signs Vitals Vital Signs Date Time Temp Pulse Resp B/P Pulse Ox O2 Delivery O2 Flow Rate FiO2 02/14/17 08:20 98.1 75 18 179/83 99 02/13/17 17:00 Room Air Intake and Output 02/13/17 02/13/17 02/14/17 15:00 23:00 07:00 Intake Total 510 ml 1500 ml Balance 510 ml 1500 ml Results Result Diagram: 02/14/17 0550 02/14/17 0550 YEHUDA KURTZ NP Feb 14, 2017 08:42
--- NOTE | 2017-02-14 09:14 | PN ---
Date/Time of Note Date/Time of Note DATE: 02/14/17 TIME: 09:08 Assessment/Plan Lines/Catheters IV Catheter Type (from Nrs): Peripheral IV Assessment/Plan Chief Complaint/Hosp Course 1. Cholelithiasis without acute cholecystitis; nl LFT's eating without pain -if pain persistent patient may need eventual lap rebecca 2. Abdominal pain: pt with history of gastric ulcers vs. #1 -pain management -egd -gi eval poss egd 3. Anemia: stool ob +, hx of ulcers -gi consult poss colonoscopy -transfuse prn 4. Liver nodule per US: lft's nl -mri pending -further workup r/o malignancy 5. History of fibroids: OB consult noted; meds and possible myomectomy outpatient 6. History of gastric ulcers -ppi -gi consult poss egd 7. Obesity -weight management -diet modification Patient seen and examined in collaboration with Dr. Eran White. Thank you. Problems: Subjective 24 Hr Interval Summary Continues to have epigastric and lower abdominal pain. No nausea, vomiting, fevers, chills, sob, cp, palpitations, overt bleeding, dysuria, diarrhea. Pending MRI today. Exam/Review of Systems Vital Signs Vitals Vital Signs Date Time Temp Pulse Resp B/P Pulse Ox O2 Delivery O2 Flow Rate FiO2 02/14/17 08:20 98.1 75 18 179/83 99 02/13/17 17:00 Room Air Intake and Output 02/13/17 02/13/17 02/14/17 15:00 23:00 07:00 Intake Total 510 ml 1500 ml Balance 510 ml 1500 ml Exam Free Text/Dictation Constitutional: alert, obese, oriented Psych: min anxiety Head: atraumatic, normocephalic Eyes: nl lids, nl sclera ENMT: mucosa pink and moist, nl nasal mucosa & septum Neck: non-tender, supple Respiratory: clear to auscultation, normal air movement Cardiovascular: regular rate and rhythm, No edema Gastrointestinal: bowel sounds, other (rotund), soft, tender epigastric and lower abdomen, No distended Musculoskeletal: nl extremities to inspection, nl gait and stance Extremities: normal pulses, No edema Neurological: nl mental status, nl speech, nl strength Skin: nl turgor, No rash or lesions Results Result Diagram: 02/14/17 0550 02/14/17 0550 YEHUDA KURTZ NP Feb 14, 2017 09:14
[2017-02-14] MEDS: ONDANSETRON 4 MG INJ IV PRN ×2 (09:32→21:45)
[2017-02-14 10:00] VITALS: BP 145/85; PULSE 79; RESP 18
[2017-02-14] MEDS: FERROUS SULFATE (EC) 325 MG TAB PO SCH (10:52)
[2017-02-14] MEDS: FAMOTIDINE 20 MG TAB PO SCH ×2 (10:52→21:16)
--- NOTE | 2017-02-14 13:51 | PN ---
Date/Time of Note Date/Time of Note DATE: 02/14/17 TIME: 13:44 Assessment/Plan VTE Prophylaxis VTE Prophylaxis Intervention: contraindicated VTE Contraindication Reason: bleeding Lines/Catheters IV Catheter Type (from Nrs): Peripheral IV Assessment/Plan Chief Complaint/Hosp Course ASSESSMENT AND PLAN: A 31-year-old female coming in with weakness, lower gastrointestinal bleeding, epigastric pain and nausea with signs of likely microcytic anemia possibly secondary to lower gastrointestinal bleeding vs vaginal bleeding. 1. Weakness and anemia -patient received 1 unit PRBC transfusion yesterday, no signs of any present bleeding, however hemoglobin today is 7.4. -Transfusion 1 more unit of PRBC today, and follow-up GI consult given the positive occult test and history of gastric ulcers, likely for endoscopy and colonoscopy in the next 24 hours. carefully, follow-up TSH, A1c, lipid panel as well. -Check iron profile and give her IV iron as well, ferrous sulfate. -Appreciate DISPLAY MANAGER consult given the fact this may be vaginal bleeding as a source as well given her history of fibroids, they are recommending outpatient follow-up as well as starting Aygestin once a day after discharge from the hospital for her menorrhagia. 2. Epigastric pain. Again, see number 1. Also could be secondary to patient's gallstones, especially given the gallbladder ultrasound findings. -Appreciate general surgery consult as well. For now conservative treatment, continue pain control medications cautiously, IV fluids, antiemetics. 3. History of anemia. See number 1. 4. History of gastric ulcer. - PPI IV. Per discussion with GI team, likely for endoscopy and colonoscopy in the next 24 hours, consider PT consult as well. 5. History of fibroids, especially given her vaginal bleeding, From pelvic ultrasound noted, as well as DISPLAY MANAGER consult commendations, as well, as mentioned in number 1. Problems: Subjective 24 Hr Interval Summary Free Text/Dictation Patient denies any vaginal bleeding. Awaiting MRI of the abdomen to be performed. Receiving another blood transfusion today. Seen by DISPLAY MANAGER, surgery , and GI teams today. Exam/Review of Systems Vital Signs Vitals Vital Signs Date Time Temp Pulse Resp B/P Pulse Ox O2 Delivery O2 Flow Rate FiO2 02/14/17 10:00 98.0 79 18 145/85 100 Room Air Intake and Output 02/13/17 02/13/17 02/14/17 15:00 23:00 07:00 Intake Total 510 ml 1500 ml Balance 510 ml 1500 ml Exam GENERAL APPEARANCE: The patient lying in bed, answering questions, no acute distress. HEENT: Pupils equal, round, react to light. Extra muscles intact. Neck is supple. No thyromegaly. LUNGS: Clear to auscultation bilaterally. CARDIOVASCULAR: S1, S2 heard. No rubs or gallops. ABDOMEN: Mild tenderness to palpation epigastric area but no rebound or guarding. Normal bowel sounds. Nondistended. MUSCULOSKELETAL: Normal lower extremities bilaterally. NEUROLOGIC: No focal deficits. Results Result Diagram: 02/14/17 0550 02/14/17 0550 Results 24 hrs Laboratory Tests Test 02/13/17 19:13 02/14/17 05:30 02/14/17 05:50 02/14/17 05:51 Prothrombin Time 13.7 Prothrombin Time Ratio 1.1 INR International Normalized Ratio 1.05 Activated Partial Thromboplast Time 32.8 Lab Scanned Report BLOOD TRANSFUSION White Blood Count 8.9 Red Blood Count 3.15 L Hemoglobin 7.4 L Hematocrit 25.4 L Mean Corpuscular Volume 80.6 L Mean Corpuscular Hemoglobin 23.5 L Mean Corpuscular Hemoglobin Concent 29.1 L Red Cell Distribution Width 18.6 H Platelet Count 452 H Mean Platelet Volume 10.7 H Neutrophils % 63.1 Lymphocytes % 23.6 Monocytes % 9.2 Eosinophils % 2.9 Basophils % 0.5 Nucleated Red Blood Cells % 0.2 H Neutrophils # 5.6 Lymphocytes # 2.1 Monocytes # 0.8 Eosinophils # 0.3 Basophils # 0.0 Nucleated Red Blood Cells # 0.0 Sodium Level 139 Potassium Level 4.2 Chloride Level 110 Carbon Dioxide Level 25 Anion Gap 8 Blood Urea Nitrogen 11 Creatinine 0.82 Glucose Level 89 Hemoglobin A1c 5.1 Calcium Level 8.8 Phosphorus Level 3.6 Magnesium Level 1.8 Triglycerides Level 86 Cholesterol Level 128 LDL Cholesterol, Calculated 82 HDL Cholesterol 29 L Cholesterol/HDL Ratio 4.4 Thyroid Stimulating Hormone (TSH) 0.746 Medications Medications Current Medications Ondansetron HCl (Zofran Inj) 4 mg Q6H PRN IV NAUSEA AND/OR VOMITING Last administered on 02/14/17t 09:32; Admin Dose 4 MG; Start 02/13/17 at 15:00 Acetaminophen (Tylenol Tab) 650 mg Q6H PRN PO PAIN LEVEL 1-3 OR FEVER; Start at 15:00 Morphine Sulfate (morphine) 2 mg Q4H PRN IV SEVERE PAIN LEVEL 7-10 Last administered on 02/14/17 13:18; Admin Dose 2 MG; Start 02/13/17 at 15:00 Docusate Sodium (Colace) 100 mg Q12H PRN PO CONSTIPATION; Start 02/13/17 at 15: 00 Magnesium Hydroxide (Milk Of Mag) 30 ml DAILY PRN PO CONSTIPATION; Start at 15:00 Sodium Biphosphate/ Sodium Phosphate (Fleet Enema) 133 ml DAILY PRN [place] CONSTIPATION; Start 02/13/17 at 15:00 Famotidine (Pepcid) 20 mg Q12 PO Last administered on 02/14/17 10:52; Admin Dose 20 MG; Start 02/13/17 at 21:00 Lorazepam 0.5 mg 0.5 mg Q6H PRN IV ANXIETY; Start 02/13/17 at 15:00 Sodium Chloride (NS) 1,000 ml @ 100 mls/hr Q10H IV Last administered on 09:33; Admin Dose 100 MLS/HR; Start 02/13/17 at 14:38 Hydralazine HCl (Apresoline) 10 mg Q6H PRN IV ELEVATED BLOOD PRESSURE Last administered on 02/14/17 08:27; Admin Dose 10 MG; Start 02/13/17 at 15:00 Clonidine (Catapres) 0.1 mg Q6H PRN PO ELEVATED BLOOD PRESSURE; Start 02/13/17 at 15:00 Nitroglycerin (Nitroglycerin (Sl Tab) 0.4 Mg) 1 tab Q5M PRN SL ANGINA; Start at 15:00 Ferrous Sulfate (Ferrous Sulfate (Ec)) 325 mg DAILY PO Last administered on 10:52; Admin Dose 325 MG; Start 02/13/17 at 15:00 Acetaminophen/ Hydrocodone Bitart ([place] (7.5-325)) 1 tab Q6H PRN PO PAIN LEVEL 7-10; Start 02/14/17 at 14:00; Status UNV Procedures Procedures Pelvic U/S: IMPRESSION: 1. Enlarged heterogeneous uterus with multiple fibroids. 2. Otherwise unremarkable pelvic ultrasound. RAHI,JON S. Feb 14, 2017 13:51
--- NOTE | 2017-02-14 13:55 | CONS ---
Date/Time of Note Date/Time of Note DATE: 02/14/17 TIME: 13:40 Assessment/Plan Assessment/Plan Additional Assessment/Plan Assessment * Anemia/hematochezia Acute vs chronic Bleeding peptic ulcer vs av malformation vs uterine fibroids vs others * Abdominal pain cholelithiasis vs others * Obesity Plan * Await MRI results * EGD and colonoscopy tomorrow risks and benefit explained to patient and agreed with the planned procedure * Monitor Hemoglobin and hematocrit and transfuse as needed * Case discussed with DR Queen * Further orders will depend on clinical course Consultation Date/Type/Reason Admit Date/Time Feb 13, 2017 at 14:11 Date of Consultation: Feb 14, 2017 Type of Consultation: Gastroenterology Reason for Consultation anemia/epigastric pain Referring Provider: JON STRINGER Hx of Present Illness 31 year old female with past medical history of fibroids ,cholelithiasis presented in the emergency room complaining epigastric pain,nausea and vomiting x3 days.Patient denies any chest pain,nausea nor vomiting.She has been complaining on and off vaginal spotting and hematochezia Subsequent workup revealed anemia with hemoglobin of 7 patient was started on blood transfusion Pelvic ultrasound revealed Enlarged heterogeneous uterus with multiple fibroids.. Otherwise unremarkable pelvic ultrasound. Gallbladder ultrasound 1.4 cm solid nodule in the left liver. Etiology of this nodule is uncertain. Malignancy or metastatic disease are not excluded. Further characterization with a triple phase liver protocol CT or MRI is recommended.Cholelithiasis Contracted gallbladder. Tail of the pancreas not well visualized. If characterization of this structure is needed repeat exam or CT/MRI is recommended. Presently ,patient denies any vaginal bleeding,rectal bleeding,nor hematemesis but still complaining if epigastric pain,Still awaiting MRI results I have explained to the patient the planned colonoscopy and EGD ,patient agreed with the planned procedure Constitutional: No diaphoresis, No disoriented, No febrile Eyes: no complaints ENT: No congestion, No dysphagia, No pain Respiratory: No pleuritic pain, No shortness of breath Cardiovascular: No edema, No lightheadedness, No palpitations Gastrointestinal: flatus, other (as above), pain Genitourinary: No dysuria, No hematuria Musculoskeletal: No back pain Skin: No bruising, No erythema Neurologic: No dizziness, No focal-weakness, No headache Endocrine: no complaints Lymphatic: no complaints Psychological: anxiety Immunologic: no complaints Past Medical History Medical History: GERD, GI bleed, other (Anemia and fibroids and menorrhagia) Social History Alcohol Use: occasionally Smoking Status: Smoker,current status unk (Patient admits to smoking weed. ) Drug Use: marijuana Exam/Review of Systems Vital Signs Vitals Vital Signs Date Time Temp Pulse Resp B/P Pulse Ox O2 Delivery O2 Flow Rate FiO2 02/14/17 10:00 98.0 79 18 145/85 100 Room Air Intake and Output 02/13/17 02/13/17 02/14/17 15:00 23:00 07:00 Intake Total 510 ml 1500 ml Balance 510 ml 1500 ml Exam Constitutional: alert, oriented, well developed Psych: nl mood/affect, no complaints Head: atraumatic, normocephalic Eyes: EOMI, PERRL, nl conjunctiva, nl lids, nl sclera ENMT: nl external ears & nose, nl lips & teeth, nl nasal mucosa & septum Neck: non-tender, supple Respiratory: clear to auscultation, normal air movement Cardiovascular: nl pulses, regular rate and rhythm Gastrointestinal: nl liver, spleen, non-tender, soft, No rebound or guarding Musculoskeletal: nl extremities to inspection, nl gait and stance Extremities: normal pulses Neurological: nl mental status, nl speech, nl strength Skin: nl turgor, No rash or lesions Lymph: nl lymph nodes Results Result Diagram: 02/14/17 0550 02/14/17 0550 Results 24 hrs Laboratory Tests Test 02/13/17 19:13 02/14/17 05:30 02/14/17 05:50 02/14/17 05:51 Prothrombin Time 13.7 Prothrombin Time Ratio 1.1 INR International Normalized Ratio 1.05 Activated Partial Thromboplast Time 32.8 Lab Scanned Report BLOOD TRANSFUSION White Blood Count 8.9 Red Blood Count 3.15 L Hemoglobin 7.4 L Hematocrit 25.4 L Mean Corpuscular Volume 80.6 L Mean Corpuscular Hemoglobin 23.5 L Mean Corpuscular Hemoglobin Concent 29.1 L Red Cell Distribution Width 18.6 H Platelet Count 452 H Mean Platelet Volume 10.7 H Neutrophils % 63.1 Lymphocytes % 23.6 Monocytes % 9.2 Eosinophils % 2.9 Basophils % 0.5 Nucleated Red Blood Cells % 0.2 H Neutrophils # 5.6 Lymphocytes # 2.1 Monocytes # 0.8 Eosinophils # 0.3 Basophils # 0.0 Nucleated Red Blood Cells # 0.0 Sodium Level 139 Potassium Level 4.2 Chloride Level 110 Carbon Dioxide Level 25 Anion Gap 8 Blood Urea Nitrogen 11 Creatinine 0.82 Glucose Level 89 Hemoglobin A1c 5.1 Calcium Level 8.8 Phosphorus Level 3.6 Magnesium Level 1.8 Triglycerides Level 86 Cholesterol Level 128 LDL Cholesterol, Calculated 82 HDL Cholesterol 29 L Cholesterol/HDL Ratio 4.4 Thyroid Stimulating Hormone (TSH) 0.746 Medications Medications Current Medications Ondansetron HCl (Zofran Inj) 4 mg Q6H PRN IV NAUSEA AND/OR VOMITING Last administered on 02/14/17 09:32; Admin Dose 4 MG; Start 02/13/17 at 15:00 Acetaminophen (Tylenol Tab) 650 mg Q6H PRN PO PAIN LEVEL 1-3 OR FEVER; Start at 15:00 Acetaminophen/ Hydrocodone Bitart ([place] (5/325)) 1 tab Q6H PRN PO MODERATE PAIN LEVEL 4-6; Start 02/13/17 at 15:00 Morphine Sulfate (morphine) 2 mg Q4H PRN IV SEVERE PAIN LEVEL 7-10 Last administered on 02/14/17 13:18; Admin Dose 2 MG; Start 02/13/17 at 15:00 Docusate Sodium (Colace) 100 mg Q12H PRN PO CONSTIPATION; Start 02/13/17 at 15: 00 Magnesium Hydroxide (Milk Of Mag) 30 ml DAILY PRN PO CONSTIPATION; Start at 15:00 Sodium Biphosphate/ Sodium Phosphate (Fleet Enema) 133 ml DAILY PRN [place] CONSTIPATION; Start 02/13/17 at 15:00 Famotidine (Pepcid) 20 mg Q12 PO Last administered on 02/14/17 10:52; Admin Dose 20 MG; Start 02/13/17 at 21:00 Lorazepam 0.5 mg 0.5 mg Q6H PRN IV ANXIETY; Start 02/13/17 at 15:00 Sodium Chloride (NS) 1,000 ml @ 100 mls/hr Q10H IV Last administered on 09:33; Admin Dose 100 MLS/HR; Start 02/13/17 at 14:38 Hydralazine HCl (Apresoline) 10 mg Q6H PRN IV ELEVATED BLOOD PRESSURE Last administered on 02/14/17 08:27; Admin Dose 10 MG; Start 02/13/17 at 15:00 Clonidine (Catapres) 0.1 mg Q6H PRN PO ELEVATED BLOOD PRESSURE; Start 02/13/17 at 15:00 Nitroglycerin (Nitroglycerin (Sl Tab) 0.4 Mg) 1 tab Q5M PRN SL ANGINA; Start at 15:00 Ferrous Sulfate (Ferrous Sulfate (Ec)) 325 mg DAILY PO Last administered on 10:52; Admin Dose 325 MG; Start 02/13/17 at 15:00 LILIANA FULLER NP Feb 14, 2017 13:50
[2017-02-14] MEDS ORDERED: HYDROCODONE/APAP (7.5/325) TAB PO PRN (14:00)
[2017-02-14] MEDS ORDERED: BISACODYL (EC) 5 MG TAB PO ONE (14:00)
[2017-02-14 14:46] VITALS: BP 122/60; RESP 18
[2017-02-14] MEDS ORDERED: MAGNESIUM CITRATE 300 ML BTL PO ONE (17:30)
--- NOTE | 2017-02-14 17:45 | RADRPT ---
PROCEDURE: MRI Abdomen without and with contrast. CLINICAL INDICATION: Anemia. Indeterminate left hepatic lobe lesion. Abdominal pain. TECHNIQUE: Multiplanar and multisequence MRI of the abdomen was performed before after the unevent ful intravenous administration of 20 cc of Magnevist. Images were reviewed on a high-resolution PACS workstation. Evaluation is partially limited due to the patient's body habitus and associated diel ectric effect artifact. COMPARISON: Ultrasound dated 02/12/[address] dated 01/27/2017. FINDINGS: The visualized lung bases are grossly clear and the visualized heart is unremarkable. There is diffuse fatty infiltration of the liver, which is at the upper limits of normal in size poornima suring 18 cm in length. No concerning focal hepatic lesion is identified. There is no intra or extra hepatic biliary ductal dilatation. The gallbladder and spleen unremarkable. There is a 1.4 cm left adrenal nodule that demonstrates signal loss on the out of phase sequence when compared to the in ph ase sequence, consistent with a benign adenoma. The pancreas is normal in appearance with focal mass lesion or pancreatic ductal dilatation. There a re no renal masses or hydronephrosis. There are separate origins of the common hepatic artery and s plenic artery arising from the aorta, a normal anatomical variant. The aorta is nonaneurysmal. There is no mesenteric or retroperitoneal adenopathy. The visualized bowel demonstrates no wall thickening or evidence of obstruction. There is a moderate fat containing supraumbilical hernia. No concerning marrow signal abnormality is identified. IMPRESSION: 1. Hepatic steatosis and borderline hepatomegaly. No concerning focal hepatic lesion is identified, as questioned. 2. Benign 1.4 cm left adrenal adenoma. 3. Moderate fat containing supraumbilical hernia. RPTAT: HLBP .Tomas Baer MD, MD Date Time Electronically viewed and signed by .Tomas Baer MD, MD on 02/14/2017 17:44 .P/
[2017-02-14] MEDS ORDERED: POLYETHYLENE GLYCOL 3350 119 GM POWDER PO ONE (18:30)
[2017-02-14 18:48] LABS: IRON 287 ug/dl (35-150)
[2017-02-14 18:57] LABS: TOTAL IRON BINDING CAPACITY 346 ug/dl (241-421)
[2017-02-14 20:00] VITALS: BP 160/97; RESP 20
[2017-02-15] VITALS (12 sets, daily range): BP systolic 121–163; BP diastolic 58–94; PULSE 58–69; RESP 16–26
[2017-02-15] MEDS ORDERED: POLYETHYLENE GLYCOL 3350 119 GM POWDER PO ONE (06:00)
[2017-02-15] MEDS: SOD CHLORIDE 0.9% 1,000 ML IV SCH ×2 (06:38→16:38)
[2017-02-15] MEDS: morphine 2 MG INJ IV PRN ×4 (07:52→22:48)
[2017-02-15] MEDS: ONDANSETRON 4 MG INJ IV PRN (07:56)
[2017-02-15] MEDS ORDERED: BISACODYL (EC) 5 MG TAB PO ONE (08:00)
[2017-02-15] MEDS: FAMOTIDINE 20 MG TAB PO SCH ×2 (09:50→20:15)
[2017-02-15] MEDS: FERROUS SULFATE (EC) 325 MG TAB PO SCH (09:53)
[2017-02-15 11:41] LABS: BASOPHIL # 0.1 10^3/ul (0.0-0.1); BASOPHILS % 0.5 % (0.0-2.0); EOSINOPHILS # 0.3 10^3/ul (0.0-0.5); EOSINOPHILS % 2.7 % (0.0-7.0); HEMATOCRIT 29.3 % (37.0-47.0); HEMOGLOBIN 8.6 g/dl (12.0-16.0); LYMPHOCYTES # 2.3 10^3/ul (0.8-2.9); LYMPHOCYTES % 21.9 % (15.0-51.0); MEAN CORPUSCULAR HEMOGLOBIN 23.7 pg (29.0-33.0); MEAN CORPUSCULAR HGB CONC 29.4 g/dl (32.0-37.0); MEAN CORPUSCULAR VOLUME 80.7 fl (82.0-101.0); MEAN PLATELET VOLUME 10.5 fl (7.4-10.4); MONOCYTE # 0.9 10^3/ul (0.3-0.9); MONOCYTES % 8.4 % (0.0-11.0); NEUTROPHIL # 6.9 10^3/ul (1.6-7.5); NEUTROPHILS % 65.6 % (39.0-77.0); NUCLEATED RED BLOOD CELLS% 0.4 /100WBC (0.0-0.0); PLATELET COUNT 473 10^3/UL (140-415); RED BLOOD COUNT 3.63 10^6/ul (4.20-5.40); RED CELL DISTRIBUTION WIDTH 19.4 % (11.5-14.5); WHITE BLOOD COUNT 10.5 10^3/ul (4.8-10.8)
[2017-02-15 12:08] LABS: CALCIUM 8.7 mg/dl (8.4-10.2); CREATININE 0.79 mg/dl (0.44-1.00); POTASSIUM 3.7 mmol/L (3.5-5.1)
--- NOTE | 2017-02-15 12:46 | PN ---
Date/Time of Note Date/Time of Note DATE: 02/15/17 TIME: 12:42 Assessment/Plan Lines/Catheters IV Catheter Type (from Nrs): Peripheral IV Assessment/Plan Chief Complaint/Hosp Course 1. Cholelithiasis without acute cholecystitis; nl LFT's eating without pain -if pain persistent patient may need eventual lap rebecca 2. Hemacult positive with gib -egd/colonoscopy per gi -monitor closely -ppi 3. Anemia: stool ob +, hx of ulcers -as above -transfuse prn 4. Liver nodule per US: lft's nl. MRI negative for lesion 5. History of fibroids: OB consult noted; meds and possible myomectomy outpatient 6. History of gastric ulcers -ppi -gi egd 7. Obesity -weight management -diet modification Thank you, Problems: Subjective 24 Hr Interval Summary MRI noted. Reports epigastric and lower abdominal pain. No nausea, vomiting, fevers, chills, sob, cp, palpitations, overt bleeding, dysuria, diarrhea. Endoscopy pending. Exam/Review of Systems Vital Signs Vitals Vital Signs Date Time Temp Pulse Resp B/P Pulse Ox O2 Delivery O2 Flow Rate FiO2 02/15/17 08:05 98.8 73 16 163/94 98 02/14/17 10:00 Room Air Intake and Output 02/14/17 02/14/17 02/15/17 15:00 23:00 07:00 Intake Total 100 ml 220 ml 1300 ml Balance 100 ml 220 ml 1300 ml Exam Free Text/Dictation Constitutional: alert, obese, oriented Psych: min anxiety Head: atraumatic, normocephalic Eyes: nl lids, nl sclera ENMT: mucosa pink and moist, nl nasal mucosa & septum Neck: non-tender, supple Respiratory: clear to auscultation, normal air movement Cardiovascular: regular rate and rhythm, No edema Gastrointestinal: bowel sounds, other (rotund), soft, tender epigastric and lower abdomen, No distended Musculoskeletal: nl extremities to inspection, nl gait and stance Extremities: normal pulses, No edema Neurological: nl mental status, nl speech, nl strength Skin: nl turgor, No rash or lesions Results Result Diagram: 02/15/17 1100 02/15/17 1100 REBECA KRISHNA MD Feb 15, 2017 12:46
--- NOTE | 2017-02-15 15:27 | PN ---
Date/Time of Note Date/Time of Note DATE: 02/15/17 TIME: 15:24 Assessment/Plan VTE Prophylaxis VTE Prophylaxis Intervention: SCD's Lines/Catheters IV Catheter Type (from Nrsg): wrist Assessment/Plan Chief Complaint/Hosp Course ASSESSMENT AND PLAN: A 31-year-old female coming in with weakness, lower gastrointestinal bleeding, epigastric pain and nausea with signs of likely microcytic anemia possibly secondary to lower gastrointestinal bleeding vs vaginal bleeding. 1. Weakness and anemia -patient received 2 units PRBC transfusion since admission, no signs of any present bleeding, hemoglobin today improved to 8.6 -Follow-up GI recommendations, for endoscopy and colonoscopy later today - follow-up TSH, A1c, lipid panel as well. -Check iron profile and give her IV iron as well, ferrous sulfate. -Appreciate [employer] consult given the fact this may be vaginal bleeding as a source as well given her history of fibroids, they are recommending outpatient follow-up as well as starting Aygestin once a day after discharge from the hospital for her menorrhagia. 2. Epigastric pain. Again, see number 1. Also could be secondary to patient's gallstones, especially given the gallbladder ultrasound findings. -Appreciate general surgery consult as well. For now conservative treatment, continue pain control medications cautiously, IV fluids, antiemetics. 3. History of anemia. See number 1. 4. History of gastric ulcer. - PPI IV. Per discussion with GI team, for endoscopy and colonoscopy today 5. History of fibroids, especially given her vaginal bleeding, From pelvic ultrasound noted, as well as [employer]IST consult commendations, as well, as mentioned in number 1. Problems: Subjective 24 Hr Interval Summary Free Text/Dictation Patient received blood transfusion yesterday. Patient asking for PICC line secondary to being a hard stick. Awaiting EGD and colonoscopy for later today. Otherwise no acute events overnight. Exam/Review of Systems Vital Signs Vitals Vital Signs Date Time Temp Pulse Resp B/P Pulse Ox O2 Delivery O2 Flow Rate FiO2 02/15/17 14:30 98.4 66 16 161/91 100 02/14/17 10:00 Room Air Intake and Output 02/14/17 02/14/17 02/15/17 15:00 23:00 07:00 Intake Total 100 ml 220 ml 1300 ml Balance 100 ml 220 ml 1300 ml Exam GENERAL APPEARANCE: The patient lying in bed, answering questions, no acute distress. HEENT: Pupils equal, round, react to light. Extra muscles intact. Neck is supple. No thyromegaly. LUNGS: Clear to auscultation bilaterally. CARDIOVASCULAR: S1, S2 heard. No rubs or gallops. ABDOMEN: Mild tenderness to palpation epigastric area but no rebound or guarding. Normal bowel sounds. Nondistended. MUSCULOSKELETAL: Normal lower extremities bilaterally. NEUROLOGIC: No focal deficits. Results Result Diagram: 02/15/17 1100 02/15/17 1100 Results 24 hrs Laboratory Tests Test 02/14/17 17:49 02/15/17 05:53 02/15/17 11:00 Iron Level 287 #H Total Iron Binding Capacity 346 Percent Iron Saturation 83 H Lab Scanned Report BLOOD TRANSFUSION White Blood Count 10.5 Red Blood Count 3.63 L Hemoglobin 8.6 L Hematocrit 29.3 L Mean Corpuscular Volume 80.7 L Mean Corpuscular Hemoglobin 23.7 L Mean Corpuscular Hemoglobin Concent 29.4 L Red Cell Distribution Width 19.4 H Platelet Count 473 H Mean Platelet Volume 10.5 H Neutrophils % 65.6 Lymphocytes % 21.9 Monocytes % 8.4 Eosinophils % 2.7 Basophils % 0.5 Nucleated Red Blood Cells % 0.4 H Neutrophils # 6.9 Lymphocytes # 2.3 Monocytes # 0.9 Eosinophils # 0.3 Basophils # 0.1 Nucleated Red Blood Cells # 0.0 Sodium Level 140 Potassium Level 3.7 Chloride Level 111 H Carbon Dioxide Level 24 Anion Gap 9 Blood Urea Nitrogen 5 L Creatinine 0.79 Glucose Level 92 Calcium Level 8.7 Medications Medications Current Medications Ondansetron HCl (Zofran Inj) 4 mg Q6H PRN IV NAUSEA AND/OR VOMITING Last administered on 02/15/17 07:56; Admin Dose 4 MG; Start 02/13/17 at 15:00 Acetaminophen (Tylenol Tab) 650 mg Q6H PRN PO PAIN LEVEL 1-3 OR FEVER; Start at 15:00 Morphine Sulfate (morphine) 2 mg Q4H PRN IV SEVERE PAIN LEVEL 7-10 Last administered on 02/15/17 12:31; Admin Dose 2 MG; Start 02/13/17 at 15:00 Docusate Sodium (Colace) 100 mg Q12H PRN PO CONSTIPATION; Start 02/13/17 at 15: 00 Magnesium Hydroxide (Milk Of Mag) 30 ml DAILY PRN PO CONSTIPATION; Start at 15:00 Sodium Biphosphate/ Sodium Phosphate (Fleet Enema) 133 ml DAILY PRN [place] CONSTIPATION; Start 02/13/17 at 15:00 Famotidine (Pepcid) 20 mg Q12 PO Last administered on 02/15/17 09:50; Admin Dose 20 MG; Start 02/13/17 at 21:00 Lorazepam 0.5 mg 0.5 mg Q6H PRN IV ANXIETY Last administered on 02/14/17 16:18 ; Admin Dose 0.5 MG; Start 02/13/17 at 15:00 Sodium Chloride (NS) 1,000 ml @ 100 mls/hr Q10H IV Last administered on 09:33; Admin Dose 100 MLS/HR; Start 02/13/17 at 14:38 Hydralazine HCl (Apresoline) 10 mg Q6H PRN IV ELEVATED BLOOD PRESSURE Last administered on 02/14/17 08:27; Admin Dose 10 MG; Start 02/13/17 at 15:00 Clonidine (Catapres) 0.1 mg Q6H PRN PO ELEVATED BLOOD PRESSURE; Start 02/13/17 at 15:00 Nitroglycerin (Nitroglycerin (Sl Tab) 0.4 Mg) 1 tab Q5M PRN SL ANGINA; Start at 15:00 Ferrous Sulfate (Ferrous Sulfate (Ec)) 325 mg DAILY PO Last administered on 09:53; Admin Dose 325 MG; Start 02/13/17 at 15:00 Acetaminophen/ Hydrocodone Bitart ([place] (7.5-325)) 1 tab Q6H PRN PO PAIN LEVEL 7-10; Start 02/14/17 at 14:00 JON STRINGER Feb 15, 2017 15:27
--- NOTE | 2017-02-15 17:36 | HPN ---
Date/Time of Note Date/Time of Note DATE: 02/15/17 TIME: 17:33 Interval H&P Admission Note Pt. seen H&P reviewed: No system changes BASHIR BUTCHER MD Feb 15, 2017 17:36
[2017-02-15] MEDS ORDERED: PROPOFOL 80 ML ONE (18:01)
--- NOTE | 2017-02-15 18:02 | OPPN ---
Date/Time of Note Date/Time of Note DATE: 02/15/17 TIME: 17:59 Proc Note GI Procedure Date 02/15/17 Pre-procedure Diagnosis * Anemia/abdominal pain Post-procedure Diagnosis Assessment: * Mild gastritis. Rule out H. pylori infection. Biopsies obtained Plan: * Continue famotidine 40 mg daily * Review pathology * Proceed with colonoscopy Procedure Performed: Endoscopy (Plus biopsies) Surgeon BASHIR BUTCHER MD Retrofit Installer none Anesthesiologist: ALANNA WHITE MD EBL none Transfusion required none Biopsy 1: Gastric body and antrum. Rule out H. pylori infection Grafts/Implants none Complication(s) none Pt Condition post procedure: stable Disposition: PACU Procedure Description After informed consent, with the patient/relatives understanding the procedure, its indications, potential risks and complications, including but not limited to : allergic reaction, bleeding, perforation or infection, and after all pertinent questions were answered to the patients satisfaction, the patient/ relatives signed witnessed informed consent. Following this, premedication was administered slowly IV push under careful cardiovascular and respiratory monitoring with pulse oximetry, automatic blood pressure, and dishwashing machine operator. Once the sedative effect was achieved the patient was place in the left lateral decubitus, the panendoscope was introduced and advanced under visual control. Careful examination of the upper gastrointestinal tract, both on insertion as well as withdrawal of the instrument disclosing the following findings: ESOPHAGUS: the mucosa of the entire esophagus was carefully examined and showed the following findings: the mucosa appears within normal limits. There is no evidence of esophagitis, varices, neoplasm, or stricture. No Hiatal Hernia identified. STOMACH: Upon entrance to the stomach air was insufflated, the gastric guidry distended normally. The mucosa of the fundus, body and antrum of the stomach was carefully examined both head-on and on retroflexion, and showed the following findings: There is mild erythema of the antrum of the stomach. Biopsies were obtained to rule out H. pylori infection. Otherwise the mucosa appears within normal limits with no abnormalities. There is no evidence of ulcers or neoplasm. PYLORUS: The pylorus was carefully examined and showed the following findings: the pylorus appears patent and within normal limits, with no evidence of gastric outlet obstruction. DUODENUM: The duodenal mucosa was carefully examined in the duodenal bulb as well as the second portion of the duodenum and showed the following findings: the mucosa appears unremarkable with no evidence of duodenitis, ulcer or neoplasm. Copies To: CC: BASHIR BUTCHER MD, MORDO MD Feb 15, 2017 18:02
--- NOTE | 2017-02-15 18:05 | OPPN ---
Date/Time of Note Date/Time of Note DATE: 02/15/17 TIME: 18:02 Proc Note GI Procedure Date 02/15/17 Pre-procedure Diagnosis * Anemia/hematochezia Post-procedure Diagnosis Assessment: * Moderate-sized external hemorrhoids * Large internal hemorrhoids * Otherwise normal colonoscopy to cecum Plan: * Conservative management of hemorrhoidal disease, if bleeding continues to be a problem hemorrhoidectomy may need to be considered * High-fiber diet, avoid constipation and diarrhea * Advance diet as tolerated Procedure Performed: Colonoscopy Surgeon BASHIR BUTCHER MD Netbackup Engineer none Anesthesiologist: ALANNA WHITE MD EBL none Transfusion required none Grafts/Implants none Complication(s) none Pt Condition post procedure: stable Disposition: PACU Indications: other Procedure Description After informed consent, with the patient/relatives understanding the procedure, its indications and potential risks and complications, including but not limited to: Allergic reaction, bleeding, perforation, infection, and after all pertinent questions were answered to the patient's satisfaction, the patient/ relatives signed the witnessed informed consent. Following this, premedication was administered slowly IV push under careful cardiovascular and respiratory monitoring with pulse OXIMETRY, automatic blood pressure, and orthodontic lab technician. Once the sedative effect was achieved, the patient was placed in the left lateral decubitus position, digital rectal examination was performed. The colonoscope was then introduced and advanced under visual control throughout all segments of the colon including: the rectum, sigmoid, descending colon, splenic flexure, transverse colon, hepatic flexure, ascending colon and finally reaching the cecum which was clearly identified by transillumination, finger indentation and the ileocecal valve. Careful examination of the mucosa of the lower gastrointestinal tract both on insertion as well as withdrawal of the instrument disclosed the following findings: PREPARATION QUALITY: [Adequate], RECTAL EXAM: The anorectal area was visualized examined and digital rectal examination performed with the following findings: There are medium size external hemorrhoids. Otherwise no evidence of perirectal disease, no masses. COLONIC MUCOSA: The mucosa of all segments of the colon was carefully examined and showed the following findings: []the examined mucosa appears within normal limits. There is no evidence of inflammatory changes, diverticular formation, polyps or other neoplasms, vascular malformation, or any other abnormality. Large internal hemorrhoids present likely source of hematochezia The instrument was then withdrawn, the patient tolerated the procedure well and was transferred out of the Endoscopy Suite awake and in good condition to continue recovery under observation. Copies To: CC: BASHIR BUTCHER MD, MORDO MD Feb 15, 2017 18:05
[2017-02-16 02:00] VITALS: BP 128/70; RESP 18
[2017-02-16] MEDS: morphine 2 MG INJ IV PRN ×3 (02:38→12:54)
[2017-02-16] MEDS: SOD CHLORIDE 0.9% 1,000 ML IV SCH ×2 (02:38→12:31)
[2017-02-16] MEDS: ONDANSETRON 4 MG INJ IV PRN (06:59)
[2017-02-16 08:00] VITALS: BP 138/74; RESP 20
[2017-02-16] MEDS: FERROUS SULFATE (EC) 325 MG TAB PO SCH (08:24)
[2017-02-16] MEDS: FAMOTIDINE 20 MG TAB PO SCH (08:24)
[2017-02-16 08:46] LABS: BASOPHILS % 0.4 % (0.0-2.0); EOSINOPHILS # 0.4 10^3/ul (0.0-0.5); EOSINOPHILS % 3.5 % (0.0-7.0); HEMATOCRIT 30.6 % (37.0-47.0); HEMOGLOBIN 9.2 g/dl (12.0-16.0); LYMPHOCYTES # 2.1 10^3/ul (0.8-2.9); MEAN CORPUSCULAR HEMOGLOBIN 24.4 pg (29.0-33.0); MEAN CORPUSCULAR HGB CONC 30.1 g/dl (32.0-37.0); MEAN CORPUSCULAR VOLUME 81.2 fl (82.0-101.0); MEAN PLATELET VOLUME 10.2 fl (7.4-10.4); MONOCYTE # 0.8 10^3/ul (0.3-0.9); MONOCYTES % 7.7 % (0.0-11.0); NEUTROPHILS % 67.9 % (39.0-77.0); NUCLEATED RED BLOOD CELLS% 0.2 /100WBC (0.0-0.0); PLATELET COUNT 461 10^3/UL (140-415); RED BLOOD COUNT 3.77 10^6/ul (4.20-5.40); RED CELL DISTRIBUTION WIDTH 20.2 % (11.5-14.5); WHITE BLOOD COUNT 10.3 10^3/ul (4.8-10.8)
[2017-02-16 09:06] LABS: CALCIUM 9.1 mg/dl (8.4-10.2); CREATININE 0.82 mg/dl (0.44-1.00); POTASSIUM 3.6 mmol/L (3.5-5.1)
--- NOTE | 2017-02-16 12:36 | PN ---
Date/Time of Note Date/Time of Note DATE: 02/16/17 TIME: 12:31 Assessment/Plan Lines/Catheters IV Catheter Type (from [facility]): Peripheral IV [place] in Place (from [facility]): No Assessment/Plan Chief Complaint/Hosp Course 1. Cholelithiasis without acute cholecystitis; nl LFT's eating without pain -outpt eventual lap rebecca 2. Hemoccult positive with gib s/p egd/colonoscopy > mild gastritis, internal/ external hemorrhoids -fluids/fiber/diet/lifestyle optimization -monitor closely -ppi -gi follow up 3. Anemia 2nd above -as above -transfuse prn 4. Liver nodule per US: lft's nl. MRI negative for lesion 5. History of fibroids: OB consult noted; meds and possible myomectomy outpatient 6. Obesity -weight management -diet modification Thank you, Problems: Subjective 24 Hr Interval Summary EGD > mild gastritis. Colonoscopy > internal/external hemorrhoids. No nausea, vomiting, fevers, chills, sob, cp, palpitations, overt bleeding, dysuria, diarrhea. Exam/Review of Systems Vital Signs Vitals Vital Signs Date Time Temp Pulse Resp B/P Pulse Ox O2 Delivery O2 Flow Rate FiO2 02/16/17 08:00 98.3 65 20 138/74 96 02/15/17 18:23 Room Air Intake and Output 02/15/17 02/15/17 02/16/17 15:00 23:00 07:00 Intake Total 1180 ml 730 ml Balance 1180 ml 730 ml Exam Free Text/Dictation Constitutional: alert, obese, oriented Psych: min nxiety Head: atraumatic, normocephalic Eyes: nl lids, nl sclera ENMT: mucosa pink and moist, nl nasal mucosa & septum Neck: non-tender, supple Respiratory: clear to auscultation, normal air movement Cardiovascular: regular rate and rhythm, No edema Gastrointestinal: bowel sounds, other (rotund), soft, tender epigastric and lower abdomen, No distended Musculoskeletal: nl extremities to inspection, nl gait and stance Extremities: normal pulses, No edema Neurological: nl mental status, nl speech, nl strength Skin: nl turgor, No rash or lesions Results Result Diagram: 02/16/17 0838 02/16/17 0838 REBECA KRISHNA MD Feb 16, 2017 12:36
[2017-02-16 14:00] VITALS: BP 163/86; RESP 19
--- NOTE | 2017-02-16 14:59 | PDOCDIS ---
Discharge Instructions CONDITION Patient Condition: Stable HOME CARE INSTRUCTIONS: Special Diet: regular diet ACTIVITY: Activity Restrictions: Slowly Increase Activity FOLLOW UP/APPOINTMENTS Follow-up Plan Please take your medications as prescribed, please follow-up with the [facility] doctor in the clinic in the next 1 week, as well as her primary care doctor in 1 week as well. JON STRINGER Feb 16, 2017 14:59
--- NOTE | 2017-02-16 16:08 | PN ---
Date/Time of Note Date/Time of Note DATE: 02/16/17 TIME: 16:04 Assessment/Plan VTE Prophylaxis VTE Prophylaxis Intervention: SCD's Lines/Catheters IV Catheter Type (from Nrs): Peripheral IV Urinary Cath still in place: No Assessment/Plan Assessment/Plan Assessment * Anemia EGD mild gastritis Colonoscopy internal hemorrhoids * Gallstone * Fibroids Plan * continue present management * stable for outpatient management * case discussed with DR Queen Subjective 24 Hr Interval Summary Free Text/Dictation * Course reviewed * Patient seen and examined * No untoward events overnight Exam/Review of Systems Vital Signs Vitals Vital Signs Date Time Temp Pulse Resp B/P Pulse Ox O2 Delivery O2 Flow Rate FiO2 02/16/17 14:00 98.6 69 19 163/86 97 02/15/17 18:23 Room Air Intake and Output 02/15/17 02/15/17 02/16/17 15:00 23:00 07:00 Intake Total 1180 ml 730 ml Balance 1180 ml 730 ml Exam Constitutional: alert, oriented Neck: non-tender, supple Respiratory: clear to auscultation, normal air movement Cardiovascular: nl pulses, regular rate and rhythm Musculoskeletal: nl extremities to inspection Extremities: normal pulses Neurological: nl speech, nl strength Results Result Diagram: 02/16/17 0838 02/16/17 0838 Results 24 hrs Laboratory Tests Test 02/16/17 08:38 White Blood Count 10.3 Red Blood Count 3.77 L Hemoglobin 9.2 L Hematocrit 30.6 L Mean Corpuscular Volume 81.2 L Mean Corpuscular Hemoglobin 24.4 L Mean Corpuscular Hemoglobin Concent 30.1 L Red Cell Distribution Width 20.2 H Platelet Count 461 H Mean Platelet Volume 10.2 Neutrophils % 67.9 Lymphocytes % 20.0 Monocytes % 7.7 Eosinophils % 3.5 Basophils % 0.4 Nucleated Red Blood Cells % 0.2 H Neutrophils # 7.0 Lymphocytes # 2.1 Monocytes # 0.8 Eosinophils # 0.4 Basophils # 0.0 Nucleated Red Blood Cells # 0.0 Sodium Level 140 Potassium Level 3.6 Chloride Level 110 Carbon Dioxide Level 24 Anion Gap 10 Blood Urea Nitrogen 9 Creatinine 0.82 Glucose Level 100 Calcium Level 9.1 Medications Medications Current Medications Ondansetron HCl (Zofran Inj) 4 mg Q6H PRN IV NAUSEA AND/OR VOMITING Last administered on 02/16/17 06:59; Admin Dose 4 MG; Start 02/13/17 at 15:00 Acetaminophen (Tylenol Tab) 650 mg Q6H PRN PO PAIN LEVEL 1-3 OR FEVER; Start at 15:00 Morphine Sulfate (morphine) 2 mg Q4H PRN IV SEVERE PAIN LEVEL 7-10 Last administered on 02/16/17 12:54; Admin Dose 2 MG; Start 02/13/17 at 15:00 Docusate Sodium (Colace) 100 mg Q12H PRN PO CONSTIPATION; Start 02/13/17 at 15: 00 Magnesium Hydroxide (Milk Of Mag) 30 ml DAILY PRN PO CONSTIPATION; Start at 15:00 Sodium Biphosphate/ Sodium Phosphate (Fleet Enema) 133 ml DAILY PRN HI CONSTIPATION; Start 02/13/17 at 15:00 Famotidine (Pepcid) 20 mg Q12 PO Last administered on 02/16/17 08:24; Admin Dose 20 MG; Start 02/13/17 at 21:00 Lorazepam 0.5 mg 0.5 mg Q6H PRN IV ANXIETY Last administered on 02/14/17 16:18 ; Admin Dose 0.5 MG; Start 02/13/17 at 15:00 Sodium Chloride (NS) 1,000 ml @ 100 mls/hr Q10H IV Last administered on 09:33; Admin Dose 100 MLS/HR; Start 02/13/17 at 14:38 Hydralazine HCl (Apresoline) 10 mg Q6H PRN IV ELEVATED BLOOD PRESSURE Last administered on 02/14/17 08:27; Admin Dose 10 MG; Start 02/13/17 at 15:00 Clonidine (Catapres) 0.1 mg Q6H PRN PO ELEVATED BLOOD PRESSURE; Start 02/13/17 at 15:00 Nitroglycerin (Nitroglycerin (Sl Tab) 0.4 Mg) 1 tab Q5M PRN SL ANGINA; Start at 15:00 Ferrous Sulfate (Ferrous Sulfate (Ec)) 325 mg DAILY PO Last administered on 08:24; Admin Dose 325 MG; Start 02/13/17 at 15:00 Acetaminophen/ Hydrocodone Bitart ([place] (7.5-325)) 1 tab Q6H PRN PO PAIN LEVEL 7-10; Start 02/14/17 at 14:00 LILIANA FULLER NP Feb 16, 2017 16:08
--- NOTE | 2017-02-16 18:21 | DS ---
DATE OF ADMISSION: 02/13/2017 DATE OF DISCHARGE: 02/16/2017 HOSPITAL COURSE: This is a 31-year-old female originally admitted on February 13, 2017 being discharged on February 16, 2017. The patient came in with epigastric pain. She was found to be anemic. Hemoglobin was in the 6 range. She was admitted and seen by multiple specialists during the hospital stay but not before getting PRBC transfusion. She was seen by general surgery team, GI team and [employer] team. She had a pelvic ultrasound performed that showed an enlarged heterogeneous uterus with multiple fibroids. Otherwise unremarkable pelvic ultrasound. Her hemoglobin remained stable after the blood transfusion. She was checked for iron studies as well and given iron medicines as well. Surgery team saw the patient because there was a cholelithiasis but without any acute cholecystitis, and LFTs were normal. Patient ended up eating well without pain, so they recommended outpatient follow up, possibly a laparoscopic cholecystectomy as an outpatient but no surgical intervention for now. Regarding her guaiac-positive stool test taken along with anemia, she was seen by GI team and underwent EGD and colonoscopy. She was found to have moderate-size external hemorrhoids, large internal hemorrhoids, otherwise a normal colonoscopy to the cecum; and then she had an EGD as well that showed mild gastritis. She was placed on famotidine, medications as well. Over the course of her hospital stay, her anemia symptoms improved. She was able to ambulate and tolerate a p.o. diet. She also underwent an MRI of the abdomen because of some abnormal findings initially on her scan, but the MRI of the abdomen only showed hepatic steatosis and borderline hepatomegaly but no concerning focal hepatic lesions identified. There was a benign 1.4 cm left adrenal adenoma. Patient will likely need to have a followup MRI of the abdomen in the next six months for that. Patient again was seen by [facility] SUPERVISOR team as well given her history of fibroids and anemia, and patient had a prior history of myomectomy in the past. They recommended treatment for dysfunctional uterine bleeding with medication Aygestin, as well as iron tablets, which the patient will continue. After getting clearance from the cardiology clinical consultant team, she will be discharged home today in improved condition. She will be sent with again: 1. Famotidine 40 mg p.o. every day. 2. Aygestin 5 mg daily. 3. Colace 100 mg b.i.d. 4. Ferrous sulfate 325 mg daily. 5. [place] 5/325 every 6 hours p.r.n. 6. Zofran 4 mg p.o. every 6 hours p.r.n. 7. Ranitidine 150 mg p.o. b.i.d. p.r.n. 8. Tramadol 50 mg p.o. every 6 hours p.r.n. pain. She will follow up with primary care doctor team and [facility] SUPER[employer] team in the clinic in next 1-2 weeks. FINAL DIAGNOSES: 1. Epigastric pain with anemia status post packed red blood cell transfusion. 2. Guaiac-positive stool status post esophagogastroduodenoscopy and colonoscopy, results mentioned above. No medical management for that. 3. Abdominal pain secondary to cholelithiasis but no acute cholecystitis. Continue medical management. 4. History of fibroids and prior myomectomy. 5. Obesity. Educated about weight loss. 6. Iron deficiency anemia. See #1. 7. History of gastric ulcers in the past. 8. Dysfunctional uterine bleeding now on medication regulation for this. Time spent on discharging patient 55 minutes. Dictated By: Will Carroll MD /george/karin /Document#: [id number]
== END 2017-02-16 16:15 | disposition home or self-care (01) | DRG 812 ==
LOC: FTE 09:06 → PP2 14:11
PROVIDERS: ADMIT Internal Medicine; ATTEND Internal Medicine
PROC: 30233N1 Transfusion of Nonautologous Red Blood Cells into Peripheral Vein, Percutaneous Approach (ICD-10-PCS; principal; 2017-02-13)
PROC: 0DJD8ZZ Inspection of Lower Intestinal Tract, Via Natural or Artificial Opening Endoscopic (ICD-10-PCS; 2017-02-15)
PROC: 0DB68ZX Excision of Stomach, Via Natural or Artificial Opening Endoscopic, Diagnostic (ICD-10-PCS; 2017-02-15 18:30)
DX: D50.0 Iron deficiency anemia secondary to blood loss (chronic) (principal); K76.0 Fatty (change of) liver, not elsewhere classified; K25.7 Chronic gastric ulcer without hemorrhage or perforation; K62.5 Hemorrhage of anus and rectum; K80.20 Calculus of gallbladder without cholecystitis without obstruction; D25.9 Leiomyoma of uterus, unspecified; N92.0 Excessive and frequent menstruation with regular cycle; Z72.0 Tobacco use; K64.4 Residual hemorrhoidal skin tags; K64.8 Other hemorrhoids; D36.7 Benign neoplasm of other specified sites
CPT/HCPCS: 36430; 74182; 76830; 76856; 80048; 80053; 80061; 81001; 82150; 82270; 83036; 83540; 83690; 83735; 84100; 84439; 84443; 85025; 85610; 85730; 86850; 86900; 86901; 86920; 88305; 88312; 96374; 96375; C9113; J0360; J1170; J2060; J2270; J2405; J2916; J7030; J7040; P9016

== ENCOUNTER 2017-02-28 09:19 | Day surgery (SDC) | END 2017-02-28 15:26 | disposition home or self-care (01) | DX: K80.10 Calculus of gallbladder with chronic cholecystitis without obstruction (principal); I10 Essential (primary) hypertension; E66.01 Morbid (severe) obesity due to excess calories; Z68.38 Body mass index [BMI] 38.0-38.9, adult | CPT/HCPCS: 47562; 84703; 85014; 85018; 88304; J0360; J0690; J1170; J1200; J2175; J2250; J2405; J2710; J3010; Z7512; Z7610 ==

== ENCOUNTER 2017-02-28 22:04 | Emergency (ER) | payer OTHER ==
[~2017-02-28] VITALS: Ht 170.2 cm; Wt 102.0 kg
[~2017-02-28 22:04] MED LIST changes: -HYDR-902 PO; -IBUP800T25 PO; -ONDA4TAB8 PO; -ONDA8TAB14 PO
[2017-02-28 22:06] VITALS: Ht 170.2 cm; Wt 102.0 kg
[2017-02-28] MEDS ORDERED: FAMOTIDINE 20 MG INJ IV STA (22:22)
[2017-02-28] MEDS ORDERED: morphine 4 MG/ML VIAL IV STA (22:22)
[2017-02-28] MEDS ORDERED: ONDANSETRON 4 MG INJ IV STA (22:22)
[2017-02-28] MEDS ORDERED: SOD CHLORIDE 0.9% 1,000 ML IV STA (22:22)
[2017-02-28 23:10] LABS: BASOPHILS % 0.1 % (0.0-2.0); HEMATOCRIT 34.1 % (37.0-47.0); HEMOGLOBIN 10.3 g/dl (12.0-16.0); LYMPHOCYTES # 0.7 10^3/ul (0.8-2.9); LYMPHOCYTES % 4.5 % (15.0-51.0); MEAN CORPUSCULAR HEMOGLOBIN 24.6 pg (29.0-33.0); MEAN CORPUSCULAR HGB CONC 30.2 g/dl (32.0-37.0); MEAN CORPUSCULAR VOLUME 81.6 fl (82.0-101.0); MEAN PLATELET VOLUME 11.1 fl (7.4-10.4); MONOCYTE # 0.2 10^3/ul (0.3-0.9); MONOCYTES % 1.5 % (0.0-11.0); NEUTROPHIL # 14.5 10^3/ul (1.6-7.5); NEUTROPHILS % 93.4 % (39.0-77.0); PLATELET COUNT 419 10^3/UL (140-415); RED BLOOD COUNT 4.18 10^6/ul (4.20-5.40); RED CELL DISTRIBUTION WIDTH 21.2 % (11.5-14.5); WHITE BLOOD COUNT 15.5 10^3/ul (4.8-10.8)
[2017-02-28 23:16] LABS: ALBUMIN 4.7 g/dl (3.3-4.9); ALBUMIN/GLOBULIN RATIO 1.23; BILIRUBIN,INDIRECT 0.3 mg/dl (0-1.1); BILIRUBIN,TOTAL 0.3 mg/dl (0.2-1.3); CALCIUM 9.9 mg/dl (8.4-10.2); CREATININE 0.77 mg/dl (0.44-1.00); POTASSIUM 3.7 mmol/L (3.5-5.1); TOTAL PROTEIN 8.5 g/dl (6.1-8.1)
[2017-02-28 23:43] LABS: ADD UMIC YES; UR ASCORBIC ACID 20 mg/dL (NEGATIVE); UR BILIRUBIN (Dip) NEGATIVE (NEGATIVE); UR BLOOD (Dip) NEGATIVE (NEGATIVE); UR CLARITY SLIGHTLY CLOUDY (CLEAR); UR COLOR YELLOW (YELLOW); UR GLUCOSE (Dip) NEGATIVE (NEGATIVE); UR KETONES (Dip) TRACE mg/dL (NEGATIVE); UR LEUKOCYTE ESTERASE (Dip) NEGATIVE Leu/ul (NEGATIVE); UR MUCUS FEW /HPF (NONE SEEN); UR NITRITE (Dip) NEGATIVE (NEGATIVE); UR RBC 0 /HPF (0-5); UR SPECIFIC GRAVITY (Dip) 1.023 (1.003-1.030); UR SQUAMOUS EPITHELIAL CELL FEW /HPF (FEW); UR TOTAL PROTEIN (Dip) 1+ mg/dl (NEGATIVE); UR UROBILINOGEN (Dip) NEGATIVE (NEGATIVE)
--- NOTE | 2017-02-28 23:47 | ERD ---
ER Documentation Chief Complaint Date/Time DATE: 02/28/17 TIME: 23:44 Chief Complaint sp laparoscopic cholecystectomy today, c/o vomiting, post op pain HPI This is a 31-year-old female who presents to the emergency room for evaluation of nausea and one episode of vomiting. The patient did state that she had her gallbladder removed today by surgeon, Dr. henley. She states that she went home and was feeling okay however she started to have some pain and took a [place]. She then states that she vomited after taking her [place] and came to the emergency room for further evaluation. She localizes the pain to the midportion of the abdomen with no radiation. She denies any aggravating factors for her symptoms. ROS All systems reviewed and are negative except as per history of present illness. Medications Home Meds Reported Medications Ferrous Sulfate* (Ferrous Sulfate*) 325 Mg Tabec, 325 MG PO DAILY, TAB 01/01/17 Discontinued Scripts Docusate Sodium* (Colace*) 100 Mg Capsule, 100 MG PO BID, #30 CAP Prov:FREDRICK CHINCHILLA PA-C 02/12/17 Ondansetron (Ondansetron Odt) 4 Mg Tab.rapdis, 4 MG PO Q6H Y for NAUSEA AND/OR VOMITING, #20 TAB Prov:CHANTELL ALCALA 01/27/17 Hydrocodone/Acetaminophen ([place] 5-325 Tablet) 1 Each Tablet, 1 TAB PO Q6H Y for SEVERE PAIN LEVEL 7-10, #20 TAB Prov:DANIAL JEROME NP 01/06/17 Ranitidine Hcl* (Zantac*) 150 Mg Tablet, 150 MG PO BID Y for EPIGASTRIC PAIN, # 30 TAB Prov:VESNA FERNANDEZ MD 01/01/17 Tramadol HCl (Tramadol HCl) 50 Mg Tablet, 50 MG PO Q6, #20 TAB Prov:VESNA FERNANDEZ MD 01/01/17 Allergies Allergies: Coded Allergies: No Known Allergy (Unverified , 02/28/17) PMhx/Soc History of Surgery: Yes (MYELONECTOMY, cholecysectomy 02/28) Anesthesia Reaction: No Hx Neurological Disorder: No Hx Respiratory Disorders: No Hx Cardiac Disorders: No Hx Psychiatric Problems: No Hx Miscellaneous Medical Probl: No Hx Alcohol Use: Yes (occassional) Hx Substance Use: Yes (MARIJUANA ) Hx Tobacco Use: No Smoking Status: Former smoker Physical Exam Vitals Vital Signs Date Time Temp Pulse Resp B/P Pulse Ox O2 Delivery O2 Flow Rate FiO2 02/28/17 23:03 98.1 81 22 146/59 100 Room Air 02/28/17 22:06 99.9 85 20 184/83 99 Physical Exam INITIAL VITAL SIGNS: Reviewed by me GENERAL: The patient is well developed and appropriate for usual state of health in no apparent distress HEENT: Pupils equal, round, and reactive to light. EOMI. There is no scleral icterus. NECK: C-spine is soft and supple, there is no meningismus. There is no cervical lymphadenopathy. LUNGS: Clear to auscultation bilaterally. There are no rales, wheezes or rhonchi. HEART: Regular rate and rhythm, no murmurs, clicks, rubs or gallops. ABDOMEN: Healing laparoscopic incision scars clean, dry, intact. Soft, non- tender, non-distended. There are bowel sounds in all four quadrants. No rebound or guarding. EXTREMITIES: There is no peripheral cyanosis or edema. No focal swelling or erythema. NEUROLOGICAL: The patient moves all four extremities with 5/5 strength. Cranial nerves II - XII are intact. Normal gait. Alert and oriented SKIN: There is no apparent rash or petechiae. HEME/LYMPHATIC: There is no evidence of excessive bruising or lymphedema. PSYCHIATRIC: The patient does not appear anxious or depressed. Result Diagram: 02/28/17223902/28/172239 Results 24 hrs Laboratory Tests Test 02/28/17 22:30 02/28/17 22:40 Urine Color YELLOW Urine Clarity SLIGHTLY CLOUDY Urine pH 5.0 Urine Specific [place] 1.023 Urine Ketones TRACEmg/dL Urine Nitrite NEGATIVEmg/dL Urine Bilirubin NEGATIVEmg/dL Urine Urobilinogen NEGATIVEmg/dL Urine Leukocyte Esterase NEGATIVELeu/ul Urine Microscopic RBC 0/HPF Urine Microscopic WBC 6/HPF Urine Squamous Epithelial Cells FEW/HPF Urine Mucus FEW/HPF Urine Hemoglobin NEGATIVEmg/dL Urine Glucose NEGATIVEmg/dL Urine Total Protein 1+mg/dl White Blood Count 15.510^3/ul Red Blood Count 4.1810^6/ul Hemoglobin 10.3g/dl Hematocrit 34.1% Mean Corpuscular Volume 81.6fl Mean Corpuscular Hemoglobin 24.6pg Mean Corpuscular Hemoglobin Concent 30.2g/dl Red Cell Distribution Width 21.2% Platelet Count 80712^3/UL Mean Platelet Volume 11.1fl Neutrophils % 93.4% Lymphocytes % 4.5% Monocytes % 1.5% Eosinophils % 0.0% Basophils % 0.1% Nucleated Red Blood Cells % 0.0/100WBC Neutrophils # 14.510^3/ul Lymphocytes # 0.710^3/ul Monocytes # 0.210^3/ul Eosinophils # 0.010^3/ul Basophils # 0.010^3/ul Nucleated Red Blood Cells # 0.010^3/ul Sodium Level 141mmol/L Potassium Level 3.7mmol/L Chloride Level 108mmol/L Carbon Dioxide Level 21mmol/L Anion Gap 16 Blood Urea Nitrogen 10mg/dl Creatinine 0.77mg/dl Glucose Level 137mg/dl Calcium Level 9.9mg/dl Total Bilirubin 0.3mg/dl Direct Bilirubin 0.00mg/dl Indirect Bilirubin 0.3mg/dl Aspartate Amino Transf (AST/SGOT) 53IU/L Alanine Aminotransferase (ALT/SGPT) 44IU/L Alkaline Phosphatase 44IU/L Total Protein 8.5g/dl Albumin 4.7g/dl Globulin 3.80g/dl Albumin/Globulin Ratio 1.23 Lipase 32U/L Current Medications Medications (Trade) Dose Ordered Sig/Braden Route PRN Reason Start Time Stop Time Status Last Admin Dose Admin Sodium Chloride (NS) 1,000 ml @ 1,000 mls/hr Q1H STAT IV 02/28/17 22:22 02/28/17 23:21 DC 02/28/17 22:43 Morphine Sulfate (morphine) 4 mg ONCE STAT IV 02/28/17 22:22 02/28/17 22:24 DC 02/28/17 22:43 Ondansetron HCl (Zofran Inj) 4 mg ONCE STAT IV 02/28/17 22:22 02/28/17 22:24 DC 02/28/17 22:42 Famotidine (Pepcid Iv) 20 mg ONCE STAT IV 02/28/17 22:22 02/28/17 22:24 DC 02/28/17 22:43 Procedures/MDM This 31-year-old female presents to the emergency room for evaluation of abdominal pain. This patient did have a laparoscopic cholecystectomy done today by Dr. Henley. I did obtain lab work which showed slight leukocytosis however I feel that this could be reactive secondary to surgery. This patient was given 1 L fluids, IV Zofran and 4 mg of morphine. When I reevaluated this patient she says she is feeling much better. Patient states that she does not have any nausea medication at home and I do feel that she could have taken the [place] and felt nauseous as a side effect of the medication. She is hemodynamically stable at this time. I have called Dr. Henley and I reviewed the case with him and he is in agreement that this patient can be discharged at this time. This patient will be discharged home with instructions to return at any point for reevaluation. She verbalized understanding and is okay to plan of care. Departure Diagnosis: Primary Impression: Postoperative pain Additional Impression: Nausea & vomiting Condition: Stable YESSY VALDES DO Feb 28, 2017 23:47
[2017-02-28] MEDS ORDERED: ONDA4TAB8 PO (23:48)
[2017-03-01] MEDS ORDERED: morphine 2 MG INJ ONE (00:15)
[2017-03-01] MEDS ORDERED: morphine 2 MG INJ IV ONE (00:30)
[2017-03-01 00:31] VITALS: BP 146/59; PULSE 81; RESP 22; TEMP 98.1
== END 2017-03-01 00:31 | disposition home or self-care (01) ==
LOC: E/R 22:04
DX: G89.18 Other acute postprocedural pain (principal); R10.9 Unspecified abdominal pain; R11.2 Nausea with vomiting, unspecified; Z87.891 Personal history of nicotine dependence
CPT/HCPCS: 36415; 80053; 81001; 83690; 85025; 96374; 96375; 96376; J2270; J2405; J7030; Z7502; Z7610

== ENCOUNTER 2017-03-03 05:55 | Emergency (ER) | payer OTHER ==
[~2017-03-03] VITALS: Ht 162.6 cm; Wt 109.0 kg
[~2017-03-03 05:55] MED LIST changes: -DOCU-144 PO; -HYDR-906 PO; -ONDA4TAB14 PO; +ONDA4TAB8 PO; -RANI150T9 PO; -TRAM50TA2 PO
[2017-03-03 05:58] VITALS: Ht 162.6 cm; Wt 109.0 kg
--- NOTE | 2017-03-03 06:18 | ERA ---
ER Documentation Chief Complaint Date/Time DATE: 03/03/17 TIME: 06:16 Chief Complaint sp cholecystectomy 3 days ago, c/o incisional pain and wound leaking HPI This is a 31-year-old female with a history of cholecystitis status post cholecystectomy 3 days ago who is presenting for a wound check. The patient reportedly has pain around 1 of the incisional sites with drainage that she is concerned about. She also feels a bloated sensation with discomfort in the left lower quadrant. She is told not to take ibuprofen given the concerns of bleeding, she has not taken any pain medication at home for her symptoms. The patient denies feeling sick recently. The patient denies fever or chills. The patient has had no headache or vision changes. The patient denies lightheadedness or dizziness. The patient has had no chest pain or shortness of breath or trouble breathing. The patient denies changes to bowel movements or urination. The patient has had no focal deficits. The patient has had no weakness or numbness or tingling to the face or extremities. ROS All systems reviewed and are negative except as per history of present illness. Medications Home Meds Reported Medications Ferrous Sulfate* (Ferrous Sulfate*) 325 Mg Tabec, 325 MG PO DAILY, TAB 01/01/17 Discontinued Scripts Ondansetron Hcl* (Zofran*) 4 Mg Tablet, 4 MG PO Q8H Y for NAUSEA AND/OR VOMITING , #15 TAB Prov:YESSY VALDES DO 02/28/17 Docusate Sodium* (Colace*) 100 Mg Capsule, 100 MG PO BID, #30 CAP Prov:FREDRICK CHINCHILLA PA-C 02/12/17 Ondansetron (Ondansetron Odt) 4 Mg Tab.rapdis, 4 MG PO Q6H Y for NAUSEA AND/OR VOMITING, #20 TAB Prov:CHANTELL ALCALA 01/27/17 Hydrocodone/Acetaminophen ([place] 5-325 Tablet) 1 Each Tablet, 1 TAB PO Q6H Y for SEVERE PAIN LEVEL 7-10, #20 TAB Prov:DANIAL JEROME NP 01/06/17 Ranitidine Hcl* (Zantac*) 150 Mg Tablet, 150 MG PO BID Y for EPIGASTRIC PAIN, # 30 TAB Prov:VESNA FERNANDEZ MD 01/01/17 Tramadol HCl (Tramadol HCl) 50 Mg Tablet, 50 MG PO Q6, #20 TAB Prov:VESNA FERNANDEZ MD 01/01/17 Allergies Allergies: Coded Allergies: No Known Allergy (Unverified , 03/03/17) PMhx/Soc History of Surgery: Yes (MYELONECTOMY, cholecysectomy 02/28) Anesthesia Reaction: No Hx Neurological Disorder: No Hx Respiratory Disorders: No Hx Cardiac Disorders: No Hx Psychiatric Problems: No Hx Miscellaneous Medical Probl: No Hx Alcohol Use: Yes (occassional) Hx Substance Use: Yes (MARIJUANA ) Hx Tobacco Use: No FmHx Family History: No diabetes Physical Exam Vitals Vital Signs Date Time Temp Pulse Resp B/P Pulse Ox O2 Delivery O2 Flow Rate FiO2 03/03/17 05:58 99.9 94 20 165/77 98 Physical Exam Const: No apparent distress, well-developed, well-nourished Head: Atraumatic Eyes: Normal Conjunctiva. Extraocular movements intact. ENT: Normal External Ears, Nose and Mouth. Neck: Full range of motion. ~ No meningismus. Resp: Clear to auscultation bilaterally Cardio: Regular rate and rhythm, no murmurs Abd: Soft, non distended. Mild LLQ tenderness. Well healing surgical scars with minimal serosanguinous fluid at the periumbilical incision. No erythema or induration or edema or purulence at any of the sites. Normal bowel sounds Skin: No petechiae or rashes Back: No midline or flank tenderness Ext: No cyanosis, or edema Neur: Awake and alert, oriented 4. Cranial nerves intact. No facial droop. Normal strength and sensation in all extremities. Coordination with finger to nose normal. Psych: Normal Mood and Affect Result Diagram: 03/03/17 0743 03/03/17 0739 Results 24 hrs Laboratory Tests Test 03/03/17 07:39 03/03/17 07:40 03/03/17 07:43 Sodium Level 141mmol/L Potassium Level 3.6mmol/L Chloride Level 109mmol/L Carbon Dioxide Level 24mmol/L Anion Gap 12 Blood Urea Nitrogen 8mg/dl Creatinine 0.74mg/dl Glucose Level 94mg/dl Calcium Level 9.4mg/dl Total Bilirubin 0.1mg/dl Direct Bilirubin 0.00mg/dl Indirect Bilirubin 0.1mg/dl Aspartate Amino Transf (AST/SGOT) 29IU/L Alanine Aminotransferase (ALT/SGPT) 40IU/L Alkaline Phosphatase 41IU/L Total Protein 7.6g/dl Albumin 4.1g/dl Globulin 3.50g/dl Albumin/Globulin Ratio 1.17 Lipase 63U/L Serum HCG, Qualitative NEGATIVE White Blood Count 7.310^3/ul Red Blood Count 3.8710^6/ul Hemoglobin 9.3g/dl Hematocrit 31.9% Mean Corpuscular Volume 82.4fl Mean Corpuscular Hemoglobin 24.0pg Mean Corpuscular Hemoglobin Concent 29.2g/dl Red Cell Distribution Width 21.7% Platelet Count 50046^3/UL Mean Platelet Volume 10.8fl Neutrophils % 72.7% Lymphocytes % 9.9% Monocytes % 13.4% Eosinophils % 2.9% Basophils % 0.8% Nucleated Red Blood Cells % 0.0/100WBC Neutrophils # 5.310^3/ul Lymphocytes # 0.710^3/ul Monocytes # 1.010^3/ul Eosinophils # 0.210^3/ul Basophils # 0.110^3/ul Nucleated Red Blood Cells # 0.010^3/ul Current Medications Medications (Trade) Dose Ordered Sig/Braden Route PRN Reason Start Time Stop Time Status Last Admin Dose Admin Acetaminophen (Tylenol Tab) 650 mg ONCE ONCE PO 03/03/17 06:30 03/03/17 06:31 DC 03/03/17 06:54 IV Flush 10 ml 10 ml STK-MED ONCE .ROUTE 03/03/17 08:47 03/03/17 08:48 DC Sodium Chloride (NS) 0 ml @ ud STK-MED ONCE .ROUTE 03/03/17 08:47 03/03/17 08:48 DC Iohexol (Omnipaque 300mg/ ml) 30 ml STK-MED ONCE .ROUTE 03/03/17 08:47 03/03/17 08:48 DC Bacitracin (Bacitracin Oint (Ud)) 1 applic ONCE ONCE TOP 03/03/17 10:30 03/03/17 10:30 DC Procedures/MDM MDM Patient's presentation warrants further investigation. I do not see any evidence of cellulitis or abscess or infection at the postoperative surgical sites. They appear to be healing well. And the site that has minimal serosanguineous fluid, I encouraged the patient to utilize minimal bacitracin to the site. Gauze was applied in the emergency department over this site as well. Blood work will be obtained to evaluate for any possible infectious etiology of her symptoms. A CAT scan of the abdomen will also be performed. The risks and benefits of the CAT scan were discussed with the patient. This is the second time the patient has come to the emergency department for this and requested that it be done today to rule out anything significant. I will avoid ibuprofen or Toradol in this patient given her recent surgery. However, the patient will be given Tylenol and will be reevaluated. LABS The patient's blood work was obtained and reviewed. The patient seemed shows no leukocytosis or left shift. The patient is afebrile, and I do not suspect a systemic infection. The patient is not anemic today. The patient's platelet count is unremarkable. The patient's CMP shows no signs of metabolic or electrolyte abnormality. The patient has normal renal and hepatic function testing. The patient's lipase is negative. The patient is not . She had no urinary symptoms, and a urinalysis was not sent off at this time. IMAGING CT abdomen/pelvis without contrast IMPRESSION: 1. Status post recent cholecystectomy. No evidence of hematoma or abscess is identified. 2. Fat-containing periumbilical and supraumbilical ventral hernias are noted, without incarceration, unchanged from prior exams. 3. Uterus is enlarged and demonstrates multiple fibroids. 4. No mass, lymphadenopathy, or focal acute inflammatory process is identified. Electronically viewed and signed by .Ranulfo Osorio MD, on 03/03/2017 09: 12 TREATMENT/DISPOSITION The patient's symptoms resolved after obtaining Tylenol. A light dressing will be applied over the healing surgical wound. I do not see any evidence of abscess clinically or on CAT scan. It appears to be healing well. She may apply bacitracin or Neosporin as needed. I do not see any emergent findings worrisome for a complication of the cholecystectomy. The patient already knows of her hernias as well as her uterine fibroids. At this time, the patient stable for discharge. She may use Tylenol as needed for discomfort at home. She will call her surgeon next week to schedule an appointment. The patient was given precautions with which to return to the emergency department. Departure Diagnosis: Primary Impression: Postoperative complication Qualified Code: K91.89 - Postoperative surgical complication involving digestive system associated with digestive system procedure, unspecified complication Additional Impression: Abdominal pain Qualified Code: R10.84 - Generalized abdominal pain Condition: Stable LJ COLON MD Mar 03, 2017 06:18
[2017-03-03] MEDS ORDERED: ACETAMINOPHEN 325 MG TAB PO ONE (06:30)
[2017-03-03 07:58] LABS: BASOPHIL # 0.1 10^3/ul (0.0-0.1); BASOPHILS % 0.8 % (0.0-2.0); EOSINOPHILS # 0.2 10^3/ul (0.0-0.5); EOSINOPHILS % 2.9 % (0.0-7.0); HEMATOCRIT 31.9 % (37.0-47.0); HEMOGLOBIN 9.3 g/dl (12.0-16.0); LYMPHOCYTES # 0.7 10^3/ul (0.8-2.9); LYMPHOCYTES % 9.9 % (15.0-51.0); MEAN CORPUSCULAR HGB CONC 29.2 g/dl (32.0-37.0); MEAN CORPUSCULAR VOLUME 82.4 fl (82.0-101.0); MEAN PLATELET VOLUME 10.8 fl (7.4-10.4); MONOCYTES % 13.4 % (0.0-11.0); NEUTROPHIL # 5.3 10^3/ul (1.6-7.5); NEUTROPHILS % 72.7 % (39.0-77.0); PLATELET COUNT 338 10^3/UL (140-415); RED BLOOD COUNT 3.87 10^6/ul (4.20-5.40); RED CELL DISTRIBUTION WIDTH 21.7 % (11.5-14.5); WHITE BLOOD COUNT 7.3 10^3/ul (4.8-10.8)
[2017-03-03 08:20] LABS: ALBUMIN 4.1 g/dl (3.3-4.9); ALBUMIN/GLOBULIN RATIO 1.17; BILIRUBIN,INDIRECT 0.1 mg/dl (0-1.1); BILIRUBIN,TOTAL 0.1 mg/dl (0.2-1.3); CALCIUM 9.4 mg/dl (8.4-10.2); CREATININE 0.74 mg/dl (0.44-1.00); POTASSIUM 3.6 mmol/L (3.5-5.1); TOTAL PROTEIN 7.6 g/dl (6.1-8.1)
[2017-03-03] MEDS ORDERED: SOD CHLORIDE 0.9% 0 ML ONE (08:47)
[2017-03-03] MEDS ORDERED: IOHEXOL 300MG/ML 30 ML BTL ONE (08:47)
--- NOTE | 2017-03-03 09:12 | RADRPT ---
PROCEDURE: CT Abdomen and Pelvis without contrast. CLINICAL INDICATION: Abdominal pain TECHNIQUE: CT of the abdomen and pelvis was performed on a multi-detector scanner without IV contr ast. Coronal and sagittal images were reformatted from the axial data set. One or more of the foll owing dose reduction techniques were used: automated exposure control, adjustment of the mA and/or k V according to patient size, use of iterative reconstruction technique. CTDI = 20.59 mGy. DLP = 117 8.57 mGy-cm. COMPARISON: MRI, 02/14/2017 FINDINGS: The lung bases are clear. The heart size is normal, without pericardial effusion. Gallbladder is s urgically absent. No abnormality is seen in the gallbladder fossa. Liver, biliary tree, pancreas, sp abdulkadir, adrenal glands and kidneys are unremarkable. No urolithiasis or obstructive uropathy is identi fied. The stomach is grossly unremarkable. The aorta is of normal caliber. Fat-containing periumbilical and supraumbilical ventral hernias are noted. There is no retroperitoneal lymphadenopathy. The letitia hepatis region is clear. No bowel obstruction, free intraperitoneal air or abscess is identified. The appendix is well visual ized and normal. There is no diverticulosis, diverticulitis or colitis. Urinary bladder is grossly u nremarkable. Uterus is enlarged and demonstrates multiple fibroids measuring up to 8 cm. Nonspecific trace amount of pelvic free fluid is present, likely reactive or physiologic. No pelvic mass or lym phadenopathy is identified. The surrounding osseous structures are unremarkable. No osteolytic or osteoblastic lesion is detect ed. Anterior abdominal wall skin luh are noted. IMPRESSION: 1. Status post recent cholecystectomy. No evidence of hematoma or abscess is identified. 2. Fat-containing periumbilical and supraumbilical ventral hernias are noted, without incarceration , unchanged from prior exams. 3. Uterus is enlarged and demonstrates multiple fibroids. 4. No mass, lymphadenopathy, or focal acute inflammatory process is identified. RPTAT: HH .Ranulfo Osorio MD, MD Date Time Electronically viewed and signed by .Ranulfo Osorio MD, MD on 03/03/2017 09:12 .R/
[2017-03-03] MEDS ORDERED: BACITRACIN 0.9 GM OINT TOP ONE (10:30)
== END 2017-03-03 10:15 | disposition home or self-care (01) ==
LOC: E/R 05:55
DX: K91.89 Other postprocedural complications and disorders of digestive system (principal); R10.84 Generalized abdominal pain
CPT/HCPCS: 74176; 80053; 83690; 84703; 85025; Z7502; Z7610; Q9967

== ENCOUNTER 2017-03-17 21:28 | Inpatient (IN) | payer OTHER ==
[~2017-03-17] VITALS: Ht 170.2 cm; Wt 110.0 kg
[~2017-03-17 21:28] MED LIST changes: -ONDA4TAB8 PO
[2017-03-17] MEDS ORDERED: KETOROLAC 30 MG INJ IV STA (23:13)
[2017-03-17] MEDS ORDERED: ONDANSETRON 4 MG INJ IV STA (23:13)
[2017-03-17] MEDS ORDERED: SOD CHLORIDE 0.9% 1,000 ML IV STA (23:13)
[2017-03-17 23:56] LABS: BASOPHILS % 0.5 % (0.0-2.0); EOSINOPHILS # 0.4 10^3/ul (0.0-0.5); EOSINOPHILS % 4.6 % (0.0-7.0); HEMATOCRIT 26.3 % (37.0-47.0); HEMOGLOBIN 7.9 g/dl (12.0-16.0); LYMPHOCYTES # 2.9 10^3/ul (0.8-2.9); LYMPHOCYTES % 32.9 % (15.0-51.0); MEAN CORPUSCULAR HEMOGLOBIN 24.5 pg (29.0-33.0); MEAN CORPUSCULAR VOLUME 81.7 fl (82.0-101.0); MEAN PLATELET VOLUME 10.3 fl (7.4-10.4); MONOCYTE # 0.7 10^3/ul (0.3-0.9); MONOCYTES % 7.8 % (0.0-11.0); NEUTROPHIL # 4.8 10^3/ul (1.6-7.5); PLATELET COUNT 652 10^3/UL (140-415); RED BLOOD COUNT 3.22 10^6/ul (4.20-5.40); RED CELL DISTRIBUTION WIDTH 19.9 % (11.5-14.5); WHITE BLOOD COUNT 8.9 10^3/ul (4.8-10.8)
[2017-03-18 00:04] LABS: ADD UMIC NO; UR ASCORBIC ACID NEGATIVE (NEGATIVE); UR BILIRUBIN (Dip) NEGATIVE (NEGATIVE); UR BLOOD (Dip) NEGATIVE (NEGATIVE); UR CLARITY SLIGHTLY CLOUDY (CLEAR); UR COLOR YELLOW (YELLOW); UR GLUCOSE (Dip) NEGATIVE (NEGATIVE); UR KETONES (Dip) NEGATIVE (NEGATIVE); UR LEUKOCYTE ESTERASE (Dip) NEGATIVE Leu/ul (NEGATIVE); UR MUCUS FEW /HPF (NONE SEEN); UR NITRITE (Dip) NEGATIVE (NEGATIVE); UR RBC 1 /HPF (0-5); UR SPECIFIC GRAVITY (Dip) 1.027 (1.003-1.030); UR SQUAMOUS EPITHELIAL CELL FEW /HPF (FEW); UR TOTAL PROTEIN (Dip) NEGATIVE (NEGATIVE); UR UROBILINOGEN (Dip) 1+ mg/dL (NEGATIVE)
--- NOTE | 2017-03-18 00:10 | RADRPT ---
PROCEDURE: CT Abdomen and pelvis without contrast. CLINICAL INDICATION: Abdominal pain. TECHNIQUE: CT scan of the abdomen and pelvis was performed on a multi-detector high-resolution CT scanner. Contiguous axial images were obtained from the lung bases to the ischial tuberosities wit hout intravenous contrast. Coronal and sagittal reformatted images were also obtained. Images were reviewed on the PACS workstation. One or more of the following dose reduction techniques were used: - Automated exposure control. - Adjustment of the mA and/or kV according to patient size. - Use of iterative reconstruction technique. Exam CTD/vol = 21.90 mGy. Total exam DLP = 1301.73 mGy-cm. COMPARISON: 03/03/2017. FINDINGS: Evaluation of the lung bases demonstrates no pleural or parenchymal disease. Abdomen: The liver is normal in size. There is no focal mass or dilatation of the biliary tree. T he patient is status post cholecystectomy. The spleen, pancreas and right adrenal gland are within normal limits. There is a left adrenal nodule measuring 1.5 x 1.3 cm with Hounsfield characteristics compatible with adenoma. Bilateral kidneys are normal in size with no contour deforming mass identi fied. There is no radiopaque renal or ureteral calculus identified. There is no hydronephrosis or hydroureter. There is no retroperitoneal adenopathy. The abdominal aorta is of normal caliber. There are small midline ventral abdominal wall hernias containing fat. There is no bowel obstructio n or free air. A normal appendix is identified. There is no diverticulosis or diverticulitis. The re is no ascites. Pelvis: The bladder is unremarkable. The uterus is enlarged with multiple fibroids. There is no s ignificant pelvic adenopathy or free fluid. Evaluation of the osseous structures demonstrates no suspicious lytic or blastic lesion. IMPRESSION: Enlarged uterus with multiple fibroids. Small midline ventral hernias containing fat. Status post cholecystectomy. Left adrenal adenoma. Otherwise no acute abnormality identified within the abdomen and pelvis. .Omsin Del Rosario MD, MD Date Time Electronically viewed and signed by .Osmin Del Rosario MD, MD on 03/18/2017 00:09 .T/
[2017-03-18 00:24] LABS: ALBUMIN/GLOBULIN RATIO 1.14; CREATININE 0.86 mg/dl (0.44-1.00); POTASSIUM 3.3 mmol/L (3.5-5.1); TOTAL PROTEIN 7.5 g/dl (6.1-8.1)
[2017-03-18] MEDS ORDERED: MAGNESIUM CITRATE 300 ML BTL PO ONE (02:30)
[2017-03-18] MEDS ORDERED: morphine 10 MG INJ IV ONE (02:30)
[2017-03-18] MEDS ORDERED: ONDANSETRON 4 MG INJ IV PRN ×2 (03:30→06:00)
[2017-03-18] MEDS ORDERED: ACETAMINOPHEN 325 MG TAB PO PRN (03:30)
[2017-03-18 04:00] VITALS: TEMP 98.3
[2017-03-18] MEDS ORDERED: METOCLOPRAMIDE 10 MG INJ IV ONE (04:00)
[2017-03-18] MEDS ORDERED: LACTULOSE 30ML CUP PO ONE (04:00)
--- NOTE | 2017-03-18 04:28 | ERA ---
ER Documentation Chief Complaint Date/Time DATE: 03/18/17 TIME: 04:14 Chief Complaint constipation x 4 days. c/o abd pain but none at this time. -n/v HPI This 31-year-old female presents to the emergency room for intermittent severe abdominal pain as well as tiredness,, weakness, dizziness, and headache. Last month she had gallbladder surgery at this hospital. Denies fevers and chills. States that she also has been constipated for 4 days. ROS All systems reviewed and are negative except as per history of present illness. Medications Home Meds Reported Medications Ferrous Sulfate* (Ferrous Sulfate*) 325 Mg Tabec, 325 MG PO DAILY, TAB 01/01/17 Allergies Allergies: Coded Allergies: No Known Allergy (Unverified , 03/17/17) PMhx/Soc History of Surgery: Yes (MYELONECTOMY, cholecysectomy 02/28) Anesthesia Reaction: No Hx Neurological Disorder: No Hx Respiratory Disorders: No Hx Cardiac Disorders: No Hx Psychiatric Problems: No Hx Miscellaneous Medical Probl: Yes (FIBROIDS) Hx Alcohol Use: Yes (occassional) Hx Substance Use: Yes (MARIJUANA ) Hx Tobacco Use: No Smoking Status: Never smoker Physical Exam Vitals Vital Signs Date Time Temp Pulse Resp B/P Pulse Ox O2 Delivery O2 Flow Rate FiO2 03/17/17 23:42 99.3 78 18 135/83 100 Room Air 03/17/17 21:49 98.5 77 18 153/93 100 Physical Exam Const: [] Moderate distress, appears uncomfortable Head: Atraumatic Eyes: Normal Conjunctiva ENT: Normal External Ears, Nose and Mouth. Neck: Full range of motion..~ No meningismus. Resp: Clear to auscultation bilaterally Cardio: Regular rate and rhythm, no murmurs Abd: Soft, mild to moderate diffuse tenderness without guarding or rebound, non distended. Normal bowel sounds Skin: No petechiae or rashes Back: No midline or flank tenderness Ext: No cyanosis, or edema Neur: Awake and alert and oriented 3, no focal deficits. Psych: Normal Mood and Affect Result Diagram: 03/17/17 5844 03/17/17 Results 24 hrs Laboratory Tests Test 03/17/17 23:25 03/17/17 23:30 White Blood Count 8.910^3/ul Red Blood Count 3.2210^6/ul Hemoglobin 7.9g/dl Hematocrit 26.3% Mean Corpuscular Volume 81.7fl Mean Corpuscular Hemoglobin 24.5pg Mean Corpuscular Hemoglobin Concent 30.0g/dl Red Cell Distribution Width 19.9% Platelet Count 47740^3/UL Mean Platelet Volume 10.3fl Neutrophils % 54.0% Lymphocytes % 32.9% Monocytes % 7.8% Eosinophils % 4.6% Basophils % 0.5% Nucleated Red Blood Cells % 0.0/100WBC Neutrophils # 4.810^3/ul Lymphocytes # 2.910^3/ul Monocytes # 0.710^3/ul Eosinophils # 0.410^3/ul Basophils # 0.010^3/ul Nucleated Red Blood Cells # 0.010^3/ul Sodium Level 144mmol/L Potassium Level 3.3mmol/L Chloride Level 106mmol/L Carbon Dioxide Level 28mmol/L Anion Gap 13 Blood Urea Nitrogen 12mg/dl Creatinine 0.86mg/dl Glucose Level 90mg/dl Calcium Level 9.0mg/dl Total Bilirubin 0.0mg/dl Direct Bilirubin 0.00mg/dl Indirect Bilirubin 0.0mg/dl Aspartate Amino Transf (AST/SGOT) 22IU/L Alanine Aminotransferase (ALT/SGPT) 27IU/L Alkaline Phosphatase 57IU/L Total Protein 7.5g/dl Albumin 4.0g/dl Globulin 3.50g/dl Albumin/Globulin Ratio 1.14 Lipase 118U/L Urine Color YELLOW Urine Clarity SLIGHTLY CLOUDY Urine pH 6.0 Urine Specific Williams 1.027 Urine Ketones NEGATIVEmg/dL Urine Nitrite NEGATIVEmg/dL Urine Bilirubin NEGATIVEmg/dL Urine Urobilinogen 1+mg/dL Urine Leukocyte Esterase NEGATIVELeu/ul Urine Microscopic RBC 1/HPF Urine Microscopic WBC 5/HPF Urine Squamous Epithelial Cells FEW/HPF Urine Mucus FEW/HPF Urine Hemoglobin NEGATIVEmg/dL Urine Glucose NEGATIVEmg/dL Urine Total Protein NEGATIVEmg/dl Current Medications Medications (Trade) Dose Ordered Sig/Braden Route PRN Reason Start Time Stop Time Status Last Admin Dose Admin Sodium Chloride (NS) 1,000 ml @ 1,000 mls/hr Q1H STAT IV 03/17/17 23:13 03/18/17 00:12 DC 03/17/17 23:38 Ondansetron HCl (Zofran Inj) 4 mg ONCE STAT IV 03/17/17 23:13 03/17/17 23:14 DC 03/17/17 23:37 Ketorolac Tromethamine (Toradol) 30 mg ONCE STAT IV 03/17/17 23:13 03/17/17 23:14 DC 03/17/17 23:38 Morphine Sulfate (morphine) 6 mg ONCE ONCE IV 03/18/17 02:30 03/18/17 02:31 DC 03/18/17 02:38 Magnesium Citrate (Citroma) 300 ml ONCE ONCE PO 03/18/17 02:30 03/18/17 02:31 DC 03/18/17 02:38 Ondansetron HCl (Zofran Inj) 4 mg BRIDGE ORDER PRN IV NAUSEA AND/OR VOMITING 03/18/17 03:30 03/19/17 03:29 Acetaminophen (Tylenol Tab) 650 mg ER BRIDGE PRN PO MILD PAIN/FEVER 03/18/17 03:30 03/19/17 03:29 Lactulose (Enulose) 20 gm ONCE ONCE PO 03/18/17 04:00 03/18/17 04:01 DC Metoclopramide HCl (Reglan) 10 mg ONCE ONCE IV 03/18/17 04:00 03/18/17 04:01 DC 03/18/17 03:52 Procedures/MDM Symptomatic anemia likely secondary to vaginal bleeding from fibroid uterus postsurgical. She states it she was anemic after her surgery and then had a heavy period. States that she has required transfusions before. She was given a liter of normal saline as well as Zofran and Toradol initially as it was thought that constipation was her primary problem. CT was obtained out of concern for possible postop ileus or obstruction. There is retained stool in the right colon only. Patient is upset that she had not had a bowel movement was given magnesium citrate after which she vomited. She was then given Reglan and lactulose. Transfusion of 2 units of packed red blood cells started in the emergency room. She is being admitted to panel under Dr. Salazar. She had a CT abdomen pelvis interpretation: Enlarged fibroid uterus, see no acute process. I see no abnormal fat stranding, no obstruction, no free air, no fractures., Departure Diagnosis: Primary Impression: Symptomatic anemia Additional Impressions: Acute abdominal pain Fibroid uterus Vomiting Condition: AMMY River DO Mar 18, 2017 04:27
[2017-03-18 05:39] VITALS: Ht 170.2 cm; Wt 110.0 kg
[2017-03-18 06:26] VITALS: BP 145/81; RESP 18
--- NOTE | 2017-03-18 07:09 | HP ---
Date/Time of Note Date/Time of Note DATE: 03/18/17 TIME: 06:58 Assessment/Plan VTE Prophylaxis VTE Prophylaxis Intervention: SCD's Lines/Catheters IV Catheter Type (from Nrs): Saline Lock Assessment/Plan Assessment/Plan 1. Microcytic anemia, likely secondary to DUS -Continue blood transfusion -Place an WIRE ROPE FABRICATION SUPERVISOR consult given the finding of multiple fibroids -Consider starting progesterone, but will leave the decision up to OB -Continue ferrous sulfate -Patient has already received a blood transfusion so no need to check for ferritin or iron since her blood is mixed 2. Multiple uterine fibroids -See #1 3. s/p recent laparoscopic cholecystectomy, 3 weeks ago -No acute issue HPI/ROS Admit Date/Time Admit Date/Time Mar 18, 2017 at 03:19 Hx of Present Illness The patient is a 31-year-old female with a history of anemia, gastric ulcer, myomectomy secondary to heavy vaginal bleeding. Patient presented with generalized weakness and dizziness. About 3 weeks ago, she had laparoscopy cholecystectomy here at [facility], done by Dr. Canales. When she presented to the ER, she was found to have a hemoglobin of 7.9. Currently she is receiving blood transfusion. CT abdomen/pelvis was done today showed multiple fibroids. She had been admitted here previously for anemia requiring a blood transfusion. PMH/Family/Social Social History Smoking Status: Never smoker Exam/Review of Systems Vital Signs Vitals Vital Signs Date Time Temp Pulse Resp B/P Pulse Ox O2 Delivery O2 Flow Rate FiO2 03/18/17 06:26 97.9 74 18 145/81 99 03/18/17 04:00 Room Air Intake and Output 03/17/17 03/17/17 03/18/17 15:00 23:00 07:00 Intake Total 700 ml Balance 700 ml Exam Constitutional: alert, oriented, well developed Head: atraumatic, normocephalic Eyes: EOMI, PERRL Respiratory: clear to auscultation, normal air movement Cardiovascular: regular rate and rhythm Gastrointestinal: soft, surgical scars Extremities: normal pulses Labs Result Diagram: 03/17/17 6499 03/17/17 0607 Medications Medications Current Medications Morphine Sulfate (morphine) 2 mg Q4H PRN IV pain; Start 03/18/17 at 06:00 Ondansetron HCl (Zofran Inj) 4 mg Q6H PRN IV NAUSEA AND/OR VOMITING; Start at 06:00 Acetaminophen (Tylenol Tab) 650 mg Q4H PRN PO PAIN AND OR ELEVATED TEMP; Start 03/18/17 at 06:00 SHANNAN HERNANDEZ MD Mar 18, 2017 07:09
[2017-03-18 08:00] VITALS: BP 143/81; RESP 20
[2017-03-18] MEDS: morphine 2 MG INJ IV PRN ×3 (08:48→19:30)
[2017-03-18] MEDS ORDERED: NA PHOSPHATE/BIPHOS 133 ML ENEMA PR PRN (10:00)
[2017-03-18] MEDS: POLYETHYLENE GLYCOL 17 GM PACKET PO SCH ×2 (11:07→22:02)
[2017-03-18] MEDS: BISACODYL (EC) 5 MG TAB PO PRN (11:07)
--- NOTE | 2017-03-18 11:33 | CONS ---
DATE OF ADMISSION: 03/18/2017 DATE OF CONSULTATION: 03/18/2017 GENERAL SURGERY CONSULTATION INDICATIONS: This is a 31-year-old female who had a laparoscopic cholecystectomy 3 weeks ago. She has been doing fine postoperatively and was seen in the clinic for a postoperative visit; however, s he presented to the hospital with constipation and anemia. She has anemia due to her dysfunctional uterine bleeding and is here for a blood transfusion and also for the constipation. General surgery was consulted for wound management as she has had some drainage from the incision. PAST MEDICAL HISTORY: Anemia, gastric ulcer, myomectomy secondary to heavy vaginal bleeding. PAST SURGICAL HISTORY: Laparoscopic cholecystectomy and myomectomy as above. ALLERGIES: NO KNOWN DRUG ALLERGIES. PHYSICAL EXAMINATION: VITAL SIGNS: Temperature is 97.9, pulse 74, respiratory rate is 18, blood pressure is 145/81. GENERAL: No acute distress. Respiratory rate is clear to auscultation. CARDIOVASCULAR: Regular rate and rhythm. ABDOMEN: Well-healed incisions. No drainage, appropriate tenderness, no rebound tenderness. No pe ritoneal signs. EXTREMITIES: Warm, no cyanosis. IMAGING: CT scan shows enlarged uterus with multiple fibroids, small midline ventral hernias contai izabella some fat, status post laparoscopic cholecystectomy, left adrenal adenoma and no acute abnormali ties identified within the abdomen and pelvis. LABORATORY DATA: White blood cell count 8.9, hemoglobin 7.9, platelets of 652. Chemistry: Sodium 144, potassium 3.3, chloride 106, carbon dioxide 28, BUN is 12, creatinine 0.8, glucose of 90, calci um is 9.0, AST is 22, ALT is 27, alkaline phosphatase is 57, albumin is 4.0, lipase 118. ASSESSMENT AND PLAN: This is a 31-year-old female who had a laparoscopic cholecystectomy 3 weeks ag o. Her wound appears well healed. She is admitted for constipation, which is being managed by the medical team. She also has anemia and is undergoing transfusion. There appears to be no acute surg ical issues. However, will continue to follow along as needed. Dictated By: RIANNA STONE/KENDELL Conf#: [id number] DID#: [id number]
[2017-03-18] MEDS ORDERED: INFLUENZA VIRUS VACCINE 0.5 ML SYG IM* ONE (13:00)
[2017-03-18 14:00] VITALS: BP 127/63; RESP 20
[2017-03-18 14:44] LABS: WHITE BLOOD COUNT 10.4 10^3/ul (4.8-10.8)
[2017-03-18 14:45] LABS: BASOPHIL # 0.1 10^3/ul (0.0-0.1); BASOPHILS % 0.6 % (0.0-2.0); EOSINOPHILS # 0.1 10^3/ul (0.0-0.5); EOSINOPHILS % 1.3 % (0.0-7.0); HEMATOCRIT 31.4 % (37.0-47.0); HEMOGLOBIN 9.3 g/dl (12.0-16.0); LYMPHOCYTES # 2.2 10^3/ul (0.8-2.9); LYMPHOCYTES % 20.8 % (15.0-51.0); MEAN CORPUSCULAR HEMOGLOBIN 23.8 pg (29.0-33.0); MEAN CORPUSCULAR HGB CONC 29.6 g/dl (32.0-37.0); MEAN CORPUSCULAR VOLUME 80.5 fl (82.0-101.0); MEAN PLATELET VOLUME 10.6 fl (7.4-10.4); MONOCYTE # 0.7 10^3/ul (0.3-0.9); MONOCYTES % 6.9 % (0.0-11.0); NEUTROPHIL # 7.3 10^3/ul (1.6-7.5); NEUTROPHILS % 70.2 % (39.0-77.0); PLATELET COUNT 645 10^3/UL (140-415); RED CELL DISTRIBUTION WIDTH 19.1 % (11.5-14.5)
[2017-03-18 15:03] LABS: CREATININE 0.82 mg/dl (0.44-1.00); MAGNESIUM 1.9 mg/dl (1.7-2.5); PHOSPHORUS 3.3 mg/dl (2.5-4.9); POTASSIUM 3.8 mmol/L (3.5-5.1)
[2017-03-18 15:04] LABS: IRON 71 ug/dl (35-150)
[2017-03-18 15:14] LABS: TOTAL IRON BINDING CAPACITY 375 ug/dl (241-421)
[2017-03-18 16:36] LABS: FERRITIN 10.5 ng/ml (6.2-137.0)
[2017-03-18 19:58] VITALS: BP 158/98; RESP 19
[2017-03-19 01:41] VITALS: BP 152/78; RESP 19
[2017-03-19] MEDS: morphine 2 MG INJ IV PRN ×3 (07:25→20:29)
[2017-03-19 07:38] VITALS: BP 167/92; RESP 22
[2017-03-19] MEDS: POLYETHYLENE GLYCOL 17 GM PACKET PO SCH ×2 (08:31→20:26)
[2017-03-19] MEDS: BISACODYL (EC) 5 MG TAB PO PRN (08:31)
[2017-03-19 09:00] VITALS: BP 155/71; PULSE 71
[2017-03-19] MEDS: ACETAMINOPHEN 325 MG TAB PO PRN ×2 (10:01→18:46)
[2017-03-19 11:34] LABS: BASOPHIL # 0.1 10^3/ul (0.0-0.1); BASOPHILS % 0.6 % (0.0-2.0); EOSINOPHILS # 0.3 10^3/ul (0.0-0.5); EOSINOPHILS % 3.5 % (0.0-7.0); HEMATOCRIT 32.9 % (37.0-47.0); HEMOGLOBIN 9.9 g/dl (12.0-16.0); LYMPHOCYTES # 1.9 10^3/ul (0.8-2.9); MEAN CORPUSCULAR HEMOGLOBIN 24.1 pg (29.0-33.0); MEAN CORPUSCULAR HGB CONC 30.1 g/dl (32.0-37.0); MEAN PLATELET VOLUME 10.5 fl (7.4-10.4); MONOCYTE # 0.7 10^3/ul (0.3-0.9); MONOCYTES % 7.9 % (0.0-11.0); NEUTROPHIL # 5.7 10^3/ul (1.6-7.5); NEUTROPHILS % 65.8 % (39.0-77.0); RED BLOOD COUNT 4.11 10^6/ul (4.20-5.40); RED CELL DISTRIBUTION WIDTH 19.3 % (11.5-14.5); WHITE BLOOD COUNT 8.6 10^3/ul (4.8-10.8)
[2017-03-19 11:56] LABS: CALCIUM 9.2 mg/dl (8.4-10.2); CREATININE 0.73 mg/dl (0.44-1.00); POTASSIUM 3.7 mmol/L (3.5-5.1)
[2017-03-19 11:58] LABS: MAGNESIUM 1.8 mg/dl (1.7-2.5); PHOSPHORUS 3.7 mg/dl (2.5-4.9)
[2017-03-19] MEDS ORDERED: LACTULOSE ENEMA 1,000 ML BTL PR ONE (12:00)
[2017-03-19 12:01] VITALS: BP 131/72; PULSE 63
[2017-03-19 12:06] LABS: PLATELET COUNT 660 10^3/UL (140-415)
[2017-03-19 14:47] VITALS: BP 140/98; RESP 14
--- NOTE | 2017-03-19 15:32 | PN ---
Date/Time of Note Date/Time of Note DATE: 03/19/17 TIME: 15:30 Assessment/Plan VTE Prophylaxis VTE Prophylaxis Intervention: ambulation Lines/Catheters [facility] Saline Lock Urinary Cath still in place: No Assessment/Plan Chief Complaint/Hosp Course 1. Microcytic, hypochromic anemia. Etiology unclear. Iron panel showing low iron saturation with no significant iron deficiency. History of fibroids and menorrhagia. However, the patient currently not in her periods. Status post 2 units of PRBC transfusion with improvement in H&H. Stool for OB 1 negative. 2. Abdominal pain. Status post recent laparoscopic cholecystectomy. Was evaluated by the patient's surgeon. Most probably secondary to constipation. Continue stool softeners and as needed laxatives. 3. Uterine fibroids with history of dysfunctional uterine bleeding.. The patient needs outpatient BUILDING ATTENDANT follow-up. The patient has no current bleeding. 4. Obesity. BMI of 38.0 kg/m. Weight reduction advised 5. Fluids, electrolytes, and nutrition. Regular diet. 6. DVT prophylaxis. Ambulation. 7. Plan. Continue stool softeners and laxatives. Encourage ambulation. Obtain KUB. Case discussed with Dr. López. Problems: Subjective 24 Hr Interval Summary Free Text/Dictation No satisfactory bowel movements yet. Exam/Review of Systems Vital Signs Vitals Vital Signs Date Time Temp Pulse Resp B/P Pulse Ox O2 Delivery O2 Flow Rate FiO2 03/19/17 14:47 98.4 70 14 140/98 96 03/18/17 04:00 Room Air Intake and Output 03/18/17 03/18/17 03/19/17 15:00 23:00 07:00 Intake Total 350 ml 2350 ml 700 ml Output Total 5 ml Balance 350 ml 2345 ml 700 ml Exam General: Adequately build 31 year-old female lying in bed in no apparent distress. HEENT: Normocephalic, atraumatic. Eyes: Anicteric sclerae, conjunctivae clear. ENT: Nasal septum midline, oral mucosa moist. Neck supple, no JVD noticed. Respiratory: Bilaterally clear breath sounds. No use of accessory muscles of respiration. No adventitious breath sounds. Cardiovascular: S1, S2 heard. No murmurs or gallops. Abdomen: Soft. Diffuse tenderness. Genitourinary: Deferred. Extremities: No cyanosis, no clubbing, no edema. Peripheral pulses palpable. Neurologic: Cranial nerves II through XII grossly intact. The patient is awake, alert, and oriented. Skin: Normal skin turgor. No skin rashes. Results Result Diagram: 03/19/17 1105 03/19/17 1105 Results 24 hrs Laboratory Tests Test 03/19/17 06:52 03/19/17 11:05 Lab Scanned Report BLOOD TRANSFUSION White Blood Count 8.6 Red Blood Count 4.11 L Hemoglobin 9.9 L Hematocrit 32.9 L Mean Corpuscular Volume 80.0 L Mean Corpuscular Hemoglobin 24.1 L Mean Corpuscular Hemoglobin Concent 30.1 L Red Cell Distribution Width 19.3 H Platelet Count 660 H Mean Platelet Volume 10.5 H Neutrophils % 65.8 Lymphocytes % 22.0 Monocytes % 7.9 Eosinophils % 3.5 Basophils % 0.6 Nucleated Red Blood Cells % 0.0 Neutrophils # 5.7 Lymphocytes # 1.9 Monocytes # 0.7 Eosinophils # 0.3 Basophils # 0.1 Nucleated Red Blood Cells # 0.0 Sodium Level 144 Potassium Level 3.7 Chloride Level 107 Carbon Dioxide Level 27 Anion Gap 14 Blood Urea Nitrogen 8 Creatinine 0.73 Glucose Level 87 Calcium Level 9.2 Phosphorus Level 3.7 Magnesium Level 1.8 Medications Medications Current Medications Morphine Sulfate (morphine) 2 mg Q4H PRN IV pain Last administered on 13:31; Admin Dose 2 MG; Start 03/18/17 at 06:00 Ondansetron HCl (Zofran Inj) 4 mg Q6H PRN IV NAUSEA AND/OR VOMITING; Start at 06:00 Acetaminophen (Tylenol Tab) 650 mg Q4H PRN PO PAIN AND OR ELEVATED TEMP Last administered on 03/19/17 10:01; Admin Dose 650 MG; Start 03/18/17 at 06:00 Polyethylene Glycol (Miralax) 17 gm BID PO Last administered on 03/19/17 08: 31; Admin Dose 17 GM; Start 03/18/17 at 10:00 Bisacodyl (Dulcolax) 10 mg DAILY PRN PO CONSTIPATION Last administered on 03/19 08:31; Admin Dose 10 MG; Start 03/18/17 at 10:00 Sodium Biphosphate/ Sodium Phosphate (Fleet Enema) 133 ml DAILY PRN AL CONSTIPATION Last administered on 03/19/17t 10:06; Admin Dose 133 ML; Start at 10:00 LEXX BENÍTEZ NP Mar 19, 2017 15:32
[2017-03-19 20:18] VITALS: BP 151/95; RESP 20
[2017-03-19] MEDS: FAMOTIDINE 20 MG TAB PO SCH (20:26)
[2017-03-20] MEDS: morphine 2 MG INJ IV PRN ×4 (06:00→20:17)
[2017-03-20 06:43] LABS: BASOPHIL # 0.1 10^3/ul (0.0-0.1); BASOPHILS % 0.5 % (0.0-2.0); EOSINOPHILS # 0.5 10^3/ul (0.0-0.5); EOSINOPHILS % 5.5 % (0.0-7.0); HEMATOCRIT 34.9 % (37.0-47.0); HEMOGLOBIN 10.4 g/dl (12.0-16.0); LYMPHOCYTES # 2.2 10^3/ul (0.8-2.9); LYMPHOCYTES % 22.2 % (15.0-51.0); MEAN CORPUSCULAR HEMOGLOBIN 23.9 pg (29.0-33.0); MEAN CORPUSCULAR HGB CONC 29.8 g/dl (32.0-37.0); MEAN CORPUSCULAR VOLUME 80.2 fl (82.0-101.0); MEAN PLATELET VOLUME 10.7 fl (7.4-10.4); MONOCYTE # 0.9 10^3/ul (0.3-0.9); MONOCYTES % 9.4 % (0.0-11.0); NEUTROPHIL # 6.1 10^3/ul (1.6-7.5); NEUTROPHILS % 62.1 % (39.0-77.0); PLATELET COUNT 664 10^3/UL (140-415); RED BLOOD COUNT 4.35 10^6/ul (4.20-5.40); RED CELL DISTRIBUTION WIDTH 19.3 % (11.5-14.5); WHITE BLOOD COUNT 9.8 10^3/ul (4.8-10.8)
[2017-03-20 07:15] LABS: MAGNESIUM 1.8 mg/dl (1.7-2.5); PHOSPHORUS 4.5 mg/dl (2.5-4.9)
[2017-03-20 07:19] LABS: CALCIUM 9.2 mg/dl (8.4-10.2); CREATININE 0.81 mg/dl (0.44-1.00); POTASSIUM 3.8 mmol/L (3.5-5.1)
[2017-03-20 08:11] LABS: FOLATE 12.1 ng/ml (2.8-20.0)
--- NOTE | 2017-03-20 08:19 | RADRPT ---
PROCEDURE: XR Abdomen 1 View. CLINICAL INDICATION: Abdominal pain, constipation. TECHNIQUE: AP abdomen x-ray. COMPARISON: Small-bowel follow-through November 23, [address] March 17, 2017 FINDINGS: Scattered gas is noted in the colon. No dilated loops of small bowel are observed. No organomegaly is identified. Cholecystectomy clips are seen in the right upper quadrant. The osseous structures a re intact. IMPRESSION: Nonspecific bowel gas pattern. If further characterization of the abdomen is needed repeat CT should be considered. RPTAT: AA .Efrain Elise MD, Date Time Electronically viewed and signed by .Efrain Elise MD, on 03/20/2017 08:18 .P/
[2017-03-20 08:20] VITALS: BP 141/81; RESP 16
[2017-03-20] MEDS: FAMOTIDINE 20 MG TAB PO SCH (08:57)
[2017-03-20] MEDS: POLYETHYLENE GLYCOL 17 GM PACKET PO SCH ×2 (08:57→20:17)
--- NOTE | 2017-03-20 10:36 | PN ---
Date/Time of Note Date/Time of Note DATE: 03/20/17 TIME: 10:35 Assessment/Plan VTE Prophylaxis VTE Prophylaxis Intervention: ambulation Lines/Catheters IV [facility]from [facility] [place] [facility] Urinary Cath still in place: No Assessment/Plan Chief Complaint/Hosp Course 1. Microcytic, hypochromic anemia. Etiology unclear. Iron panel showing low iron saturation with no significant iron deficiency. History of fibroids and menorrhagia. However, the patient currently not in her periods. Status post 2 units of PRBC transfusion with improvement in H&H. Stool for OB 1 negative. 2. Abdominal pain. Status post recent laparoscopic cholecystectomy. Was evaluated by the patient's surgeon. Continue stool softeners and as needed laxatives. Obtain gastroenterology evaluation. 3. Uterine fibroids with history of dysfunctional uterine bleeding. The patient needs outpatient INDUSTRIAL HYGIENE ENGINEER follow-up. The patient has no current bleeding. 4. Obesity. BMI of 38.0 kg/m. Weight reduction advised. 5. Fluids, electrolytes, and nutrition. Regular diet. 6. DVT prophylaxis. Ambulation. 7. Plan. Continue stool softeners and laxatives. Encourage ambulation. Obtain gastroenterology consult since the patient continues to have significant abdominal pain requiring opioid analgesics with imaging studies not explaining the patient's current symptomatology. Case discussed with Dr. López. Problems: Subjective 24 Hr Interval Summary Free Text/Dictation The patient continues to have abdominal pain and asking for pain medications [id number]. Exam/Review of Systems Vital Signs Vitals Vital Signs Date Time Temp Pulse Resp B/P Pulse Ox O2 Delivery O2 Flow Rate FiO2 03/20/17 08:20 98.0 64 16 141/81 98 03/18/17 04:00 Room Air Intake and Output 03/19/17 03/19/17 03/20/17 15:00 23:00 07:00 Intake Total 1640 ml 400 ml Balance 1640 ml 400 ml Exam General: Adequately build 31 year-old female lying in bed in no apparent distress. HEENT: Normocephalic, atraumatic. Eyes: Anicteric sclerae, conjunctivae clear. ENT: Nasal septum midline, oral mucosa moist. Neck supple, no JVD noticed. Respiratory: Bilaterally clear breath sounds. No use of accessory muscles of respiration. No adventitious breath sounds. Cardiovascular: S1, S2 heard. No murmurs or gallops. Abdomen: Soft. Diffuse tenderness. Surgical scars well healing. Genitourinary: Deferred. Extremities: No cyanosis, no clubbing, no edema. Peripheral pulses palpable. Neurologic: Cranial nerves II through XII grossly intact. The patient is awake, alert, and oriented. Skin: Normal skin turgor. No skin rashes. Results Result Diagram: 03/20/17 0532 03/20/17 0532 Results 24 hrs Laboratory Tests Test 03/19/17 11:05 03/20/17 05:32 White Blood Count 8.6 9.8 Red Blood Count 4.11 L 4.35 Hemoglobin 9.9 L 10.4 L Hematocrit 32.9 L 34.9 L Mean Corpuscular Volume 80.0 L 80.2 L Mean Corpuscular Hemoglobin 24.1 L 23.9 L Mean Corpuscular Hemoglobin Concent 30.1 L 29.8 L Red Cell Distribution Width 19.3 H 19.3 H Platelet Count 660 H 664 H Mean Platelet Volume 10.5 H 10.7 H Neutrophils % 65.8 62.1 Lymphocytes % 22.0 22.2 Monocytes % 7.9 9.4 Eosinophils % 3.5 5.5 Basophils % 0.6 0.5 Nucleated Red Blood Cells % 0.0 0.0 Neutrophils # 5.7 6.1 Lymphocytes # 1.9 2.2 Monocytes # 0.7 0.9 Eosinophils # 0.3 0.5 Basophils # 0.1 0.1 Nucleated Red Blood Cells # 0.0 0.0 Sodium Level 144 143 Potassium Level 3.7 3.8 Chloride Level 107 109 Carbon Dioxide Level 27 22 Anion Gap 14 16 Blood Urea Nitrogen 8 10 Creatinine 0.73 0.81 Glucose Level 87 86 Calcium Level 9.2 9.2 Phosphorus Level 3.7 4.5 Magnesium Level 1.8 1.8 Vitamin B12 Level 545 Folate 12.1 Medications Medications Current Medications Morphine Sulfate (morphine) 2 mg Q4H PRN IV pain Last administered on 06:00; Admin Dose 2 MG; Start 03/18/17 at 06:00 Ondansetron HCl (Zofran Inj) 4 mg Q6H PRN IV NAUSEA AND/OR VOMITING; Start at 06:00 Acetaminophen (Tylenol Tab) 650 mg Q4H PRN PO PAIN AND OR ELEVATED TEMP Last administered on 03/19/17 18:46; Admin Dose 650 MG; Start 03/18/17 at 06:00 Polyethylene Glycol (Miralax) 17 gm BID PO Last administered on 03/20/17 08: 57; Admin Dose 17 GM; Start 03/18/17 at 10:00 Bisacodyl (Dulcolax) 10 mg DAILY PRN PO CONSTIPATION Last administered on 03/19 08:31; Admin Dose 10 MG; Start 03/18/17 at 10:00 Sodium Biphosphate/ Sodium Phosphate (Fleet Enema) 133 ml DAILY PRN [place] CONSTIPATION Last administered on 03/19/17 10:06; Admin Dose 133 ML; Start at 10:00 Famotidine (Pepcid) 20 mg BID PO Last administered on 03/20/17 08:57; Admin Dose 20 MG; Start 03/19/17 at 21:00 LEXX BENÍTEZ NP Mar 20, 2017 10:36
--- NOTE | 2017-03-20 11:16 | CONS ---
Date/Time of Note Date/Time of Note DATE: 03/20/17 TIME: 10:53 Assessment/Plan Assessment/Plan Chief Complaint/Hosp Course Summary Assessment and Plan: Assessment: Microcytic anemia R/o PUD versus gastritis versus AVM Plan: N.p.o. after midnight EGD tomorrow Stop H2-kavita Start PPI Endoscopy - risks/benefits/alternatives/indications of procedure and sedation/ anesthesia discussed with patient who states understanding and gives informed consent to proceed. PARQ held and questions were answered. Patient seen in collaboration with Dr. ca Chief Complaint/Reason for Visit: Microcytic anemia History of Present Illness: This is a 31-year-old female with past medical history of gastric ulcer, AVM, and uterine fibroids. Patient presents with microcytic anemia. Upon admission hemoglobin 7.9 hematocrit 26.3 MCH 24.5 she received blood transfusion and responded well. Hemoglobin currently 10.4 hematocrit 34.9 stool for OB was negative. CAT scan abdomen and pelvis, negative for GI bleed but did show enlarged uterus with multiple fibroids. In February of this year she had an EGD/colonoscopy; gastritis negative for H. pylori and moderate-sized external hemorrhoids otherwise negative colonoscopy. She did have an EGD in 2015 showing gastric ulcer and AVM. Currently she complains of upper abdominal pain , and denies pyrosis, change in bowel habits, rectal bleeding, unintentional weight loss, nausea/vomiting. Current presentation and past medical history of gastric ulcer we will move forward with EGD tomorrow to rule possible etiology of abdominal pain. Microcytic anemia most likely due to uterine fibroids but one must consider PUD versus AVM as cause of anemia Past Medical History: Gastric ulcer AVM Cholecystectomy 1 month ago Uterine fibroids with myomectomy Allergies: No known allergies Family History: Rheumatoid arthritis i.e. mother and maternal grandmother Social History: Denies smoking Problems: Consultation Date/Type/Reason Admit Date/Time Mar 18, 2017 at 03:19 Date of Consultation: Mar 20, 2017 Type of Consultation: GI Hx of Present Illness Microcytic anemia Upper abdominal pain Constitutional: no complaints Eyes: no complaints Respiratory: no complaints Cardiovascular: no complaints Gastrointestinal: flatus, pain, passing stool, No constipation, No decreased appetite, No diarrhea, No nausea, No vomiting Genitourinary: bleeding Musculoskeletal: no complaints Skin: no complaints Neurologic: no complaints Endocrine: no complaints Psychological: no complaints Past Medical History Medical History: gallstones, GI bleed, peptic ulcer disease, other (Uterine fibroids) Past Surgical History Past Surgical Hx: cholecystectomy, endoscopy, other (Myomectomy) Family History Significant Family History: other (Rheumatoid arthritis i.e. mother and maternal grandmother) Social History Smoking Status: Never smoker Exam/Review of Systems Vital Signs Vitals Vital Signs Date Time Temp Pulse Resp B/P Pulse Ox O2 Delivery O2 Flow Rate FiO2 03/20/17 08:20 98.0 64 16 141/81 98 03/18/17 04:00 Room Air Intake and Output 03/19/17 03/19/17 03/20/17 15:00 23:00 07:00 Intake Total 1640 ml 400 ml Balance 1640 ml 400 ml Exam Constitutional: alert, oriented Psych: no complaints Head: atraumatic, normocephalic Eyes: nl conjunctiva ENMT: nl external ears & nose, nl lips & teeth Neck: supple Respiratory: clear to auscultation Cardiovascular: regular rate and rhythm Gastrointestinal: bowel sounds, soft, surgical scars (s/p laparoscopic cholecystectomy ), tender, No ascites, No distended, No firm, No hepatomegaly, No mass, No rebound or guarding, No splenomegaly Results Result Diagram: 03/20/17 0532 03/20/17 0532 Results 24 hrs Laboratory Tests Test 03/19/17 11:05 03/20/17 05:32 White Blood Count 8.6 9.8 Red Blood Count 4.11 L 4.35 Hemoglobin 9.9 L 10.4 L Hematocrit 32.9 L 34.9 L Mean Corpuscular Volume 80.0 L 80.2 L Mean Corpuscular Hemoglobin 24.1 L 23.9 L Mean Corpuscular Hemoglobin Concent 30.1 L 29.8 L Red Cell Distribution Width 19.3 H 19.3 H Platelet Count 660 H 664 H Mean Platelet Volume 10.5 H 10.7 H Neutrophils % 65.8 62.1 Lymphocytes % 22.0 22.2 Monocytes % 7.9 9.4 Eosinophils % 3.5 5.5 Basophils % 0.6 0.5 Nucleated Red Blood Cells % 0.0 0.0 Neutrophils # 5.7 6.1 Lymphocytes # 1.9 2.2 Monocytes # 0.7 0.9 Eosinophils # 0.3 0.5 Basophils # 0.1 0.1 Nucleated Red Blood Cells # 0.0 0.0 Sodium Level 144 143 Potassium Level 3.7 3.8 Chloride Level 107 109 Carbon Dioxide Level 27 22 Anion Gap 14 16 Blood Urea Nitrogen 8 10 Creatinine 0.73 0.81 Glucose Level 87 86 Calcium Level 9.2 9.2 Phosphorus Level 3.7 4.5 Magnesium Level 1.8 1.8 Vitamin B12 Level 545 Folate 12.1 Medications Medications Current Medications Morphine Sulfate (morphine) 2 mg Q4H PRN IV pain Last administered on 10:11; Admin Dose 2 MG; Start 03/18/17 at 06:00 Ondansetron HCl (Zofran Inj) 4 mg Q6H PRN IV NAUSEA AND/OR VOMITING; Start at 06:00 Acetaminophen (Tylenol Tab) 650 mg Q4H PRN PO PAIN AND OR ELEVATED TEMP Last administered on 03/19/17 18:46; Admin Dose 650 MG; Start 03/18/17 at 06:00 Polyethylene Glycol (Miralax) 17 gm BID PO Last administered on 03/20/17 08: 57; Admin Dose 17 GM; Start 03/18/17 at 10:00 Bisacodyl (Dulcolax) 10 mg DAILY PRN PO CONSTIPATION Last administered on 03/19 08:31; Admin Dose 10 MG; Start 03/18/17 at 10:00 Sodium Biphosphate/ Sodium Phosphate (Fleet Enema) 133 ml DAILY PRN [place] CONSTIPATION Last administered on 03/19/17 10:06; Admin Dose 133 ML; Start at 10:00 Famotidine (Pepcid) 20 mg BID PO Last administered on 03/20/17 08:57; Admin Dose 20 MG; Start 03/19/17 at 21:00 Copies To: CC: BASHIR BUTCHER MD, VICTORIA Mar 20, 2017 11:15
[2017-03-20 20:00] VITALS: BP 111/53; RESP 20
[2017-03-20] MEDS: ACETAMINOPHEN 325 MG TAB PO PRN (21:11)
[2017-03-21] VITALS (13 sets, daily range): BP systolic 128–164; BP diastolic 62–98; PULSE 54–60; RESP 13–23
[2017-03-21] MEDS: morphine 2 MG INJ IV PRN ×4 (02:15→16:18)
[2017-03-21] MEDS: PANTOPRAZOLE (EC) 40 MG TAB PO SCH (06:00)
[2017-03-21] MEDS: POLYETHYLENE GLYCOL 17 GM PACKET PO SCH ×2 (08:18→20:09)
--- NOTE | 2017-03-21 13:12 | PN ---
Date/Time of Note Date/Time of Note DATE: 03/21/17 TIME: 13:08 Assessment/Plan VTE Prophylaxis VTE Prophylaxis Intervention: ambulation Lines/Catheters IV [facility] (from [facility]): Peripheral IV Urinary Cath still in place: No Assessment/Plan Chief Complaint/Hosp Course 1. Microcytic, hypochromic anemia. Etiology unclear. Iron panel showing low iron saturation with no significant iron deficiency. History of fibroids and menorrhagia. However, the patient currently not in her periods. Status post 2 units of PRBC transfusion with improvement in H&H. Stool for OB 1 negative. 2. Abdominal pain. Status post recent laparoscopic cholecystectomy. Was evaluated by the patient's surgeon. Continue stool softeners and as needed laxatives. Gastroenterology following. The patient is scheduled for esophagogastroduodenoscopy today. 3. Uterine fibroids with history of dysfunctional uterine bleeding. 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 The patient has no current bleeding. 4. Obesity. BMI of 38.0 kg/m. Weight reduction advised. 5. Fluids, electrolytes, and nutrition. Regular diet [currently n.p.o. for esophagogastroduodenoscopy]. 6. DVT prophylaxis. Ambulation. 7. Plan. Await esophagogastroduodenoscopy. Case discussed with Dr. López. Problems: Subjective 24 Hr Interval Summary Free Text/Dictation Continues to have abdominal pain and requiring opioids. Exam/Review of Systems Vital Signs Vitals Vital Signs Date Time Temp Pulse Resp B/P Pulse Ox O2 Delivery O2 Flow Rate FiO2 03/21/17 08:04 98.3 67 18 156/87 98 03/18/17 04:00 Room Air Intake and Output 03/20/17 03/20/17 03/21/17 14:59 22:59 06:59 Intake Total 300 ml Balance 300 ml Exam General: Adequately build 31 year-old female lying in bed in no apparent distress. HEENT: Normocephalic, atraumatic. Eyes: Anicteric sclerae, conjunctivae clear. ENT: Nasal septum midline, oral mucosa moist. Neck supple, no JVD noticed. Respiratory: Bilaterally clear breath sounds. No use of accessory muscles of respiration. No adventitious breath sounds. Cardiovascular: S1, S2 heard. No murmurs or gallops. Abdomen: Soft. Diffuse tenderness. Surgical scars well healing. Genitourinary: Deferred. Extremities: No cyanosis, no clubbing, no edema. Peripheral pulses palpable. Neurologic: Cranial nerves II through XII grossly intact. The patient is awake, alert, and oriented. Skin: Normal skin turgor. No skin rashes. Results Result Diagram: 03/20/17 0532 03/20/17 0532 Results 24 hrs Laboratory Tests Test 03/20/17 14:15 Urine Test NEGATIVE Medications Medications Current Medications Morphine Sulfate (morphine) 2 mg Q4H PRN IV pain Last administered on 12:02; Admin Dose 2 MG; Start 03/18/17 at 06:00 Ondansetron HCl (Zofran Inj) 4 mg Q6H PRN IV NAUSEA AND/OR VOMITING; Start at 06:00 Acetaminophen (Tylenol Tab) 650 mg Q4H PRN PO PAIN AND OR ELEVATED TEMP Last administered on 03/20/17 21:11; Admin Dose 650 MG; Start 03/18/17 at 06:00 Polyethylene Glycol (Miralax) 17 gm BID PO Last administered on 03/20/17 20: 17; Admin Dose 17 GM; Start 03/18/17 at 10:00 Bisacodyl (Dulcolax) 10 mg DAILY PRN PO CONSTIPATION Last administered on 03/19 08:31; Admin Dose 10 MG; Start 03/18/17 at 10:00 Sodium Biphosphate/ Sodium Phosphate (Fleet Enema) 133 ml DAILY PRN [place] CONSTIPATION Last administered on 03/19/17 10:06; Admin Dose 133 ML; Start at 10:00 Pantoprazole (Protonix Tab) 40 mg DAILY@06 PO ; Start 03/21/17 at 06:00 LEXX BENÍTEZ NP Mar 21, 2017 13:12
--- NOTE | 2017-03-21 15:00 | PN ---
Date/Time of Note Date/Time of Note DATE: 03/21/17 TIME: 14:54 Assessment/Plan VTE Prophylaxis VTE Prophylaxis Intervention: ambulation Lines/Catheters IV Catheter Type (from Nrs): Peripheral IV Urinary Cath still in place: No Assessment/Plan Chief Complaint/Hosp Course Summary Assessment and Plan: Assessment: Microcytic anemia/ improved R/o PUD versus gastritis versus AVM Abd pain Plan: Strict NPO EGD today (this evening) if negative advance diet as tolerated Subjective: Course reviewed with nursing staff Patient interviewed and examined All labs, imaging and other results reviewed Patient states she ate a small cookie at 12:15 today despite plan for EGD. Spoke with anesthesiologist plan push EGD back this evening for the safety of the patient. Patient must remain n.p.o., if continues to eat or drink EGD will be canceled. No complaints of hematemesis,hematochezia, still complains of abdominal pain This is ongoing since her cholecystectomy 3-4 weeks ago. If EGD negative patient should follow-up with primary care and consider pain management therapy Problems: Exam/Review of Systems Vital Signs Vitals Vital Signs Date Time Temp Pulse Resp B/P Pulse Ox O2 Delivery O2 Flow Rate FiO2 03/21/17 14:21 20 03/21/17 14:20 98.1 59 158/83 99 03/18/17 04:00 Room Air Intake and Output 03/20/17 03/20/17 03/21/17 15:00 23:00 07:00 Intake Total 300 ml Balance 300 ml Results Result Diagram: 03/20/17 0532 03/20/17 0532 Medications Medications Current Medications Morphine Sulfate (morphine) 2 mg Q4H PRN IV pain Last administered on 12:02; Admin Dose 2 MG; Start 03/18/17 at 06:00 Ondansetron HCl (Zofran Inj) 4 mg Q6H PRN IV NAUSEA AND/OR VOMITING; Start at 06:00 Acetaminophen (Tylenol Tab) 650 mg Q4H PRN PO PAIN AND OR ELEVATED TEMP Last administered on 03/20/17 21:11; Admin Dose 650 MG; Start 03/18/17 at 06:00 Polyethylene Glycol (Miralax) 17 gm BID PO Last administered on 03/20/17 20: 17; Admin Dose 17 GM; Start 03/18/17 at 10:00 Bisacodyl (Dulcolax) 10 mg DAILY PRN PO CONSTIPATION Last administered on 03/19 08:31; Admin Dose 10 MG; Start 03/18/17 at 10:00 Sodium Biphosphate/ Sodium Phosphate (Fleet Enema) 133 ml DAILY PRN [place] CONSTIPATION Last administered on 03/19/17 10:06; Admin Dose 133 ML; Start at 10:00 Pantoprazole (Protonix Tab) 40 mg DAILY@06 PO ; Start 03/21/17 at 06:00 ED MELLO Mar 21, 2017 15:00
[2017-03-21] MEDS ORDERED: PROPOFOL 40 ML ONE (17:53)
[2017-03-21] MEDS ORDERED: morphine (1 MG/ML) 10ML SYRINGE IV ONE (18:16)
[2017-03-21] MEDS ORDERED: morphine (1 MG/ML) 10ML SYRINGE IV PRN ×2 (18:30)
[2017-03-21] MEDS ORDERED: morphine 2 MG INJ IV ONE (18:30)
--- NOTE | 2017-03-21 19:37 | OPPN ---
Date/Time of Note Date/Time of Note DATE: 03/21/17 TIME: 19:33 Proc Note GI Procedure Date 03/21/17 Indication: other (Abdominal pain/anemia) Pre-procedure Diagnosis Abdominal pain/anemia Post-procedure Diagnosis Impression: Mild distal esophagitis. Moderate gastritis. Rule out H. pylori infection. Biopsies obtained. Plan: Continue present regimen with PPI therapy. Review pathology. Advance diet. . Procedure Performed: Endoscopy (With biopsies) Surgeon BASHIR BUTCHER MD See signature line Radiology Aide none Anesthesia Type: MAC Anesthesiologist: ALANNA WHITE MD Tourniquet Time none EBL none Transfusion required none Biopsy 1: Gastric body and antrum rule out H. pylori Grafts/Implants none Tubes/Drains none Complication(s) none Disposition: PACU Procedure Description Preoperative Diagnosis: After informed consent, with the patient/relatives understanding the procedure, its indications, potential risks and complications, including but not limited to : allergic reaction, bleeding, perforation or infection, and after all pertinent questions were answered to the patients satisfaction, the patient/ relatives signed witnessed informed consent. Following this, premedication was administered slowly IV push under careful cardiovascular and respiratory monitoring with pulse oximetry, automatic blood pressure, and educational programming director. Once the sedative effect was achieved the patient was place in the left lateral decubitus, the panendoscope was introduced and advanced under visual control. Careful examination of the upper gastrointestinal tract, both on insertion as well as withdrawal of the instrument disclosing the following findings: ESOPHAGUS: the mucosa of the entire esophagus was carefully examined and showed the following findings: There is mild erythema of the mucosa of the distal esophagus. Otherwise the mucosa appears within normal limits. There is no evidence of varices, neoplasm, or stricture. No Hiatal Hernia identified. STOMACH: Upon entrance to the stomach air was insufflated, the gastric guidry distended normally. The mucosa of the fundus, body and antrum of the stomach was carefully examined both head-on and on retroflexion, and showed the following findings: There is mild erythema of the mucosa of the body and antrum the stomach. Biopsies were obtained to rule out H. pylori infection. Otherwise the mucosa appears within normal limits with no abnormalities. There is no evidence of ulcers or neoplasm. PYLORUS: The pylorus was carefully examined and showed the following findings: the pylorus appears patent and within normal limits, with no evidence of gastric outlet obstruction. DUODENUM: The duodenal mucosa was carefully examined in the duodenal bulb as well as the second portion of the duodenum and showed the following findings: the mucosa appears unremarkable with no evidence of duodenitis, ulcer or neoplasm. Copies To: CC: BASHIR BUTCHER MD, MORDO MD Mar 21, 2017 19:37
[2017-03-21] MEDS: HYDROmorphONE 1 MG/ML SYG IV PRN (20:09)
--- NOTE | 2017-03-21 21:21 | RADRPT ---
PROCEDURE: XR Chest. CLINICAL INDICATION: Status post endoscopy. Pain. TECHNIQUE: Single frontal chest x-ray. COMPARISON: 11/07/2015 FINDINGS: The cardiomediastinal silhouette is unremarkable. There is no congestive heart failure.. No focal i nfiltrate is seen. There is no pleural effusion. There is no pneumothorax. The osseous structures are unremarkable. IMPRESSION: 1. No active disease. RPTAT: HMVK .Lobito Hairston MD, MD Date Time Electronically viewed and signed by .Lobito Hairston MD, on 03/21/2017 21:21 .K/
--- NOTE | 2017-03-21 21:26 | RADRPT ---
PROCEDURE: XR Abdomen. CLINICAL INDICATION: Status post endoscopy. Pain. TECHNIQUE: AP abdomen x-ray. COMPARISON: 03/19/2017. FINDINGS: The bowel gas pattern is normal. There is no evidence of obstruction or ileus. There are no abnorm al calcifications. The osseus structures are unremarkable. There are right upper quadrant cholecyst ectomy clips. IMPRESSION: No obstruction or ileus. Recommend erect or lateral decubitus views for evaluation of free intraperi toneal gas, if clinically indicated. RPTAT: HMVK .Lobito Hairston MD, MD Date Time Electronically viewed and signed by .Lobito Hairston MD, on 03/21/2017 21:26 .K/
[2017-03-22] MEDS: PANTOPRAZOLE (EC) 40 MG TAB PO SCH (05:41)
[2017-03-22] MEDS: HYDROmorphONE 1 MG/ML SYG IV PRN ×2 (05:42→09:35)
[2017-03-22] MEDS: POLYETHYLENE GLYCOL 17 GM PACKET PO SCH (08:06)
[2017-03-22 08:38] VITALS: BP 143/69; RESP 18
--- NOTE | 2017-03-22 10:12 | CONS ---
Date/Time of Note Date/Time of Note DATE: 03/22/17 TIME: 10:08 Assessment/Plan Assessment/Plan Chief Complaint/Hosp Course Impression: 1. s/p EGD on 03-21-17: Mild distal esophagitis. Moderate gastritis. Rule out H. pylori infection. Biopsies obtained. 2. Microcytic, hypochromic anemia. History of fibroids and menorrhagia. However, the patient currently not in her periods. Status post 2 units of PRBC transfusion with improvement in H&H. Stool for OB 1 negative. 3. Abdominal pain. Status post recent laparoscopic cholecystectomy. Was evaluated by the patient's surgeon. 4. Uterine fibroids with history of dysfunctional uterine bleeding. 5. Obesity. BMI of 38.0 kg/m. Plan: Continue present regimen with PPI therapy. Review pathology. Advance diet. Needs OB eval ok from GI perspective to dc to f/u with Dr. Queen Problems: Consultation Date/Type/Reason Admit Date/Time Mar 18, 2017 at 03:19 Initial Consult Date 03/20/17 Type of Consultation: GI 24 HR Interval Summary Free Text/Dictation complains of abdominal pain, better on dilaudid, no n/v, tolerates po Exam/Review of Systems Vital Signs Vitals Vital Signs Date Time Temp Pulse Resp B/P Pulse Ox O2 Delivery O2 Flow Rate FiO2 03/22/17 08:38 98.9 62 18 143/69 96 03/21/17 18:23 Room Air 03/21/17 18:01 3.0 Exam Constitutional: alert, obese, oriented, well developed Psych: nl mood/affect, no complaints Head: atraumatic, normocephalic Eyes: EOMI, nl conjunctiva, nl lids, nl sclera ENMT: mucosa pink and moist, nl external ears & nose, nl lips & teeth, nl nasal mucosa & septum Neck: non-tender, supple Respiratory: clear to auscultation, normal air movement Cardiovascular: nl pulses, regular rate and rhythm Gastrointestinal: nl liver, spleen, non-tender, soft Musculoskeletal: nl extremities to inspection, nl gait and stance Extremities: normal pulses Results Result Diagram: 03/20/17 0532 03/20/17 0532 Medications Medications Current Medications Ondansetron HCl (Zofran Inj) 4 mg Q6H PRN IV NAUSEA AND/OR VOMITING Last administered on 03/21/17 21:49; Admin Dose 4 MG; Start 03/18/17 at 06:00 Acetaminophen (Tylenol Tab) 650 mg Q4H PRN PO PAIN AND OR ELEVATED TEMP Last administered on 03/20/17 21:11; Admin Dose 650 MG; Start 03/18/17 at 06:00 Polyethylene Glycol (Miralax) 17 gm BID PO Last administered on 03/22/17 08: 06; Admin Dose 17 GM; Start 03/18/17 at 10:00 Bisacodyl (Dulcolax) 10 mg DAILY PRN PO CONSTIPATION Last administered on 03/19 08:31; Admin Dose 10 MG; Start 03/18/17 at 10:00 Sodium Biphosphate/ Sodium Phosphate (Fleet Enema) 133 ml DAILY PRN [place] CONSTIPATION Last administered on 03/19/17 10:06; Admin Dose 133 ML; Start at 10:00 Pantoprazole (Protonix Tab) 40 mg DAILY@06 PO Last administered on 03/22/17 05:41; Admin Dose 40 MG; Start 03/21/17 at 06:00 Hydromorphone HCl (Dilaudid) 1 mg Q4H PRN IV PAIN Last administered on 09:35; Admin Dose 1 MG; Start 03/21/17 at 20:00 Simethicone (Mylicon) 80 mg Q6 PRN PO DISTENSION/GAS/BLOATING Last administered on 03/22/17 06:06; Admin Dose 80 MG; Start 03/21/17 at 20:00 JOSEPHINE BROWN MD Mar 22, 2017 10:12
--- NOTE | 2017-03-22 11:46 | PN ---
Date/Time of Note Date/Time of Note DATE: 03/22/17 TIME: 11:45 Assessment/Plan VTE Prophylaxis VTE Prophylaxis Intervention: SCD's Lines/Catheters IV [facility]from [facility] Saline Lock Urinary Cath still in place: No Assessment/Plan Assessment/Plan 1. Microcytic, hypochromic anemia. Etiology unclear. Iron panel showing low iron saturation with no significant iron deficiency. History of fibroids and menorrhagia. However, the patient currently not in her periods. Status post 2 units of PRBC transfusion with improvement in H&H. Stool for OB 1 negative. EGD showed moderate gastritis, distal. esophagitis 3. Uterine fibroids with history of dysfunctional uterine bleeding. The patient needs outpatient PROJECT INSPECTOR follow-up. The patient has no current bleeding. 4. Obesity. BMI of 38.0 kg/m. Weight reduction advised. 5. Fluids, electrolytes, and nutrition. Regular diet [currently n.p.o. for esophagogastroduodenoscopy]. 6. DVT prophylaxis. Ambulation. 7. Plan. d/c home today. Subjective 24 Hr Interval Summary Free Text/Dictation s/p EGD, biopsy done, Hb stable Exam/Review of Systems Vital Signs Vitals Vital Signs Date Time Temp Pulse Resp B/P Pulse Ox O2 Delivery O2 Flow Rate FiO2 03/22/17 08:38 98.9 62 18 143/69 96 03/21/17 18:23 Room Air 03/21/17 18:01 3.0 Results Result Diagram: 03/20/17 0532 03/20/17 0532 Medications Medications Current Medications Ondansetron HCl (Zofran Inj) 4 mg Q6H PRN IV NAUSEA AND/OR VOMITING Last administered on 03/21/17 21:49; Admin Dose 4 MG; Start 03/18/17 at 06:00 Acetaminophen (Tylenol Tab) 650 mg Q4H PRN PO PAIN AND OR ELEVATED TEMP Last administered on 03/20/17 21:11; Admin Dose 650 MG; Start 03/18/17 at 06:00 Polyethylene Glycol (Miralax) 17 gm BID PO Last administered on 03/22/17 08: 06; Admin Dose 17 GM; Start 03/18/17 at 10:00 Bisacodyl (Dulcolax) 10 mg DAILY PRN PO CONSTIPATION Last administered on 03/19 08:31; Admin Dose 10 MG; Start 03/18/17 at 10:00 Sodium Biphosphate/ Sodium Phosphate (Fleet Enema) 133 ml DAILY PRN OK CONSTIPATION Last administered on 03/19/17 10:06; Admin Dose 133 ML; Start at 10:00 Pantoprazole (Protonix Tab) 40 mg DAILY@06 PO Last administered on 03/22/17 05:41; Admin Dose 40 MG; Start 03/21/17 at 06:00 Hydromorphone HCl (Dilaudid) 1 mg Q4H PRN IV PAIN Last administered on 09:35; Admin Dose 1 MG; Start 03/21/17 at 20:00 Simethicone (Mylicon) 80 mg Q6 PRN PO DISTENSION/GAS/BLOATING Last administered on 03/22/17 06:06; Admin Dose 80 MG; Start 03/21/17 at 20:00 FRANDY BUTLER MD Mar 22, 2017 11:46
--- NOTE | 2017-03-22 11:47 | PDOCDIS ---
Discharge Instructions CONDITION Patient Condition: Good HOME CARE INSTRUCTIONS: Special Diet: regular ACTIVITY: Activity Restrictions: Slowly Increase Activity Rest between Activity Avoid heavy lifting Avoid Heavy Housework FOLLOW UP/APPOINTMENTS Follow-up Plan follow up with his own PMD through HMO Insurance in 1-2 week after discharge, Follow up with GI as outpatient in 1-2 week after discharge FRANDY BUTLER MD Mar 22, 2017 11:46
[2017-03-22] MEDS ORDERED: DOCU-144 PO (11:48)
[2017-03-22] MEDS ORDERED: FER325 PO (11:48)
--- NOTE | 2017-03-22 18:54 | DS ---
Date/Time of Note Date/Time of Note DATE: 03/22/17 TIME: 18:54 Discharge Summary Admission/Discharge Info Admit Date/Time Mar 18, 2017 at 03:19 Discharge Date/Time Mar 22, 2017 at 15:30 Hx of Present Illness The patient is a 31-year-old female with a history of anemia, gastric ulcer, myomectomy secondary to heavy vaginal bleeding. Patient presented with generalized weakness and dizziness. About 3 weeks ago, she had laparoscopy cholecystectomy here at [facility], done by Dr. Canales. When she presented to the ER, she was found to have a hemoglobin of 7.9. Currently she is receiving blood transfusion. CT abdomen/pelvis was done today showed multiple fibroids. She had been admitted here previously for anemia requiring a blood transfusion. Hospital Course Impression: 1. s/p EGD on 03-21-17: Mild distal esophagitis. Moderate gastritis. Rule out H. pylori infection. Biopsies obtained. 2. Microcytic, hypochromic anemia. History of fibroids and menorrhagia. However, the patient currently not in her periods. Status post 2 units of PRBC transfusion with improvement in H&H. Stool for OB 1 negative. 3. Abdominal pain. Status post recent laparoscopic cholecystectomy. Was evaluated by the patient's surgeon. 4. Uterine fibroids with history of dysfunctional uterine bleeding. 5. Obesity. BMI of 38.0 kg/m. Plan: Continue present regimen with PPI therapy. Review pathology. Advance diet. Needs OB eval ok from GI perspective to dc to f/u with Dr. Queen Home Meds Active Scripts Docusate Sodium* (Colace*) 100 Mg Capsule, 200 MG PO BID Y for constipation , # 60 CAP Prov:FRANDY BUTLER MD 03/22/17 Ferrous Sulfate* (Ferrous Sulfate*) 325 Mg Tabec, 325 MG PO BID, #180 TAB Prov:FRANDY BUTLER MD 03/22/17 Follow-up Plan follow up with his own PMD through HMO Insurance in 1-2 week after discharge, Follow up with GI as outpatient in 1-2 week after discharge Primary Care Provider [facility] FRANDY BUTLER MD Mar 22, 2017 18:54
== END 2017-03-22 15:30 | disposition home or self-care (01) | DRG 812 ==
LOC: FTE 21:28 → MS2 03-18 03:19
PROVIDERS: ADMIT Internal Medicine; ATTEND Internal Medicine
PROC: 30233N1 Transfusion of Nonautologous Red Blood Cells into Peripheral Vein, Percutaneous Approach (ICD-10-PCS; 2017-03-18)
PROC: 3E0234Z Introduction of Serum, Toxoid and Vaccine into Muscle, Percutaneous Approach (ICD-10-PCS; 2017-03-18)
PROC: 0DB68ZX Excision of Stomach, Via Natural or Artificial Opening Endoscopic, Diagnostic (ICD-10-PCS; principal; 2017-03-21 13:00)
DX: D50.9 Iron deficiency anemia, unspecified (principal); K20.9 Esophagitis, unspecified; D25.9 Leiomyoma of uterus, unspecified; K29.70 Gastritis, unspecified, without bleeding; R10.9 Unspecified abdominal pain; N92.0 Excessive and frequent menstruation with regular cycle; K59.00 Constipation, unspecified; E66.9 Obesity, unspecified; Z68.38 Body mass index [BMI] 38.0-38.9, adult; F12.90 Cannabis use, unspecified, uncomplicated; Z90.49 Acquired absence of other specified parts of digestive tract; Z87.11 Personal history of peptic ulcer disease; Z23 Encounter for immunization
CPT/HCPCS: 36415; 36430; 71010; 74000; 74176; 80048; 80053; 81001; 81003; 82270; 82607; 82728; 82746; 83036; 83540; 83690; 83735; 84100; 84703; 85025; 86644; 86850; 86900; 86901; 86920; 88305; 88312; 90686; 96374; 96375; J1170; J1885; J2270; J2405; J2765; J7030; P9016

== ENCOUNTER 2017-04-13 11:47 | Emergency (ER) | payer OTHER ==
[~2017-04-13] VITALS: Ht 175.3 cm; Wt 110.4 kg
[~2017-04-13 11:47] MED LIST changes: +DOCU-144 PO
[2017-04-13 11:49] VITALS: Ht 175.3 cm; Wt 110.4 kg
[2017-04-13] MEDS ORDERED: KETOROLAC 30 MG INJ IM STA (12:11)
--- NOTE | 2017-04-13 12:36 | ERD ---
ER Documentation Chief Complaint Chief Complaint Complains of lower abdomial and pelvic pain HPI This is a 31-year-old female with prior history of cholecystectomy who presents with abdominal pain. The patient describes at least 2-3 weeks of suprapubic abdominal cramping and discomfort. The patient describes a history of fibroids and states this feels occasionally somewhat similar but somewhat different. She denies any vaginal bleeding or spotting she denies any vaginal discharge. No dysuria urgency or frequency. She denies any nausea vomiting diarrhea or constipation. No fevers or chills. The patient has not followed up with an OB/ CURRICULUM SUPERVISOR recently. She has not taken anything for the pain. ROS All systems reviewed and are negative except as per history of present illness. Medications Home Meds Active Scripts Ibuprofen* (Motrin*) 800 Mg Tab, 800 MG PO Q6H Y for PAIN AND OR ELEVATED TEMP, #30 TAB Prov:JESSICA ADEN MD 04/13/17 Docusate Sodium* (Colace*) 100 Mg Capsule, 200 MG PO BID Y for constipation , # 60 CAP Prov:FRANDY BUTLER MD 03/22/17 Ferrous Sulfate* (Ferrous Sulfate*) 325 Mg Tabec, 325 MG PO BID, #180 TAB Prov:FRANDY BUTLER MD 03/22/17 Allergies Allergies: Coded Allergies: No Known Allergy (Unverified , 03/17/17) PMhx/Soc History of Surgery: Yes (CHOLECYSTECTOMY 3 WEEKS AGO, MYOMECTOMY 4 YRS AGO) Anesthesia Reaction: No Hx Neurological Disorder: No Hx Respiratory Disorders: No Hx Cardiac Disorders: No Hx Psychiatric Problems: No Hx Miscellaneous Medical Probl: Yes (Obesity ) Hx Alcohol Use: No Hx Substance Use: No Hx Tobacco Use: No Smoking Status: Never smoker FmHx Family History: No diabetes Physical Exam Vitals Vital Signs Date Time Temp Pulse Resp B/P Pulse Ox O2 Delivery O2 Flow Rate FiO2 04/13/17 11:49 99.7 83 20 152/72 99 Physical Exam General: the patient is joking around and laughing in no acute distress Head: Normocephalic, atraumatic. Eyes: Pupils equally reactive, EOM intact ENT: Moist mucous membranes Neck: Supple, no lymphadenopathy Respiratory: Lungs clear bilaterally, no distress Cardiovascular: RRR, no murmurs, rubs, or gallops Abdominal: Soft, very mild reproducible suprapubic tenderness to palpation non- distended, no peritoneal signs, negative Ward sign, no tenderness to McBurney' s point, no peritonitis : Deferred MSK: No edema, no unilateral swelling, 5/5 strength Neurologic: Alert and oriented, moving all extremities, normal speech, no focal weakness, no cerebellar signs Skin: No rash Psych: Normal mood Result Diagram: 04/13/17 1211 04/13/17 1200 Results 24 hrs Laboratory Tests Test 04/13/17 12:00 04/13/17 12:11 Urine Color YELLOW Urine Clarity SLIGHTLY CLOUDY Urine pH 8.0 Urine Specific [place] 1.021 Urine Ketones NEGATIVEmg/dL Urine Nitrite NEGATIVEmg/dL Urine Bilirubin NEGATIVEmg/dL Urine Urobilinogen NEGATIVEmg/dL Urine Leukocyte Esterase NEGATIVELeu/ul Urine Microscopic RBC 1/HPF Urine Microscopic WBC 1/HPF Urine Squamous Epithelial Cells FEW/HPF Urine Bacteria FEW/HPF Urine Hemoglobin NEGATIVEmg/dL Urine Glucose NEGATIVEmg/dL Urine Total Protein 1+mg/dl Sodium Level 143mmol/L Potassium Level 3.9mmol/L Chloride Level 110mmol/L Carbon Dioxide Level 21mmol/L Anion Gap 16 Blood Urea Nitrogen 11mg/dl Creatinine 0.80mg/dl Glucose Level 99mg/dl Calcium Level 9.4mg/dl Total Bilirubin 0.0mg/dl Direct Bilirubin 0.00mg/dl Indirect Bilirubin 0.0mg/dl Aspartate Amino Transf (AST/SGOT) 27IU/L Alanine Aminotransferase (ALT/SGPT) 25IU/L Alkaline Phosphatase 60IU/L Total Protein 7.7g/dl Albumin 4.1g/dl Globulin 3.60g/dl Albumin/Globulin Ratio 1.13 Lipase 175U/L White Blood Count 9.910^3/ul Red Blood Count 3.3310^6/ul Hemoglobin 8.2g/dl Hematocrit 27.1% Mean Corpuscular Volume 81.4fl Mean Corpuscular Hemoglobin 24.6pg Mean Corpuscular Hemoglobin Concent 30.3g/dl Red Cell Distribution Width 20.4% Platelet Count 03548^3/UL Mean Platelet Volume 11.1fl Neutrophils % 63.2% Lymphocytes % 27.0% Monocytes % 7.0% Eosinophils % 2.3% Basophils % 0.3% Nucleated Red Blood Cells % 0.0/100WBC Neutrophils # 6.210^3/ul Lymphocytes # 2.710^3/ul Monocytes # 0.710^3/ul Eosinophils # 0.210^3/ul Basophils # 0.010^3/ul Nucleated Red Blood Cells # 0.010^3/ul Current Medications Medications (Trade) Dose Ordered Sig/Braden Route PRN Reason Start Time Stop Time Status Last Admin Dose Admin Ketorolac Tromethamine (Toradol) 30 mg ONCE STAT IM 04/13/17 12:11 04/13/17 12:14 DC 04/13/17 12:44 Procedures/MDM EKG, MONITORS, & DIAGNOSTIC IMAGING: Pelvic ultrasound: IMPRESSION: 1. There are multiple leiomyomata in the uterus which is enlarged. This can be defined in better detail with an MRI of the pelvis if clinically needed. 2. 2.3 x 2.3 x 1.9 cm benign simple right ovarian cyst. RPTAT:AAJJ LAB INTERPRETATION: Anemia that is slightly worse than baseline but stable from past values, negative hCG, normal urine MEDICAL DECISION MAKING: The patient presents the emergency room with at least 2 weeks of suprapubic abdominal discomfort. Given her history of fibroids this is most consistent with likely fibroid type pain. The patient just recently had a menstrual cycle , very low pretest probability for ectopic , ovarian cyst, torsion. No clinical signs or symptoms concerning for acute intra-abdominal process such as bowel obstruction, acute appendicitis. I do not believe that advanced imaging is necessary. Additionally the patient is joking around and laughing, in no acute distress which is reassuring that this is unlikely an acute or significant process at this time. The patient denies any vaginal discharge, low concern for PID, TOA. I do believe the patient would benefit from basic blood work, she does have a history of anemia and menorrhagia. The patient will benefit from pelvic ultrasound to rule out ovarian cyst, again low concern for torsion. Outpatient FUR LINER follow-up recommended. ER COURSE: The patient was given Toradol The patient has improved symptoms. Her laboratory testing shows baseline anemia , this is slightly worse than her baseline but the patient just completed a menstrual cycle, no indication for transfusion. Outpatient follow-up with OB/ CURRICULUM SUPERVISOR appropriate. Ultrasound confirms fibroid uterus which is likely etiology. The patient also has a cyst but no evidence of torsion. The patient can be safely discharged home. FUR LINER is appropriate and necessary. I kept the patient and/or family informed of laboratory and diagnostic imaging results throughout the emergency room course. DISPOSITION PLAN: We discussed follow up with the patient's primary care doctor within 24 to 48 hours as needed. We also discussed return to the emergency room for worsening symptoms or worsening condition. Outpatient referral: FUR LINER Discharge Medications: Motrin Departure Diagnosis: Primary Impression: Fibroid uterus Uterine leiomyoma location: unspecified location Qualified Code: D25.9 - Uterine leiomyoma, unspecified location Additional Impressions: Anemia Anemia type: iron deficiency Iron deficiency anemia type: unspecified iron deficiency Qualified Code: D50.9 - Iron deficiency anemia, unspecified iron deficiency anemia type Abdominal pain Abdominal location: lower abdomen, unspecified Qualified Code: R10.30 - Lower abdominal pain Condition: Stable JESSICA ADEN MD Apr 13, 2017 12:36
[2017-04-13 12:54] LABS: BASOPHILS % 0.3 % (0.0-2.0); EOSINOPHILS # 0.2 10^3/ul (0.0-0.5); EOSINOPHILS % 2.3 % (0.0-7.0); HEMATOCRIT 27.1 % (37.0-47.0); HEMOGLOBIN 8.2 g/dl (12.0-16.0); LYMPHOCYTES # 2.7 10^3/ul (0.8-2.9); MEAN CORPUSCULAR HEMOGLOBIN 24.6 pg (29.0-33.0); MEAN CORPUSCULAR HGB CONC 30.3 g/dl (32.0-37.0); MEAN CORPUSCULAR VOLUME 81.4 fl (82.0-101.0); MEAN PLATELET VOLUME 11.1 fl (7.4-10.4); MONOCYTE # 0.7 10^3/ul (0.3-0.9); NEUTROPHIL # 6.2 10^3/ul (1.6-7.5); NEUTROPHILS % 63.2 % (39.0-77.0); PLATELET COUNT 516 10^3/UL (140-415); RED BLOOD COUNT 3.33 10^6/ul (4.20-5.40); RED CELL DISTRIBUTION WIDTH 20.4 % (11.5-14.5); WHITE BLOOD COUNT 9.9 10^3/ul (4.8-10.8)
[2017-04-13 13:07] LABS: ADD UMIC YES; UR ASCORBIC ACID NEGATIVE (NEGATIVE); UR BACTERIA FEW /HPF (NONE SEEN); UR BILIRUBIN (Dip) NEGATIVE (NEGATIVE); UR BLOOD (Dip) NEGATIVE (NEGATIVE); UR CLARITY SLIGHTLY CLOUDY (CLEAR); UR COLOR YELLOW (YELLOW); UR GLUCOSE (Dip) NEGATIVE (NEGATIVE); UR KETONES (Dip) NEGATIVE (NEGATIVE); UR LEUKOCYTE ESTERASE (Dip) NEGATIVE Leu/ul (NEGATIVE); UR NITRITE (Dip) NEGATIVE (NEGATIVE); UR RBC 1 /HPF (0-5); UR SPECIFIC GRAVITY (Dip) 1.021 (1.003-1.030); UR SQUAMOUS EPITHELIAL CELL FEW /HPF (FEW); UR TOTAL PROTEIN (Dip) 1+ mg/dl (NEGATIVE); UR UROBILINOGEN (Dip) NEGATIVE (NEGATIVE)
[2017-04-13 13:13] LABS: ALBUMIN 4.1 g/dl (3.3-4.9); ALBUMIN/GLOBULIN RATIO 1.13; CALCIUM 9.4 mg/dl (8.4-10.2); CREATININE 0.8 mg/dl (0.44-1.00); POTASSIUM 3.9 mmol/L (3.5-5.1); TOTAL PROTEIN 7.7 g/dl (6.1-8.1)
--- NOTE | 2017-04-13 13:48 | RADRPT ---
PROCEDURE: US Pelvis. CLINICAL INDICATION: 31-year-old female with abdominal pain. TECHNIQUE: Multiple sonographic images of the pelvis were obtained utilizing a transabdominal and endovaginal technique. The images were reviewed on a PACS workstation. COMPARISON: Pelvic sonogram 02/13/2017. CT scan abdomen pelvis 03/17/2017 11:57 p.m. FINDINGS: The uterus is visualized and measures 11.7 cm sagittal by 5.8 cm AP by 9.3 cm transverse.. There are multiple fibroids in the uterus. These were not all individually measured by the scanning technolog ist. A subserosal leiomyoma which distorts the endometrial surface is identified measuring at least 4.7 by 5.4 x 5.1 cm. There is a pedunculated 2.5 by 2.4 x 2 cm subserosal fibroid arising from the s uperior uterine fundus. The endometrial echo complex is normal and measures 0.89 cm. There is no evidence for free fluid. The right ovary has a normal echotexture and measures 5.2 x 2.6 x 4 cm with normal blood flow and Do ppler imaging. A 2.3 x 1.9 by 2.3 cm simple cyst is noted in the right ovary. The left ovary has a normal echotexture and measures 3.9 by 3.2 x 3.1 cm with normal blood flow on Doppler imaging.. No adnexal masses are noted. IMPRESSION: 1. There are multiple leiomyomata in the uterus which is enlarged. This can be defined in better de tail with an MRI of the pelvis if clinically needed. 2. 2.3 x 2.3 x 1.9 cm benign simple right ovarian cyst. RPTAT:AAJJ Physician Magali Date Time Electronically viewed and signed by Physician Magali on 04/13/2017 13:47 SHELDON/
[2017-04-13] MEDS ORDERED: IBUP800T25 PO (13:51)
[2017-04-13 14:08] VITALS: BP 159/79; PULSE 75; RESP 18; TEMP 98.1
== END 2017-04-13 14:08 | disposition home or self-care (01) ==
LOC: FTE 11:47
DX: D25.9 Leiomyoma of uterus, unspecified (principal); D50.9 Iron deficiency anemia, unspecified; E66.9 Obesity, unspecified
CPT/HCPCS: 36415; 76856; 80053; 81001; 83690; 85025; 96372; J1885; Z7502

== ENCOUNTER 2017-05-05 17:40 | Emergency (ER) | payer SELFPAY ==
[~2017-05-05] VITALS: Ht 167.6 cm; Wt 110.8 kg
[~2017-05-05 17:40] MED LIST changes: +IBUP800T25 PO
[2017-05-05 17:41] VITALS: Ht 167.6 cm; Wt 110.8 kg
== END 2017-05-05 20:02 | disposition left against medical advice (07) ==
LOC: FTE 17:40
DX: Z53.21 Procedure and treatment not carried out due to patient leaving prior to being seen by health care provider (principal)

== ENCOUNTER 2017-05-07 21:42 | Inpatient (IN) | payer OTHER ==
[~2017-05-07] VITALS: Ht 167.6 cm; Wt 110.4 kg
--- NOTE | 2017-05-08 00:36 | ERD ---
ER Documentation Chief Complaint Chief Complaint AP x2 wks, worse today. +nausea. -vomit/diarrhea. Denies urinary symptoms HPI 31-year-old female presents here to emergency department for complaints of epigastric pain for 2 weeks, patient has been constipated, has been passing hard stools. Patient denies any vomiting diarrhea. Patient is complaining of nausea. Patient denies any fever chills. Patient states that she wants to defecate but it is hard for her to go, has been having hard stools and causing rectal pain, history of internal hemorrhoids which has been causing more pain because of the constipation. Patient denies any blood in his stool or black stool. Patient denies any rectal bleeding at this time. ROS All systems reviewed and are negative except as per history of present illness. Medications Home Meds Active Scripts Ibuprofen* (Motrin*) 800 Mg Tab, 800 MG PO Q6H Y for PAIN AND OR ELEVATED TEMP, #30 TAB Prov:JESSICA ADEN MD 04/13/17 Docusate Sodium* (Colace*) 100 Mg Capsule, 200 MG PO BID Y for constipation , # 60 CAP Prov:FRANDY BUTLER MD 03/22/17 Ferrous Sulfate* (Ferrous Sulfate*) 325 Mg Tabec, 325 MG PO BID, #180 TAB Prov:FRANDY BUTLER MD 03/22/17 Allergies Allergies: Coded Allergies: No Known Allergy (Unverified , 05/07/17) PMhx/Soc History of Surgery: Yes (CHOLECYSTECTOMY 3 WEEKS AGO, MYOMECTOMY 4 YRS AGO) Anesthesia Reaction: No Hx Neurological Disorder: No Hx Respiratory Disorders: No Hx Cardiac Disorders: No Hx Psychiatric Problems: No Hx Miscellaneous Medical Probl: Yes (Obesity ) Hx Alcohol Use: Yes (Socially) Hx Substance Use: Yes (Marijuana) Hx Tobacco Use: No FmHx Family History: No coronary disease, No diabetes, No other Physical Exam Vitals Vital Signs Date Time Temp Pulse Resp B/P Pulse Ox O2 Delivery O2 Flow Rate FiO2 05/07/17 22:07 97.4 73 18 147/73 99 Physical Exam GENERAL: The patient is well developed and appropriate for usual state of health, in no apparent distress. CHEST: Clear to auscultation bilaterally. There are no rales, wheezes or rhonchi. HEART: Regular rate and rhythm. No murmurs, clicks, rubs or gallops. No S3 or S4. ABDOMEN: Soft, nontender and nondistended. Good bowel sounds. No rebound or guarding. No gross peritonitis. No gross organomegaly or masses. No Ward sign or McBurney point tenderness. BACK: No midline or flank tenderness. EXTREMITIES: Equal pulses bilaterally. There is no peripheral clubbing, cyanosis or edema. No focal swelling or erythema. Full range of motion. Grossly neurovascularly intact. NEURO: Alert and oriented. Cranial nerves 2-12 intact. Motor strength in all 4 extremities with 5/5 strength. Sensation grossly intact. Normal speech and gait. SKIN: There is no apparent rash or petechia. The skin is warm and dry. HEMATOLOGIC AND LYMPHATIC: There is no evidence of excessive bruising or lymphedema. No gross cervical, axillary, or inguinal lymphadenopathy. Result Diagram: 05/08/17 0040 Results 24 hrs Laboratory Tests Test 05/08/17 00:40 White Blood Count 8.010^3/ul Red Blood Count 2.8710^6/ul Hemoglobin 6.7g/dl Hematocrit 22.1% Mean Corpuscular Volume 77.0fl Mean Corpuscular Hemoglobin 23.3pg Mean Corpuscular Hemoglobin Concent 30.3g/dl Red Cell Distribution Width 21.2% Platelet Count 87551^3/UL Mean Platelet Volume 10.6fl Neutrophils % 57.5% Lymphocytes % 30.1% Monocytes % 8.0% Eosinophils % 4.0% Basophils % 0.2% Nucleated Red Blood Cells % 0.2/100WBC Neutrophils # 4.610^3/ul Lymphocytes # 2.410^3/ul Monocytes # 0.610^3/ul Eosinophils # 0.310^3/ul Basophils # 0.010^3/ul Nucleated Red Blood Cells # 0.010^3/ul Pathologist Review (Hematology) YES PROCEDURE: CT Abdomen and Pelvis without contrast. CLINICAL INDICATION: Abdominal pain. TECHNIQUE: A CT scan of the abdomen and pelvis was performed without intravenous contrast. Coronal and sagittal reformatted images were generated. DICOM images are available. Images were reviewed on a high-resolution PACS workstation. CTDIvol: 21.75 mGy. DLP: 1279.40 mGy-cm. One or more of the following dose reduction techniques were used: - Automated exposure control. - Adjustment of the mA and/or kV according to patient size. - Use of iterative reconstruction technique. COMPARISON: 03/17/2017 FINDINGS: There is low-attenuation blood in the heart and aorta. The lung bases are clear. Evaluation of the abdominal and pelvic viscera is limited by the lack of oral and intravenous contrast. The liver is unremarkable. The patient is status post cholecystectomy. The common bile duct is not dilated. The spleen is not enlarged. No pancreatic lesion is identified and there is no pancreatic ductal dilatation. There is a 1.9 x 1.5 cm left adrenal adenoma. The right adrenal gland is unremarkable. The kidneys are normal in size. There is no perinephric fat stranding. No hydronephrosis is seen. No urinary stone is identified. The small and large bowel are normal in caliber. There is no bowel wall thickening. There is an appendicolith in the appendix but no appendiceal inflammation. The urinary bladder is unremarkable. The uterus is prominent (9.9 x 10.3 x 6.6 cm). No lymphadenopathy is identified. There is no ascites. No pneumoperitoneum is seen. There are no arterial calcifications. There are mild to moderate fat-containing periumbilical and midline upper abdominal wall hernias. No suspicious osseous lesion is idenitified. IMPRESSION: 1. No inflammation or lymphadenopathy. 2. No obstructive uropathy or urinary stone. 3. No evidence of appendicitis. 4. Status post cholecystectomy. 5. 1.9 cm left adrenal adenoma. 6. Prominent uterus, possibly due to underlying fibroids. This could be further evaluated with ultrasound if clinically warranted. 7. Mild to moderate fat-containing periumbilical and midline upper abdominal wall hernias. 8. Low-attenuation blood in the heart and aorta, suggestive of anemia. Correlation with CBC is recommended. RPTAT: HTAR .Gerry Hernandez MD, MD Date Time Electronically viewed and signed by .Gerry Hernandez MD, MD on 05/08/2017 01:14 .R/ CC: DANIAL JEROME [employer] CONTROL ENGINEER Procedures/MDM Medical Decision Making: Patient has severe anemia, hemoglobin 6.7, patient would be needing transfusion, patient's abdominal pain nonspecific, possibly from the constipation, nausea can be from the anemia, patient also has headaches , has been having symptomatic anemia, most likely from her uterine fibroid, just got finished having her menstruation. I discussed this case with my attending physician, Dr. Lowe, will facilitate patient's care at this time. Condition: Fair. Departure Diagnosis: Primary Impression: Abdominal pain Abdominal location: epigastric Qualified Code: R10.13 - Epigastric pain Additional Impression: Anemia Anemia type: iron deficiency Iron deficiency anemia type: chronic blood loss Qualified Code: D50.0 - Iron deficiency anemia due to chronic blood loss Condition: Fair DANIAL JEROME NP May 08, 2017 00:36
[2017-05-08 00:53] LABS: ABNORMAL IP MESSAGE 1; BASOPHILS % 0.2 % (0.0-2.0); EOSINOPHILS # 0.3 10^3/ul (0.0-0.5); HEMATOCRIT 22.1 % (37.0-47.0); LYMPHOCYTES # 2.4 10^3/ul (0.8-2.9); LYMPHOCYTES % 30.1 % (15.0-51.0); MEAN CORPUSCULAR HEMOGLOBIN 23.3 pg (29.0-33.0); MEAN CORPUSCULAR HGB CONC 30.3 g/dl (32.0-37.0); MEAN PLATELET VOLUME 10.6 fl (7.4-10.4); MONOCYTE # 0.6 10^3/ul (0.3-0.9); NEUTROPHIL # 4.6 10^3/ul (1.6-7.5); NEUTROPHILS % 57.5 % (39.0-77.0); NUCLEATED RED BLOOD CELLS% 0.2 /100WBC (0.0-0.0); PLATELET COUNT 635 10^3/UL (140-415); RED BLOOD COUNT 2.87 10^6/ul (4.20-5.40); RED CELL DISTRIBUTION WIDTH 21.2 % (11.5-14.5)
[2017-05-08 01:00] LABS: POSITIVE DIFF @See below
[2017-05-08 01:08] LABS: PATH REVIEW? YES
--- NOTE | 2017-05-08 01:14 | RADRPT ---
PROCEDURE: CT Abdomen and Pelvis without contrast. CLINICAL INDICATION: Abdominal pain. TECHNIQUE: A CT scan of the abdomen and pelvis was performed without intravenous contrast. Hendrickson l and sagittal reformatted images were generated. DICOM images are available. Images were reviewed o n a high-resolution PACS workstation. CTDIvol: 21.75 mGy. DLP: 1279.40 mGy-cm. One or more of the following dose reduction techniques were used: - Automated exposure control. - Adjustment of the mA and/or kV according to patient size. - Use of iterative reconstruction technique. COMPARISON: 03/17/2017 FINDINGS: There is low-attenuation blood in the heart and aorta. The lung bases are clear. Evaluation of the abdominal and pelvic viscera is limited by the lack of oral and intravenous contra st. The liver is unremarkable. The patient is status post cholecystectomy. The common bile duct is not dilated. The spleen is not enlarged. No pancreatic lesion is identified and there is no pancreatic d uctal dilatation. There is a 1.9 x 1.5 cm left adrenal adenoma. The right adrenal gland is unremarka ble. The kidneys are normal in size. There is no perinephric fat stranding. No hydronephrosis is seen. No urinary stone is identified. The small and large bowel are normal in caliber. There is no bowel wall thickening. There is an appe ndicolith in the appendix but no appendiceal inflammation. The urinary bladder is unremarkable. The uterus is prominent (9.9 x 10.3 x 6.6 cm). No lymphadenopathy is identified. There is no ascites. No pneumoperitoneum is seen. There are no art erial calcifications. There are mild to moderate fat-containing periumbilical and midline upper abdominal wall hernias. No suspicious osseous lesion is idenitified. IMPRESSION: 1. No inflammation or lymphadenopathy. 2. No obstructive uropathy or urinary stone. 3. No evidence of appendicitis. 4. Status post cholecystectomy. 5. 1.9 cm left adrenal adenoma. 6. Prominent uterus, possibly due to underlying fibroids. This could be further evaluated with ul trasound if clinically warranted. 7. Mild to moderate fat-containing periumbilical and midline upper abdominal wall hernias. 8. Low-attenuation blood in the heart and aorta, suggestive of anemia. Correlation with CBC is alisha mmended. RPTAT: HTAR .Gerry Hernandez MD, MD Date Time Electronically viewed and signed by .Gerry Hernandez MD, MD on 05/08/2017 01:14 .R/
[2017-05-08 01:44] LABS: ALBUMIN 4.1 g/dl (3.3-4.9); ALBUMIN/GLOBULIN RATIO 1.2; BILIRUBIN,INDIRECT 0.1 mg/dl (0-1.1); BILIRUBIN,TOTAL 0.1 mg/dl (0.2-1.3); CALCIUM 9.3 mg/dl (8.4-10.2); CREATININE 0.93 mg/dl (0.44-1.00); POTASSIUM 3.6 mmol/L (3.5-5.1); TOTAL PROTEIN 7.5 g/dl (6.1-8.1)
[2017-05-08 01:59] LABS: HEMOGLOBIN 6.7 g/dl (12.0-16.0)
[2017-05-08 02:19] LABS: ADD UMIC YES; UR ASCORBIC ACID NEGATIVE (NEGATIVE); UR BILIRUBIN (Dip) NEGATIVE (NEGATIVE); UR BLOOD (Dip) NEGATIVE (NEGATIVE); UR CLARITY CLOUDY (CLEAR); UR COLOR YELLOW (YELLOW); UR GLUCOSE (Dip) NEGATIVE (NEGATIVE); UR KETONES (Dip) NEGATIVE (NEGATIVE); UR LEUKOCYTE ESTERASE (Dip) NEGATIVE Leu/ul (NEGATIVE); UR MUCUS FEW /HPF (NONE SEEN); UR NITRITE (Dip) NEGATIVE (NEGATIVE); UR RBC 2 /HPF (0-5); UR SPECIFIC GRAVITY (Dip) 1.027 (1.003-1.030); UR SQUAMOUS EPITHELIAL CELL FEW /HPF (FEW); UR TOTAL PROTEIN (Dip) NEGATIVE (NEGATIVE); UR UROBILINOGEN (Dip) 1+ mg/dL (NEGATIVE)
[2017-05-08] MEDS ORDERED: SUMATRIPTAN 6 MG/0.5 ML INJ SC ONE (03:30)
[2017-05-08 04:30] LABS: ANISOCYTOSIS 1+ (0-0); BASOPHILS % (M) 1 % (0-2); EOSINOPHILS % (M) 2 % (0-7); ERYTHROBLAST% (NRBC) (M) 1 % (0-0); GIANT THROMBO% (M) 2 % (0-0); HYPOCHROMASIA 2+ (0-0); MICROCYTOSIS 1+ (0-0); MONOCYTES % (M) 3 % (0-11); OVALOCYTES 1+ (0-0); PLATELET ESTIMATE INCREASED; POIKILOCYTOSIS 1+ (0-0); POLYCHROMASIA 3+ (0-0)
[2017-05-08 04:36] VITALS: TEMP 98.8
[2017-05-08 04:55] VITALS: BP 143/83; PULSE 69; RESP 18; Ht 167.6 cm; Wt 110.4 kg
[2017-05-08] MEDS ORDERED: ALBUTEROL/IPRATROPIUM (NEB) 3 ML AMP HHN PRN (05:30)
[2017-05-08] MEDS ORDERED: NACL 0.9% 3 ML SYG IV SCH (05:30)
[2017-05-08] MEDS: DOCUSATE SODIUM 100 MG CAP PO PRN ×2 (06:14→21:02)
[2017-05-08] MEDS: ONDANSETRON 4 MG INJ IV PRN ×2 (06:14→14:43)
[2017-05-08] MEDS: morphine 2 MG INJ IV PRN ×4 (06:15→18:38)
[2017-05-08 07:21] VITALS: BP 136/71; RESP 18
--- NOTE | 2017-05-08 08:05 | HP ---
Date/Time of Note Date/Time of Note DATE: 05/08/17 TIME: 07:54 Assessment/Plan VTE Prophylaxis VTE Prophylaxis Intervention: SCD's Lines/Catheters IV Catheter Type (from Nrs): Peripheral IV Assessment/Plan Assessment/Plan 1. Symptomatic anemia -This is most likely from the DUB, from uterine fibroid -She states she had a myomectomy [address] abdomen/pelvis still shows prominent uterus, likely from underlying fibroids. Patient does not have any kids and wants to have one. As such, treatment with progesterone as well as additional uterine surgery seems to be not appropriate treatment at this time. -Continue blood transfusion -Continue ferrous sulfate 2. Dysfunctional uterine bleeding -See #1 3. 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 Morbid obesity with a BMI of 39 -Weight reduction is advised HPI/ROS Admit Date/Time Admit Date/Time May 08, 2017 at 02:05 Hx of Present Illness This is a 31-year-old female with a history of dysfunctional uterine bleeding from fibroids status post myomectomy 4 years ago, anemia requiring blood transfusions, gastric ulcer and distal esophagitis who presented to the ER complaining of abdominal pain. Pain is diffuse but mainly localized in the epigastric area. She reported nausea but no vomiting. She also complains of generalized weakness and daytime sleepiness. Patient was recently admitted here 2 weeks ago. At that time she was found to be anemic and underwent EGD on 03-21-17 mild distal esophagitis and moderate gastritis. She also had an EGD in 2016 that showed AV malformation and gastric ulcer. She said that she has not been taking a PPI. As far as her heavy menses concerned, she said she is still have it. She said her primary care doctor is in the process of referring her to an ASSOCIATE STORE MANAGER. She is to take high dose of ibuprofen 800 mg as needed 4 times a day but reported that as she had already stopped using NSAIDs. When she presented to the ER today, she was found to have a hemoglobin of 6.7. CT abdomen/pelvis shows likely uterine fibroid as well as some mild to moderate abdominal wall hernia. Currently she is receiving blood transfusion. PMH/Family/Social Past Surgical History Past Surgical Hx: cholecystectomy, endoscopy, other Social History Smoking Status: Never smoker Exam/Review of Systems Vital Signs Vitals Vital Signs Date Time Temp Pulse Resp B/P Pulse Ox O2 Delivery O2 Flow Rate FiO2 05/08/17 07:21 98.7 76 18 136/71 98 05/08/17 04:55 Room Air Intake and Output 05/07/17 05/07/17 05/08/17 15:00 23:00 07:00 Intake Total 350 ml Balance 350 ml Exam Constitutional: alert, oriented Head: atraumatic, normocephalic Eyes: EOMI, PERRL Respiratory: clear to auscultation, normal air movement Cardiovascular: nl pulses, regular rate and rhythm Gastrointestinal: soft, tender Extremities: normal pulses Labs Result Diagram: 05/08/170 05/08/17 0040 Medications Medications Current Medications Ondansetron HCl (Zofran Inj) 4 mg Q6H PRN IV NAUSEA AND/OR VOMITING Last administered on 05/08/17 06:14; Admin Dose 4 MG; Start 05/08/17 at 05:30 Acetaminophen (Tylenol Tab) 650 mg Q6H PRN PO PAIN LEVEL 1-3 OR FEVER; Start 05/08/17 at 05:30 Morphine Sulfate (morphine) 2 mg Q4H PRN IV SEVERE PAIN LEVEL 7-10 Last administered on 05/08/17 06:15; Admin Dose 2 MG; Start 05/08/17 at 05:30 Famotidine (Pepcid) 20 mg Q12 PO ; Start 05/08/17 at 09:00 Docusate Sodium (Colace) 200 mg BID PRN PO constipation Last administered on 05/08/17 06:14; Admin Dose 200 MG; Start 05/08/17 at 05:30 Ferrous Sulfate (Ferrous Sulfate (Ec)) 325 mg BID PO ; Start 05/08/17 at 09:00 SHANNAN HERNANDEZ MD May 08, 2017 08:05
[2017-05-08] MEDS ORDERED: FERROUS SULFATE (EC) 325 MG TAB PO SCH (09:00)
[2017-05-08] MEDS ORDERED: FAMOTIDINE 20 MG TAB PO SCH (09:00)
--- NOTE | 2017-05-08 11:01 | QN ---
Documentation Comment Examined patient at bedside. Patient currently having minimal vaginal bleed. However, she reported that she has been having heavy prolonged bleeding with pain with her cycle. Her cycles are regular anywhere from 28-32 days. Continue with ordered PRBC transfusion 2 units. Monitor H&H every 12 hours. We will call her COMMERCIAL INSULATOR consult. Will also obtain an iron panel and a sickle cell screen. Due to her microcytic, hyperchromic indicis, go ahead and give IV iron. Patient will be also placed on IV PPI. Will also try to collect stool for OB. We will also obtain a urine drug toxicology. I have also requested patient to have outpatient hematology evaluation for ongoing anemia. Plan of care updated with the patient and she is in agreement. Patient was seen in collaboration with . LEILANI BABB NP May 08, 2017 11:01
[2017-05-08 11:44] LABS: IRON 59 ug/dl (35-150)
[2017-05-08 11:54] LABS: TOTAL IRON BINDING CAPACITY 428 ug/dl (241-421)
[2017-05-08] MEDS: ACETAMINOPHEN 325 MG TAB PO PRN ×2 (12:55→21:02)
[2017-05-08] MEDS: SOD FERRIC GLUC COMPLX 125 MG in SOD CHLORIDE 0.9% 100 ML IVPB SCH (15:53)
[2017-05-08 17:09] LABS: PATH REVIEW CH
--- NOTE | 2017-05-08 17:32 | CONS ---
Date/Time of Note Date/Time of Note DATE: 05/08/17 TIME: 17:28 Assessment/Plan Assessment/Plan Chief Complaint/Hosp Course 31-year-old female Admitted for evaluation of upper abdominal pain Noted severe iron deficiency anemia due to uterine fibroid uterus. Currently receiving blood transfusion due to symptoms discussed Prior ultrasound reviewed consistent with subserosal fibroid as well as a fibroid that appears to be distorting the endometrial lining consistent with submucosal fibroid Patient has episodes of severe menorrhagia. Likely due to submucosal fibroid Not on medication. Prior history of IUFD and delivery at 22 weeks, likely related to fibroid Patient last delivery was at 22 weeks term labor, she was noted to be completely dilated when presented to hospital,, cannot rule out cervical incompetency as well Needs surgical attention prior to attempts for as well as for treatment of menorrhagia and symptomatic anemia She is a candidate for myomectomy Currently receiving blood transfusion for symptoms. I agreed to complete blood transfusion, improved hemoglobin to 8 or above Treatment for menorrhagia including Lysteda for 5 days vs Norethindrone discussed at the time of menstruation. currently not bleeding. Recomemended to have follow-up the gynecology after discharge from the hospital for preop evaluation and counseling and scheduling for procedure Desires to try Lysteda. At this time, she is not bleeding. Can be discharged with 2 tab ( 650 mg ) TID for 5 days to start with her menses or if in house with starting menses can be started. Follow up with H&H after transfusion ( 8 hours post transfusion). Has severe iron deficiency anemia, can not take iron due to constipation. can receive IV iron as an alternative Discussed needs to attempt for afer 9 mo -1 year post myomectomy due to increased risk for recurrence., May additionally need Cerclage at next after myomectomy due to PTL at 22 weeks, can not r/o incompetence cervix Patient needs close follow up after discharge with her COMMUTATOR ASSEMBLER She verbalized understanding all questions were answered to the patient's best satisfaction. Problems: Consultation Date/Type/Reason Admit Date/Time May 08, 2017 at 02:05 Date of Consultation: May 08, 2017 Type of Consultation: COMMUTATOR ASSEMBLER Reason for Consultation Anemia due to menorrhagia and fibroid uterus Hx of Present Illness I was consulted for COMMUTATOR ASSEMBLER consultation for this 81-year-old who admitted to the hospital with complaint of upper abdominal pain for the past 2 weeks. Patient also was noted to be anemic. She also reports and complain of dizziness with activity. She was noted to be severely iron deficient anemic. Patient had a history of fibroid uterus since 4 years ago. Had a history of myomectomy [address] Hoskins. She also was seen by Dr. Agapito Vyas previously that was referred to Dr. Hoskins due to insurance changes. Patient reports a history of SAB at 16 weeks in her first . Per patient had stillbirth, the second she had labor at 21 weeks Reports had been on OCP after myomectomy 4 years ago but stopped and has not been on any hormonal treatment for the last 4 years. Cycles have been heavy and prolonged. It is regular every 28 days last about 5 days but has very heavy flow. Patient passes clots the size about 5 cm. She cannot take iron pills due to constipation. She currently admitted due to upper abdominal pain and had been evaluated by internal medicine service and noted to have gastric ulcer currently. Denies any vaginal bleeding undergoing blood transfusion due to severe anemia and symptoms. Her pelvic ultrasound consistent with multiple fibroids with one of them appears to be submucosal with pressure effect onto the endometrium patient denies any known history of thyroid problem in her thyroid labs in February was normal. Patient desires future fertility Reports had been trying for for 3 years after marriage and conceived after 3 years. Her last was a year ago which she lasted at 21 years and she had complete dilatation and delivered a live baby due to inevitable miscarriage. Subjective hx not possible: other Constitutional: improved, no complaints Eyes: no complaints ENT: no complaints Respiratory: no complaints Cardiovascular: no complaints Gastrointestinal: no complaints (Gastric pain and mid abdominal pain), pain Genitourinary: no complaints Musculoskeletal: no complaints Skin: no complaints Neurologic: no complaints Endocrine: no complaints Lymphatic: no complaints Psychological: no complaints Immunologic: no complaints Past Medical History Past medical history: Obesity Anemia Fibroid Blood transfusion Past Surgical History Status post myomectomy 4 years ago for symptoms of a fibroid uterus Past Surgical Hx: cholecystectomy, endoscopy, other Family History Significant Family History: other (Mother also with history of fibroid uterus) Social History Alcohol Use: occasionally Smoking Status: Never smoker Drug Use: marijuana (Patient used marijuana for the past 20 years on a regular basis) Exam/Review of Systems Vital Signs Vitals Vital Signs Date Time Temp Pulse Resp B/P Pulse Ox O2 Delivery O2 Flow Rate FiO2 05/08/17 07:21 98.7 76 18 136/71 98 05/08/17 04:55 Room Air Intake and Output 05/07/17 05/07/17 05/08/17 14:59 22:59 06:59 Intake Total 350 ml Balance 350 ml Exam Constitutional: alert, oriented, well developed Psych: nl mood/affect, no complaints Head: atraumatic, normocephalic Eyes: EOMI, nl conjunctiva ENMT: nl external ears & nose, nl lips & teeth, nl nasal mucosa & septum Neck: supple Respiratory: clear to auscultation, normal air movement Cardiovascular: nl pulses, regular rate and rhythm Gastrointestinal: soft, tender (Tenderness in the palpation of the abdomen and the left right lower quadrant and deep palpation noted. Uterus to the size of about 14 weeks with tenderness in the right side of the uterus. No rebound tenderness, no guarding or rigidity) Genitourinary - Female: other (Speculum examination: No blood in the vault. No abnormal vaginal discharge. Cervix was not visible due to posterior position. Bimanual examination: Uterus about 16 weeks size. There is tenderness in the right side of the abdomen as well as on the right side of the uterus likely on the fibroid. No rebound tenderness, no guarding no rigidity. Adnexa are not palpable. Exam limited due to patient's voluntary guarding and enlarged uterus.) Neurological: BALANCE STAFF STAKER II-XII intact, nl mental status, nl speech, nl strength Results Result Diagram: 05/08/17 0040 05/08/17 0040 Results 24 hrs Laboratory Tests Test 05/08/17 00:40 05/08/17 00:48 White Blood Count 8.0 Red Blood Count 2.87 L Hemoglobin 6.7 *L Hematocrit 22.1 L Mean Corpuscular Volume 77.0 L Mean Corpuscular Hemoglobin 23.3 L Mean Corpuscular Hemoglobin Concent 30.3 L Red Cell Distribution Width 21.2 H Platelet Count 635 #H Mean Platelet Volume 10.6 H Neutrophils % 57.5 Segmented Neutrophils % (Manual) 54 Lymphocytes % 30.1 Lymphocytes % (Manual) 40 Monocytes % 8.0 Monocytes % (Manual) 3 Eosinophils % 4.0 Eosinophils % (Manual) 2 Basophils % 0.2 Basophils % (Manual) 1 Nucleated Red Blood Cells % 1 H Neutrophils # 4.6 Absolute Lymphocytes (Manual) 3.2 H Lymphocytes # 2.4 Monocytes # 0.6 Absolute Monocytes (Manual) 0.2 L Eosinophils # 0.3 Basophils # 0.0 Basophils # (Manual) 0.0 Nucleated Red Blood Cells # 0.0 Pathologist Review (Hematology) CH Platelet Estimate INCREASED Giant Platelets 2 H Polychromasia 3+ Hypochromasia 2+ Poikilocytosis 1+ Anisocytosis 1+ Microcytosis 1+ Ovalocytes 1+ Sodium Level 145 H Potassium Level 3.6 Chloride Level 109 Carbon Dioxide Level 25 Anion Gap 15 Blood Urea Nitrogen 11 Creatinine 0.93 Glucose Level 119 Calcium Level 9.3 Iron Level 59 Total Iron Binding Capacity 428 H Percent Iron Saturation 14 L Total Bilirubin 0.1 L Direct Bilirubin 0.00 Indirect Bilirubin 0.1 Aspartate Amino Transf (AST/SGOT) 21 Alanine Aminotransferase (ALT/SGPT) 26 Alkaline Phosphatase 53 Total Protein 7.5 Albumin 4.1 Globulin 3.40 H Albumin/Globulin Ratio 1.20 Lipase 105 Urine Color YELLOW Urine Clarity CLOUDY A Urine pH 6.0 Urine Specific [place] 1.027 Urine Ketones NEGATIVE Urine Nitrite NEGATIVE Urine Bilirubin NEGATIVE Urine Urobilinogen 1+ H Urine Leukocyte Esterase NEGATIVE Urine Microscopic RBC 2 Urine Microscopic WBC 1 Urine Squamous Epithelial Cells FEW Urine Mucus FEW A Urine Hemoglobin NEGATIVE Urine Glucose NEGATIVE Urine Total Protein NEGATIVE Medications Medications Current Medications Ondansetron HCl (Zofran Inj) 4 mg Q6H PRN IV NAUSEA AND/OR VOMITING Last administered on 05/08/17 14:43; Admin Dose 4 MG; Start 05/08/17 at 05:30 Acetaminophen (Tylenol Tab) 650 mg Q6H PRN PO PAIN LEVEL 1-3 OR FEVER Last administered on 05/08/17 12:55; Admin Dose 650 MG; Start 05/08/17 at 05:30 Morphine Sulfate (morphine) 2 mg Q4H PRN IV SEVERE PAIN LEVEL 7-10 Last administered on 05/08/17 14:38; Admin Dose 2 MG; Start 05/08/17 at 05:30 Docusate Sodium (Colace) 200 mg BID PRN PO constipation Last administered on 05/08/17 06:14; Admin Dose 200 MG; Start 05/08/17 at 05:30 Ferrous Sulfate 325 mg 325 mg BID PO Last administered on 05/08/17 09:27; Admin Dose 325 MG; Start 05/08/17 at 09:00; Status Future Hold Ferric Sodium Gluconate Complex/ Sodium Chloride (Ferrlecit/NS) 110 ml @ 110 mls/hr Q24H IVPB Last administered on 05/08/17 15:53; Admin Dose 110 MLS/HR; Start 05/08/17 at 12:00; Stop 05/12/17 at 12:59 Pantoprazole (Protonix Iv) 40 mg BID@06,18 IV ; Start 05/08/17 at 18:00 VAL ZIMMERMAN MD May 08, 2017 17:32
[2017-05-08] MEDS: PANTOPRAZOLE 40 MG INJ IV SCH (18:17)
[2017-05-08 18:30] LABS: HEMATOCRIT 28.1 % (37.0-47.0); HEMOGLOBIN 8.8 g/dl (12.0-16.0)
[2017-05-08 18:32] LABS: BARBITURATES NEGATIVE (NEGATIVE); BENZODIAZEPINES NEGATIVE (NEGATIVE); CANNABINOIDS POSITIVE (NEGATIVE); COCAINE NEGATIVE (NEGATIVE); OPIATES POSITIVE (NEGATIVE)
[2017-05-08 20:00] VITALS: BP 141/65; RESP 19
[2017-05-09] MEDS: PANTOPRAZOLE 40 MG INJ IV SCH ×2 (05:27→17:27)
[2017-05-09] MEDS: morphine 2 MG INJ IV PRN ×5 (05:27→21:37)
[2017-05-09 07:35] VITALS: BP 141/76; RESP 18
[2017-05-09] MEDS: ACETAMINOPHEN 325 MG TAB PO PRN ×2 (07:54→16:30)
[2017-05-09] MEDS ORDERED: SOD CHLORIDE 0.9% 250 ML IV* ONE (08:05)
[2017-05-09 10:45] VITALS: BP 143/89; PULSE 66; RESP 18
[2017-05-09 10:59] LABS: BASOPHIL # 0.1 10^3/ul (0.0-0.1); BASOPHILS % 0.5 % (0.0-2.0); EOSINOPHILS # 0.3 10^3/ul (0.0-0.5); EOSINOPHILS % 3.5 % (0.0-7.0); HEMATOCRIT 27.2 % (37.0-47.0); HEMOGLOBIN 8.6 g/dl (12.0-16.0); LYMPHOCYTES # 2.4 10^3/ul (0.8-2.9); LYMPHOCYTES % 25.8 % (15.0-51.0); MEAN CORPUSCULAR HEMOGLOBIN 24.6 pg (29.0-33.0); MEAN CORPUSCULAR HGB CONC 31.6 g/dl (32.0-37.0); MEAN CORPUSCULAR VOLUME 77.7 fl (82.0-101.0); MONOCYTE # 0.7 10^3/ul (0.3-0.9); MONOCYTES % 7.4 % (0.0-11.0); NEUTROPHIL # 5.7 10^3/ul (1.6-7.5); NEUTROPHILS % 62.3 % (39.0-77.0); NUCLEATED RED BLOOD CELLS% 0.4 /100WBC (0.0-0.0); PLATELET COUNT 562 10^3/UL (140-415); WHITE BLOOD COUNT 9.2 10^3/ul (4.8-10.8)
[2017-05-09] MEDS ORDERED: DOCUSATE SODIUM 100 MG CAP PO PRN (11:00)
[2017-05-09] MEDS ORDERED: MAGNESIUM HYDROXIDE 30ML CUP PO ONE (11:00)
--- NOTE | 2017-05-09 11:02 | PN ---
Date/Time of Note Date/Time of Note DATE: 05/09/17 TIME: 10:52 Assessment/Plan VTE Prophylaxis VTE Prophylaxis Intervention: ambulation Lines/Catheters IV [facility] (from [facility]): Peripheral IV Urinary Cath still in place: No Assessment/Plan Chief Complaint/Hosp Course 31-year-old female with history of uterine fibroid, menorrhagia, iron deficiency anemia, presented to the emergency room for evaluation of anemia and prolonged vaginal bleeding. 1. Anemia, with iron deficiency and dysfunctional uterine bleed. Status: Acute on chronic. -Status post blood transfusion with hemoglobin stabilizing. -Continue IV iron. Will transfuse 1 more PRBC today. 2. Menorrhagia with subserosal/submucosal uterine fibroid. -Status post ALUM M[employer]ER evaluation and recommended Treatment with Lysteda 2 tab ( 650 mg ) TID for 5 days at the time of next menstrual cycle. -Eventual outpatient follow-up with outpatient ALUM MIXER for scheduling for myomectomy. 3. Constipation. -We will treat with laxatives and stool softeners. 4. History of multiple labor secondary to uterine fibroid. 5. Marijuana abuse. Drug toxicology positive for cannabinoids and opiates. -Cessation advised. Disposition/plan: If hemoglobin remained stable after blood transfusion, patient can be discharged home with outpatient ALUM M[facility]ER follow-up. Patient also needs treatment with Lysteda 2 tab ( 650 mg ) TID for 5 days at the time of next menstrual cycle which will be due last week of May per patient. Patient was seen in collaboration with . Problems: Subjective 24 Hr Interval Summary Free Text/Dictation Patient complains of some mild headache. Patient with no reported melena, hematochezia, hematemesis, abdominal pain, nausea, vomiting or other constitutional symptoms. She also denied any chest pain, palpitation, dizziness. Exam/Review of Systems Vital Signs Vitals Vital Signs Date Time Temp Pulse Resp B/P Pulse Ox O2 Delivery O2 Flow Rate FiO2 05/09/17 07:35 98.7 70 18 141/76 98 05/08/17 04:55 Room Air Intake and Output 05/08/17 05/08/17 05/09/17 14:59 22:59 06:59 Intake Total 2100 ml 400 ml Balance 2100 ml 400 ml Exam General: Well developed,adequately built, not in any acute distress . HEENT: Normocephalic, Atraumatic, No laceration or hematoma; Eyes: PEERL, Conjunctiva clear, Anicteric sclera Neck: Supple without any lymphadenopathy, nontender, no JVD, no carotid bruits, trachea midline, no thyromegaly Cardiac: S1, S2 auscultated, regular rhythm and rate, no mumurs or gallop Pulmonary: Normal respiratory effort. Chest clear to auscultation bilaterally, no adventitious breath sounds GI: Abdomen normal to inspection. Soft, non tender, non- distended, no masses, no rebound tenderness or guarding. Bowel sounds active on all four quadrants Genitourinary: Deferred Extremities: No cyanosis, clubbing, or edema. Pulses [2+] bilaterally. Full ROM on all four extremities. No focal weakness appreciated. Neurologic: Alert to person, place, time, and situation. intact sensation. Skin: Clean,dry, and intact. No ecchymosis, no rashes, or lesions Psych: Labile mood. Results Result Diagram: 05/08/17 1754 05/08/17 0040 Results 24 hrs Laboratory Tests Test 05/08/17 15:45 05/08/17 17:54 05/09/17 07:03 Urine Opiates Screen POSITIVE Urine Barbiturates NEGATIVE Urine Amphetamines Screen NEGATIVE Urine Benzodiazepines Screen NEGATIVE Urine Cocaine Screen NEGATIVE Urine Cannabinoids POSITIVE Hemoglobin 8.8 #L Hematocrit 28.1 #L Sickle Cells NEGATIVE Lab Scanned Report BLOOD TRANSFUSION Medications Medications Current Medications Ondansetron HCl (Zofran Inj) 4 mg Q6H PRN IV NAUSEA AND/OR VOMITING Last administered on 05/08/17 14:43; Admin Dose 4 MG; Start 05/08/17 at 05:30 Acetaminophen (Tylenol Tab) 650 mg Q6H PRN PO PAIN LEVEL 1-3 OR FEVER Last administered on 05/09/17 07:54; Admin Dose 650 MG; Start 05/08/17 at 05:30 Morphine Sulfate (morphine) 2 mg Q4H PRN IV SEVERE PAIN LEVEL 7-10 Last administered on 05/09/17 09:29; Admin Dose 2 MG; Start 05/08/17 at 05:30 Docusate Sodium (Colace) 200 mg BID PRN PO constipation Last administered on 05/08/17 21:02; Admin Dose 200 MG; Start 05/08/17 at 05:30 Ferrous Sulfate 325 mg 325 mg BID PO Last administered on 05/08/17 09:27; Admin Dose 325 MG; Start 05/08/17 at 09:00; Status Future Hold Ferric Sodium Gluconate Complex/ Sodium Chloride (Ferrlecit/NS) 110 ml @ 110 mls/hr Q24H IVPB Last administered on 05/08/17 15:53; Admin Dose 110 MLS/HR; Start 05/08/17 at 12:00; Stop 05/12/17 at 12:59 Pantoprazole (Protonix Iv) 40 mg BID@06,18 IV Last administered on 05/09/17 05 :27; Admin Dose 40 MG; Start 05/08/17 at 18:00 LEILANI BABB NP May 09, 2017 11:02
[2017-05-09 11:19] LABS: ALBUMIN 3.7 g/dl (3.3-4.9); ALBUMIN/GLOBULIN RATIO 1.27; BILIRUBIN,INDIRECT 0.1 mg/dl (0-1.1); BILIRUBIN,TOTAL 0.1 mg/dl (0.2-1.3); CALCIUM 8.9 mg/dl (8.4-10.2); CREATININE 0.88 mg/dl (0.44-1.00); MAGNESIUM 1.8 mg/dl (1.7-2.5); PHOSPHORUS 3.6 mg/dl (2.5-4.9); POTASSIUM 3.8 mmol/L (3.5-5.1); TOTAL PROTEIN 6.6 g/dl (6.1-8.1)
[2017-05-09] MEDS ORDERED: FUROSEMIDE 20 MG INJ IV ONE (11:30)
[2017-05-09 12:15] VITALS: BP 144/73; PULSE 74; RESP 20
[2017-05-09] MEDS: SOD FERRIC GLUC COMPLX 125 MG in SOD CHLORIDE 0.9% 100 ML IVPB SCH (15:11)
[2017-05-09 15:45] VITALS: BP 131/83; PULSE 98; RESP 18
[2017-05-09 18:45] LABS: HEMATOCRIT 30.4 % (37.0-47.0); HEMOGLOBIN 9.6 g/dl (12.0-16.0)
--- NOTE | 2017-05-09 18:50 | QN ---
Documentation Comment May 09, 2017 Hospital visit This patient is 31 years old, , 2 para 0, with a history of menometrorrhagia, myomectomy, blood transfusion, spontaneous at 16 weeks, stillborn at 21 weeks on second . She developed iron deficiency anemia due to blood loss. Currently under treatment by internal medicine for her secondary anemia. When she came in her hemoglobin was a 6.7 after transfusion it went up to 8.6 today with hematocrit of 27.2. Laboratory Tests Test 05/09/17 07:03 05/09/17 10:47 05/09/17 10:48 05/09/17 18:24 Lab Scanned Report BLOOD [id number] Sodium Level 140mmol/L Potassium Level 3.8mmol/L Chloride Level 108mmol/L Carbon Dioxide Level 25mmol/L Anion Gap 11 Blood Urea Nitrogen 9mg/dl Creatinine 0.88mg/dl Glucose Level 102mg/dl Calcium Level 8.9mg/dl Phosphorus Level 3.6mg/dl Magnesium Level 1.8mg/dl Total Bilirubin 0.1mg/dl Direct Bilirubin 0.00mg/dl Indirect Bilirubin 0.1mg/dl Aspartate Amino Transf (AST/SGOT) 28IU/L Alanine Aminotransferase (ALT/SGPT) 33IU/L Alkaline Phosphatase 46IU/L Total Protein 6.6g/dl Albumin 3.7g/dl Globulin 2.90g/dl Albumin/Globulin Ratio 1.27 White Blood Count 9.210^3/ul Red Blood Count 3.5010^6/ul Hemoglobin 8.6g/dl 9.6g/dl Hematocrit 27.2% 30.4% Mean Corpuscular Volume 77.7fl Mean Corpuscular Hemoglobin 24.6pg Mean Corpuscular Hemoglobin Concent 31.6g/dl Red Cell Distribution Width 20.0% Platelet Count 72012^3/UL Mean Platelet Volume 10.0fl Neutrophils % 62.3% Lymphocytes % 25.8% Monocytes % 7.4% Eosinophils % 3.5% Basophils % 0.5% Nucleated Red Blood Cells % 0.4/100WBC Neutrophils # 5.710^3/ul Lymphocytes # 2.410^3/ul Monocytes # 0.710^3/ul Eosinophils # 0.310^3/ul Basophils # 0.110^3/ul Nucleated Red Blood Cells # 0.010^3/ul Current Medications Medications (Trade) Dose Ordered Sig/Braden Route PRN Reason Start Time Stop Time Status Last Admin Dose Admin Sumatriptan Succinate (Imitrex) 6 mg ONCE ONCE SC 05/08/17 03:30 05/08/17 03:31 DC 05/08/17 03:32 IV Flush (NS 3 ml) 3 ml PER PROTOCOL IV 05/08/17 05:30 05/09/17 05:30 Ondansetron HCl (Zofran Inj) 4 mg Q6H PRN IV NAUSEA AND/OR VOMITING 05/08/17 05:30 05/08/17 14:43 Acetaminophen (Tylenol Tab) 650 mg Q6H PRN PO PAIN LEVEL 1-3 OR FEVER 05/08/17 05:30 05/09/17 16:30 Morphine Sulfate (morphine) 2 mg Q4H PRN IV SEVERE PAIN LEVEL 7-10 05/08/17 05:30 05/09/17 17:27 Famotidine (Pepcid) 20 mg Q12 PO 05/08/17 09:00 05/08/17 10:59 DC 05/08/17 09:27 Albuterol/ Ipratropium (Duoneb) 3 ml Q2H RESP THERAPY PRN HHN SHORTNESS OF BREATH 05/08/17 05:30 Docusate Sodium (Colace) 200 mg BID PRN PO constipation 05/08/17 05:30 05/09/17 11:31 DC 05/08/17 21:02 Ferrous Sulfate 325 mg 325 mg BID PO 05/08/17 09:00 Future Hold 05/08/17 09:27 Ferric Sodium Gluconate Complex/ Sodium Chloride (Ferrlecit/NS) 110 ml @ 110 mls/hr Q24H IVPB 05/08/17 12:00 05/12/17 12:59 05/09/17 15:11 Pantoprazole 40 mg 40 mg BID@06,18 IV 05/08/17 18:00 05/09/17 17:27 Sodium Chloride (NS) 250 ml @ 0 mls/hr Q0M ONCE IV* 05/09/17 08:05 05/09/17 08:10 DC 05/09/17 10:58 Magnesium Hydroxide (Milk Of Mag) 30 ml ONCE ONCE PO 05/09/17 11:00 12/7/17 11:31 DC 05/09/17 11:46 Docusate Sodium (Colace) 100 mg BID PRN PO CONSTIPATION 05/09/17 11:00 Furosemide (Lasix) 20 mg ONCE ONCE IV 05/09/17 11:30 05/09/17 11:31 DC 05/09/17 11:47 Currently the plan is to bring her hemoglobin and hematocrit up and to discharge her to be readmitted for possible myomectomy or hysterectomy in case of severe blood loss again GREG UJDGE MD May 09, 2017 18:50
[2017-05-09 19:55] VITALS: BP 133/63; RESP 18
[2017-05-10] MEDS: morphine 2 MG INJ IV PRN ×6 (05:15→23:21)
[2017-05-10] MEDS: PANTOPRAZOLE 40 MG INJ IV SCH ×2 (06:00→17:29)
[2017-05-10] MEDS ORDERED: KETOROLAC 15 MG INJ IV STA (10:40)
--- NOTE | 2017-05-10 10:42 | PN ---
Date/Time of Note Date/Time of Note DATE: 05/10/17 TIME: 10:41 Assessment/Plan VTE Prophylaxis VTE Prophylaxis Intervention: ambulation Lines/Catheters IV C[facility]ter Type [facility]from [facility] Saline Lock Urinary Cath still in place: No Assessment/Plan Chief Complaint/Hosp Course 31-year-old female with history of uterine fibroid, menorrhagia, iron deficiency anemia, presented to the emergency room for evaluation of anemia and prolonged vaginal bleeding. 1. Anemia, with iron deficiency and dysfunctional uterine bleed. Status: Acute on chronic. -Status post blood transfusion with stable hemoglobin now. -Continue IV iron. 2. Menorrhagia with subserosal/submucosal uterine fibroid. -Status post PASTE MIXER LIQUID evaluation and recommended Treatment with Lysteda 2 tab ( 650 mg ) TID for 5 days at the time of next menstrual cycle. -Eventual outpatient follow-up with outpatient PASTE MIXER LIQUID for scheduling for myomectomy. 3. Constipation. -We will give 1 Fleet Enema today. 4. History of multiple labor secondary to uterine fibroid. 5. Marijuana abuse. Drug toxicology positive for cannabinoids and opiates. -Cessation advised. 6. Headache. Status: Acute. -We will obtain a CT brain to rule out any acute intracranial pathologies to explain her headache. Otherwise, we will treat with pain medication assuming this is a tension headache. Disposition/plan: If brain CT negative, patient can be discharged home with outpatient PASTE MIXER LIQUID follow-up. Patient also needs treatment with Lysteda 2 tab ( 650 mg ) TID for 5 days at the time of next menstrual cycle which will be due last week of May per patient. Patient was seen in collaboration with . Problems: Subjective 24 Hr Interval Summary Free Text/Dictation Today patient complains of occipital headache and constipation. She denied any bleeding episodes. Exam/Review of Systems Vital Signs Vitals Vital Signs Date Time Temp Pulse Resp B/P Pulse Ox O2 Delivery O2 Flow Rate FiO2 05/09/17 19:55 98.1 64 18 133/63 96 05/08/17 04:55 Room Air Intake and Output 05/09/17 05/09/17 05/10/17 15:00 23:00 07:00 Intake Total 350 ml 2230 ml 450 ml Balance 350 ml 2230 ml 450 ml Exam General: Well developed,adequately built, not in any acute distress . HEENT: Normocephalic, Atraumatic, No laceration or hematoma; Eyes: PEERL, Conjunctiva clear, Anicteric sclera Neck: Supple without any lymphadenopathy, nontender, no JVD, no carotid bruits, trachea midline, no thyromegaly Cardiac: S1, S2 auscultated, regular rhythm and rate, no mumurs or gallop Pulmonary: Normal respiratory effort. Chest clear to auscultation bilaterally, no adventitious breath sounds GI: Abdomen normal to inspection. Soft, non tender, non- distended, no masses, no rebound tenderness or guarding. Bowel sounds active on all four quadrants Genitourinary: Deferred Extremities: No cyanosis, clubbing, or edema. Pulses [2+] bilaterally. Full ROM on all four extremities. No focal weakness appreciated. Neurologic: Alert to person, place, time, and situation. intact sensation. Skin: Clean,dry, and intact. No ecchymosis, no rashes, or lesions Psych: Labile mood. Results Result Diagram: 05/09/17 1824 05/09/17 1047 Results 24 hrs Laboratory Tests Test 05/09/17 10:47 05/09/17 10:48 05/09/17 18:24 05/10/17 06:54 Sodium Level 140 Potassium Level 3.8 Chloride Level 108 Carbon Dioxide Level 25 Anion Gap 11 Blood Urea Nitrogen 9 Creatinine 0.88 Glucose Level 102 Calcium Level 8.9 Phosphorus Level 3.6 Magnesium Level 1.8 Total Bilirubin 0.1 L Direct Bilirubin 0.00 Indirect Bilirubin 0.1 Aspartate Amino Transf (AST/SGOT) 28 Alanine Aminotransferase (ALT/SGPT) 33 Alkaline Phosphatase 46 Total Protein 6.6 Albumin 3.7 Globulin 2.90 Albumin/Globulin Ratio 1.27 White Blood Count 9.2 Red Blood Count 3.50 #L Hemoglobin 8.6 L 9.6 L Hematocrit 27.2 L 30.4 L Mean Corpuscular Volume 77.7 L Mean Corpuscular Hemoglobin 24.6 L Mean Corpuscular Hemoglobin Concent 31.6 L Red Cell Distribution Width 20.0 H Platelet Count 562 H Mean Platelet Volume 10.0 Neutrophils % 62.3 Lymphocytes % 25.8 Monocytes % 7.4 Eosinophils % 3.5 Basophils % 0.5 Nucleated Red Blood Cells % 0.4 H Neutrophils # 5.7 Lymphocytes # 2.4 Monocytes # 0.7 Eosinophils # 0.3 Basophils # 0.1 Nucleated Red Blood Cells # 0.0 Lab Scanned Report LAB Medications Medications Current Medications Ondansetron HCl (Zofran Inj) 4 mg Q6H PRN IV NAUSEA AND/OR VOMITING Last administered on 05/08/17 14:43; Admin Dose 4 MG; Start 05/08/17 at 05:30 Acetaminophen (Tylenol Tab) 650 mg Q6H PRN PO PAIN LEVEL 1-3 OR FEVER Last administered on 05/09/17 16:30; Admin Dose 650 MG; Start 05/08/17 at 05:30 Morphine Sulfate (morphine) 2 mg Q4H PRN IV SEVERE PAIN LEVEL 7-10 Last administered on 05/10/17 09:27; Admin Dose 2 MG; Start 05/08/17 at 05:30 Ferrous Sulfate 325 mg 325 mg BID PO Last administered on 05/08/17 09:27; Admin Dose 325 MG; Start 05/08/17 at 09:00; Status Future Hold Ferric Sodium Gluconate Complex/ Sodium Chloride (Ferrlecit/NS) 110 ml @ 110 mls/hr Q24H IVPB Last administered on 05/09/17 15:11; Admin Dose 110 MLS/HR; Start 05/08/17 at 12:00; Stop 05/12/17 at 12:59 Pantoprazole (Protonix Iv) 40 mg BID@06,18 IV Last administered on 05/09/17 17 :27; Admin Dose 40 MG; Start 05/08/17 at 18:00 Docusate Sodium (Colace) 100 mg BID PRN PO CONSTIPATION Last administered on 09:31; Admin Dose 100 MG; Start 05/09/17 at 11:00 LEILANI BABB NP May 10, 2017 10:42
[2017-05-10] MEDS ORDERED: NA PHOSPHATE/BIPHOS 133 ML ENEMA PR ONE (11:00)
--- NOTE | 2017-05-10 11:22 | RADRPT ---
PROCEDURE: CT Brain without contrast. CLINICAL INDICATION: Pain, headache TECHNIQUE: Routine CT scan of the brain was performed on a high resolution multi detector scanner without intravenous contrast. One or more of the following dose reduction techniques were used: Auto mated exposure control; Adjustment of the mA and/or kV according to patient size; Use of iterative r econstruction technique. CTDI = 45 mGy. DLP = 720 mGy-cm. DICOM images are available. COMPARISON: No prior relevant examinations are available for comparison. FINDINGS: Hemorrhage: No evidence of intracranial hemorrhage. Acute ischemic changes: No evidence of acute ischemic changes. Mass effect: None. Parenchymal volume: Within normal limits for age. Ventricular system: Concordant with parenchymal volume. Chronic changes: Parenchymal attenuation is within normal limits. Extracranial soft tissues: Unremarkable. Calvarium: No fractures. Paranasal sinuses: Visualized paranasal sinuses are clear. Mastoid air cells: Visualized mastoid air cells are clear. IMPRESSION: No acute intracranial abnormalities. Normal appearance of the brain parenchyma. RPTAT: AADD .Pal Solano MD, MD Date Time Electronically viewed and signed by .Pal Solano MD, on 05/10/2017 11:21 .B/
[2017-05-10 13:29] LABS: HEMATOCRIT 31.5 % (37.0-47.0); HEMOGLOBIN 9.8 g/dl (12.0-16.0)
[2017-05-10] MEDS: SOD FERRIC GLUC COMPLX 125 MG in SOD CHLORIDE 0.9% 100 ML IVPB SCH (13:56)
[2017-05-10 18:30] LABS: HEMATOCRIT 31.2 % (37.0-47.0); HEMOGLOBIN 9.8 g/dl (12.0-16.0)
[2017-05-10 19:00] VITALS: BP 152/81; RESP 20
[2017-05-11] MEDS: PANTOPRAZOLE 40 MG INJ IV SCH (06:38)
[2017-05-11] MEDS: morphine 2 MG INJ IV PRN (06:39)
[2017-05-11 09:25] VITALS: BP 152/72; RESP 20
--- NOTE | 2017-05-11 10:01 | PDOCDIS ---
Discharge Instructions CONDITION Patient Condition: Stable HOME CARE INSTRUCTIONS: Diet Instructions: Regular ACTIVITY: Activity Restrictions: Slowly Increase Activity Rest between Activity Avoid heavy lifting Do not Drive Avoid Heavy Housework Bathing Restrictions: Shower FOLLOW UP/APPOINTMENTS Follow-up Plan Follow-up with outpatient SMT TECHNICIAN in 2 weeks or before the next menstrual cycle whichever comes earlier. Follow up with primary care physician in 1 week If you don't have one please let someone know, we can give you resources that may help you pick one. You may also call your insurance company to assign one to you. Review your medication list with your nurse before leaving and if you need new prescriptions please let your nurse know. I may have made changes to your home medications or given you new prescriptions, please let your primary doctor know as well. Stay compliant with your medications and report any side effects to your PCP or pharmacist. Return to the ER if you have any concerns and cannot reach your doctors or call your insurance company, they usually have a nurse that can help you. Call 911 or go to the nearest emergency room if experiencing loss of consciousness, dizziness, chest pain, shortness of breath, vomiting/abdominal pain, speech difficulties, motor weakness or any unusual symptoms. LEILANI BABB NP May 11, 2017 10:01
[2017-05-11] MEDS ORDERED: TRAM50TA2 PO (10:07)
[2017-05-11] MEDS ORDERED: PANT40TA3 PO (10:07)
[2017-05-11] MEDS ORDERED: TRAN650T2 PO (10:07)
--- NOTE | 2017-05-11 10:17 | DS ---
Date/Time of Note Date/Time of Note DATE: 05/11/17 TIME: 10:15 Discharge Summary Admission/Discharge Info Admit Date/Time May 10, 2017 at 11:48 Discharge Date/Time Discharge Diagnosis 1. Anemia, with iron deficiency and dysfunctional uterine bleed. Stable. 2. Menorrhagia with subserosal/submucosal uterine fibroid. Treatment with Lysteda 2 tab ( 650 mg ) TID for 5 days at the time of next menstrual cycle with eventual outpatient follow-up with outpatient CONSULTING TECHNICAL DIRECTOR for scheduling for myomectomy. 3. Constipation. Resolved 4. History of multiple labor secondary to uterine fibroid. 5. Marijuana abuse. 6. Tension headache. Stable Patient Condition: Stable Consults ,CONSULTING TECHNICAL DIRECTOR Procedures 05/08/2017. CT abdomen and pelvis. IMPRESSION: 1. No inflammation or lymphadenopathy. 2. No obstructive uropathy or urinary stone. 3. No evidence of appendicitis. 4. Status post cholecystectomy. 5. 1.9 cm left adrenal adenoma. 6. Prominent uterus, possibly due to underlying fibroids. This could be further evaluated with ultrasound if clinically warranted. 7. Mild to moderate fat-containing periumbilical and midline upper abdominal wall hernias. 8. Low-attenuation blood in the heart and aorta, suggestive of anemia. Correlation with CBC is recommended. 05/10/2017. CT brain without contrast. IMPRESSION: No acute intracranial abnormalities. Normal appearance of the brain parenchyma. Hospital Course This is a 31-year-old female with a history of uterine fibroid, menorrhagia, iron deficiency anemia, admitted for evaluation of anemia with heavy vaginal bleeding with her cycle. According to patient, her cycles were regular anywhere from 28-30 days but having heavy flow. Patient is also under outpatient CONSULTING TECHNICAL DIRECTOR service for possible elective myomectomy. Patient had a hemoglobin on arrival 6.7 with hematocrit 22.1. Patient had a total of 2 units PRBC transfusion with stable H&H thereafter. She was continued on IV iron replacement. She was evaluated by CONSULTING TECHNICAL DIRECTOR. Recommendation was to treat patient with Lysteda 2 tab ( 650 mg ) TID for 5 days at the time of next menstrual cycle with outpatient RFID ANALYST follow-up for eventual myomectomy. Patient did not have any further vaginal bleeding. Her H&H remained stable. During the course of hospitalization, patient also complained of constipation which was treated with laxatives and enema. She also had headache for which a CT brain was negative for any acute intracranial pathology. Her headache responded with pain medications. At this time, patient is feeling back to her baseline and there is no further inpatient workup indicated. She was also counseled on cessation of marijuana abuse. Patient can be discharged home with outpatient RFID ANALYST service. Patient verbalized discharge instructions. Disposition: Home. Approximately 60 minutes was spent in coordinating the discharge on this patient. Patient was seen in collaboration with . Home Meds Active Scripts Tranexamic Acid (Lysteda) 650 Mg Tablet, 1300 MG PO TID for 5 Days, #15 TAB Lysteda 650 mg 2 tablets 3 times daily 5 days. Patient to start dose on the first day of next menstrual cycle. Prov:LEILANI BABB NP 05/11/17 Pantoprazole* (Protonix*) 40 Mg Tablet.dr, 40 MG PO AC BREAKFAST, #30 TAB Prov:LEILANI BABB NP 05/11/17 Ibuprofen* (Motrin*) 800 Mg Tab, 800 MG PO Q6H Y for PAIN AND OR ELEVATED TEMP, #30 TAB Prov:JESSICA ADEN MD 04/13/17 Docusate Sodium* (Colace*) 100 Mg Capsule, 200 MG PO BID Y for constipation , # 60 CAP Prov:FRANDY BUTLER MD 03/22/17 Ferrous Sulfate* (Ferrous Sulfate*) 325 Mg Tabec, 325 MG PO BID, #180 TAB Prov:FRANDY BUTLER MD 03/22/17 Follow-up Plan Follow-up with outpatient CONSULTING TECHNICAL DIRECTOR in 2 weeks or before the next menstrual cycle whichever comes earlier. Follow up with primary care physician in 1 week If you don't have one please let someone know, we can give you resources that may help you pick one. You may also call your insurance company to assign one to you. Review your medication list with your nurse before leaving and if you need new prescriptions please let your nurse know. I may have made changes to your home medications or given you new prescriptions, please let your primary doctor know as well. Stay compliant with your medications and report any side effects to your PCP or pharmacist. Return to the ER if you have any concerns and cannot reach your doctors or call your insurance company, they usually have a nurse that can help you. Call 911 or go to the nearest emergency room if experiencing loss of consciousness, dizziness, chest pain, shortness of breath, vomiting/abdominal pain, speech difficulties, motor weakness or any unusual symptoms. Primary Care Provider [facility] Pending Labs Laboratory Tests Test 05/10/17 13:18 05/10/17 18:20 Hemoglobin 9.8g/dl (12.0-16.0) 9.8g/dl (12.0-16.0) Hematocrit 31.5% (37.0-47.0) 31.2% (37.0-47.0) LEILANI BABB NP May 11, 2017 10:17
== END 2017-05-11 10:55 | disposition home or self-care (01) | DRG 761 ==
LOC: FTE 21:42 → MS1 05-08 02:05 → OBSVTOIN 05-10 11:48
PROVIDERS: ADMIT Internal Medicine; ATTEND Internal Medicine
PROC: 30233N1 Transfusion of Nonautologous Red Blood Cells into Peripheral Vein, Percutaneous Approach (ICD-10-PCS; 2017-05-08)
PROC: 30233N1 Transfusion of Nonautologous Red Blood Cells into Peripheral Vein, Percutaneous Approach (ICD-10-PCS; principal; 2017-05-09)
DX: N93.8 Other specified abnormal uterine and vaginal bleeding (principal); E66.01 Morbid (severe) obesity due to excess calories; D50.0 Iron deficiency anemia secondary to blood loss (chronic); D25.0 Submucous leiomyoma of uterus; D25.2 Subserosal leiomyoma of uterus; F12.10 Cannabis abuse, uncomplicated; R10.13 Epigastric pain; N92.0 Excessive and frequent menstruation with regular cycle; K59.00 Constipation, unspecified; D35.02 Benign neoplasm of left adrenal gland; G44.209 Tension-type headache, unspecified, not intractable; Z68.39 Body mass index [BMI] 39.0-39.9, adult; Z71.3 Dietary counseling and surveillance; Z90.49 Acquired absence of other specified parts of digestive tract
CPT/HCPCS: 36430; 70450; 74176; 80053; 80307; 81001; 83540; 83690; 83735; 84100; 85014; 85018; 85025; 85660; 86850; 86900; 86901; 86920; J1940; C9113; G0378; J1885; J2270; J2405; J2916; J3030; J7040; P9011; P9016

== ENCOUNTER → 2017-05-15 | Emergency (ER) | payer OTHER ==
[~2017-05-15] VITALS: Ht 162.6 cm; Wt 109.5 kg
[~2017-05-15] MED LIST changes: +ACET500C5 PO; +ELEC100080 PO; -IBUP800T25 PO; +KETOROLAC 30 MG INJ IV STA; +ONDA4TAB8 PO; +ONDANSETRON 4 MG INJ IV STA; +PANT40TA3 PO; +TRAM50TA2 PO; +TRAN650T2 PO
[2017-05-15 19:39] VITALS: Ht 162.6 cm; Wt 109.5 kg
--- NOTE | 2017-05-15 21:31 | RADRPT ---
PROCEDURE: XR Abdomen. CLINICAL INDICATION: Abdominal pain. TECHNIQUE: AP abdomen x-ray. COMPARISON: 11/23/2016 FINDINGS: Prior cholecystectomy is noted. There is no evidence of bowel obstruction.There are no definite dens ities overlying the kidneys and ureters. IMPRESSION: No evidence of bowel obstruction. RPTAT: HIKT .Curtis Gregory MD, MD Date Time Electronically viewed and signed by .Curtis Gregory MD, MD on 05/15/2017 21:31 .T/
--- NOTE | 2017-05-15 21:45 | ERD ---
ER Documentation Chief Complaint Chief Complaint abd pain w/ vomiting and diarrhea today HPI This is a 31-year-old female who presents the emergency department today complaining of abdominal pain vomiting and diarrhea that started today. Patient states that she ate wings stop an hour later she started having vomiting and diarrhea. States that she smokes marijuana daily. States that she was recently in the hospital for anemia. Denies any fevers or chills, dysuria. States she is currently taking iron pills. States that she did not have a bowel movement for 6 days but now she has diarrhea. ROS All systems reviewed and are negative except as per history of present illness. Medications Home Meds Active Scripts Acetaminophen* (Tylophen*) 500 Mg Capsule, 1 CAP PO Q6H Y for PAIN AND OR ELEVATED TEMP, #30 CAP Prov:GINA MILLS PA-C 05/15/17 Electrolyte,Oral (Pedialyte) 1,000 Ml Solution, 100 ML PO Q6 Y for VOMITTING, # 1000 ML Prov:GINA MILLS PA-C 05/15/17 Ondansetron Hcl* (Zofran*) 4 Mg Tablet, 4 MG PO Q6H for NAUSEA AND/OR VOMITING, #30 TAB Prov:GINA MILLS PA-C 05/15/17 Tramadol HCl (Tramadol HCl) 50 Mg Tablet, 50 MG PO Q8 Y for HEADACHE, #30 TAB Prov:LEILANI BABB NP 05/11/17 Tranexamic Acid (Lysteda) 650 Mg Tablet, 1300 MG PO TID for 5 Days, #15 TAB Lysteda 650 mg 2 tablets 3 times daily 5 days. Patient to start dose on the first day of next menstrual cycle. Prov:LEILANI BABB NP 05/11/17 Pantoprazole* (Protonix*) 40 Mg Tablet.dr, 40 MG PO AC BREAKFAST, #30 TAB Prov:LEILANI BABB NP 05/11/17 Docusate Sodium* (Colace*) 100 Mg Capsule, 200 MG PO BID Y for constipation , # 60 CAP Prov:FRANDY BUTLER MD 03/22/17 Ferrous Sulfate* (Ferrous Sulfate*) 325 Mg Tabec, 325 MG PO BID, #180 TAB Prov:FRANDY BUTLER MD 03/22/17 Discontinued Scripts Ibuprofen* (Motrin*) 800 Mg Tab, 800 MG PO Q6H Y for PAIN AND OR ELEVATED TEMP, #30 TAB Prov:JESSICA ADEN MD 04/13/17 Allergies Allergies: Coded Allergies: Penicillins (Unverified Allergy, Unknown, 05/08/17) PMhx/Soc History of Surgery: Yes (myectomy, gallbladder removal) Anesthesia Reaction: No Hx Neurological Disorder: No Hx Respiratory Disorders: No Hx Cardiac Disorders: No Hx Psychiatric Problems: No Hx Miscellaneous Medical Probl: Yes (Obesity ) Hx Alcohol Use: Yes (social drinker) Hx Substance Use: Yes (marijuana) Hx Tobacco Use: No Smoking Status: Never smoker Physical Exam Vitals Vital Signs Date Time Temp Pulse Resp B/P Pulse Ox O2 Delivery O2 Flow Rate FiO2 05/15/17 23:33 98.4 82 20 148/84 96 Room Air 05/15/17 19:39 98.4 87 20 162/90 98 Physical Exam Const: NAD Head: Atraumatic Eyes: Normal Conjunctiva ENT: Normal External Ears, Nose and Mouth. Neck: Full range of motion..~ No meningismus. Resp: Clear to auscultation bilaterally Cardio: Regular rate and rhythm, no murmurs Abd: Soft,periumbilical pain non distended. Normal bowel sounds no tenderness at McBurney's. Skin: No petechiae or rashes Back: No midline or flank tenderness Ext: No cyanosis, or edema Neur: Awake and alert Psych: Normal Mood and Affect Result Diagram: 05/15/17211905/15/172119 Results 24 hrs Laboratory Tests Test 05/15/17 21:20 05/15/17 21:45 White Blood Count 16.610^3/ul Red Blood Count 4.3510^6/ul Hemoglobin 11.1g/dl Hematocrit 35.6% Mean Corpuscular Volume 81.8fl Mean Corpuscular Hemoglobin 25.5pg Mean Corpuscular Hemoglobin Concent 31.2g/dl Red Cell Distribution Width 22.3% Platelet Count 44832^3/UL Mean Platelet Volume 10.3fl Neutrophils % 87.4% Lymphocytes % 4.9% Monocytes % 6.2% Eosinophils % 1.0% Basophils % 0.2% Nucleated Red Blood Cells % 0.0/100WBC Neutrophils # 14.510^3/ul Lymphocytes # 0.810^3/ul Monocytes # 1.010^3/ul Eosinophils # 0.210^3/ul Basophils # 0.010^3/ul Nucleated Red Blood Cells # 0.010^3/ul Sodium Level 144mmol/L Potassium Level 3.9mmol/L Chloride Level 103mmol/L Carbon Dioxide Level 28mmol/L Anion Gap 17 Blood Urea Nitrogen 10mg/dl Creatinine 0.95mg/dl Glucose Level 112mg/dl Calcium Level 10.0mg/dl Total Bilirubin 0.2mg/dl Direct Bilirubin 0.00mg/dl Indirect Bilirubin 0.2mg/dl Aspartate Amino Transf (AST/SGOT) 35IU/L Alanine Aminotransferase (ALT/SGPT) 46IU/L Alkaline Phosphatase 59IU/L Total Protein 8.2g/dl Albumin 4.6g/dl Globulin 3.60g/dl Albumin/Globulin Ratio 1.27 Lipase 104U/L Urine Color YELLOW Urine Clarity SLIGHTLY CLOUDY Urine pH 7.0 Urine Specific [place] 1.019 Urine Ketones NEGATIVEmg/dL Urine Nitrite NEGATIVEmg/dL Urine Bilirubin NEGATIVEmg/dL Urine Urobilinogen NEGATIVEmg/dL Urine Leukocyte Esterase NEGATIVELeu/ul Urine Microscopic RBC 0/HPF Urine Microscopic WBC 0/HPF Urine Squamous Epithelial Cells FEW/HPF Urine Amorphous Crystals MANY/HPF Urine Mucus FEW/HPF Urine Hemoglobin NEGATIVEmg/dL Urine Glucose NEGATIVEmg/dL Urine Total Protein NEGATIVEmg/dl Current Medications Medications (Trade) Dose Ordered Sig/Braden Route PRN Reason Start Time Stop Time Status Last Admin Dose Admin Ondansetron HCl (Zofran Inj) 4 mg ONCE STAT IV 05/15/17 20:31 05/15/17 20:34 DC 05/15/17 20:31 Ketorolac Tromethamine (Toradol) 30 mg ONCE STAT IV 05/15/17 20:31 05/15/17 20:34 DC 05/15/17 20:31 DIAGNOSTIC IMAGING REPORT Patient: JUDSON FELDMAN : 1985 Age: 31 Sex: F MR #: [id number] DOS: 05/15/172030 Ordering MD: GINA MILLS PA-C Location: E Room/Bed: PROCEDURE: XR Abdomen. CLINICAL INDICATION: Abdominal pain. TECHNIQUE: AP abdomen x-ray. COMPARISON: 11/23/2016 FINDINGS: Prior cholecystectomy is noted. There is no evidence of bowel obstruction.There are no definite densities overlying the kidneys and ureters. IMPRESSION: No evidence of bowel obstruction. RPTAT: HIKT .Curtis Gregory MD, Date Time Electronically viewed and signed by .Curtis Gregory MD, on 05/15/2017 21:31 .T/ CC: GINA MILLS PA-C Procedures/[facility] This is 31-year-old female presents to the emergency department today for abdominal pain vomiting and diarrhea. Patient has had approximately 20 visits to this emergency department this year for pelvic pain, abdominal pain and anemia. On physical exam patient had periumbilical tenderness. She had no tenderness in her right lower quadrant and no pelvic pain and do not feel that he required advanced imaging especially given her chronic history of abdominal pain. Did obtain laboratory work as well as a KUB given patient's here a history of bowel obstruction and recent history of constipation with diarrhea Laboratory workup shows an elevated white blood cell count of 16.6. Her hemoglobin is very mildly decreased at 11.1. Platelets are within normal limits. Electro lites are within normal limits. Glucose is within normal limits. Liver enzymes are within normal limits. Lipase is normal limits. UA negative for infection. Urine test is negative KUB shows no evidence for bowel obstruction. There is a prior cholecystectomy noted. She was given Toradol and Zofran here in the emergency department. Patient has a history of constipation I do not feel that she would benefit from narcotics. Because the patient's elevated white blood cell count with Dr. Teran and he recommended shared decision making with the patient. I did explain to the patient that it was elevated however there could be various causes for this. I explained to her that she has had multiple images in the past and I do not feel that that was necessary at this time although I did offer it to the patient. Patient declined stating that she would just take some medicine for pain and nausea for home. Do have low suspicion for acute surgical abdomen. Patient had no right upper quadrant tenderness and no right lower quadrant tenderness or pelvic pain. Suspicion for ectopic , tubo-ovarian abscess, ovarian torsion. Symptoms at this time consistent with abdominal pain of uncertain etiology but may related to the vomiting and diarrhea which is likely viral. Patient was given a prescription for Zofran, Pedialyte and Tylenol for home. 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 Patient also abuses marijuana daily and I have explained to her that this is a cause for abdominal pain and vomiting. At this time the patient is stable for discharge and outpatient management. Patient should follow up with their PCP in the next 1-2 days. They may return to the emergency department sooner for any persistent or worsening of symptoms. Patient understood and agreed with the plan. Departure Diagnosis: Primary Impression: Abdominal pain Abdominal location: periumbilical Qualified Code: R10.33 - Periumbilical abdominal pain Additional Impression: Vomiting and diarrhea Condition: GINA Morales PA-C May 15, 2017 21:45
[2017-05-15 21:49] LABS: ABNORMAL IP MESSAGE 1; BASOPHILS % 0.2 % (0.0-2.0); EOSINOPHILS # 0.2 10^3/ul (0.0-0.5); HEMATOCRIT 35.6 % (37.0-47.0); HEMOGLOBIN 11.1 g/dl (12.0-16.0); LYMPHOCYTES # 0.8 10^3/ul (0.8-2.9); LYMPHOCYTES % 4.9 % (15.0-51.0); MEAN CORPUSCULAR HEMOGLOBIN 25.5 pg (29.0-33.0); MEAN CORPUSCULAR HGB CONC 31.2 g/dl (32.0-37.0); MEAN CORPUSCULAR VOLUME 81.8 fl (82.0-101.0); MEAN PLATELET VOLUME 10.3 fl (7.4-10.4); MONOCYTES % 6.2 % (0.0-11.0); NEUTROPHIL # 14.5 10^3/ul (1.6-7.5); NEUTROPHILS % 87.4 % (39.0-77.0); PLATELET COUNT 442 10^3/UL (140-415); RED BLOOD COUNT 4.35 10^6/ul (4.20-5.40); RED CELL DISTRIBUTION WIDTH 22.3 % (11.5-14.5); WHITE BLOOD COUNT 16.6 10^3/ul (4.8-10.8)
[2017-05-15 21:51] LABS: POSITIVE DIFF @See below
[2017-05-15 22:08] LABS: ALBUMIN 4.6 g/dl (3.3-4.9); ALBUMIN/GLOBULIN RATIO 1.27; BILIRUBIN,INDIRECT 0.2 mg/dl (0-1.1); BILIRUBIN,TOTAL 0.2 mg/dl (0.2-1.3); CREATININE 0.95 mg/dl (0.44-1.00); POTASSIUM 3.9 mmol/L (3.5-5.1); TOTAL PROTEIN 8.2 g/dl (6.1-8.1)
[2017-05-15 22:20] LABS: UR AMORPHOUS CRYSTAL MANY /HPF (NONE SEEN); UR RBC 0 /HPF (0-5); UR SQUAMOUS EPITHELIAL CELL FEW /HPF (FEW)
[2017-05-15 22:39] LABS: ADD UMIC NO; UR ASCORBIC ACID 40 mg/dL (NEGATIVE); UR BILIRUBIN (Dip) NEGATIVE (NEGATIVE); UR BLOOD (Dip) NEGATIVE (NEGATIVE); UR CLARITY SLIGHTLY CLOUDY (CLEAR); UR COLOR YELLOW (YELLOW); UR GLUCOSE (Dip) NEGATIVE (NEGATIVE); UR KETONES (Dip) NEGATIVE (NEGATIVE); UR LEUKOCYTE ESTERASE (Dip) NEGATIVE Leu/ul (NEGATIVE); UR MUCUS FEW /HPF (NONE SEEN); UR NITRITE (Dip) NEGATIVE (NEGATIVE); UR SPECIFIC GRAVITY (Dip) 1.019 (1.003-1.030); UR TOTAL PROTEIN (Dip) NEGATIVE (NEGATIVE); UR UROBILINOGEN (Dip) NEGATIVE (NEGATIVE)
[2017-05-15 23:33] VITALS: BP 148/84; PULSE 82; RESP 20; TEMP 98.4
== END | disposition home or self-care (01) ==
LOC: FTE 19:33
DX: R10.33 Periumbilical pain (principal); R11.10 Vomiting, unspecified; R19.7 Diarrhea, unspecified; E66.9 Obesity, unspecified
CPT/HCPCS: 74010; 80053; 81001; 83690; 85025; J1885; J2405; 36415; 81003; 96374; 96375

== ENCOUNTER 2017-07-01 11:35 | Emergency (ER) | END 2017-07-01 16:40 | disposition home or self-care (01) ==

== ENCOUNTER 2017-08-15 10:00 | Observation (INO) | END 2017-08-18 19:00 | disposition home or self-care (01) ==

== ENCOUNTER 2017-09-27 08:34 | Emergency (ER) | END 2017-09-27 10:14 | disposition home or self-care (01) ==

== ENCOUNTER 2017-10-16 15:56 | Emergency (ER) | END 2017-10-16 18:58 | disposition home or self-care (01) ==

== ENCOUNTER 2017-10-24 22:10 | Emergency (ER) | END 2017-10-25 02:50 | disposition home or self-care (01) ==

== ENCOUNTER 2017-11-02 23:50 | Emergency (ER) | END 2017-11-03 08:35 | disposition home or self-care (01) ==

== ENCOUNTER 2017-11-21 23:09 | Emergency (ER) | END 2017-11-22 06:20 | disposition home or self-care (01) ==

== ENCOUNTER 2018-01-04 06:05 | Inpatient (IN) | END 2018-01-06 16:10 | disposition left against medical advice (07) | DRG 812 ==

== ENCOUNTER 2018-02-17 10:09 | Emergency (ER) | END 2018-02-17 11:14 | disposition home or self-care (01) ==

== ENCOUNTER 2018-03-20 14:31 | Emergency (ER) | END 2018-03-20 19:52 | disposition home or self-care (01) ==

== ENCOUNTER 2018-04-11 17:25 | Inpatient (IN) | END 2018-04-12 13:34 | disposition home or self-care (01) | DRG 812 ==

== ENCOUNTER 2018-06-05 01:25 | Inpatient (IN) | payer OTHER ==
[2018-06-05] VITALS (14 sets, daily range): BP systolic 119–175; BP diastolic 52–109; PULSE 76–97; RESP 16–19; Ht 170.2 cm; Wt 118.1 kg
[~2018-06-05] VITALS: Ht 170.2 cm; Wt 118.1 kg
[~2018-06-05 01:25] MED LIST changes: -ACET500C5 PO; +DIPH25CA6 PO; -ELEC100080 PO; +FAMO-96 PO; +HYDR45OI9 TOP; +IBUP-1542 PO; -KETOROLAC 30 MG INJ IV STA; +MAG355OR14 PO; +OMEP40CA6 PO; -ONDA4TAB8 PO; -ONDANSETRON 4 MG INJ IV STA; -PANT40TA3 PO; +SUCR1TAB56 PO; -TRAM50TA2 PO; -TRAN650T2 PO
[2018-06-05] MEDS ORDERED: SOD CHLORIDE 0.9% 500 ML IV STA (02:28)
[2018-06-05] MEDS ORDERED: KETOROLAC 30 MG INJ IV ONE (03:19)
--- NOTE | 2018-06-05 05:33 | ERD ---
ER Documentation Chief Complaint Chief Complaint sent for hgb 5.4 hx fibroids HPI 32-year-old female sent for hemoglobin of 5.4 at her doctor's office. She has history of fibroid bleeding has had multiple transfusions in the past. Feels weak but denies dizziness palpitations or chest pain. ROS All systems reviewed and are negative except as per history of present illness. Medications Home Meds Discontinued Scripts Sucralfate* (Carafate*) 1 Gm Tab, 1 GM PO QID for 7 Days, TAB Prov:SELIN ARGUELLO 03/20/18 Famotidine* (Pepcid*) 20 Mg Tablet, 20 MG PO BID for 4 Days, TAB Prov:SELIN ARGUELLO 03/20/18 Docusate Sodium* (Colace*) 100 Mg Capsule, 100 MG PO TID, #30 CAP Prov:SELIN ARGUELLO 03/20/18 Ferrous Sulfate* (Ferrous Sulfate*) 325 Mg Tabec, 325 MG PO TID for 30 Days, TAB Prov:SELIN ARGUELLO 03/20/18 Docusate Sodium* (Colace*) 100 Mg Capsule, 100 MG PO BID, #30 CAP Prov:PILAR SORIANO DO 02/17/18 Hydrocortisone Butyrate (Hydrocortisone Butyrate) 1% - 45 Gm Oint..gm., 1 APPLIC TOP BID, #1 TUB Prov:PILAR SORIANO DO 02/17/18 Diphenhydramine Hcl (Benadryl) 25 Mg Cap, 25 MG PO Q6H, #30 CAP Prov:PILAR SORIANO DO 02/17/18 Omeprazole* (Omeprazole*) 40 Mg Capsule.dr, 40 MG PO DAILY, #14 CAP Prov:JOSEPHINE SILVER MD 01/04/18 Famotidine* (Pepcid*) 20 Mg Tablet, 20 MG PO BID for 14 Days, TAB Prov:JOSEPHINE SILVER MD 01/04/18 Mag Hydrox/Al Hydrox/Simeth (Maalox Advanced Suspension) 355 Ml Oral.susp, 2 TSP PO TID PRN for PAIN, #24 OZ Prov:JOSEPHINE SILVER MD 01/04/18 Ibuprofen* (Motrin*) 600 Mg Tab, 600 MG PO Q6H PRN for PAIN AND OR ELEVATED T EMP, #30 TAB Prov:PILAR BARRIOS MD 11/22/17 Ferrous Sulfate* (Ferrous Sulfate*) 325 Mg Tabec, 325 MG PO BID for 30 Days, TAB Prov:JESSICA ADEN MD 11/03/17 Ibuprofen* (Motrin*) 600 Mg Tab, 600 MG PO Q6H PRN for PAIN AND OR ELEVATED TEMP, #30 TAB Prov:DANIAL JEROME NP 10/25/17 Allergies Allergies: Coded Allergies: Penicillins (Unverified Allergy, Unknown, 06/05/18) PMhx/Soc History of Surgery: Yes (cholecystectomy 07/20; fibroidectomy >) Anesthesia Reaction: Yes (Cholecystectomy, 07/2016 ) Hx Neurological Disorder: No Hx Respiratory Disorders: Yes (Asthma 2013) Hx Cardiac Disorders: No Hx Psychiatric Problems: No Hx Miscellaneous Medical Probl: Yes (FIBROIDS) Hx Alcohol Use: Yes (Socially on weekends ) Hx Substance Use: Yes (Marijuana ) Hx Tobacco Use: Yes (history of smoking ) Smoking Status: Current every day smoker Physical Exam Vitals Vital Signs Date Temp Pulse Resp B/P (MAP) Pulse Ox O2 O2 Flow FiO2 Time Delivery Rate 06/05/18 98.4 86 20 136/82 98 Room Air 04:40 (100) 06/05/18 77 18 141/70 100 Room Air 02:40 (93) 06/05/18 98.7 111 20 164/77 100 01:32 (106) Physical Exam Const: No acute distress Head: Atraumatic Eyes: Normal Conjunctiva ENT: Normal External Ears, Nose and Mouth. Neck: Full range of motion. No meningismus. Resp: Clear to auscultation bilaterally Cardio: Regular rate and rhythm, no murmurs Abd: Soft, non tender, non distended. Normal bowel sounds Skin: No petechiae or rashes Back: No midline or flank tenderness Ext: No cyanosis, or edema Neur: Awake and alert Psych: Normal Mood and Affect Result Diagram: 06/05/185 06/05/18 0255 Results 24 hrs Laboratory Tests Test 06/05/18 02:39 06/05/18 02:55 POC Beta HCG, Qualitative NEGATIVE White Blood Count 8.9 10^3/ul Red Blood Count 2.48 10^6/ul Hemoglobin 5.3 g/dl Hematocrit 18.6 % Mean Corpuscular Volume 75.0 fl Mean Corpuscular Hemoglobin 21.4 pg Mean Corpuscular Hemoglobin Concent 28.5 g/dl Red Cell Distribution Width 21.4 % Platelet Count 444 10^3/UL Mean Platelet Volume 10.5 fl Immature Granulocytes % 0.200 % Neutrophils % % Segmented Neutrophils % (Manual) 68 % Lymphocytes % % Lymphocytes % (Manual) 26 % Monocytes % % Monocytes % (Manual) 3 % Eosinophils % % Eosinophils % (Manual) 3 % Basophils % % Nucleated Red Blood Cells % 0.2 /100WBC Immature Granulocytes # 0.020 10^3/ul Neutrophils # 10^3/ul Lymphocytes (Manual) 2.3 10^3/ul Lymphocytes # 10^3/ul Monocytes # 10^3/ul Monocytes # (Manual) 0.2 10^3/ul Eosinophils # 10^3/ul Basophils # 10^3/ul Nucleated Red Blood Cells # 10^3/ul Platelet Estimate NORMAL Giant Platelets 6 % Polychromasia 2+ Hypochromasia 2+ Poikilocytosis 1+ Anisocytosis 2+ Microcytosis 2+ Ovalocytes 1+ Acanthocytes 1+ Absolute Reticulocyte Count 0.046 X10^6 Percent Reticulocyte Count 1.9 % Sodium Level 144 mmol/L Potassium Level 3.4 mmol/L Chloride Level 110 mmol/L Carbon Dioxide Level 26 mmol/L Anion Gap 8 Blood Urea Nitrogen 10 mg/dl Creatinine 0.91 mg/dl Est Glomerular Filtrat Rate mL/min > 60 mL/min Glucose Level 103 mg/dl Calcium Level 8.9 mg/dl Total Bilirubin 0.0 mg/dl Direct Bilirubin 0.00 mg/dl Indirect Bilirubin 0.0 mg/dl Aspartate Amino Transf (AST/SGOT) 19 IU/L Alanine Aminotransferase (ALT/SGPT) 19 IU/L Alkaline Phosphatase 53 IU/L Lactate Dehydrogenase 305 IU/L Total Protein 7.3 g/dl Albumin 4.0 g/dl Globulin 3.30 g/dl Albumin/Globulin Ratio 1.21 Current Medications Medications Dose Sig/Braden Start Time Status Last (Trade) Ordered Route PRN Stop Time Admin Dose Reason Admin Sodium 500 ml @ Q1H STAT 06/05/18 DC 06/05/18 Chloride 500 mls/hr IV 02:28 06/05/18 03:33 03:27 Ketorolac 30 mg ONCE ONCE 06/05/18 DC 06/05/18 Tromethamine IV 03:19 06/05/18 03:32 (Toradol) 03:22 Procedures/MDM Medical decision making: Very pleasant patient with severe anemia. Transfused and crossmatch for 2 units. Will be admitted to hospitalist. Departure Diagnosis: Primary Impression: Symptomatic anemia Condition: Serious SHANNAN CORRAL Jun 05, 2018 05:33
[2018-06-05] MEDS ORDERED: NACL 0.9% 3 ML SYG IV SCH (06:00)
[2018-06-05] MEDS ORDERED: ONDANSETRON 4 MG INJ IV PRN (06:00)
[2018-06-05] MEDS ORDERED: ACETAMINOPHEN 325 MG TAB PO PRN (06:00)
[2018-06-05] MEDS: PANTOPRAZOLE 40 MG INJ IV SCH (09:28)
--- NOTE | 2018-06-05 10:24 | HP ---
Date/Time of Note Date/Time of Note DATE: 06/05/18 TIME: 10:06 Assessment/Plan VTE Prophylaxis SCD applied (from Nsg): Yes Pharmacological prophylaxis: other Lines/Catheters IV Catheter Type (from Nrsg): Saline Lock Assessment/Plan Hospital Course 32-year-old female presenting with severe anemia and vaginal bleeding along with abdominal pain and dizziness. # Anemia: Likely secondary to patient's fibroids and history of heavy periods including for the last 3 days -Admit patient, check TSH A1c lipid panel, ordered for PRBC transfusion -Follow-up posttransfusion CBC # History of fibroids: Again patient states she had surgery 4-5 years ago to help remove these but she was told at that time not all of them were removed -Monitor for now, consider LAB HEAD consult although again patient apparently has an appointment set up in the next few weeks with an outpatient LAB HEAD doctor # Asthma: No present issues -Monitor, add DuoNeb's as needed # Gastritis: Patient complains of mild abdominal pain -Monitor, add Protonix #Smoking history: Counseled on cessation #High blood pressure: Patient does not have a known history of hypertension, but she was told recently at her PCP doctor's office that she may indeed have new o nset hypertension -Monitor, if continues to be elevated consider starting her on new oral agent Result Diagram: 06/05/18 0255 06/05/18 0255 Results 24hrs Laboratory Tests Test 06/05/18 02:39 06/05/18 02:55 POC Beta HCG, Qualitative NEGATIVE White Blood Count 8.9 Red Blood Count 2.48 #L Hemoglobin 5.3 #*L Hematocrit 18.6 #L Mean Corpuscular Volume 75.0 L Mean Corpuscular Hemoglobin 21.4 L Mean Corpuscular Hemoglobin Concent 28.5 L Red Cell Distribution Width 21.4 H Platelet Count 444 H Mean Platelet Volume 10.5 H Immature Granulocytes % 0.200 Neutrophils % Segmented Neutrophils % (Manual) 68 Lymphocytes % Lymphocytes % (Manual) 26 Monocytes % Monocytes % (Manual) 3 Eosinophils % Eosinophils % (Manual) 3 Basophils % Nucleated Red Blood Cells % 0.2 H Immature Granulocytes # 0.020 Neutrophils # Lymphocytes (Manual) 2.3 Lymphocytes # Monocytes # Monocytes # (Manual) 0.2 L Eosinophils # Basophils # Nucleated Red Blood Cells # Platelet Estimate NORMAL Giant Platelets 6 H Polychromasia 2+ Hypochromasia 2+ Poikilocytosis 1+ Anisocytosis 2+ Microcytosis 2+ Ovalocytes 1+ Acanthocytes 1+ Absolute Reticulocyte Count 0.046 Percent Reticulocyte Count 1.9 H Sodium Level 144 Potassium Level 3.4 L Chloride Level 110 Carbon Dioxide Level 26 Anion Gap 8 Blood Urea Nitrogen 10 Creatinine 0.91 Est Glomerular Filtrat Rate mL/min > 60 Glucose Level 103 Calcium Level 8.9 Total Bilirubin 0.0 L Direct Bilirubin 0.00 Indirect Bilirubin 0.0 Aspartate Amino Transf (AST/SGOT) 19 Alanine Aminotransferase (ALT/SGPT) 19 Alkaline Phosphatase 53 Lactate Dehydrogenase 305 L Total Protein 7.3 Albumin 4.0 Globulin 3.30 H Albumin/Globulin Ratio 1.21 HPI/ROS Admit Date/Time Admit Date/Time Jun 05, 2018 at 03:36 Hx of Present Illness 32-year-old female past medical history of fibroids with surgery 4 years ago for this, anemia with multiple admissions for this, question of hypertension, asthma, who presents after being sent in by her primary care doctor. Patient had been complaining of abdominal pain for the last 3 days. She also had some dizziness and lightheadedness and was complaining of heavy periods. No fevers or chills, no diarrhea constipation, no nausea vomiting. When she went to the primary care doctor's office she was found with a low hemoglobin in the 5 range and was instructed to come here to the ER. When she came to the ER today she was found hemoglobin of 5.3 and has been ordered for blood transfusion. Patient states her primary care doctor recently referred her to an LAB HEAD doctor as an outpatient and that appointment is pending in the next few weeks, per patient PMH/Family/Social Past Medical History Medications Current Medications IV Flush (NS 3 ml) 3 ml PER PROTOCOL IV ; Start 06/05/18 at 06:00 Ondansetron HCl (Zofran Inj) 4 mg Q6H PRN IV NAUSEA AND/OR VOMITING Last admini stered on 06/05/18at 09:31; Admin Dose 4 MG; Start 06/05/18 at 06:00 Acetaminophen (Tylenol Tab) 650 mg Q6H PRN PO PAIN LEVEL 1-3 OR FEVER; Start 06/05/18 at 06:00 Pantoprazole (Protonix Iv) 40 mg DAILY@06 IV Last administered on 06/05/18at 09:28; Admin Dose 40 MG; Start 06/05/18 at 10:00 Coded Allergies: Penicillins (Unverified Allergy, Unknown, 06/05/18) Past Surgical History Past Surgical Hx: cholecystectomy, endoscopy, other Family History Significant Family History: no pertinent family hx Social History Alcohol Use: occasionally Smoking Status: Current every day smoker Drug Use: marijuana Exam/Review of Systems Vital Signs Vitals Vital Signs Date Temp Pulse Resp B/P (MAP) Pulse Ox O2 O2 Flow FiO2 Time Delivery Rate 06/05/18 76 08:45 06/05/18 98.0 19 150/90 98 Room Air 07:25 (110) Exam Exam Gen: lying in bed, No acute distress Head: Atraumatic Eyes: Normal Conjunctiva ENT: Normal External Ears, Nose and Mouth. Neck: supple Resp: Clear to auscultation bilaterally Cardio: Regular rate and rhythm, no murmurs Abd: Soft, non tender, non distended. Normal bowel sounds Ext: No cyanosis, or edema Neur: no focal deficits JON STRINGER Jun 05, 2018 10:16
[2018-06-05] MEDS ORDERED: hydrALAzine 20 MG INJ IV PRN (10:30)
[2018-06-05] MEDS: HYDROCODONE/APAP (5/325) TAB PO PRN ×2 (10:58→23:45)
[2018-06-05] MEDS ORDERED: DIPHENHYDRAMINE 25 MG CAP PO PRN (17:30)
[2018-06-05] MEDS ORDERED: PSEUDOEPHEDRINE 30 MG TAB PO PRN (17:30)
[2018-06-05] MEDS: ALBUTEROL/IPRATROPIUM (NEB) 3 ML AMP HHN PRN ×2 (18:07→23:49)
[2018-06-06] VITALS (10 sets, daily range): BP systolic 134–159; BP diastolic 60–87; PULSE 65–94; RESP 18
[2018-06-06] MEDS: PANTOPRAZOLE 40 MG INJ IV SCH ×2 (06:00→08:49)
[2018-06-06] MEDS ORDERED: POTASSIUM CHLORIDE (SR) 20 MEQ TAB PO STA (12:45)
--- NOTE | 2018-06-06 12:57 | PN ---
Date/Time of Note Date/Time of Note DATE: 06/06/18 TIME: 12:51 Assessment/Plan VTE Prophylaxis Risk score (from Ns)>0 risk: 2 SCD applied (from Ns): No SCD contraindicated: other Pharmacological prophylaxis: other Pharm contraindication: bleeding Lines/Catheters [facility] Saline Lock Urinary Cath still in place: No Assessment/Plan Hospital Course S: Patient received blood transfusion yesterday. Complaining of some bright red blood per rectum, possibly secondary to her prior history of hemorrhoids now. Also complains of constipation. Mild abdominal pain. Otherwise tolerating diet. Still waiting for x-ray of the hand. Refused blood work this morning but now agreeing to this. O: VS - see below PE: Gen: lying in bed, No acute distress Head: Atraumatic Eyes: Normal Conjunctiva ENT: Normal External Ears, Nose and Mouth. Neck: supple Resp: Clear to auscultation bilaterally Cardio: Regular rate and rhythm, no murmurs Abd: Soft, non tender, non distended. Normal bowel sounds Ext: No cyanosis, or edema Neur: no focal deficits A/P: 32-year-old female presenting with severe anemia and vaginal bleeding along with abdominal pain and dizziness. # Anemia: Likely secondary to patient's fibroids and history of heavy periods including for 3 days prior to admission-status post PRBC transfusion yesterday -Follow-up post transfusion CBC this morning -Monitor for now, we will also start IV iron given signs of recently checked lab results of low serum iron levels -Given history of internal and external hemorrhoids: We will start Preparation H # History of fibroids: Again patient states she had surgery 4-5 years ago to help remove these but she was told at that time not all of them were removed. In August 2017 while the patient was here [facility] team recommended hysterectomy, endometrial ablation, prolonged hormonal treatment. Apparently she does not want any treatment that would prevent her from becoming . -Monitor for now, consider [facility] consult although again patient apparently has an appointment set up in the next few weeks with an outpatient [facility] doctor -Given mild abdominal pain symptoms, will check KUB x1 # Asthma: No present issues -Monitor, continue DuoNeb's as needed # Gastritis: Patient complains of mild abdominal pain -Monitor, add Protonix -For constipation, Colace twice daily #Smoking history: Counseled on cessation #Right hand/wrist pain: -Check right hand x-ray 2 view #Eye discharge/irritation-not improved with Sudafed or Benadryl yesterday -We will start low-dose Cipro eyedrops both eyes #High blood pressure: Patient does not have a known history of hypertension, but she was told recently at her PCP doctor's office that she may indeed have new onset hypertension -Monitor, for now start low-dose Norvasc Result Diagram: 06/05/18 1826 06/05/18 0255 Results 24hrs Laboratory Tests Test 06/05/18 18:26 White Blood Count 10.2 Red Blood Count 3.23 #L Hemoglobin 7.6 #L Hematocrit 25.3 #L Mean Corpuscular Volume 78.3 L Mean Corpuscular Hemoglobin 23.5 L Mean Corpuscular Hemoglobin Concent 30.0 L Red Cell Distribution Width 20.7 H Platelet Count 448 H Mean Platelet Volume 10.7 H Immature Granulocytes % 0.600 H Neutrophils % 62.8 Lymphocytes % 26.4 Monocytes % 6.1 Eosinophils % 3.5 Basophils % 0.6 Nucleated Red Blood Cells % 0.7 H Immature Granulocytes # 0.060 H Neutrophils # 6.4 Lymphocytes # 2.7 Monocytes # 0.6 Eosinophils # 0.4 Basophils # 0.1 Nucleated Red Blood Cells # 0.1 H Exam/Review of Systems Vital Signs Vitals Vital Signs Date Temp Pulse Resp B/P (MAP) Pulse Ox O2 O2 Flow FiO2 Time Delivery Rate 06/06/18 94 12:32 06/06/18 97.8 18 134/60 100 Room Air 11:49 (84) 06/05/18 21 23:49 Intake and Output 06/05/18 06/05/18 06/06/18 1515:00 23:00 07:00 IntakeIntake Total 1600 ml 100 ml OutputOutput Total 225 ml BalanceBalance 1375 ml 100 ml Medications Medications Current Medications IV Flush (NS 3 ml) 3 ml PER PROTOCOL IV ; Start 06/05/18 at 06:00 Ondansetron HCl (Zofran Inj) 4 mg Q6H PRN IV NAUSEA AND/OR VOMITING Last administered on 06/05/18at 09:31; Admin Dose 4 MG; Start 06/05/18 at 06:00 Acetaminophen (Tylenol Tab) 650 mg Q6H PRN PO PAIN LEVEL 1-3 OR FEVER; Start 06/05/18 at 06:00 Pantoprazole (Protonix Iv) 40 mg DAILY@06 IV Last administered on 06/06/18at 08:49; Admin Dose 40 MG; Start 06/05/18 at 10:00 Acetaminophen/ Hydrocodone Bitart (Protection (5/325)) 1 tab Q6H PRN PO MODERATE PAIN LEVEL 4-6 Last administered on 06/05/18at 23:45; Admin Dose 1 TAB; Start 06/05/18 at 10:30 Albuterol/ Ipratropium (Duoneb) 3 ml Q4H RESP THERAPY PRN HHN SHORTNESS OF BREATH Last administered on 06/05/18at 23:49; Admin Dose 3 ML; Start 06/05/18 at 10:30 Hydralazine HCl (Apresoline) 10 mg Q6H PRN IV ELEVATED BLOOD PRESSURE; Start 06/05/18 at 10:30 Pseudoephedrine HCl (Sudogest) 30 mg ONCE PRN PO EYE IRRITATION Last ad ministered on 06/05/18at 18:18; Admin Dose 30 MG; Start 06/05/18 at 17:30; Stop 06/06/18 at 17:29 Diphenhydramine HCl (Benadryl) 25 mg ONCE PRN PO EYE IRRITATION Last administered on 06/06/18at 08:49; Admin Dose 25 MG; Start 06/05/18 at 17:30; Stop 06/06/18 at 17:29 Ciprofloxacin HCl (Ciloxan 0.3% Oph) 1 drop BID BOTH EYES ; Start 06/06/18 at 14:00 Docusate Sodium (Colace) 200 mg BID PO ; Start 06/06/18 at 13:00 Ferric Sodium Gluconate Complex 125 mg/Sodium Chloride 100 ml @ 100 mls/hr DAILY@1300 IVPB ; Start 06/06/18 at 13:00; Stop 06/08/18 at 13:59; Status UNV Phenyleph/Shark Oil/Min Oil/Petrol (Formulation R Oint) 1 applic BID MI ; Start 06/06/18 at 13:00; Status UNV JON STRINGER Jun 06, 2018 12:57
[2018-06-06] MEDS: AMLODIPINE 2.5 MG TAB PO SCH (13:07)
[2018-06-06] MEDS: DOCUSATE SODIUM 100 MG CAP PO SCH ×2 (13:07→20:13)
[2018-06-06] MEDS ORDERED: CIPROFLOXACIN 0.3% 2.5 ML OPH BOTH EYES SCH (14:00)
[2018-06-06] MEDS: SOD FERRIC GLUC COMPLX 125 MG in SOD CHLORIDE 0.9% 100 ML IVPB SCH (15:33)
[2018-06-06] MEDS: CIPROFLOXACIN 0.3% 5 ML OPH BOTH EYES SCH ×2 (15:33→22:08)
[2018-06-06] MEDS: PE/SHARK OIL/MO/PETROL 30 GM OINT PR SCH ×2 (15:34→20:15)
[2018-06-06] MEDS ORDERED: SOD CHLORIDE 0.9% 250 ML IV* ONE (18:13)
[2018-06-06] MEDS: HYDROCODONE/APAP (5/325) TAB PO PRN (21:10)
[2018-06-07] VITALS (8 sets, daily range): BP systolic 149–164; BP diastolic 71–87; PULSE 59–98; RESP 18
[2018-06-07] MEDS: PANTOPRAZOLE 40 MG INJ IV SCH (05:27)
[2018-06-07] MEDS: PE/SHARK OIL/MO/PETROL 30 GM OINT PR SCH ×2 (09:00→22:00)
[2018-06-07] MEDS: DOCUSATE SODIUM 100 MG CAP PO SCH ×2 (10:16→21:16)
[2018-06-07] MEDS: CIPROFLOXACIN 0.3% 5 ML OPH BOTH EYES SCH ×2 (10:17→21:17)
[2018-06-07] MEDS: AMLODIPINE 2.5 MG TAB PO SCH (10:18)
--- NOTE | 2018-06-07 11:07 | PN ---
Date/Time of Note Date/Time of Note DATE: 06/07/18 TIME: 11:03 Assessment/Plan VTE Prophylaxis Risk score (from Ns)>0 risk: 2 SCD applied (from Ns): No SCD contraindicated: other Pharmacological prophylaxis: other Pharm contraindication: bleeding Lines/Catheters [facility] Saline Lock Urinary Cath still in place: No Assessment/Plan Hospital Course S: Patient received blood transfusion yesterday, although not the last unit. CBC and BMP results are still pending this morning as patient refused labs earlier this morning. KUB and hand x-ray results noted. O: VS - see below PE: Gen: lying in bed, No acute distress Head: Atraumatic Eyes: Normal Conjunctiva ENT: Normal External Ears, Nose and Mouth. Neck: supple Resp: Clear to auscultation bilaterally Cardio: Regular rate and rhythm, no murmurs Abd: Soft, non tender, non distended. Normal bowel sounds Ext: No cyanosis, or edema Neur: no focal deficits A/P: 32-year-old female presenting with severe anemia and vaginal bleeding along with abdominal pain and dizziness. # Anemia: Likely secondary to patient's fibroids and history of heavy periods including for 3 days prior to admission-status post PRBC transfusion yesterday again -Follow-up post transfusion CBC this morning -Once IV reinserted, continue IV iron given signs of recently checked lab results of low serum iron levels -Given history of internal and external hemorrhoids continue Preparation H # History of fibroids: Again patient states she had surgery 4-5 years ago to help remove these but she was told at that time not all of them were removed. In August 2017 while the patient was here [facility] team gave recommendations for either hysterectomy, endometrial ablation, or prolonged hormonal treatment. Apparently at that time she did not want any treatment that would prevent her from becoming . -Monitor for now, patient apparently has an appointment set up in the next few weeks with an outpatient [facility] doctor -Given mild abdominal pain symptoms, will check KUB x1 # Asthma: No present issues -Monitor, continue DuoNeb's as needed # Gastritis: Patient complains of mild abdominal pain -Monitor, Protonix -For constipation, Colace twice daily #Smoking history: Counseled on cessation #Right hand/wrist pain:right hand x-ray 2 view results reviewed, no fractures -Pain control medications as needed #Eye discharge/irritation -Continue low-dose Cipro eyedrops both eyes #High blood pressure: Patient does not have a known history of hypertension, but she was told recently at her PCP doctor's office that she may indeed have new onset hypertension -Monitor, continue low-dose Norvasc Result Diagram: 06/06/18 1355 06/06/18 1355 Results 24hrs Laboratory Tests Test 06/06/18 13:55 06/06/18 15:35 White Blood Count 11.0 H Red Blood Count 3.21 L Hemoglobin 7.7 L Hematocrit 25.3 L Mean Corpuscular Volume 78.8 L Mean Corpuscular Hemoglobin 24.0 L Mean Corpuscular Hemoglobin Concent 30.4 L Red Cell Distribution Width 21.1 H Platelet Count 503 H Mean Platelet Volume 10.7 H Immature Granulocytes % 0.600 H Neutrophils % 73.2 Lymphocytes % 14.6 L Monocytes % 8.1 Eosinophils % 3.0 Basophils % 0.5 Nucleated Red Blood Cells % 0.5 H Immature Granulocytes # 0.070 H Neutrophils # 8.0 H Lymphocytes # 1.6 Monocytes # 0.9 Eosinophils # 0.3 Basophils # 0.1 Nucleated Red Blood Cells # 0.1 H Sodium Level 143 Potassium Level 3.6 Chloride Level 108 Carbon Dioxide Level 25 Anion Gap 10 Blood Urea Nitrogen 9 Creatinine 0.85 Est Glomerular Filtrat Rate mL/min > 60 Glucose Level 98 Calcium Level 8.8 Total Bilirubin 0.3 Direct Bilirubin 0.00 Indirect Bilirubin 0.3 Aspartate Amino Transf (AST/SGOT) 19 Alanine Aminotransferase (ALT/SGPT) 20 Alkaline Phosphatase 42 Total Protein 6.9 Albumin 3.8 Globulin 3.10 Albumin/Globulin Ratio 1.22 Urine Test NEGATIVE Exam/Review of Systems Vital Signs Vitals Vital Signs Date Temp Pulse Resp B/P (MAP) Pulse Ox O2 O2 Flow FiO2 Time Delivery Rate 06/07/18 90 08:05 06/07/18 98.3 18 157/87 98 Room Air 05:48 (110) 06/05/18 21 23:49 Intake and Output 06/06/18 06/06/18 06/07/18 1515:00 23:00 07:00 IntakeIntake Total 1200 ml 1200 ml BalanceBalance 1200 ml 1200 ml Medications Medications Current Medications IV Flush (NS 3 ml) 3 ml PER PROTOCOL IV ; Start 06/05/18 at 06:00 Ondansetron HCl (Zofran Inj) 4 mg Q6H PRN IV NAUSEA AND/OR VOMITING Last administered on 06/05/18 09:31; Admin Dose 4 MG; Start 06/05/18 at 06:00 Acetaminophen (Tylenol Tab) 650 mg Q6H PRN PO PAIN LEVEL 1-3 OR FEVER; Start 06/05/18 at 06:00 Pantoprazole (Protonix Iv) 40 mg DAILY@06 IV Last administered on 06/06/18 08:49; Admin Dose 40 MG; Start 06/05/18 at 10:00 Acetaminophen/ Hydrocodone Bitart ([place] (5/325)) 1 tab Q6H PRN PO MODERATE PAIN LEVEL 4-6 Last administered on 06/06/18 21:10; Admin Dose 1 TAB; Start 06/05/18 at 10:30 Albuterol/ Ipratropium (Duoneb) 3 ml Q4H RESP THERAPY PRN HHN SHORTNESS OF BREATH Last administered on 06/05/18 23:49; Admin Dose 3 ML; Start 06/05/18 at 10:30 Hydralazine HCl (Apresoline) 10 mg Q6H PRN IV ELEVATED BLOOD PRESSURE; Start 06/05/18 at 10:30 Docusate Sodium (Colace) 200 mg BID PO Last administered on 06/07/18 10:16; Admin Dose 200 MG; Start 06/06/18 at 13:00 Ferric Sodium Gluconate Complex 125 mg/Sodium Chloride 100 ml @ 100 mls/hr DAILY@1300 IVPB Last administered on 06/06/18 15:33; Admin Dose 100 MLS/HR; Start 06/06/18 at 14:30; Stop 06/08/18 at 13:59 Phenyleph/Shark Oil/Min Oil/Petrol (Formulation R Oint) 1 applic BID CA Last administered on 06/07/18 09:00; Admin Dose 1 APPLIC; Start 06/06/18 at 14:00 Amlodipine Besylate (Norvasc) 2.5 mg DAILY PO Last administered on 06/07/18 10:18; Admin Dose 2.5 MG; Start 06/06/18 at 13:00 Ciprofloxacin (Ciloxan 0.3% Oph) 1 drop BID BOTH EYES Last administered on 1/5/19at 10:17; Admin Dose 1 DROP; Start 06/06/18 at 14:00 JON STRINGER Jun 07, 2018 11:07
[2018-06-07] MEDS: HYDROCODONE/APAP (5/325) TAB PO PRN ×2 (11:20→22:01)
[2018-06-07] MEDS: SOD FERRIC GLUC COMPLX 125 MG in SOD CHLORIDE 0.9% 100 ML IVPB SCH (14:05)
[2018-06-07] MEDS: SENNA TAB PO SCH ×2 (15:03→21:16)
[2018-06-08 01:38] VITALS: BP 138/74; PULSE 70; RESP 20
[2018-06-08] MEDS: PANTOPRAZOLE 40 MG INJ IV SCH (05:06)
[2018-06-08 07:58] VITALS: BP 139/72; PULSE 68; RESP 20
[2018-06-08] MEDS: SENNA TAB PO SCH (09:05)
[2018-06-08] MEDS: DOCUSATE SODIUM 100 MG CAP PO SCH (09:05)
[2018-06-08] MEDS: HYDROCODONE/APAP (5/325) TAB PO PRN (09:05)
[2018-06-08] MEDS: AMLODIPINE 2.5 MG TAB PO SCH (09:06)
[2018-06-08] MEDS: PE/SHARK OIL/MO/PETROL 30 GM OINT PR SCH (09:22)
[2018-06-08] MEDS: CIPROFLOXACIN 0.3% 5 ML OPH BOTH EYES SCH (09:22)
[2018-06-08] MEDS ORDERED: GUAIFENESIN 20 MG/ML 5ML CUP PO PRN (10:00)
[2018-06-08] MEDS: SOD FERRIC GLUC COMPLX 125 MG in SOD CHLORIDE 0.9% 100 ML IVPB SCH (12:34)
--- NOTE | 2018-06-08 14:00 | PDOCDIS ---
Discharge Instructions CONDITION [id number] Patient Condition: [id number] Stable HOME CARE INSTRUCTIONS: [id number] Diet Instructions: [id number] Regular [id number] Special Diet: [id number] regular ACTIVITY: [id number] Activity Restrictions: [id number] Slowly Increase Activity Rest between Activity Avoid heavy lifting FOLLOW UP/APPOINTMENTS Follow-up Plan Please take your medications as prescribed, please follow-up with your regular doctor so that you can see her [employer] doctor in the clinic in the next 1-2 weeks to further assess your fibroids. JON STRINGER Jun 08, 2018 14:00
[2018-06-08] MEDS ORDERED: SENN-120 PO (14:03)
[2018-06-08] MEDS ORDERED: AMLO2.5T78 PO (14:03)
[2018-06-08] MEDS ORDERED: FER325 PO (14:03)
[2018-06-08] MEDS ORDERED: CIPR2.5D11 BOTH EYES (14:03)
[2018-06-08] MEDS ORDERED: HYDR-3601 PO (14:03)
[2018-06-08] MEDS ORDERED: GUAI-637 PO (14:03)
[2018-06-08] MEDS ORDERED: DOCU-216 PO (14:03)
[2018-06-08] MEDS ORDERED: PRPH30O PR (14:03)
--- NOTE | 2018-06-08 14:10 | DS ---
Date/Time of Note Date/Time of Note DATE: 06/08/18 TIME: 14:06 Discharge Summary Admission/Discharge Info Admit Date/Time Jun 05, 2018 at 03:36 Discharge Date/Time Discharge Diagnosis # Anemia: Likely secondary to patient's fibroids and history of heavy periods i ncluding for 3 days prior to admission-status post PRBC transfusion # internal and external hemorrhoids - continue Preparation H # History of fibroids: Again patient states she had surgery 4-5 years ago to help remove these but she was told at that time not all of them were removed. In August 2017 while the patient was here SECURITY DELIVERY SPECIALIST team gave recommendations for either hysterectomy, endometrial ablation, or prolonged hormonal treatment. Apparently at that time she did not want any treatment that would prevent her from becoming . -Monitor for now, patient apparently has an appointment set up in the next few weeks with an outpatient SECURITY DELIVERY SPECIALIST doctor # Asthma: No present issues -on handheld inhaler # Gastritis: Resolved now #Smoking history: Counseled on cessation #Right hand/wrist pain:right hand x-ray 2 view results reviewed, no fractures #Eye discharge/irritation -improving on low-dose Cipro eyedrops both eyes #High blood pressure: Started on low-dose Norvasc Patient Condition: Stable Hx of Present Illness 32-year-old female past medical history of fibroids with surgery 4 years ago for this, anemia with multiple admissions for this, question of hypertension, asthma, who presents after being sent in by her primary care doctor. Patient had been complaining of abdominal pain for the last 3 days. She also had some dizziness and lightheadedness and was complaining of heavy periods. No fevers or chills, no diarrhea constipation, no nausea vomiting. When she went to the primary care doctor's office she was found with a low hemoglobin in the 5 range and was instructed to come here to the ER. When she came to the ER today she was found hemoglobin of 5.3 and has been ordered for blood transfusion. Patient states her primary care doctor recently referred her to an SECURITY DELIVERY SPECIALIST doctor as an outpatient and that appointment is pending in the next few weeks, per patient. Hospital Course The patient was admitted. She was found microcytic anemia. She was placed on both IV iron and received PRBC transfusion. She complained of some right wrist pain and an x-ray was swelling but no fractures. This improved with as needed pain control medications. She also complained of hemorrhoids and has a prior history of internal and external hemorrhoids. Mild bleeding was noted but this subsided during her hospital stay, and she received Preparation H for that. She was encouraged to follow-up with her primary doctor as an outpatient to get referred to a surgeon so that considerations for hemorrhoidectomy could be performed in the future. Regarding her current issues for this admission, again her anemia improved after blood transfusion and iron. She was able to ambulate. Tolerated p.o. diet. She had some eye irritation and some slight discharge that improved with ophthalmic drops of Cipro. She states she has an outpatient follow-up appointment with her primary care doctor who is apparently has already referred her to an SECURITY DELIVERY SPECIALIST doctor to further evaluate her fibroids. This is the likely source of her heavy menses and anemia. She will be discharged home today in improved condition. See below for full list of discharge medications. Home Meds Active Scripts Ferrous Sulfate* (Ferrous Sulfate*) 325 Mg Tabec, 325 MG PO BID, #60 TAB 3 Refills Prov:JON STRINGER S. 06/08/18 Phenyleph/Shark Oil/Mo/Petrol* (FORMULATION R OINT*) 1 Applic Oint, 1 APPLIC CA BID, #1 BOTTLE 3 Refills Prov:JON STRINGER S. 06/08/18 Sennosides* (Senna Lax*) 8.6 Mg Tablet, 1 TAB PO BID, #60 TAB 2 Refills Prov:JON STRINGER S. 06/08/18 Docusate Sodium (Dok) 100 Mg Capsule, 200 MG PO BID, #60 CAP 2 Refills Prov:JON STRINGER S. 06/08/18 Ciprofloxacin Hcl (Ciprofloxacin Hcl) 2.5 Ml Drops, 1 DROP BOTH EYES BID, #1 BOTTLE Prov:JON STRINGER S. 06/08/18 Guaifenesin (Guaifenesin) 100 Mg/5 Ml Liquid, 200 MG PO Q4H PRN for COUGH, #1 BOTTLE 1 Refill Prov:JON STRINGER S. 06/08/18 Hydrocodone Bit-Acetaminophen (Hydrocodone Bit-APAP) 5-325MG Tablet, 1 TAB PO Q6H PRN for MODERATE PAIN LEVEL 4-6, #15 TAB Prov:JON STRINGER S. 06/08/18 Amlodipine Besylate* (Amlodipine Besylate*) 2.5 Mg Tablet, 2.5 MG PO DAILY, #30 TAB 2 Refills Prov:JON STRINGER S. 06/08/18 Discontinued Scripts Sucralfate* (Carafate*) 1 Gm Tab, 1 GM PO QID for 7 Days, TAB Prov:JOSSELIN DUQUE Kevin 03/20/18 Famotidine* (Pepcid*) 20 Mg Tablet, 20 MG PO BID for 4 Days, TAB Prov:JOSSELIN DUQUE Kevin 03/20/18 Docusate Sodium* (Colace*) 100 Mg Capsule, 100 MG PO TID, #30 CAP Prov:SELIN ARGUELLO Kevin 03/20/18 Ferrous Sulfate* (Ferrous Sulfate*) 325 Mg Tabec, 325 MG PO TID for 30 Days, TAB Prov:SELIN ARGUELLO Kevin 03/20/18 Docusate Sodium* (Colace*) 100 Mg Capsule, 100 MG PO BID, #30 CAP Prov:PILAR SORIANO DO 02/17/18 Hydrocortisone Butyrate (Hydrocortisone Butyrate) 1% - 45 Gm Oint..gm., 1 APPLIC TOP BID, #1 TUB Prov:PILAR SORIANO DO 02/17/18 Diphenhydramine Hcl (Benadryl) 25 Mg Cap, 25 MG PO Q6H, #30 CAP Prov:PILAR SORIANO DO 02/17/18 Omeprazole* (Omeprazole*) 40 Mg Capsule.dr, 40 MG PO DAILY, #14 CAP Prov:JOSEPHINE SILVER MD 01/04/18 Famotidine* (Pepcid*) 20 Mg Tablet, 20 MG PO BID for 14 Days, TAB Prov:JOSEPHINE SILVER MD 01/04/18 Mag Hydrox/Al Hydrox/Simeth (Maalox Advanced Suspension) 355 Ml Oral.susp, 2 TSP PO TID PRN for PAIN, #24 OZ Prov:JOSEPHINE SILVER MD 01/04/18 Ibuprofen* (Motrin*) 600 Mg Tab, 600 MG PO Q6H PRN for PAIN AND OR ELEVATED TEMP, #30 TAB Prov:PILAR BARRIOS MD 11/22/17 Ferrous Sulfate* (Ferrous Sulfate*) 325 Mg Tabec, 325 MG PO BID for 30 Days, TAB Prov:JESSICA ADEN MD 11/03/17 Ibuprofen* (Motrin*) 600 Mg Tab, 600 MG PO Q6H PRN for PAIN AND OR ELEVATED TEMP, #30 TAB Prov:DANIAL JEROME NP 10/25/17 Follow-up Plan Please take your medications as prescribed, please follow-up with your regular doctor so that you can see her SECURITY DELIVERY SPECIALIST doctor in the clinic in the next 1-2 weeks to further assess your fibroids. Primary Care Provider Care Physician No Primary Time spent on discharge: > 30 minutes Pending Labs Laboratory Tests Test 06/08/18 10:26 White Blood Count 8.9 10^3/ul (4.8-10.8) Red Blood Count 3.71 10^6/ul (4.20-5.40) Hemoglobin 8.8 g/dl (12.0-16.0) Hematocrit 29.5 % (37.0-47.0) Mean Corpuscular Volume 79.5 fl (82.0-101.0) Mean Corpuscular Hemoglobin 23.7 pg (29.0-33.0) Mean Corpuscular Hemoglobin Concent 29.8 g/dl (32.0-37.0) Red Cell Distribution Width 22.8 % (11.5-14.5) Platelet Count 527 10^3/UL (140-415) Mean Platelet Volume 9.6 fl (7.4-10.4) Immature Granulocytes % 1.100 % (0.001-0.429) Neutrophils % 66.9 % (39.0-77.0) Lymphocytes % 17.5 % (15.0-51.0) Monocytes % 8.3 % (0.0-11.0) Eosinophils % 5.5 % (0.0-7.0) Basophils % 0.7 % (0.0-2.0) Nucleated Red Blood Cells % 0.8 /100WBC (0.0-0.0) Immature Granulocytes # 0.100 10^3/ul (0.0-0.031) Neutrophils # 6.0 10^3/ul (1.6-7.5) Lymphocytes # 1.6 10^3/ul (0.8-2.9) Monocytes # 0.7 10^3/ul (0.3-0.9) Eosinophils # 0.5 10^3/ul (0.0-0.5) Basophils # 0.1 10^3/ul (0.0-0.1) Nucleated Red Blood Cells # 0.1 10^3/ul (0.0-0.0) JON STRINGER Jun 08, 2018 14:10
== END 2018-06-08 14:58 | disposition home or self-care (01) | DRG 812 ==
LOC: E/R 01:25 → ICU 03:36 → TEL 14:57 → MS1 06-07 18:24
PROVIDERS: ADMIT Internal Medicine; ATTEND Hospitalist
PROC: 30233N1 Transfusion of Nonautologous Red Blood Cells into Peripheral Vein, Percutaneous Approach (ICD-10-PCS; principal; 2018-06-05)
DX: D50.0 Iron deficiency anemia secondary to blood loss (chronic) (principal); J45.909 Unspecified asthma, uncomplicated; I10 Essential (primary) hypertension; K29.70 Gastritis, unspecified, without bleeding; H57.9 Unspecified disorder of eye and adnexa; K64.8 Other hemorrhoids; F17.210 Nicotine dependence, cigarettes, uncomplicated; K64.4 Residual hemorrhoidal skin tags; M25.531 Pain in right wrist; M79.641 Pain in right hand; Z88.0 Allergy status to penicillin; Z90.49 Acquired absence of other specified parts of digestive tract
CPT/HCPCS: 36430; 74018; 80048; 80053; 81025; 83615; 84703; 85025; 85045; 86850; 86900; 86901; 86920; 87081; 87400; 94640; 94664; 96374; C9113; J1885; J2405; J2916; J7040; P9011; P9016

== ENCOUNTER 2018-08-06 16:48 | Emergency (ER) | payer OTHER ==
[~2018-08-06] VITALS: Ht 167.6 cm; Wt 111.8 kg
[~2018-08-06 16:48] MED LIST changes: +AMLO2.5T78 PO; +CIPR2.5D11 BOTH EYES; -DIPH25CA6 PO; -DOCU-144 PO; +DOCU-216 PO; -FAMO-96 PO; +GUAI-637 PO; +HYDR-3601 PO; -HYDR45OI9 TOP; -IBUP-1542 PO; -MAG355OR14 PO; -OMEP40CA6 PO; +PRPH30O PR; +SENN-120 PO; -SUCR1TAB56 PO
[2018-08-06 17:06] VITALS: Ht 167.6 cm; Wt 111.8 kg
[2018-08-06] MEDS ORDERED: LIDOCAINE/MYLANTA 40 ML BTL PO STA (18:46)
[2018-08-06] MEDS ORDERED: METOCLOPRAMIDE 10 MG INJ IV STA (18:46)
[2018-08-06] MEDS ORDERED: FAMOTIDINE 20 MG TAB PO STA (18:46)
[2018-08-06] MEDS ORDERED: SOD CHLORIDE 0.9% 500 ML IV STA (18:46)
--- NOTE | 2018-08-06 19:12 | ERD ---
ER Documentation Chief Complaint Chief Complaint ref: Hgb 6.4; hx fibroids. 'burning' midAP, diarrhea x1wk. HPI 82-year-old female presenting with complaints of fatigue and headaches. Last week she was told by her primary care doctor that her hemoglobin was low and to go to the emergency room for transfusion, but the patient never came. She was admitted in June 2018 for heavy vaginal bleeding causing anemia. After that she has seen a animal control specialist and has been placed on control pills with improvement of her vaginal bleeding. She has not bled in the last 2 weeks. She does endorse palpitations and shortness of breath with exertion. She also complains of epigastric burning pain that has been going on for quite some time as well. She has been taking ibuprofen for her headaches lately. She denies any melena or hematochezia. No vaginal bleeding. No chest pain at this time. ROS All systems reviewed and are negative except as per history of present illness. Medications Home Meds Active Scripts Famotidine* (Pepcid*) 20 Mg Tablet, 20 MG PO BID for 30 Days, TAB Prov:SEBASTIEN MURPHY MD 08/06/18 Reported Medications Ferrous Sulfate* (Ferrous Sulfate*) 325 Mg Tabec, 325 MG PO TID, TAB 08/06/18 Discontinued Scripts Ferrous Sulfate* (Ferrous Sulfate*) 325 Mg Tabec, 325 MG PO BID, #60 TAB 3 Refills Prov:JON STRINGER S. 06/08/18 Phenyleph/Shark Oil/Mo/Petrol* (FORMULATION R OINT*) 1 Applic Oint, 1 APPLIC PA BID, #1 BOTTLE 3 Refills Prov:JON STRINGER S. 06/08/18 Sennosides* (Senna Lax*) 8.6 Mg Tablet, 1 TAB PO BID, #60 TAB 2 Refills Prov:JON STRINGER S. 06/08/18 Docusate Sodium (Dok) 100 Mg Capsule, 200 MG PO BID, #60 CAP 2 Refills Prov:JON STRINGER S. 06/08/18 Ciprofloxacin Hcl (Ciprofloxacin Hcl) 2.5 Ml Drops, 1 DROP BOTH EYES BID, #1 BOTTLE Prov:JON STRINGER S. 06/08/18 Guaifenesin (Guaifenesin) 100 Mg/5 Ml Liquid, 200 MG PO Q4H PRN for COUGH, #1 BOTTLE 1 Refill Prov:JON STRINGER S. 06/08/18 Hydrocodone Bit-Acetaminophen (Hydrocodone Bit-APAP) 5-325MG Tablet, 1 TAB PO Q6H PRN for MODERATE PAIN LEVEL 4-6, #15 TAB Prov:JON STRINGER S. 06/08/18 Amlodipine Besylate* (Amlodipine Besylate*) 2.5 Mg Tablet, 2.5 MG PO DAILY, #30 TAB 2 Refills Prov:JON STRINGER S. 06/08/18 Allergies Allergies: Coded Allergies: Penicillins (Unverified Allergy, Unknown, 08/06/18) PMhx/Soc History of Surgery: Yes (Cholecystectomy (July 2017), Fibroid surgery (2013)) Anesthesia Reaction: No Hx Neurological Disorder: Yes (Migraines) Hx Respiratory Disorders: No Hx Cardiac Disorders: No Hx Psychiatric Problems: No Hx Miscellaneous Medical Probl: Yes (MORBID OBESITY, CONSTIPATION) Hx Alcohol Use: Yes ("socially") Hx Substance Use: Yes Hx Tobacco Use: No FmHx Family History: No diabetes Physical Exam Vitals Vital Signs Date Temp Pulse Resp B/P (MAP) Pulse Ox O2 O2 Flow FiO2 Time Delivery Rate 08/06/18 73 18 135/75 100 Room Air 19:24 (95) 08/06/18 98.8 98 22 176/77 98 17:06 (110) Physical Exam Const: No acute distress Head: Atraumatic Eyes: Pale conjunctiva ENT: Normal External Ears, Nose and Mouth. Neck: Full range of motion. No meningismus. Resp: Clear to auscultation bilaterally Cardio: Regular rate and rhythm, no murmurs Abd: Soft, non tender, non distended. Normal bowel sounds Skin: Pallor. No petechiae or rashes Back: No midline or flank tenderness Ext: No cyanosis, or edema Neur: Awake and alert Psych: Normal Mood and Affect Result Diagram: 08/06/18191908/06/181919 Results 24 hrs Laboratory Tests Test 08/06/18 18:56 08/06/18 18:58 08/06/18 19:20 Bedside Urine pH (LAB) 5.5 Bedside Urine Protein (LAB) Trace Bedside Urine Glucose (UA) Negative Bedside Urine Ketones (LAB) Trace Bedside Urine Blood Negative Bedside Urine Nitrite (LAB) Negative Bedside Urine Leukocyte Esterase (L Negative POC Beta HCG, Qualitative NEGATIVE White Blood Count 10.0 10^3/ul Red Blood Count 2.95 10^6/ul Hemoglobin 6.3 g/dl Hematocrit 22.6 % Mean Corpuscular Volume 76.6 fl Mean Corpuscular Hemoglobin 21.4 pg Mean Corpuscular Hemoglobin Concent 27.9 g/dl Red Cell Distribution Width 22.7 % Platelet Count 551 10^3/UL Mean Platelet Volume 9.7 fl Immature Granulocytes % 0.600 % Segmented Neutrophils % (Manual) 64 % Lymphocytes % (Manual) 24 % Monocytes % (Manual) 12 % Nucleated Red Blood Cells % 0.3 /100WBC Immature Granulocytes # 0.060 10^3/ul Lymphocytes (Manual) 2.4 10^3/ul Monocytes # (Manual) 1.2 10^3/ul Pathologist Review (Hematology) YES Giant Platelets 3 % Platelet Morphology Comment @See below Polychromasia 2+ Hypochromasia 2+ Poikilocytosis 1+ Anisocytosis 2+ Microcytosis 1+ Macrocytosis 1+ Schistocytes 1+ Sodium Level 142 mmol/L Potassium Level 4.3 mmol/L Chloride Level 107 mmol/L Carbon Dioxide Level 23 mmol/L Anion Gap 12 Blood Urea Nitrogen 12 mg/dl Creatinine 0.74 mg/dl Est Glomerular Filtrat Rate mL/min > 60 mL/min Glucose Level 115 mg/dl Calcium Level 9.7 mg/dl Total Bilirubin 0.0 mg/dl Direct Bilirubin 0.00 mg/dl Indirect Bilirubin 0.0 mg/dl Aspartate Amino Transf (AST/SGOT) 39 IU/L Alanine Aminotransferase (ALT/SGPT) 14 IU/L Alkaline Phosphatase 42 IU/L Total Protein 7.6 g/dl Albumin 4.5 g/dl Globulin 3.10 g/dl Albumin/Globulin Ratio 1.45 Lipase 145 U/L Current Medications Medications Dose Sig/Braden Start Time Status Last (Trade) Ordered Route PRN Stop Time Admin Dose Reason Admin Sodium 500 ml @ Q1H STAT 08/06/18 DC 08/06/18 Chloride 500 mls/hr IV 18:46 08/06/18 20:07 19:45 10 mg ONCE STAT 08/06/18 DC 08/06/18 Metoclopramid IV 18:46 08/06/18 20:07 e HCl 18:47 (Reglan) Famotidine 20 mg ONCE STAT 08/06/18 DC 08/06/18 (Pepcid) PO 18:46 08/06/18 20:07 18:47 40 ml ONCE STAT 08/06/18 DC 08/06/18 Miscellaneous PO 18:46 08/06/18 20:07 Medication 18:47 (Gi Cocktail (2)) Sodium 0 ml @ 0 Q0M ONCE 08/06/18 DC 08/06/18 Chloride mls/hr IV 19:57 08/06/18 19:15 19:58 Procedures/MDM EMERGENT LABS AND DIAGNOSTIC STUDIES: Lab Results above were reviewed and interpreted by me. CBC: Severe anemia, thrombocytosis CMP: No evidence of electrolyte abnormality, renal failure, hypoglycemia, liver failure, or biliary obstruction Lipase: no evidence of pancreatitis negative UA: no evidence of infection Initial Nursing notes reviewed. Previous Medical Records requested via the Electronic Health Record. EMERGENCY DEPARTMENT COURSE / MEDICAL DECISION MAKING: Patient is presenting with symptomatic anemia. Hemoglobin was 6.3. She is hemodynamically stable. She has no active bleeding at this time. 2 units of PRBCs were ordered. She was given a GI cocktail and Pepcid for her epigastric abdominal pain as I suspect this is secondary to gastritis. Patient received 1 unit of blood with improvement of her symptoms. She wanted to leave and did not get the second unit of blood. As she is not bleeding, I feel this is appropriate. She is already taking iron supplements at home. I gave her a prescription for Pepcid for her gastritis. Return precautions discussed. Follow-up with PCP recommended within the next few days for repeat CBC. Patient's blood pressure was elevated (>120/80) but appears stable without evidence of hypertensive emergency or urgency. The patient was counseled about the risks of hypertension and urged to pursue outpatient monitoring and therapy within a week with their primary care physician. Departure Diagnosis: Primary Impression: Symptomatic anemia Additional Impression: Gastritis Gastritis type: unspecified gastritis Chronicity: chronic Gastritis bleeding: without bleeding Qualified Codes: K29.50 - Unspecified chronic gastritis without bleeding Condition: Stable SEBASTIEN MURPHY MD Aug 06, 2018 19:12
[2018-08-06] MEDS ORDERED: FER325 PO (19:52)
[2018-08-06] MEDS ORDERED: SOD CHLORIDE 0.9% 0 ML IV ONE (19:57)
[2018-08-06] MEDS ORDERED: FAMO-96 PO (20:09)
[2018-08-06 22:45] VITALS: BP 152/86; PULSE 70; RESP 16
== END 2018-08-06 23:15 | disposition home or self-care (01) ==
LOC: E/R 16:48
DX: D59.1 Other autoimmune hemolytic anemias (principal); K29.50 Unspecified chronic gastritis without bleeding; E66.01 Morbid (severe) obesity due to excess calories; Z68.39 Body mass index [BMI] 39.0-39.9, adult
CPT/HCPCS: 36430; 80053; 81003; 81025; 83690; 85025; 86850; 86900; 86901; 86920; 96374; J2765; J7040; P9016; Z7502; Z7610

== ENCOUNTER 2018-09-27 04:35 | Emergency (ER) | payer OTHER ==
[~2018-09-27] VITALS: Ht 167.6 cm; Wt 117.8 kg
[~2018-09-27 04:35] MED LIST changes: -AMLO2.5T78 PO; -CIPR2.5D11 BOTH EYES; -DOCU-216 PO; +FAMO-96 PO; -GUAI-637 PO; -HYDR-3601 PO; -PRPH30O PR; -SENN-120 PO
[2018-09-27 04:41] VITALS: BP 153/80; PULSE 78; RESP 16; Ht 167.6 cm; Wt 117.8 kg
--- NOTE | 2018-09-27 07:56 | ERD ---
ER Documentation Chief Complaint Chief Complaint AP x 2 weeks c/o diarrhea HPI History of Present Illness: 33-year-old female with past medical history to include right ovarian cyst that has been present for years as well as uterine fibroids. Patient coming in today with complaint of right lower quadrant abdominal pain is been present for 2 weeks. Associated symptoms includes nausea, diarrhea, headache. Patient reports history of anemia in which she was supposed to go and get a transfusion on 08/26/2018 due to a hemoglobin of that time reported to be 6.1. Patient reports she did not had this transfusion done due to personal reasons. Last menstrual period was 09/15/2018 that lasted 9 to 10 days. Patient reports pain started during her menstrual cycle then went away, and started a little less than a week ago with more pain. At home pharmacological/nonpharmacological treatment for symptoms: denies Denies social concerns; Denies recent foreign travel ROS All systems reviewed and are negative except as per history of present illness. Medications Home Meds Active Scripts Ascorbic Acid* (Vitamin C*) 500 Mg Capsule.sa, 500 MG PO DAILY for to help absorb ferrous sulfate for 30 Days, CAP Prov:PUNEET GARCÍA NP 09/27/18 Docusate Sodium* (Colace*) 100 Mg Capsule, 100 MG PO QHS for constipation prevention, #30 CAP Prov:PUNEET GARCÍA NP 09/27/18 Ferrous Sulfate* (Ferrous Sulfate*) 325 Mg Tabec, 325 MG PO TID for anemia for 30 Days, TAB Prov:PUNEET GARCÍA NP 09/27/18 Famotidine* (Pepcid*) 20 Mg Tablet, 20 MG PO BID for 30 Days, TAB Prov:SEBASTIEN MURPHY MD 08/06/18 Reported Medications Ferrous Sulfate* (Ferrous Sulfate*) 325 Mg Tabec, 325 MG PO TID, TAB 08/06/18 Allergies Allergies: Coded Allergies: Penicillins (Unverified Allergy, Unknown, 09/27/18) PMhx/Soc History of Surgery: Yes (Cholecystectomy (July 2017), Fibroid surgery (2013)) Anesthesia Reaction: No Hx Neurological Disorder: Yes (Migraines) Hx Respiratory Disorders: No Hx Cardiac Disorders: No Hx Psychiatric Problems: No Hx Miscellaneous Medical Probl: Yes (MORBID OBESITY, CONSTIPATION, ANEMIA) Hx Alcohol Use: Yes ("socially") Hx Substance Use: Yes (marijuana) Hx Tobacco Use: No Smoking Status: Current every day smoker FmHx Family History: No diabetes, No coronary disease Physical Exam Vitals Vital Signs Date Temp Pulse Resp B/P (MAP) Pulse Ox O2 O2 Flow FiO2 Time Delivery Rate 09/27/18 98.1 78 16 153/80 100 04:41 (104) Physical Exam Const: No acute distress Head: Atraumatic Eyes: Normal Conjunctiva ENT: Normal External Ears, Nose and Mouth. Neck: Full range of motion. No meningismus. Resp: Clear to auscultation bilaterally Cardio: Regular rate and rhythm, no murmurs Abd: Soft, tender to palpation to right lower quadrant, non distended. Normal bowel sounds. Positive grimacing on exam. No rigidity, no masses, no peritoneal, no guarding. Skin: No petechiae or rashes, no pallor is noted. Back: No midline or flank tenderness Ext: No cyanosis, or edema Neur: Awake and alert Psych: Normal Mood and Affect Result Diagram: 09/27/18 0710 Results 24 hrs Laboratory Tests Test 09/27/18 06:54 09/27/18 07:10 POC Beta HCG, Qualitative NEGATIVE White Blood Count 8.3 10^3/ul Red Blood Count 3.22 10^6/ul Hemoglobin 7.5 g/dl Hematocrit 26.7 % Mean Corpuscular Volume 82.9 fl Mean Corpuscular Hemoglobin 23.3 pg Mean Corpuscular Hemoglobin Concent 28.1 g/dl Red Cell Distribution Width 23.7 % Platelet Count 730 10^3/UL Mean Platelet Volume 10.0 fl Immature Granulocytes % 0.200 % Neutrophils % 60.4 % Lymphocytes % 26.6 % Monocytes % 8.4 % Eosinophils % 3.6 % Basophils % 0.8 % Nucleated Red Blood Cells % 0.4 /100WBC Immature Granulocytes # 0.020 10^3/ul Neutrophils # 5.0 10^3/ul Lymphocytes # 2.2 10^3/ul Monocytes # 0.7 10^3/ul Eosinophils # 0.3 10^3/ul Basophils # 0.1 10^3/ul Nucleated Red Blood Cells # 0.0 10^3/ul Urine Color YELLOW Urine Clarity CLEAR Urine pH 6.0 Urine Specific [place] 1.027 Urine Ketones TRACE mg/dL Urine Nitrite NEGATIVE mg/dL Urine Bilirubin NEGATIVE mg/dL Urine Urobilinogen NEGATIVE mg/dL Urine Leukocyte Esterase NEGATIVE Shay/ul Urine Hemoglobin NEGATIVE mg/dL Urine Glucose NEGATIVE mg/dL Urine Total Protein NEGATIVE mg/dl Procedures/MDM ED course includes a thorough examination and history. Medications: Imaging: non OB pelvic and transvaginal ultrasound Labs: CBC, urinalysis, Urine Low suspicion for life-threatening medical emergency. Otherwise healthy patient presenting with constellation of symptoms likely representing anemia secondary to uterine fibroids as characterized by history, physical exam findings imaging findings, lab findings. CBC:no e/o of systemic infection, positive anemia with hemoglobin hematocrit being 7.5/26.7. Urinalysis negative for infection or blood. Urine negative. No respiratory distress, otherwise relatively well appearing and nontoxic. Patient educated on diagnoses, prescriptions, follow-up care, return precauti ons. Strict return precautions given for worsening condition; questions answered discharge. Consultation with ED physician Dr. Thomas; agrees with plan of care to discharge home with starting ferrous sulfate. Patient not actively bleeding. Patient educated on disposition plan. Patient reports that she has lots of ferrous sulfate at home but she has not been taking this medication. Patient voices that she will restart medication. Disposition for discharge with followup in 2 days with PCP/clinic. Departure Diagnosis: Primary Impression: Symptomatic anemia Additional Impression: History of uterine fibroid Condition: Stable PUNEET GARCÍA NP Sep 27, 2018 07:56
[2018-09-27] MEDS ORDERED: DOCU-144 PO (09:23)
[2018-09-27] MEDS ORDERED: FER325 PO (09:23)
[2018-09-27] MEDS ORDERED: ASCO500C7 PO (09:23)
== END 2018-09-27 10:00 | disposition left against medical advice (07) ==
LOC: FTE 04:35
DX: D64.9 Anemia, unspecified (principal); E66.01 Morbid (severe) obesity due to excess calories; F17.210 Nicotine dependence, cigarettes, uncomplicated; Z68.41 Body mass index [BMI] 40.0-44.9, adult; Z87.42 Personal history of other diseases of the female genital tract
CPT/HCPCS: 76856; 81003; 81025; 85025; Z7502

== ENCOUNTER 2018-11-17 07:28 | Inpatient (IN) | payer OTHER ==
[~2018-11-17] VITALS: Ht 167.6 cm; Wt 137.5 kg
[~2018-11-17 07:28] MED LIST changes: +ASCO500C7 PO; +DOCU-144 PO
[2018-11-17] MEDS ORDERED: LIDOCAINE/MYLANTA 40 ML BTL PO STA (07:52)
[2018-11-17] MEDS ORDERED: BELLADONNA/PHENOBARBITAL TAB PO STA (07:52)
[2018-11-17] MEDS ORDERED: SOD CHLORIDE 0.9% 0 ML IV ONE (09:04)
[2018-11-17] MEDS ORDERED: ONDANSETRON 4 MG INJ IV STA (09:46)
[2018-11-17] MEDS ORDERED: FAMOTIDINE 20 MG INJ IV ONE (10:00)
[2018-11-17] MEDS ORDERED: PANTOPRAZOLE 40 MG INJ IV ONE (10:00)
[2018-11-17] MEDS ORDERED: NACL 0.9% 3 ML SYG IV SCH (10:30)
[2018-11-17] MEDS ORDERED: ACETAMINOPHEN 650 MG SUPP PR PRN (10:30)
[2018-11-17] MEDS ORDERED: ACETAMINOPHEN 325 MG TAB PO PRN (10:30)
[2018-11-17] MEDS ORDERED: morphine 2 MG INJ IV PRN (10:30)
[2018-11-17] MEDS ORDERED: DOCUSATE SODIUM 100 MG CAP PO PRN (10:30)
[2018-11-17] MEDS ORDERED: BISACODYL 10 MG SUPP PR PRN (10:30)
[2018-11-17] MEDS ORDERED: ONDANSETRON 4 MG INJ IV PRN (10:30)
--- NOTE | 2018-11-17 10:40 | ERD ---
ER Documentation Chief Complaint Chief Complaint EPIGASTRIC PAIN "feels like food stuck" w/back pain HPI This is a 33-year-old female with a past medical history of gastritis, cholecystitis status post cholecystectomy, uterine fibroids, recurrent anemia requiring past transfusions who is presenting with 1 to 2 days of waxing and wa izabella moderate burning epigastric pain with nausea and a few episodes of nonbilious nonbloody vomiting. It is exacerbated by eating, but he is also had it in between eating. The patient also endorses constipation over the last 3 to 4 days. She believes that she may have had a bowel obstruction in the past that was treated conservatively, and she is worried about this. The patient denies feeling sick recently. The patient denies fever or chills. The patient has had no headache or vision changes. The patient does not endorse neck or back pain. The patient denies lightheadedness or dizziness. The patient has had no chest pain or trouble breathing. The patient has had no focal deficits. The patient has had no weakness or numbness or tingling to the face or extremities. ROS All systems reviewed and are negative except as per history of present illness. Medications Home Meds Reported Medications Ferrous Sulfate* (Ferrous Sulfate*) 325 Mg Tabec, 325 MG PO TID, TAB 08/06/18 Discontinued Scripts Ascorbic Acid* (Vitamin C*) 500 Mg Capsule.sa, 500 MG PO DAILY for to help absorb ferrous sulfate for 30 Days, CAP Prov:PUNEET GARCÍA V DIABETES SPECIALIST 09/27/18 Docusate Sodium* (Colace*) 100 Mg Capsule, 100 MG PO QHS for constipation prevention, #30 CAP Prov:PUNEET GARCÍA NP 09/27/18 Ferrous Sulfate* (Ferrous Sulfate*) 325 Mg Tabec, 325 MG PO TID for anemia for 30 Days, TAB Prov:PUNEET GARCÍA V DIABETES SPECIALIST 09/27/18 Famotidine* (Pepcid*) 20 Mg Tablet, 20 MG PO BID for 30 Days, TAB Prov:SEBASTIEN MURPHY MD 08/06/18 Allergies Allergies: Coded Allergies: Penicillins (Unverified Allergy, Unknown, 11/17/18) PMhx/Soc History of Surgery: Yes (Cholecystectomy (July 2017), Fibroid surgery (2013)) Anesthesia Reaction: No Hx Neurological Disorder: Yes (Migraines) Hx Respiratory Disorders: No Hx Cardiac Disorders: No Hx Psychiatric Problems: No Hx Miscellaneous Medical Probl: Yes (MORBID OBESITY, CONSTIPATION, ANEMIA, SBO) Hx Alcohol Use: Yes ("socially") Hx Substance Use: Yes (marijuana) Hx Tobacco Use: No Smoking Status: Never smoker FmHx Family History: No diabetes Physical Exam Vitals Vital Signs Date Temp Pulse Resp B/P (MAP) Pulse Ox O2 O2 Flow FiO2 Time Delivery Rate 11/17/18 72 22 150/85 100 Nasal 09:57 (106) Cannula 11/17/18 98.4 91 18 160/71 98 07:32 (100) Physical Exam Const: No acute distress Head: Atraumatic Eyes: Normal Conjunctiva ENT: Normal External Ears, Nose and Mouth. Neck: Full range of motion. No meningismus. Resp: Clear to auscultation bilaterally Cardio: Regular rate and rhythm, no murmurs Abd: Obesity. Mild epigastric tenderness. No guarding or rebound. Non distended. Normal bowel sounds Rectal: Food Analyst present at all times. Nonbleeding non-thrombosed external fibroids evident. No andrea bleeding. Fecal occult blood test sent off. Skin: No petechiae or rashes Back: No midline or flank tenderness Ext: No cyanosis, or edema Neur: Awake and alert Psych: Normal Mood and Affect Result Diagram: 11/17/18 0802 Results 24 hrs Laboratory Tests Test 11/17/18 08:02 11/17/18 08:06 11/17/18 09:38 White Blood Count 9.3 10^3/ul Red Blood Count 2.79 10^6/ul Hemoglobin 6.2 g/dl Hematocrit 21.8 % Mean Corpuscular Volume 78.1 fl Mean Corpuscular Hemoglobin 22.2 pg Mean Corpuscular 28.4 g/dl Hemoglobin Concent Red Cell Distribution Width 20.2 % Platelet Count 584 10^3/UL Mean Platelet Volume 8.9 fl Immature Granulocytes % 1.300 % Neutrophils % 60.6 % Segmented Neutrophils % (Manual) 75 % Band Neutrophils % (Manual) 2 % Lymphocytes % 24.9 % Lymphocytes % (Manual) 15 % Monocytes % 8.9 % Monocytes % (Manual) 3 % Eosinophils % 3.5 % Eosinophils % (Manual) 5 % Basophils % 0.8 % Nucleated Red Blood Cells % 2 % Immature Granulocytes # 0.120 10^3/ul Neutrophils # 5.6 10^3/ul Neutrophils # (Manual) 7.0 10^3/ul Band Neutrophils # 0.1 10^3/ul Lymphocytes (Manual) 1.3 10^3/ul Lymphocytes # 2.3 10^3/ul Monocytes # 0.8 10^3/ul Monocytes # (Manual) 0.2 10^3/ul Eosinophils # 0.3 10^3/ul Basophils # 0.1 10^3/ul Nucleated Red Blood Cells # 0.1 10^3/ul Platelet Estimate INCREASED Giant Platelets 1 % Polychromasia 1+ Hypochromasia 3+ Poikilocytosis 1+ Anisocytosis 1+ Microcytosis 1+ Ovalocytes 1+ Urine Color YELLOW Urine Clarity SLIGHTLY CLOUDY Urine pH 5.0 Urine Specific [place] 1.017 Urine Ketones NEGATIVE mg/dL Urine Nitrite NEGATIVE mg/dL Urine Bilirubin NEGATIVE mg/dL Urine Urobilinogen NEGATIVE mg/dL Urine Leukocyte Esterase NEGATIVE Shay/ul Urine Microscopic RBC 2 /HPF Urine Microscopic WBC 1 /HPF Urine Squamous Epithelial Cells FEW /HPF Urine Bacteria FEW /HPF Urine Hemoglobin 2+ mg/dL Urine Glucose NEGATIVE mg/dL Urine Total Protein NEGATIVE mg/dl POC Beta HCG, Qualitative NEGATIVE Sodium Level 143 mmol/L Potassium Level 3.8 mmol/L Chloride Level 110 mmol/L Carbon Dioxide Level 24 mmol/L Anion Gap 9 Blood Urea Nitrogen 11 mg/dl Creatinine 0.87 mg/dl Est Glomerular Filtrat > 60 mL/min Rate mL/min Glucose Level 92 mg/dl Calcium Level 8.8 mg/dl Total Bilirubin 0.2 mg/dl Direct Bilirubin 0.00 mg/dl Indirect Bilirubin 0.2 mg/dl Aspartate Amino Transf (AST/SGOT) 18 IU/L Alanine 11 IU/L Aminotransferase (ALT/SGPT) Alkaline Phosphatase 48 IU/L Total Protein 7.5 g/dl Albumin 4.2 g/dl Globulin 3.30 g/dl Albumin/Globulin Ratio 1.27 Lipase 91 U/L Current Medications Medications Dose Sig/Braden Start Time Status Last (Trade) Ordered Route PRN Stop Time Admin Dose Reason Admin 40 ml ONCE STAT 11/17/18 DC 11/17/18 Miscellaneous PO 07:52 08:12 Medication 11/17/18 07:53 (Gi Cocktail (2)) Bell[place]onna/ 2 tab ONCE STAT 11/17/18 DC 11/17/18 Phenobarbital PO 07:52 08:12 () 11/17/18 07:53 Sodium 0 ml @ 0 Q0M ONCE 11/17/18 DC Chloride mls/hr IV 09:04 11/17/18 09:05 Famotidine 20 mg ONCE ONCE 11/17/18 DC (Pepcid Iv) IV 10:00 11/17/18 10:01 Ondansetron 4 mg ONCE STAT 11/17/18 DC HCl (Zofran IV 09:46 Inj) 11/17/18 09:48 80 mg ONCE ONCE 11/17/18 UNV Pantoprazole IV 10:00 (Protonix 11/17/18 10:01 Iv) Ondansetron 4 mg BRIDGE ORDER 11/17/18 DC HCl (Zofran PRN IV 10:30 Inj) NAUSEA/VOMITI 11/17/18 10:30 NG 650 mg ER BRIDGE 11/17/18 DC Acetaminophen PRN PO 10:30 (Tylenol .MILD PAIN 11/17/18 10:30 Tab) 1-3 OR TEMP Potassium 1,000 ml @ [id number] IV 11/17/18 Chloride/Sodi 80 mls/hr 10:19 um Chloride IV Flush 3 ml PER 11/17/18 (NS 3 ml) PROTOCOL IV 10:30 Ondansetron 4 mg Q6H PRN 11/17/18 HCl (Zofran IV 10:30 Inj) NAUSEA/VOMITI NG 650 mg Q6H PRN 11/17/18 Acetaminophen PO .PAIN 1-3 10:30 (Tylenol OR TEMP Tab) 650 mg Q6H PRN 11/17/18 Acetaminophen [place] .PAIN 1-3 10:30 (Tylenol OR TEMP Supp) 1 tab Q6H PRN 11/17/18 Acetaminophen PO .MOD PAIN 10:30 / 4-6 Hydrocodone Bitart ([place] (5/325)) Morphine 1 mg Q4H PRN 11/17/18 Sulfate IV .SEVERE 10:30 (morphine) PAIN 7-10 Docusate 100 mg Q12H PRN 11/17/18 Sodium PO 10:30 (Colace) .CONSTIPATION Magnesium 30 ml DAILY PRN 11/17/18 Hydroxide PO 10:30 (Milk Of Mag) .CONSTIPATION Bisacodyl 10 mg DAILY PRN 11/17/18 (Dulcolax [place] 10:30 Supp) .CONSTIPATION Famotidine 20 mg BID IV 11/17/18 (Pepcid Iv) 21:00 Ferrous 325 mg TID PO 11/17/18 Sulfate 13:00 (Ferrous Sulfate (Ec)) Procedures/MDM MDM The patient's presentation warrants further investigation. Previous medical records, if available, were reviewed. LABS The patient's laboratory testing was obtained and reviewed. No emergent treatme nt was required unless described below. CBC: No E/o systemic infection. Microcytic anemia requiring transfusion. Thrombocytosis, likely reactive. Chemistry: No E/o severe acidosis or alkalosis or renal failure or liver disease or diabetic ketoacidosis Lipase: No E/o pancreatitis FOBT: Pending IMAGING Imaging and Radiology interpretation reviewed. XR Abd FINDINGS: There is no abnormally dilated bowel loops in the abdomen. Moderate retained stool is identified throughout the colon and rectum. Radiodensities in the abdomen likely represent ingested material in the colon. The visualized osse ous structures are intact. The visualized lung bases are clear. Surgical clips are seen in the right upper quadrant of the abdomen. IMPRESSION: Nonobstructive bowel gas pattern. Moderate retained stool. Electronically viewed and signed by Zeinab Baez Physician on 11/17/2018 09:20 TREATMENT/DISPOSITION The patient presents for burning epigastric pain, consistent with gastritis versus peptic ulcer disease. The patient was treated with IV Pepcid and a GI cocktail with some improvement of her abdominal pain. The patient does not have any evidence of peritonitis. The patient does not have clinical symptoms concerning for mesenteric ischemia or ischemic colitis. The patient does not have right upper quadrant tenderness, and I have low suspicion for gallstones, cholecystitis or biliary colic. The patient does not have left upper quadrant tenderness. I have low suspicion for pancreatitis. The patient does not have any right lower quadrant tenderness, or periumbilical tenderness. I have low suspicion for appendicitis. The patient does not have suprapubic tenderness. I have decreased suspicion for cystitis. The patient does not have any left lower quadrant tenderness, and I have low suspicion for diverticulosis or diverticulitis. The patient does not have any flank tenderness. The patient does not have gross hematuria. I have decreased suspicion for nephrolithiasis or renal colic. The patient does not have any palpable pulsatile mass or severe abdominal pain radiating to the back. I have low suspicion for aortic aneurysm, dissection or rupture. During assessment, the patient was found to be significantly anemic. She does have a microcytic anemia, which could be consistent with iron deficiency. Iron studies will need to be completed in the hospital. I am concerned about the possibility of an upper GI bleed given her initial presentation and known history of gastritis. The patient may benefit from further assessment of this in the hospital. She will also require a blood transfusion which will require admission as well. The risks and benefits of transfusion were discussed with the patient and she consented to the intervention. ADMISSION At this time, I feel that the patient requires admission for further evaluation and management. The patient will be admitted to [Panel] in accordance with the patient's insurance. The patient was accepted by Dr. Busby at 9:43 AM on November 17, 2018. Disclaimer: Inadvertent spelling and grammatical errors are likely due to EHR/dictation software use and do not reflect on the overall quality of patient care. Note that the electronic time recorded on this note does not necessarily reflect the actual time of the patient encounter. Departure Diagnosis: Primary Impression: Symptomatic anemia Additional Impressions: Epigastric pain History of uterine fibroid Thrombocytosis Microcytic anemia Condition: Serious LJ COLON MD Nov 17, 2018 10:40
[2018-11-17 13:00] VITALS: BP 168/68; PULSE 68; RESP 16; Ht 167.6 cm; Wt 137.5 kg
[2018-11-17] MEDS: FERROUS SULFATE (EC) 325 MG TAB PO SCH ×2 (13:26→22:24)
[2018-11-17] MEDS: HYDROCODONE/APAP (5/325) TAB PO PRN (13:26)
[2018-11-17 13:30] VITALS: BP 166/66; PULSE 66; RESP 16
[2018-11-17 14:00] VITALS: BP 160/62; PULSE 64; RESP 16
[2018-11-17] MEDS ORDERED: hydrALAzine 20 MG INJ IV ONE (14:00)
[2018-11-17] MEDS: morphine 2 MG INJ IV PRN ×2 (14:20→22:31)
--- NOTE | 2018-11-17 14:27 | HP ---
Date/Time of Note Date/Time of Note DATE: 11/17/18 TIME: 14:17 Assessment/Plan VTE Prophylaxis SCD applied (from Nsg): Yes Pharmacological prophylaxis: NA/contraindicated Pharm contraindication: low risk/ambulating Lines/Catheters IV Catheter Type (from Nrsg): Saline Lock Assessment/Plan Hospital Course Assessment and plan 1. Anemia. Patient denies any further fibroid bleeding. FOBT pending. No hemoptysis reported. Patient is iron deficient. Will start on Ferrlecit. Patient did get 1 PRBC transfusion in the ER. Follow-up on H&H. Transfuse blood products as needed. 2. Abdominal pain. Suspect gastritis. Continue on Carafate and antacid medication. Will get GI consultation. 3. Daily Cannabis smoker. Cessation was advised. 4. Constipation. suspect from daily cannabis use? cessation was advised. f/u GI recommendations 5. Asthma. No active bronchospasms noted. Breathing treatments as needed. Discussed plan of care with Dr. Flood Result Diagram: 11/17/18 0802 11/17/18 0938 Results 24hrs Laboratory Tests Test 11/17/18 08:02 11/17/18 08:06 11/17/18 09:38 11/17/18 10:10 White Blood Count 9.3 Red Blood Count 2.79 L Hemoglobin 6.2 *L Hematocrit 21.8 L Mean Corpuscular 78.1 L Volume Mean Corpuscular 22.2 L Hemoglobin Mean Corpuscular 28.4 L Hemoglobin Concen t Red Cell 20.2 H Distribution Width Platelet Count 584 H Mean Platelet 8.9 Volume Immature 1.300 H Granulocytes % Neutrophils % 60.6 Segmented 75 Neutrophils % (Manual) Band Neutrophils 2 % (Manual) Lymphocytes % 24.9 Lymphocytes % 15 (Manual) Monocytes % 8.9 Monocytes % 3 (Manual) Eosinophils % 3.5 Eosinophils % 5 (Manual) Basophils % 0.8 Nucleated Red 2 H Blood Cells % Immature 0.120 H Granulocytes # Neutrophils # 5.6 Neutrophils # 7.0 (Manual) Band Neutrophils 0.1 # Lymphocytes 1.3 (Manual) Lymphocytes # 2.3 Monocytes # 0.8 Monocytes # 0.2 L (Manual) Eosinophils # 0.3 Basophils # 0.1 Nucleated Red 0.1 H Blood Cells # Platelet Estimate INCREASED Giant Platelets 1 H Polychromasia 1+ Hypochromasia 3+ Poikilocytosis 1+ Anisocytosis 1+ Microcytosis 1+ Ovalocytes 1+ Urine Color YELLOW Urine Clarity SLIGHTLY CLOUDY A Urine pH 5.0 Urine Specific 1.017 [place] Urine Ketones NEGATIVE Urine Nitrite NEGATIVE Urine Bilirubin NEGATIVE Urine NEGATIVE Urobilinogen Urine Leukocyte NEGATIVE Esterase Urine Microscopic 2 RBC Urine Microscopic 1 WBC Urine Squamous FEW Epithelial Cells Urine Bacteria FEW A Urine Hemoglobin 2+ H Urine Glucose NEGATIVE Urine Total NEGATIVE Protein POC Beta HCG, NEGATIVE Qualitative Sodium Level 143 Potassium Level 3.8 Chloride Level 110 Carbon Dioxide 24 Level Anion Gap 9 Blood Urea 11 Nitrogen Creatinine 0.87 Est Glomerular > 60 Filtrat Rate mL/min Glucose Level 92 Calcium Level 8.8 Iron Level 15 L Total Iron 421 Binding Capacity Percent Iron 4 L Saturation Total Bilirubin 0.2 Direct Bilirubin 0.00 Indirect 0.2 Bilirubin Aspartate Amino 18 Transf (AST/SGOT) Alanine 11 L Aminotransferase (ALT/SGPT) Alkaline 48 Phosphatase Total Protein 7.5 Albumin 4.2 Globulin 3.30 H Albumin/Globulin 1.27 Ratio Lipase 91 Stool Occult NEGATIVE Blood Test 11/17/18 11:16 Prothrombin Time 13.4 Prothrombin Time 1.0 Ratio INR International 1.01 Normalized Ratio HPI/ROS Admit Date/Time Admit Date/Time Nov 17, 2018 at 10:07 Hx of Present Illness This is a 33-year-old female with history of fibroids with surgical removal of this 5 years ago, iron deficiency anemia, hypertension, asthma, gastritis, chronic cannabis user, who came to the hospital due to reports of worsening abdominal pain. Patient reports that she had been having abdominal pain for 2 to 3 weeks duration. She reports pain is in the epigastric region and when she lies down does go up midsternally. She denies any chest pain or shortness of breath associated with it. She does report having some nausea but no reported vomiting. She does report that she was having diarrhea watery nonbloody 8 days ago which stopped 3 days ago and for the past 3 days she has been constipated. She reports subjective fevers at home as high as 100.5. Denies any recent travel or any change in her dietary intake. She did go to the hospital for further evaluation. Upon further abdominal imaging she had abd x-ray done showing nonobstructive bowel gas pattern and moderate retained stool. She was noted to be significantly anemic with hemoglobin of 6.2 and hematocrit of 21.8. She did receive 1 unit of packed red blood cells in the ER. Iron studies did show iron deficiency. She does report pain in epigastric area more notably after she eats and especially after lying down. We will evaluate her for the aformentiond issues. PMH/Family/Social Past Medical History Medical/surgical history 1. Fibroids with surgical removal 5 years ago 2. Iron deficiency anemia 3. Hypertension 4. Asthma 5. Gastritis 6. Daily marijuana smoker 7. Cholecystectomy Medications Current Medications Potassium Chloride/Sodium Chloride 1,000 ml @ 80 mls/hr [id number] IV ; Start 11/17/18 at 10:19 IV Flush (NS 3 ml) 3 ml PER PROTOCOL IV ; Start 11/17/18 at 10:30 Ondansetron HCl (Zofran Inj) 4 mg Q6H PRN IV NAUSEA/VOMITING; Start 11/17/18 at 10:30 Acetaminophen (Tylenol Tab) 650 mg Q6H PRN PO .PAIN 1-3 OR TEMP; Start 11/17/18 at 10:30 Acetaminophen (Tylenol Supp) 650 mg Q6H PRN [place] .PAIN 1-3 OR TEMP; Start 11/17/18 at 10:30 Acetaminophen/ Hydrocodone Bitart ([place] (5/325)) 1 tab Q6H PRN PO .MOD PAIN 4- 6 Last administered on 11/17/18at 13:26; Admin Dose 1 TAB; Start 11/17/18 at 10:30 Docusate Sodium (Colace) 100 mg Q12H PRN PO .CONSTIPATION; Start 11/17/18 at 10:30 Magnesium Hydroxide (Milk Of Mag) 30 ml DAILY PRN PO .CONSTIPATION; Start 11/17/18 at 10:30 Bisacodyl (Dulcolax Supp) 10 mg DAILY PRN [place] .CONSTIPATION; Start 11/17/18 at 10:30 Famotidine (Pepcid Iv) 20 mg BID IV ; Start 11/17/18 at 21:00 Ferrous Sulfate (Ferrous Sulfate (Ec)) 325 mg TID PO Last administered on 11/17/18at 13:26; Admin Dose 325 MG; Start 11/17/18 at 13:00 Morphine Sulfate (morphine) 2 mg Q4H PRN IV SEVERE PAIN LEVEL 7-10; Start 11/17/18 at 13:30 Ferric Sodium Gluconate Complex 125 mg/Sodium Chloride 110 ml @ 110 mls/hr DAILY@1300 IVPB ; Start 11/18/18 at 13:00; Stop 11/22/18 at 13:59 Hydralazine HCl (Apresoline) 10 mg Q4H PRN IV sbp>160; Start 11/17/18 at 14:30 Coded Allergies: Penicillins (Unverified Allergy, Unknown, 11/17/18) Past Surgical History Past Surgical Hx: cholecystectomy, endoscopy, other Family History Significant Family History: other (Reports mother has a history of fibroids) Social History Drug Use: marijuana ( daily marijuana smoker) Exam/Review of Systems Vital Signs Vitals Vital Signs Date Temp Pulse Resp B/P (MAP) Pulse Ox O2 O2 Flow FiO2 Time Delivery Rate 11/17/18 72 22 150/85 100 Nasal 09:57 (106) Cannula 11/17/18 98.4 07:32 Exam Constitutional: alert, oriented Psych: nl mood/affect Head: normocephalic Neck: supple, non-tender Respiratory: clear to auscultation Cardiovascular: regular rate and rhythm Gastrointestinal: soft, tender (epigatric area ) Neurological: CUT PLUG PACKER II-XII intact, nl mental status, nl speech Skin: nl MINISTERIO Ramirez NP Nov 17, 2018 14:27
[2018-11-17] MEDS ORDERED: hydrALAzine 20 MG INJ IV PRN (14:30)
[2018-11-17] MEDS: NS + KCL 20 MEQ 1,000 ML IV SCH ×2 (14:41→22:49)
[2018-11-17 15:00] VITALS: BP 140/66; PULSE 68; RESP 16
[2018-11-17] MEDS: SUCRALFATE 1 GM TAB PO SCH ×2 (16:59→22:24)
[2018-11-17 21:07] VITALS: BP 157/74; PULSE 67; RESP 17
[2018-11-17] MEDS: FAMOTIDINE 20 MG INJ IV SCH (22:24)
[2018-11-17] MEDS: ACETAMINOPHEN 325 MG TAB PO PRN (22:31)
[2018-11-18] VITALS (10 sets, daily range): BP systolic 132–176; BP diastolic 65–95; PULSE 67–100; RESP 0–23
[2018-11-18] MEDS: morphine 2 MG INJ IV PRN ×3 (06:43→15:05)
[2018-11-18] MEDS: FAMOTIDINE 20 MG INJ IV SCH (09:16)
[2018-11-18] MEDS: SUCRALFATE 1 GM TAB PO SCH ×4 (09:16→22:11)
[2018-11-18] MEDS: FERROUS SULFATE (EC) 325 MG TAB PO SCH ×3 (09:16→22:11)
[2018-11-18] MEDS: MAGNESIUM HYDROXIDE 30ML CUP PO PRN (11:06)
[2018-11-18] MEDS: ACETAMINOPHEN 325 MG TAB PO PRN (11:10)
[2018-11-18] MEDS: NS + KCL 20 MEQ 1,000 ML IV SCH ×2 (11:19→22:10)
--- NOTE | 2018-11-18 11:48 | CONS ---
Assessment/Plan Assessment/Plan Hospital Course (Demo Recall) Summary Assessment and Plan: Assessment: Severe microcytic anemia Upper abdominal pain Asthma Constipation Enlarged fibroid uterus on imaging -History of fibroids with surgical intervention 5 years ago Hypertension line history of cholecystectomy History of H. pylori- untreated Plan: NPO EGD today Continue H2 kavita IV BID Endoscopy - risks/benefits/alternatives/indications of procedure and sedation/anesthesia discussed with patient who states understanding and gives informed consent to proceed. Patient seen in collaboration with Dr. Queen CC: BASHIR QUEEN MD ; Consultation Date/Type/Reason Admit Date/Time Nov 17, 2018 at 10:07 Date of Consultation: Nov 18, 2018 Type of Consult GI Reason for Consultation Anemia Date/Time of Note DATE: 11/18/18 TIME: 11:44 Hx of Present Illness This is a 33-year-old female past medical history of deficiency anemia, hypertension, asthma, gastritis , chronic marijuana use, fibroids with surgical removal about 5 years ago who presented to the hospital for progressive abdominal pain 2 to 3 weeks. Patient notes pain is better when taking hot showers/baths. Labs obtained in the ED reveal microcytic anemia. Patient states she has heavy menses with large amounts of blood/clots cycle lasting 7 to 11 days. He is previously had EGD and colonoscopy in 2017. Colonoscopy reveale d large internal hemorrhoids and moderate external hemorrhoids otherwise normal to the cecum. Previous EGD has revealed gastritis with biopsies positive for H. pylori patient states she did not follow-up on treatment. Time evaluation patient complains of epigastric pain worse with palpation she states pain is also worse when eating ice and only leaves with morphine. Adrian plan to make strict n.p.o. and proceed with EGD today. I reviewed risk/benefits of sedation and procedure patient verbalized understanding is agreeable. Review of Systems: A 12 system, review was conducted and is negative except as noted in the HPI or here. Past Medical History Home Meds Reported Medications Ferrous Sulfate* (Ferrous Sulfate*) 325 Mg Tabec, 325 MG PO TID, TAB 08/06/18 Discontinued Scripts Ascorbic Acid* (Vitamin C*) 500 Mg Capsule.sa, 500 MG PO DAILY for to help absorb ferrous sulfate for 30 Days, CAP Prov:PUNEET GARCÍA V [employer]ICIAL 09/27/18 Docusate Sodium* (Colace*) 100 Mg Capsule, 100 MG PO QHS for constipation prevention, #30 CAP Prov:PUNEET GARCÍA [employer] OFFICIAL 09/27/18 Ferrous Sulfate* (Ferrous Sulfate*) 325 Mg Tabec, 325 MG PO TID for anemia for 30 Days, TAB Prov:PUNEET GARCÍA V [employer]ICIAL 09/27/18 Famotidine* (Pepcid*) 20 Mg Tablet, 20 MG PO BID for 30 Days, TAB Prov:SEBASTIEN MURPHY MD 08/06/18 Medications Current Medications Potassium Chloride/Sodium Chloride 1,000 ml @ 80 mls/hr [id number] IV Last administered on 11/17/18at 14:41; Admin Dose 80 MLS/HR; Start 11/17/18 at 10:19 IV Flush (NS 3 ml) 3 ml PER PROTOCOL IV ; Start 11/17/18 at 10:30 Ondansetron HCl (Zofran Inj) 4 mg Q6H PRN IV NAUSEA/VOMITING; Start 11/17/18 at 10:30 Acetaminophen (Tylenol Tab) 650 mg Q6H PRN PO .PAIN 1-3 OR TEMP Last administered on 11/18/18at 11:10; Admin Dose 650 MG; Start 11/17/18 at 10:30 Acetaminophen (Tylenol Supp) 650 mg Q6H PRN CO .PAIN 1-3 OR TEMP; Start 11/17/18 at 10:30 Acetaminophen/ Hydrocodone Bitart ([place] (5/325)) 1 tab Q6H PRN PO .MOD PAIN 4- 6 Last administered on 11/17/18at 13:26; Admin Dose 1 TAB; Start 11/17/18 at 10:30 Docusate Sodium (Colace) 100 mg Q12H PRN PO .CONSTIPATION; Start 11/17/18 at 10:30 Magnesium Hydroxide (Milk Of Mag) 30 ml DAILY PRN PO .CONSTIPATION Last administered on 11/18/18at 11:06; Admin Dose 30 ML; Start 11/17/18 at 10:30 Bisacodyl (Dulcolax Supp) 10 mg DAILY PRN CO .CONSTIPATION; Start 11/17/18 at 10:30 Famotidine (Pepcid Iv) 20 mg BID IV Last administered on 11/18/18at 09:16; Admin Dose 20 MG; Start 11/17/18 at 21:00 Ferrous Sulfate (Ferrous Sulfate (Ec)) 325 mg TID PO Last administered on 11/18/18at 09:16; Admin Dose 325 MG; Start 11/17/18 at 13:00 Morphine Sulfate (morphine) 2 mg Q4H PRN IV SEVERE PAIN LEVEL 7-10 Last administered on 11/18/18at 11:06; Admin Dose 2 MG; Start 11/17/18 at 13:30 Ferric Sodium Gluconate Complex 125 mg/Sodium Chloride 110 ml @ 110 mls/hr DAILY@1300 IVPB ; Start 11/18/18 at 13:00; Stop 11/22/18 at 13:59 Hydralazine HCl (Apresoline) 10 mg Q4H PRN IV sbp>160; Start 11/17/18 at 14:30 Sucralfate (Carafate) 1 gm QID PO Last administered on 11/18/18at 09:16; Admin Dose 1 GM; Start 11/17/18 at 17:00 Allergies: Coded Allergies: Penicillins (Unverified Allergy, Unknown, 11/17/18) Past Surgical History Past Surgical Hx: cholecystectomy, endoscopy, other Social History Drug Use: marijuana ( daily marijuana smoker) Exam/Review of Systems Exam Vitals Vital Signs Date Temp Pulse Resp B/P (MAP) Pulse Ox O2 O2 Flow FiO2 Time Delivery Rate 11/18/18 98.2 67 18 142/69 94 02:28 (93) 11/17/18 Room Air 15:00 Intake and Output 11/17/18 11/17/18 11/18/18 1414:59 22:59 06:59 IntakeIntake Total 380 ml 240 ml 500 ml BalanceBalance 380 ml 240 ml 500 ml Exam PHYSICAL EXAMINATION: GENERAL: Obese, alert & oriented x 3, in no acute distress SKIN: No lesions HEAD: Normocephalic, atraumatic, no tenderness. EYES: Pupils equal reactive to light and accommodation, no discharge. EARS/NOSE AND THROAT: Ears normal, nose normal, oropharynx normal. NECK: Supple, no masses. CHEST: Inspection within normal limits. CARDIOVASCULAR: Heart: Regular rate and rhythm RESPIRATORY: Lungs clear to auscultation. GASTROINTESTINAL AND LIVER: Abdomen: Soft, epigastric tenderness, non-distended, no hernias, no masses, no guarding, no rebound tenderness, normoactive bowel sounds. Rectal: Deferred. GENITOURINARY: Female genitalia within normal limits. EXTREMITIES: No cyanosis, clubbing or edema. Results Result Diagram: 11/17/18 1626 11/17/18 0938 Results 24hrs Laboratory Tests Test 11/17/18 16:26 Hemoglobin 7.0 L Hematocrit 23.7 L Medications Medication Current Medications Potassium Chloride/Sodium Chloride 1,000 ml @ 80 mls/hr [id number] IV Last administered on 11/17/18at 14:41; Admin Dose 80 MLS/HR; Start 11/17/18 at 10:19 IV Flush (NS 3 ml) 3 ml PER PROTOCOL IV ; Start 11/17/18 at 10:30 Ondansetron HCl (Zofran Inj) 4 mg Q6H PRN IV NAUSEA/VOMITING; Start 11/17/18 at 10:30 Acetaminophen (Tylenol Tab) 650 mg Q6H PRN PO .PAIN 1-3 OR TEMP Last administered on 11/18/18at 11:10; Admin Dose 650 MG; Start 11/17/18 at 10:30 Acetaminophen (Tylenol Supp) 650 mg Q6H PRN CO .PAIN 1-3 OR TEMP; Start 11/17/18 at 10:30 Acetaminophen/ Hydrocodone Bitart ([place] (5/325)) 1 tab Q6H PRN PO .MOD PAIN 4- 6 Last administered on 11/17/18at 13:26; Admin Dose 1 TAB; Start 11/17/18 at 10:30 Docusate Sodium (Colace) 100 mg Q12H PRN PO .CONSTIPATION; Start 11/17/18 at 10:30 Magnesium Hydroxide (Milk Of Mag) 30 ml DAILY PRN PO .CONSTIPATION Last administered on 11/18/18at 11:06; Admin Dose 30 ML; Start 11/17/18 at 10:30 Bisacodyl (Dulcolax Supp) 10 mg DAILY PRN CO .CONSTIPATION; Start 11/17/18 at 10:30 Famotidine (Pepcid Iv) 20 mg BID IV Last administered on 11/18/18at 09:16; Admin Dose 20 MG; Start 11/17/18 at 21:00 Ferrous Sulfate (Ferrous Sulfate (Ec)) 325 mg TID PO Last administered on 11/18/18at 09:16; Admin Dose 325 MG; Start 11/17/18 at 13:00 Morphine Sulfate (morphine) 2 mg Q4H PRN IV SEVERE PAIN LEVEL 7-10 Last ad ministered on 11/18/18at 11:06; Admin Dose 2 MG; Start 11/17/18 at 13:30 Ferric Sodium Gluconate Complex 125 mg/Sodium Chloride 110 ml @ 110 mls/hr DAILY@1300 IVPB ; Start 11/18/18 at 13:00; Stop 11/22/18 at 13:59 Hydralazine HCl (Apresoline) 10 mg Q4H PRN IV sbp>160; Start 11/17/18 at 14:30 Sucralfate (Carafate) 1 gm QID PO Last administered on 11/18/18at 09:16; Admin Dose 1 GM; Start 11/17/18 at 17:00 ED MELLO Nov 18, 2018 11:48
--- NOTE | 2018-11-18 12:12 | PN ---
Date/Time of Note Date/Time of Note DATE: 11/18/18 TIME: 12:08 Assessment/Plan VTE Prophylaxis Risk score (from Ns)>0 risk: 0 SCD applied (from Ns): Yes Pharmacological prophylaxis: NA/contraindicated Pharm contraindication: low risk/ambulating Lines/Catheters IV Catheter Type (from Nrs): Saline Lock Urinary Cath still in place: No Assessment/Plan Hospital Course Assessment and plan 1. Anemia. - Patient denies any further fibroid bleeding. - No hemoptysis/hematemesis reported. - Patient is iron deficient. - Will start on Ferrlecit. - Patient did get 1 PRBC transfusion in the ER 11.17.18. - Follow-up on H&H. Transfuse blood products as needed. 2. Abdominal pain. - Suspect gastritis. - Continue on Carafate and antacid medication. - GI consult following - plan for EGD 3. Daily Cannabis smoker. - Cessation was advised. 4. Constipation. - suspect from daily cannabis use? - cessation was advised. f/u GI recommendations 5. Asthma. - No active bronchospasms noted. - Breathing treatments as needed. DISPO/PLAN: f/u labs. transfuse blood products as needed. Tentative plan for EGD. Will follow up Discussed plan of care with Dr. Flood Result Diagram: 11/17/18 1626 11/17/18 0938 Results 24hrs Laboratory Tests Test 11/17/18 16:26 Hemoglobin 7.0 L Hematocrit 23.7 L Subjective 24 Hr Interval Summary Free Text/Dictation Still reports having pain epigastric area. States did not want lab work done this morning because she was sleeping.States she is more amenable to getting her blood work checked now. Exam/Review of Systems Exam Vitals Vital Signs Date Temp Pulse Resp B/P (MAP) Pulse Ox O2 O2 Flow FiO2 Time Delivery Rate 11/18/18 98.2 67 18 142/69 94 02:28 (93) 11/17/18 Room Air 15:00 Intake and Output 11/17/18 11/17/18 11/18/18 1515:00 23:00 07:00 IntakeIntake Total 380 ml 240 ml 500 ml BalanceBalance 380 ml 240 ml 500 ml Exam Constitutional: alert, oriented Psych: nl mood/affect Head: normocephalic Neck: supple, non-tender Respiratory: clear to auscultation Cardiovascular: regular rate and rhythm Gastrointestinal: soft, tender (epigatric area ) Neurological: COTTON OPENER II-XII intact, nl mental status, nl speech Skin: nl turgor Results Results 24hrs Laboratory Tests Test 11/17/18 16:26 Hemoglobin 7.0 L Hematocrit 23.7 L Medications Medication Current Medications Potassium Chloride/Sodium Chloride 1,000 ml @ 80 mls/hr [id number] IV Last administered on 11/17/18at 14:41; Admin Dose 80 MLS/HR; Start 11/17/18 at 10:19 IV Flush (NS 3 ml) 3 ml PER PROTOCOL IV ; Start 11/17/18 at 10:30 Ondansetron HCl (Zofran Inj) 4 mg Q6H PRN IV NAUSEA/VOMITING; Start 11/17/18 at 10:30 Acetaminophen (Tylenol Tab) 650 mg Q6H PRN PO .PAIN 1-3 OR TEMP Last administered on 11/18/18at 11:10; Admin Dose 650 MG; Start 11/17/18 at 10:30 Acetaminophen (Tylenol Supp) 650 mg Q6H PRN SD .PAIN 1-3 OR TEMP; Start 11/17/18 at 10:30 Acetaminophen/ Hydrocodone Bitart ([place] (5/325)) 1 tab Q6H PRN PO .MOD PAIN 4- 6 Last administered on 11/17/18at 13:26; Admin Dose 1 TAB; Start 11/17/18 at 10:30 Docusate Sodium (Colace) 100 mg Q12H PRN PO .CONSTIPATION; Start 11/17/18 at 10:30 Magnesium Hydroxide (Milk Of Mag) 30 ml DAILY PRN PO .CONSTIPATION Last administered on 11/18/18at 11:06; Admin Dose 30 ML; Start 11/17/18 at 10:30 Bisacodyl (Dulcolax Supp) 10 mg DAILY PRN SD .CONSTIPATION; Start 11/17/18 at 10:30 Famotidine (Pepcid Iv) 20 mg BID IV Last administered on 11/18/18at 09:16; Admin Dose 20 MG; Start 11/17/18 at 21:00 Ferrous Sulfate (Ferrous Sulfate (Ec)) 325 mg TID PO Last administered on 11/18/18at 09:16; Admin Dose 325 MG; Start 11/17/18 at 13:00 Morphine Sulfate (morphine) 2 mg Q4H PRN IV SEVERE PAIN LEVEL 7-10 Last administered on 11/18/18at 11:06; Admin Dose 2 MG; Start 11/17/18 at 13:30 Ferric Sodium Gluconate Complex 125 mg/Sodium Chloride 110 ml @ 110 mls/hr D AILY@1300 IVPB ; Start 11/18/18 at 13:00; Stop 11/22/18 at 13:59 Hydralazine HCl (Apresoline) 10 mg Q4H PRN IV sbp>160; Start 11/17/18 at 14:30 Sucralfate (Carafate) 1 gm QID PO Last administered on 11/18/18at 09:16; Admin Dose 1 GM; Start 11/17/18 at 17:00 MINISTERIO ALVA NP Nov 18, 2018 12:12
[2018-11-18] MEDS: SOD FERRIC GLUC COMPLX 125 MG in SOD CHLORIDE 0.9% 100 ML IVPB SCH (13:36)
[2018-11-18] MEDS: ONDANSETRON 4 MG INJ IV PRN (13:55)
--- NOTE | 2018-11-18 13:58 | PREAC ---
Date/Time of Note Date/Time of Note DATE: 11/18/18 TIME: 13:57 Anesthesia Eval and Record Evaluation Time Pre-Procedure Interview DATE: 11/18/18 TIME: 13:57 Age 33 Sex female NPO: 8 hrs Preoperative diagnosis Anemia Planned procedure EGD Past Medical History Past Medical History: Includes Cardio: HTN Pulm: Asthma GI: Morbid obesity Heme: Anemia Recreational drugs: Marijuana Surgery & Anesthesia Issues No known issue Meds Anticoagulation: No Beta Nova within 24 hr: No Reason Beta Nova not given: Pt. not on B-Nova Reported Medications Ferrous Sulfate* (Ferrous Sulfate*) 325 Mg Tabec, 325 MG PO TID, TAB 08/06/18 Discontinued Scripts Ascorbic Acid* (Vitamin C*) 500 Mg Capsule.sa, 500 MG PO DAILY for to help absor b ferrous sulfate for 30 Days, CAP Prov:PUNEET GARCÍA NP 09/27/18 Docusate Sodium* (Colace*) 100 Mg Capsule, 100 MG PO QHS for constipation prevention, #30 CAP Prov:PUNEET GARCÍA NP 09/27/18 Ferrous Sulfate* (Ferrous Sulfate*) 325 Mg Tabec, 325 MG PO TID for anemia for 30 Days, TAB Prov:PUNEET GARCÍA NP 09/27/18 Famotidine* (Pepcid*) 20 Mg Tablet, 20 MG PO BID for 30 Days, TAB Prov:SEBASTIEN MURPHY MD 08/06/18 Current Medications Potassium Chloride/Sodium Chloride 1,000 ml @ 80 mls/hr [id number] IV Last administered on 11/17/18at 14:41; Admin Dose 80 MLS/HR; Start 11/17/18 at 10:19 IV Flush (NS 3 ml) 3 ml PER PROTOCOL IV ; Start 11/17/18 at 10:30 Ondansetron HCl (Zofran Inj) 4 mg Q6H PRN IV NAUSEA/VOMITING; Start 11/17/18 at 10:30 Acetaminophen (Tylenol Tab) 650 mg Q6H PRN PO .PAIN 1-3 OR TEMP Last administered on 11/18/18at 11:10; Admin Dose 650 MG; Start 11/17/18 at 10:30 Acetaminophen (Tylenol Supp) 650 mg Q6H PRN CO .PAIN 1-3 OR TEMP; Start 11/17/18 at 10:30 Acetaminophen/ Hydrocodone Bitart ([place] (5/325)) 1 tab Q6H PRN PO .MOD PAIN 4- 6 Last administered on 11/17/18 13:26; Admin Dose 1 TAB; Start 11/17/18 at 10:30 Docusate Sodium (Colace) 100 mg Q12H PRN PO .CONSTIPATION; Start 11/17/18 at 10:30 Magnesium Hydroxide (Milk Of Mag) 30 ml DAILY PRN PO .CONSTIPATION Last administered on 11/18/18at 11:06; Admin Dose 30 ML; Start 11/17/18 at 10:30 Bisacodyl (Dulcolax Supp) 10 mg DAILY PRN CO .CONSTIPATION; Start 11/17/18 at 10:30 Famotidine (Pepcid Iv) 20 mg BID IV Last administered on 11/18/18at 09:16; Admin Dose 20 MG; Start 11/17/18 at 21:00 Ferrous Sulfate (Ferrous Sulfate (Ec)) 325 mg TID PO Last administered on 11/18/18at 12:50; Admin Dose 325 MG; Start 11/17/18 at 13:00 Morphine Sulfate (morphine) 2 mg Q4H PRN IV SEVERE PAIN LEVEL 7-10 Last administered on 11/18/18 11:06; Admin Dose 2 MG; Start 11/17/18 at 13:30 Ferric Sodium Gluconate Complex 125 mg/Sodium Chloride 110 ml @ 110 mls/hr DAILY@1300 IVPB Last administered on 11/18/18at 13:36; Admin Dose 110 MLS/HR; Start 11/18/18 at 13:00; Stop 11/22/18 at 13:59 Hydralazine HCl (Apresoline) 10 mg Q4H PRN IV sbp>160; Start 11/17/18 at 14:30 Sucralfate (Carafate) 1 gm QID PO Last administered on 11/18/18at 12:50; Admin Dose 1 GM; Start 11/17/18 at 17:00 Meds reviewed: Yes Allergies Coded Allergies: Penicillins (Unverified Allergy, Unknown, 11/17/18) Allergies Reviewed: Yes Labs/Studies Labs Reviewed: Reviewed by anesthesiologist Result Diagram: 11/17/18 1626 11/17/18 0938 Laboratory Tests 11/17/18 16:26 test: Negative Pre-procedure Exam Last vitals Vital Signs Date Temp Pulse Resp B/P (MAP) Pulse Ox O2 O2 Flow FiO2 Time Delivery Rate 11/18/18 98.2 67 18 142/69 94 02:28 (93) 11/17/18 Room Air 15:00 Airway: Adequate mouth opening Mallampati: Mallampati II Teeth: Normal Lung: Normal Heart: Normal ASA Physical Status ASA physical status: 4 Emergency: None Planned Anesthetic General/MAC: MAC Pre-operative Attestations Prior to commencing anesthesia and surgery, the patient was re-evaluated, there was verification of: *The patient's identity *The results of appropriate recent lab work and preoperative vital signs *The above evaluation not changing prior to induction *Anesthetic plan, risk benefits, alternative and complications discussed with patient/family; questions answered; patient/family understands, accepts and wishes to proceed. ROBY SPARKS Nov 18, 2018 13:58
[2018-11-18] MEDS ORDERED: LIDOCAINE 100 MG SYRINGE ONE (15:18)
[2018-11-18] MEDS ORDERED: PROPOFOL 40 ML ONE (15:18)
--- NOTE | 2018-11-18 17:47 | PAC ---
Date/Time of Note Date/Time of Note DATE: 11/18/18 TIME: 17:47 Post-Anesthesia Notes Post-Anesthesia Note Last documented vital signs Vital Signs Date Temp Pulse Resp B/P (MAP) Pulse Ox O2 O2 Flow FiO2 Time Delivery Rate 11/18/18 98.4 75 23 176/89 99 Room Air 16:34 (118) Activity: WNL Respiratory function: WNL Cardiovascular function: WNL Mental status: Baseline Pain reasonably controlled: Yes Hydration appropriate: Yes Nausea/Vomiting absent: Yes ROBY SPARKS Nov 18, 2018 17:47
[2018-11-18] MEDS: FAMOTIDINE 20 MG TAB PO SCH (22:11)
[2018-11-19] MEDS ORDERED: PANTOPRAZOLE (EC) 40 MG TAB PO SCH ×2 (06:00→18:00)
[2018-11-19] MEDS: MAGNESIUM HYDROXIDE 30ML CUP PO PRN (07:21)
[2018-11-19] MEDS: HYDROCODONE/APAP (5/325) TAB PO PRN (07:21)
[2018-11-19] MEDS: SUCRALFATE 1 GM TAB PO SCH ×2 (09:34→12:14)
[2018-11-19] MEDS: FAMOTIDINE 20 MG TAB PO SCH (09:34)
[2018-11-19] MEDS: FERROUS SULFATE (EC) 325 MG TAB PO SCH ×2 (09:35→12:14)
[2018-11-19 10:00] VITALS: BP 171/79; PULSE 81
--- NOTE | 2018-11-19 10:14 | PN ---
Date/Time of Note Date/Time of Note DATE: 11/19/18 TIME: 10:08 Assessment/Plan VTE Prophylaxis Risk score (from Ns)>0 risk: 1 SCD applied (from Nsg): Yes Pharmacological prophylaxis: other (scds) Lines/Catheters IV Catheter Type (from [facility]): Peripheral IV Urinary Cath still in place: No Assessment/Plan Hospital Course Summary Assessment and Plan: Assessment: Severe microcytic anemia -EGD 11/18/2018 Moderate gastritis. Rule out H. pylori infection. Biopsies obtained. Otherwise normal EGD Upper abdominal pain Gastric biopsy:Chronic gastritis, moderate to severe, involving body and antral mucosa. No Helicobacter organisms are identified in a Giemsa stain (positive control concurrently -Hx of colonoscopy 2017-internal/external hemorrhoids otherwise normal colon to cecum Asthma Constipation Enlarged fibroid uterus on imaging with history of menorrhagia -History of fibroids with surgical intervention 5 years ago Hypertension History of cholecystectomy History of H. pylori- untreated Chronic marijuana use-advised cessation Plan: Change to PPI BID Regular diet Recommend to avoid cannabis use Monitor h/h,transfuse as needed D/c planning per hospitalist Patient seen in collaboration with Dr. Queen Subjective: Course reviewed with nursing staff Patient interviewed and examined All labs, imaging and other results reviewed The patient states she feels a little better today He is to have postprandial pain however patient states this pain has improved and is better with PPI and pain medication. Discussed results of EGD and biopsy patient does not have H. pylori therefore treatment is not indicated. HGB slowly improving no overt signs of GI bleed. Exam PHYSICAL EXAMINATION: GENERAL: Obese, alert & oriented x 3, in no acute distress SKIN: No lesions HEAD: Normocephalic, atraumatic, no tenderness. EYES: Pupils equal reactive to light and accommodation, no discharge. EARS/NOSE AND THROAT: Ears normal, nose normal, oropharynx normal. NECK: Supple, no masses. CHEST: Inspection within normal limits. CARDIOVASCULAR: Heart: Regular rate and rhythm RESPIRATORY: Lungs clear to auscultation. GASTROINTESTINAL AND LIVER: Abdomen: Soft, epigastric tenderness, non-distended, no hernias, no masses, no guarding, no rebound tenderness, normoactive bowel sounds. Rectal: Deferred. GENITOURINARY: Female genitalia within normal limits. EXTREMITIES: No cyanosis, clubbing or edema. Result Diagram: 11/19/1831 6/19/19 0631 Results 24hrs Laboratory Tests Test 11/18/18 15:11 11/19/18 06:31 White Blood Count 10.2 10.3 Red Blood Count 3.10 L 3.24 L Hemoglobin 7.2 L 7.6 L Hematocrit 24.8 L 26.3 L Mean Corpuscular Volume 80.0 L 81.2 L Mean Corpuscular Hemoglobin 23.2 L 23.5 L Mean Corpuscular Hemoglobin Concent 29.0 L 28.9 L Red Cell Distribution Width 21.3 H 22.4 H Platelet Count 604 H 612 H Mean Platelet Volume 10.2 10.0 Immature Granulocytes % 1.900 H 1.600 H Neutrophils % 64.4 67.7 Lymphocytes % 22.2 18.5 Monocytes % 7.7 7.7 Eosinophils % 3.1 3.6 Basophils % 0.7 0.9 Nucleated Red Blood Cells % 0.8 H 1.1 H Immature Granulocytes # 0.190 H 0.160 H Neutrophils # 6.6 7.0 Lymphocytes # 2.3 1.9 Monocytes # 0.8 0.8 Eosinophils # 0.3 0.4 Basophils # 0.1 0.1 Nucleated Red Blood Cells # 0.1 H 0.1 H Prothrombin Time 14.1 Prothrombin Time Ratio 1.1 INR International Normalized Ratio 1.08 Activated Partial Thromboplast Time 36.4 H Thrombin Time 16.1 Sodium Level 139 143 Potassium Level 3.8 4.1 Chloride Level 109 107 Carbon Dioxide Level 24 23 Anion Gap 6 13 # Blood Urea Nitrogen 8 10 Creatinine 0.84 0.81 Est Glomerular Filtrat Rate mL/min > 60 > 60 Glucose Level 88 105 Hemoglobin A1c 5.5 Calcium Level 8.8 8.7 Phosphorus Level 3.0 Magnesium Level 2.2 Total Bilirubin 0.3 Direct Bilirubin 0.00 Indirect Bilirubin 0.3 Aspartate Amino Transf (AST/SGOT) 22 Alanine Aminotransferase (ALT/SGPT) 21 Alkaline Phosphatase 50 Total Protein 6.9 Albumin 4.0 Globulin 2.90 Albumin/Globulin Ratio 1.37 Triglycerides Level 57 Cholesterol Level 151 LDL Cholesterol, Calculated 102 HDL Cholesterol 38 Cholesterol/HDL Ratio 3.9 Thyroid Stimulating Hormone (TSH) 0.962 Free Thyroxine Index 2.55 Thyroxine (T4) 7.5 Triiodothyronine (T3) Uptake 34.0 Exam/Review of Systems Exam Vitals Vital Signs Date Temp Pulse Resp B/P (MAP) Pulse Ox O2 O2 Flow FiO2 Time Delivery Rate 11/18/18 67 141/68 19:00 (92) 11/18/18 98.5 18 93 18:09 11/18/18 Room Air 17:53 11/18/18 3.0 17:45 Intake and Output 11/18/18 11/18/18 11/19/18 1515:00 23:00 07:00 IntakeIntake Total 110 ml 350 ml 120 ml BalanceBalance 110 ml 350 ml 120 ml Results Results 24hrs Laboratory Tests Test 11/18/18 15:11 11/19/18 06:31 White Blood Count 10.2 10.3 Red Blood Count 3.10 L 3.24 L Hemoglobin 7.2 L 7.6 L Hematocrit 24.8 L 26.3 L Mean Corpuscular Volume 80.0 L 81.2 L Mean Corpuscular Hemoglobin 23.2 L 23.5 L Mean Corpuscular Hemoglobin Concent 29.0 L 28.9 L Red Cell Distribution Width 21.3 H 22.4 H Platelet Count 604 H 612 H Mean Platelet Volume 10.2 10.0 Immature Granulocytes % 1.900 H 1.600 H Neutrophils % 64.4 67.7 Lymphocytes % 22.2 18.5 Monocytes % 7.7 7.7 Eosinophils % 3.1 3.6 Basophils % 0.7 0.9 Nucleated Red Blood Cells % 0.8 H 1.1 H Immature Granulocytes # 0.190 H 0.160 H Neutrophils # 6.6 7.0 Lymphocytes # 2.3 1.9 Monocytes # 0.8 0.8 Eosinophils # 0.3 0.4 Basophils # 0.1 0.1 Nucleated Red Blood Cells # 0.1 H 0.1 H Prothrombin Time 14.1 Prothrombin Time Ratio 1.1 INR International Normalized Ratio 1.08 Activated Partial Thromboplast Time 36.4 H Thrombin Time 16.1 Sodium Level 139 143 Potassium Level 3.8 4.1 Chloride Level 109 107 Carbon Dioxide Level 24 23 Anion Gap 6 13 # Blood Urea Nitrogen 8 10 Creatinine 0.84 0.81 Est Glomerular Filtrat Rate mL/min > 60 > 60 Glucose Level 88 105 Hemoglobin A1c 5.5 Calcium Level 8.8 8.7 Phosphorus Level 3.0 Magnesium Level 2.2 Total Bilirubin 0.3 Direct Bilirubin 0.00 Indirect Bilirubin 0.3 Aspartate Amino Transf (AST/SGOT) 22 Alanine Aminotransferase (ALT/SGPT) 21 Alkaline Phosphatase 50 Total Protein 6.9 Albumin 4.0 Globulin 2.90 Albumin/Globulin Ratio 1.37 Triglycerides Level 57 Cholesterol Level 151 LDL Cholesterol, Calculated 102 HDL Cholesterol 38 Cholesterol/HDL Ratio 3.9 Thyroid Stimulating Hormone (TSH) 0.962 Free Thyroxine Index 2.55 Thyroxine (T4) 7.5 Triiodothyronine (T3) Uptake 34.0 Medications Medication Current Medications Potassium Chloride/Sodium Chloride 1,000 ml @ 80 mls/hr [id number] IV Last administered on 11/18/18 22:10; Admin Dose 80 MLS/HR; Start 11/17/18 at 10:19 IV Flush (NS 3 ml) 3 ml PER PROTOCOL IV ; Start 11/17/18 at 10:30 Ondansetron HCl (Zofran Inj) 4 mg Q6H PRN IV NAUSEA/VOMITING Last administered on 11/18/18 13:55; Admin Dose 4 MG; Start 11/17/18 at 10:30 Acetaminophen (Tylenol Tab) 650 mg Q6H PRN PO .PAIN 1-3 OR TEMP Last administered on 11/18/18 11:10; Admin Dose 650 MG; Start 11/17/18 at 10:30 Acetaminophen (Tylenol Supp) 650 mg Q6H PRN GA .PAIN 1-3 OR TEMP; Start 11/17/18 at 10:30 Acetaminophen/ Hydrocodone Bitart ([place] (5/325)) 1 tab Q6H PRN PO .MOD PAIN 4- 6 Last administered on 11/19/18 07:21; Admin Dose 1 TAB; Start 11/17/18 at 10:30 Docusate Sodium (Colace) 100 mg Q12H PRN PO .CONSTIPATION; Start 11/17/18 at 10:30 Magnesium Hydroxide (Milk Of Mag) 30 ml DAILY PRN PO .CONSTIPATION Last administered on 11/19/18 07:21; Admin Dose 30 ML; Start 11/17/18 at 10:30 Bisacodyl (Dulcolax Supp) 10 mg DAILY PRN GA .CONSTIPATION Last administered on 11/19/18 08:33; Admin Dose 10 MG; Start 11/17/18 at 10:30 Ferrous Sulfate (Ferrous Sulfate (Ec)) 325 mg TID PO Last administered on 11/19/18 09:35; Admin Dose 325 MG; Start 11/17/18 at 13:00 Morphine Sulfate (morphine) 2 mg Q4H PRN IV SEVERE PAIN LEVEL 7-10 Last administered on 11/18/18at 15:05; Admin Dose 2 MG; Start 11/17/18 at 13:30 Ferric Sodium Gluconate Complex 125 mg/Sodium Chloride 110 ml @ 110 mls/hr DAILY@1300 IVPB Last administered on 11/18/18at 13:36; Admin Dose 110 MLS/HR; Start 11/18/18 at 13:00; Stop 11/22/18 at 13:59 Hydralazine HCl (Apresoline) 10 mg Q4H PRN IV sbp>160; Start 11/17/18 at 14:30 Sucralfate (Carafate) 1 gm QID PO Last administered on 11/19/18 09:34; Admin Dose 1 GM; Start 11/17/18 at 17:00 Famotidine (Pepcid) 20 mg BID PO Last administered on 11/19/18at 09:34; Admin Dose 20 MG; Start 11/18/18 at 21:00 Pantoprazole (Protonix Tab) 40 mg DAILY@06 PO ; Start 11/19/18 at 06:00 ED MELLO Nov 19, 2018 10:14
[2018-11-19] MEDS: morphine 2 MG INJ IV PRN ×2 (10:17→15:33)
[2018-11-19] MEDS ORDERED: POLYETHYLENE GLYCOL 17 GM PACKET PO PRN (10:30)
[2018-11-19 10:32] VITALS: BP 148/76; PULSE 68
[2018-11-19] MEDS ORDERED: ONDANSETRON 4 MG TAB PO PRN (12:00)
[2018-11-19] MEDS: ONDANSETRON 4 MG INJ IV PRN (12:28)
[2018-11-19] MEDS ORDERED: FER325 PO (13:13)
[2018-11-19] MEDS ORDERED: ONDA4TAB95 PO (13:13)
[2018-11-19] MEDS ORDERED: PANT40TA3 PO (13:13)
--- NOTE | 2018-11-19 13:15 | PDOCDIS ---
Discharge Instructions DIAGNOSIS Discharge Diagnosis 1. Anemia. 2. Abdominal pain. 3. Daily Cannabis smoker. 4. Constipation. 5. Asthma. CONDITION [id number] Patient Condition: [id number] Stable HOME CARE INSTRUCTIONS: [id number] Diet Instructions: [id number] Low Fat /Cholesterol ACTIVITY: [id number] Activity Restrictions: [id number] No Restrictions [id number] Bathing Restrictions: [id number] Shower FOLLOW UP/APPOINTMENTS Follow-up Plan 1. Follow up with Dr. Wei Queen in one week Office Address [id number] [place] [id number] Office MINISTERIO ALVA NP Nov 19, 2018 13:15
--- NOTE | 2018-11-19 13:40 | DS ---
Date/Time of Note Date/Time of Note DATE: 11/19/18 TIME: 13:38 Discharge Summary Admission/Discharge Info Admit Date/Time Nov 17, 2018 at 10:07 Discharge Date/Time Discharge Diagnosis 1. Anemia. 2. Abdominal pain. 3. Daily Cannabis smoker. 4. Constipation. 5. Asthma. Patient Condition: Stable Consults 1. Dr. Wei Queen Hospital Course This is a 33-year-old female with history of fibroids with surgical removal of this 5 years ago, iron deficiency anemia, hypertension, asthma, gastritis, chronic cannabis user, who came to the hospital due to reports of worsening ab dominal pain. Patient reports that she had been having abdominal pain for 2 to 3 weeks duration. She reports pain is in the epigastric region and when she lies down does go up midsternally. She denies any chest pain or shortness of breath associated with it. She does report having some nausea but no reported vomiting. She does report that she was having diarrhea watery nonbloody 8 days ago which stopped 3 days ago and for the past 3 days she has been constipated. She reports subjective fevers at home as high as 100.5. Denies any recent travel or any change in her dietary intake. She did go to the hospital for further evaluation. Upon further abdominal imaging she had abd x-ray done showing nonobstructive bowel gas pattern and moderate retained stool. She was noted to be significantly anemic with hemoglobin of 6.2 and hematocrit of 21.8. She did receive 1 unit of packed red blood cells in the ER. She did have good response with this. Additionally we did get trucking supervisor to follow the patient. She did undergo EGD that did show gastritis. Per GI recommendations we provide her with PPI medication. She was also advised for cessation of cannabis use. Her anemia did improve and she was provided with IV iron and advised for compliance with her home oral iron medication. During the course of stay she did improve. She was advised for weight reduction and compliance with a PPI medication and cessation of cannabis use. The plan of care was discussed with the patient and patient verbalized understanding. She was advised outpatient follow-up with trucking supervisor. On the day of discharge patient was in stable condition Discussed plan of care with Dr. Flood [facility] Active Scripts Pantoprazole* (Protonix*) 40 Mg Tablet., 40 MG PO BID, #60 TAB Prov:NIDAMINISTERIO HOSPITALIST NOCTURNIST PHYSICIAN 11/19/18 Ondansetron Hcl* (Ondansetron Hcl*) 4 Mg Tablet, 8 MG PO Q6H PRN for NAUSEA AND/OR VOMITING, #30 TAB Prov:JOSEYJULIENNEZARI EspinozaMINISTERIO HOSPITALIST NOCTURNIST PHYSICIAN 11/19/18 Ferrous Sulfate* (Ferrous Sulfate*) 325 Mg Tabec, 325 MG PO TID, #90 TAB Prov:JOSEYGISELLEZARIMINISTERIO HOSPITALIST NOCTURNIST PHYSICIAN 11/19/18 Discontinued Scripts Ascorbic Acid* (Vitamin C*) 500 Mg Capsule.sa, 500 MG PO DAILY for to help absorb ferrous sulfate for 30 Days, CAP Prov:PUNEET GARCÍA NP 09/27/18 Docusate Sodium* (Colace*) 100 Mg Capsule, 100 MG PO QHS for constipation prevention, #30 CAP Prov:PUNEET GARCÍA V HOSPITALIST NOCTURNIST PHYSICIAN 09/27/18 Ferrous Sulfate* (Ferrous Sulfate*) 325 Mg Tabec, 325 MG PO TID for anemia for 30 Days, TAB Prov:PUNEET GARCÍA V HOSPITALIST NOCTURNIST PHYSICIAN 09/27/18 Famotidine* (Pepcid*) 20 Mg Tablet, 20 MG PO BID for 30 Days, TAB Prov:SEBASTIEN MURPHY MD 08/06/18 Follow-up Plan 1. Follow up with Dr. Wei Queen in one week Office Address [address] [place] [id number] Office Primary Care Provider Not On Staff Doctor Time spent on discharge: > 30 minutes Pending Labs Laboratory Tests Test 11/18/18 15:11 11/19/18 06:31 White Blood Count 10.2 10^3/ul (4.8-10.8) 10.3 10^3/ul (4.8-10.8) Red Blood Count 3.10 10^6/ul (4.20-5.40) 3.24 10^6/ul (4.20-5.40) Hemoglobin 7.2 g/dl (12.0-16.0) 7.6 g/dl (12.0-16.0) Hematocrit 24.8 % (37.0-47.0) 26.3 % (37.0-47.0) Mean Corpuscular Volume 80.0 fl (82.0-101.0) 81.2 fl (82.0-101.0) Mean Corpuscular 23.2 pg (29.0-33.0) 23.5 pg (29.0-33.0) Hemoglobin Mean Corpuscular 29.0 g/dl (32.0-37.0) 28.9 g/dl (32.0-37.0) Hemoglobin Concent Red Cell Distribution 21.3 % (11.5-14.5) 22.4 % (11.5-14.5) Width Platelet Count 604 10^3/UL (140-415) 612 10^3/UL (140-415) Mean Platelet Volume 10.2 fl (7.4-10.4) 10.0 fl (7.4-10.4) Immature Granulocytes % 1.900 % (0.001-0.429) 1.600 % (0.001-0.429) Neutrophils % 64.4 % (39.0-77.0) 67.7 % (39.0-77.0) Lymphocytes % 22.2 % (15.0-51.0) 18.5 % (15.0-51.0) Monocytes % 7.7 % (0.0-11.0) 7.7 % (0.0-11.0) Eosinophils % 3.1 % (0.0-7.0) 3.6 % (0.0-7.0) Basophils % 0.7 % (0.0-2.0) 0.9 % (0.0-2.0) Nucleated Red Blood Cells 0.8 /100WBC (0.0-0.0) 1.1 /100WBC (0.0-0.0) % Immature Granulocytes # 0.190 10^3/ul (0.0-0.031) 0.160 10^3/ul (0.0-0.031) Neutrophils # 6.6 10^3/ul (1.6-7.5) 7.0 10^3/ul (1.6-7.5) Lymphocytes # 2.3 10^3/ul (0.8-2.9) 1.9 10^3/ul (0.8-2.9) Monocytes # 0.8 10^3/ul (0.3-0.9) 0.8 10^3/ul (0.3-0.9) Eosinophils # 0.3 10^3/ul (0.0-0.5) 0.4 10^3/ul (0.0-0.5) Basophils # 0.1 10^3/ul (0.0-0.1) 0.1 10^3/ul (0.0-0.1) Nucleated Red Blood Cells 0.1 10^3/ul (0.0-0.0) 0.1 10^3/ul (0.0-0.0) # Prothrombin Time 14.1 Sec (11.9-14.9) Prothrombin Time Ratio 1.1 INR International 1.08 Normalized Ratio Activated 36.4 Sec (23.0-35.0) Partial Thromboplast Time Thrombin Time 16.1 SEC (13.8-19.1) Sodium Level 139 mmol/L (135-144) 143 mmol/L (135-144) Potassium Level 3.8 mmol/L (3.5-5.1) 4.1 mmol/L (3.5-5.1) Chloride Level 109 mmol/L (97-110) 107 mmol/L (97-110) Carbon Dioxide Level 24 mmol/L (21-31) 23 mmol/L (21-31) Anion Gap 6 (5-13) 13 (5-13) Blood Urea Nitrogen 8 mg/dl (7-20) 10 mg/dl (7-20) Creatinine 0.84 mg/dl (0.44-1.00) 0.81 mg/dl (0.44-1.00) Est Glomerular Filtrat > 60 mL/min (>60) > 60 mL/min (>60) Rate mL/min Glucose Level 88 mg/dl (70-220) 105 mg/dl (70-220) Hemoglobin A1c 5.5 % (0-5.9) Calcium Level 8.8 mg/dl (8.4-10.2) 8.7 mg/dl (8.4-10.2) Phosphorus Level 3.0 mg/dl (2.5-4.9) Magnesium Level 2.2 mg/dl (1.7-2.5) Total Bilirubin 0.3 mg/dl (0.2-1.3) Direct Bilirubin 0.00 mg/dl (0.00-0.20) Indirect Bilirubin 0.3 mg/dl (0-1.1) Aspartate Amino 22 IU/L (15-46) Transf (AST/SGOT) Alanine 21 IU/L (13-69) Aminotransferase (ALT/SGPT ) Alkaline Phosphatase 50 IU/L (42-121) Total Protein 6.9 g/dl (6.1-8.1) Albumin 4.0 g/dl (3.3-4.9) Globulin 2.90 g/dl (1.3-3.2) Albumin/Globulin Ratio 1.37 Triglycerides Level 57 mg/dl (0-149) Cholesterol Level 151 mg/dl (100-200) LDL Cholesterol, 102 mg/dl Calculated HDL Cholesterol 38 mg/dl (34-82) Cholesterol/HDL Ratio 3.9 RATIO Thyroid Stimulating 0.962 MIU/L (0.465-4.680) Hormone (TSH) Free Thyroxine Index 2.55 ug/ml (0.65-3.89) Thyroxine (T4) 7.5 ug/dl (5.5-11.0) Triiodothyronine (T3) 34.0 % (23.5-40.5) Uptake MINISTERIO ALVA NP Nov 19, 2018 13:40
[2018-11-19] MEDS: SOD FERRIC GLUC COMPLX 125 MG in SOD CHLORIDE 0.9% 100 ML IVPB SCH (13:55)
[2018-11-19 14:00] VITALS: BP 162/78; PULSE 89; RESP 18
[2018-11-19 16:10] VITALS: BP 138/76; PULSE 72
== END 2018-11-19 16:10 | disposition home or self-care (01) | DRG 812 ==
LOC: FTE 07:28 → PP2 10:07 → MS1 20:47
PROVIDERS: ADMIT Internal Medicine; ATTEND Internal Medicine
PROC: 30233N1 Transfusion of Nonautologous Red Blood Cells into Peripheral Vein, Percutaneous Approach (ICD-10-PCS; principal; 2018-11-17)
PROC: 0DB68ZX Excision of Stomach, Via Natural or Artificial Opening Endoscopic, Diagnostic (ICD-10-PCS; 2018-11-18)
DX: D64.9 Anemia, unspecified (principal); Z68.42 Body mass index [BMI] 45.0-49.9, adult; E66.01 Morbid (severe) obesity due to excess calories; K29.50 Unspecified chronic gastritis without bleeding; F12.10 Cannabis abuse, uncomplicated; R10.13 Epigastric pain; J45.909 Unspecified asthma, uncomplicated; I10 Essential (primary) hypertension; K59.00 Constipation, unspecified; D50.9 Iron deficiency anemia, unspecified; Z71.3 Dietary counseling and surveillance; Z90.49 Acquired absence of other specified parts of digestive tract
CPT/HCPCS: 36415; 36430; 74018; 74176; 80048; 80053; 80061; 81001; 81025; 82270; 83036; 83540; 83690; 83735; 84100; 84436; 84443; 84479; 85014; 85018; 85025; 85049; 85610; 85670; 85730; 86850; 86900; 86901; 86920; 88305; 88312; J0360; J2001; J2270; J2405; J2916; J3480; J7040; P9016

== ENCOUNTER 2019-01-15 16:13 | Inpatient (IN) | payer OTHER ==
[~2019-01-15] VITALS: Ht 167.6 cm; Wt 119.0 kg
[~2019-01-15 16:13] MED LIST changes: +AMLO-145 PO; -ASCO500C7 PO; +CARI350T29 PO; -FAMO-96 PO; +IBUP800T48 PO; +ONDA4TAB95 PO; +PANT40TA3 PO; +TRAM50TA2 PO
[2019-01-15 16:19] VITALS: Ht 167.6 cm; Wt 119.0 kg
[2019-01-15] MEDS ORDERED: SOD CHLORIDE 0.9% 0 ML IV ONE (18:07)
[2019-01-15] MEDS ORDERED: SOD CHLORIDE 0.9% 1,000 ML IV SCH (18:36)
[2019-01-15] MEDS ORDERED: HYDROCODONE/APAP (5/325) TAB PO PRN (19:00)
[2019-01-15] MEDS ORDERED: ACETAMINOPHEN 325 MG TAB PO PRN ×2 (19:00)
[2019-01-15] MEDS ORDERED: ONDANSETRON 4 MG INJ IV PRN (19:00)
[2019-01-15] MEDS ORDERED: NACL 0.9% 3 ML SYG IV SCH (19:00)
[2019-01-15] MEDS ORDERED: KETOROLAC 30 MG INJ IV STA (21:09)
[2019-01-16 00:55] VITALS: BMI 42.3
[2019-01-16 01:27] VITALS: BP 134/67; PULSE 79; RESP 18
[2019-01-16] MEDS: morphine 4 MG/ML VIAL IV PRN ×2 (01:49→07:50)
[2019-01-16 02:33] VITALS: BP 130/67; PULSE 70; RESP 18
[2019-01-16] MEDS: PANTOPRAZOLE (EC) 40 MG TAB PO SCH ×2 (06:27→17:35)
[2019-01-16 07:28] VITALS: BP 152/82; PULSE 78; RESP 18
[2019-01-16] MEDS: FERROUS SULFATE (EC) 325 MG TAB PO SCH ×3 (08:28→21:32)
[2019-01-16] MEDS: AMLODIPINE 5 MG TAB PO SCH (08:29)
[2019-01-16] MEDS: ONDANSETRON 4 MG INJ IV PRN (10:24)
[2019-01-16] MEDS: CARISOPRODOL 350 MG TAB PO SCH ×2 (13:03→21:32)
[2019-01-16] MEDS: morphine 2 MG INJ IV PRN ×3 (13:06→22:58)
[2019-01-16 14:15] VITALS: BP 144/72; PULSE 77; RESP 19
[2019-01-16] MEDS: SOD FERRIC GLUC COMPLX 125 MG in SOD CHLORIDE 0.9% 100 ML IVPB SCH (14:56)
[2019-01-16 20:30] VITALS: BP 129/67; PULSE 74; RESP 18
[2019-01-16] MEDS: traMADol-APAP 37.5-325 1 TAB PO PRN (21:32)
[2019-01-17 02:41] VITALS: BP 129/70; PULSE 74; RESP 16
[2019-01-17] MEDS: PANTOPRAZOLE (EC) 40 MG TAB PO SCH ×2 (06:04→17:48)
[2019-01-17] MEDS: morphine 2 MG INJ IV PRN ×3 (06:04→18:03)
[2019-01-17 07:29] VITALS: BP 137/92; PULSE 64; RESP 20
[2019-01-17] MEDS: ONDANSETRON 4 MG INJ IV PRN (08:24)
[2019-01-17] MEDS: FERROUS SULFATE (EC) 325 MG TAB PO SCH ×3 (09:08→21:31)
[2019-01-17] MEDS: CARISOPRODOL 350 MG TAB PO SCH ×3 (09:08→21:32)
[2019-01-17] MEDS: AMLODIPINE 5 MG TAB PO SCH (09:09)
[2019-01-17] MEDS: traMADol-APAP 37.5-325 1 TAB PO PRN (10:38)
[2019-01-17] MEDS: SOD FERRIC GLUC COMPLX 125 MG in SOD CHLORIDE 0.9% 100 ML IVPB SCH (12:04)
[2019-01-17 13:43] VITALS: BP 146/81; PULSE 70; RESP 20
[2019-01-17 19:36] VITALS: BP 135/70; PULSE 69; RESP 18
[2019-01-18] MEDS: morphine 2 MG INJ IV PRN ×2 (01:26→07:38)
[2019-01-18] MEDS: PANTOPRAZOLE (EC) 40 MG TAB PO SCH (06:35)
[2019-01-18 07:52] VITALS: BP 149/71; PULSE 64; RESP 19
[2019-01-18] MEDS ORDERED: traMADol 50 MG TAB PO PRN (08:00)
[2019-01-18] MEDS: FERROUS SULFATE (EC) 325 MG TAB PO SCH ×2 (08:47→12:54)
[2019-01-18] MEDS: CARISOPRODOL 350 MG TAB PO SCH ×2 (08:47→12:54)
[2019-01-18] MEDS: AMLODIPINE 5 MG TAB PO SCH (08:48)
[2019-01-18] MEDS: ONDANSETRON 4 MG INJ IV PRN (09:43)
[2019-01-18] MEDS: SOD FERRIC GLUC COMPLX 125 MG in SOD CHLORIDE 0.9% 100 ML IVPB SCH (13:00)
== END 2019-01-18 15:18 | disposition home or self-care (01) | DRG 812 ==
LOC: FTE 16:13 → UNDOADMIN 18:37 → 2NE 18:37 → CANRESERV 21:00
PROVIDERS: ADMIT Internal Medicine; ATTEND Internal Medicine
PROC: 30233N1 Transfusion of Nonautologous Red Blood Cells into Peripheral Vein, Percutaneous Approach (ICD-10-PCS; principal; 2019-01-15)
DX: D50.0 Iron deficiency anemia secondary to blood loss (chronic) (principal); Z68.41 Body mass index [BMI] 40.0-44.9, adult; I16.0 Hypertensive urgency; K29.70 Gastritis, unspecified, without bleeding; I10 Essential (primary) hypertension; D63.8 Anemia in other chronic diseases classified elsewhere; E66.9 Obesity, unspecified; D25.9 Leiomyoma of uterus, unspecified; G89.29 Other chronic pain; Z88.0 Allergy status to penicillin
CPT/HCPCS: 36430; 72110; 76830; 76856; 80048; 80053; 81001; 83036; 83735; 84703; 85025; 86850; 86900; 86901; 86920; 87086; J1885; J2270; J2405; J2916; J7030; J7040; P9016

== ENCOUNTER 2019-03-21 22:25 | Emergency (ER) | payer OTHER ==
[~2019-03-21] VITALS: Ht 167.6 cm; Wt 114.7 kg
[~2019-03-21 22:25] MED LIST changes: +AMOX500C2 PO; +CARAS PO; +FLUT9.9S NASAL; +HYDR-4011 PO; +HYOS0.1297 SL; -IBUP800T48 PO; +LUBI8CAP4 PO; +NAPR-985 PO; +NIFE30TA2 PO; +OXYC-438 PO; +PANT40TA4 PO; +TRAM50TA PO
[2019-03-21 22:39] VITALS: Ht 167.6 cm; Wt 114.7 kg
[2019-03-22] MEDS ORDERED: ONDANSETRON (ODT) 4 MG TAB ODT STA (01:47)
[2019-03-22] MEDS ORDERED: IBUPROFEN 600 MG TAB PO ONE (02:00)
[2019-03-22] MEDS ORDERED: SOD CHLORIDE 0.9% 1,000 ML IV ONE (03:30)
[2019-03-22 06:04] VITALS: BP 132/62; PULSE 87; RESP 18
== END 2019-03-22 06:04 | disposition home or self-care (01) ==
LOC: FTE 22:25
DX: R11.2 Nausea with vomiting, unspecified (principal); R09.81 Nasal congestion; F17.210 Nicotine dependence, cigarettes, uncomplicated; R19.7 Diarrhea, unspecified
CPT/HCPCS: 80048; 85025; J7030; Z7610; 96360; 96361